=== PATIENT | female | born 1995 | race Hispanic/Latino ===

== ENCOUNTER 2020-05-10 16:19 | Outpatient (RCR) | payer OTHER, SELFPAY ==
[2020-03-21 12:23] LABS: Hematocrit 33.6 % (37.0-47.0); Hemoglobin 11.4 g/dL (12.0-15.0)
[2020-03-21 13:14] LABS: HIV 1/2 Ab P24 Ag Result Negative (Negative)
[2020-03-22 07:46] LABS: Rapid Plasma Reagin Non-Reactive (NonReactive)
[2020-03-23] MEDS: RHO(D) IMMUNE GLOBULIN 300 MCG SYRINGE IM (16:27)
[2020-04-19 08:33] VITALS: BP 131/77; PULSE 90
[2020-05-10 17:05] VITALS: PULSE 88
== END 2020-06-19 23:59 | disposition home or self-care (01) ==
LOC: ANHLAB 16:19
PROVIDERS: PCP Family Medicine; Visit Provider Obstetrics & Gynecology
DX: Z29.13 Encounter for prophylactic Rho(D) immune globulin (principal); O36.0130 Maternal care for anti-D [Rh] antibodies, third trimester, not applicable or unspecified; Z11.4 Encounter for screening for human immunodeficiency virus [HIV]; Z3A.00 Weeks of gestation of pregnancy not specified
CPT/HCPCS: 36415; 59025; 85014; 85018; 85461; 86592; 86703; 90384; 96372; G0432; J2790

== ENCOUNTER 2020-05-28 06:05 | Inpatient (IN) | payer OTHER, SELFPAY ==
[2020-05-28] VITALS (20 sets, daily range): BP systolic 107–145; BP diastolic 52–110; PULSE 53–105; RESP 16; TEMP 35.7–36.6; O2SAT 99; BMI 37.1
[2020-05-28 06:45] LABS: Glucose Point of Care 110 (65-105)
[2020-05-28 06:53] LABS: Basophils Percent Auto 0.2 % (0.2-1.2); Eosinophils Absolute Auto 0.2 K/mm3 (0-0.3); Eosinophils Percent Auto 1.5 % (0-4.4); Hematocrit 32.9 % (37.0-47.0); Hemoglobin 10.9 g/dL (12.0-15.0); Immature Granulocyte Absolute 0.08 K/mm3 (0.00-0.031); Immature Granulocyte Percent A 0.7 % (0-0.5); Lymphocytes Absolute Auto 2.84 K/mm3 (0.9-3.2); Lymphocytes Percent Auto 26.3 % (18.3-44.2); Mean Corpuscular HGB Conc 33.1 g/dl (32-36); Mean Corpuscular Volume 84.6 fl (80-100); Mean Platelet Volume 10.1 fl (7.4-10.4); Monocytes Absolute Auto 0.7 K/mm3 (0.1-0.6); Neutrophils Percent Auto 65.3 % (45.5-73.1); Platelet Count Result 232 k/mm3 (150-375); Red Blood Count 3.89 M/mm3 (4.2-5.4); Red Cell Distribution Width 13.5 % (11.5-14.5); White Blood Count 10.8 K/mm3 (4.5-10.0)
--- NOTE | 2020-05-28 06:53 | WPDANESEPP ---
Anes - Eval Pre Procedure Procedure: labor epidural Date/Time: 05/28/20 06:53 Preop Diagnosis: labor pain Pre Op Diagnosis: IOL Patient Data Age: 24 Gender: F Height: Weight: Last Vital Signs Pulse 92 05/28/20 06:45 BP 116/72 05/28/20 06:45 Allergies Allergy/AdvReac Type Severity Reaction Status Date / Time No Known Allergies Allergy Unverified 09/09/19 09:18 Home Medications Medication Instructions Recorded Confirmed Type aspirin [Aspirin Low Dose] 81 mg PO DAILY 05/09/20 05/09/20 History insulin detemir U-100 [Levemir 34 unit SUBCUT QAM 05/09/20 05/09/20 History Flexpen] insulin detemir U-100 [Levemir 54 unit SUBCUT HS 05/09/20 05/09/20 History Flexpen] insulin lispro 10 unit SUBCUT DAILY 05/09/20 05/09/20 History insulin lispro 22 unit SUBCUT QAM 05/09/20 05/09/20 History insulin lispro 22 unit SUBCUT QPM 05/09/20 05/09/20 History prenat.vits,jovany,oth-jnmk-sluwd 1 tablet PO DAILY 05/09/20 05/09/20 History [ #2] Laboratory Tests 05/28/20 05/28/20 05/28/20 06:24 06:25 06:25 WBC Pending RBC Pending Hgb Pending Hct Pending MCV Pending MCH Pending MCHC Pending RDW Pending Plt Count Pending MPV Pending Immature Gran % (Auto) Pending Neut % (Auto) Pending Lymph % (Auto) Pending [place] % (Auto) Pending Eos % (Auto) Pending Baso % (Auto) Pending Lymph # (Auto) Pending [place] # (Auto) Pending Eos # (Auto) Pending Baso # (Auto) Pending Abs Immat Gran (auto) Pending Absolute Neuts (auto) Pending Absolute Nucleated RBC Pending Nucleated RBC % Pending POC Capillary Glucose 110 mg/dl mg/dl (65-105) RPR Pending Patient hx anesthesia problems: none Family hx anesthesia problems: none PMFSH Family History Family History (Updated 05/09/20 @ 12:46 by Elisabet Sifuentes RN) Mother Family history of coronary artery disease Hypertension Chronic obstructive pulmonary disease Grandparent Diabetes mellitus Family history of coronary artery disease Hypertension Father Pre-diabetes Family history of elevated blood lipids Hypertension Social History Social History (System 09/09/19 @ 09:18 by Shailesh Bowden) Smoking status: Former smoker Second hand tobacco smoke exposure: No Smoking end date: 04/20/12 Alcohol intake: current Substance use: never Spiritual care concerns: No Exam Day of Procedure 05/28/20 06:53
[2020-05-28] MEDS: OXYTOCIN 30 UNITS/NS 500 ML 30 UNITS/500 ML BAG IV CONT (06:58)
[2020-05-28] MEDS: LACTATED RINGERS 1,000 ML 125 ML IV CONT (06:58)
[2020-05-28] MEDS: INSULIN DETEMIR 100 UNITS/ML 34 UNITS SUB-Q (07:13)
--- NOTE | 2020-05-28 07:36 | LDADM ---
This patient, Milly Islas, was admitted to Labor/Delivery/Recovery 103 on 05/28/20 at 06:05. Plans for labor, pain management and were discussed with patient. Patient/family oriented to hospital policies and general routines including ID bracelet, bed and alarms, visiting hours, pain management, procedures, bathroom and other care routines, personal items, smoking policy, room service/diet and guest tray routines, infant security routines, and visiting hours. Patient/Family are encouraged to report perceived risks to care and to ask questions if they do not understand what they are told or what they should do. See OBIX for further documentation.
--- NOTE | 2020-05-28 07:44 | WPDOBADMIT ---
Obstetrics - Admit Note Admission Note: 24 y/o @ 38w2d with Type 2 diabetes here for induction of labor. record reviewed. No pertinent additions to the history and/or any subsequent changes in the physical findings that are not consistent with the expected course of the were found. Additions to the history and/or subsequent changes in the physical findings follow. None.
--- NOTE | 2020-05-28 07:44 | PM.OBPNLAB ---
Pain Control Date/time seen: 05/28/20 07:44 VSS Contractions occasional FHR category 1 Cervix /-2 AROM small amount of clear odorless fluid Anticipate
--- NOTE | 2020-05-28 08:55 | PM.OBPRVD ---
OB - Delivery Note Procedure Delivery date: 05/28/20 events: Gestational Diabetes (Type 2) Intrapartal events: Precipitous Labor < 3 hours Delivery monitor: external FHT and external uterine Route of delivery: Episiotomy description: None Laceration Description: None Quantitative Blood Loss (ml): 72 Anesthesia type: None Baby Date of : 05/28/20 Time of : 08:36 Weeks of gestation at delivery: 38 Infant gender: Male Weight (pounds): 7 Weight (ounces): 15 presentation: vertex position: Right Occiput Anterior Placenta delivery description: Spontaneous score one minute: 9 score five minutes: 9
[2020-05-28 09:00] LABS: Glucose Point of Care 80 (65-105)
[2020-05-28 09:12] LABS: Rapid Plasma Reagin Non-Reactive (NonReactive)
[2020-05-28] MEDS: OXYTOCIN 30 UNITS/NS 500 ML 30 UNITS/500 ML BAG 125 UNITS IV CONT (09:21)
--- NOTE | 2020-05-28 11:14 | PC.NURSE ---
Patient transferred to post room #291 via wheelchair from labor and delivery. Support person present. Oriented to unit, room, information board, rooming in, admission packet and security measures. Patient verbalizes understanding.
--- NOTE | 2020-05-28 11:58 | PC.NURSE ---
Consulted with patient, patient and on the phone with their other child. Encouraged to call out to have next feeding assessed. Given lanolin, Nipple care reviewed. Instructed mother to call out for RN assistance if she is unable to latch for feeding or she has discomfort with nursing. Instructed feeding should be initiated three hours from start of last feeding or if feeding cues are noted before. Mother voiced understanding of information shared.
--- NOTE | 2020-05-28 12:54 | PC.NURSE ---
Consulted with patient, reviewed feeding cues, frequencies, duration of feedings, feeding elimination flow sheet, and signs of adequate intake. Mom independently latched to breast. Reviewed positioning/alignment, holding breast and asymmetrical latch on. was able to latch correctly. Infant nursed eagerly, with steady draws and frequent swallowing noted. Reviewed signs of a correct latch, effective nursing and suck swallow ratio. Infant was able to maintain latch without discomfort to mother. Nipple care reviewed. Instructed mother to call out for RN assistance if she is unable to latch for feeding or she has discomfort with nursing. Instructed feeding should be initiated three hours from start of last feeding or if feeding cues are noted before. Mother voiced understanding of information shared.
[2020-05-28 18:58] LABS: Glucose Point of Care 157 (65-105)
[2020-05-28] MEDS: IBUPROFEN 600 MG TABLET PO (21:40)
[2020-05-28 22:47] LABS: Glucose Point of Care 153 (65-105)
[2020-05-28] MEDS: INSULIN DETEMIR 100 UNITS/ML 58 UNITS SUB-Q (22:53)
[2020-05-29 05:20] LABS: Hematocrit 30.2 % (37.0-47.0)
--- NOTE | 2020-05-29 08:20 | PM.OBPNVD ---
OB - PN: Subj Subjective Date/time seen: 05/29/20 08:20 Patient comments: no complaints baby status: doing well OB - PN: Obj Data Labs CBC & Chem 7: 05/29/20 04:53 Labs: Laboratory Results - last 24 hr 05/28/20 05/28/20 05/28/20 06:25 08:12 18:43 Hgb Hct POC Capillary Glucose 80 157 H RPR Non-reactive 05/28/20 05/29/20 22:43 04:53 Hgb 10.0 L Hct 30.2 L POC Capillary Glucose 153 H RPR OB - PN A/P Plan day: 1 Plan: routine care Comments: Hospitalist consult for glucose management. Time Spent With Patient Time: Total time spent is greater than 50% in coordination of care (as documented) at patient's floor/unit and/or counseling patient: Time with patient: less than 15 minutes Review of Systems Review of Systems: All systems reviewed & are unremarkable except as noted in HPI and below Exam Narrative: Exam Narrative: Fundus firm and vaginal flow controlled. No lower ext redness, warmth, or edema. Negative homans. Const: General: comfortable Chest: Breast/axilla inspection: normal inspection of the breasts Resp: Effort & Inspection: normal respiratory effort Cardio: Rate: regular rate GI: GI Palp: Yes Soft to palpation Psych: Appearance: grossly normal Affect: normal affect Attitude: cooperative Thought content: Yes Normal thought content present Judgement: Good judgement present (Psych)
--- NOTE | 2020-05-29 08:41 | PM.OBPNVD ---
OB - PN: Subj Subjective Date/time seen: 05/29/20 08:41 OB - PN: Obj Data Labs CBC & Chem 7: 05/29/20 04:53 Labs: Laboratory Results - last 24 hr 05/28/20 05/28/20 05/28/20 06:25 08:12 18:43 Hgb Hct POC Capillary Glucose 80 157 H RPR Non-reactive 05/28/20 05/29/20 22:43 04:53 Hgb 10.0 L Hct 30.2 L POC Capillary Glucose 153 H RPR OB - PN A/P Plan Comments: Per MFM recommendation Levemir is now 20 total (10u am and 10u pm). Nurse informed and will change order and follow up with hospitalist for additional recommendations. Time Spent With Patient Time: Total time spent is greater than 50% in coordination of care (as documented) at patient's floor/unit and/or counseling patient:
[2020-05-29 08:43] LABS: Glucose Point of Care 88 (65-105)
[2020-05-29 08:43] LABS: Glucose Point of Care 58 (65-105)
[2020-05-29 09:15] VITALS: BP 115/77; PULSE 73; RESP 18; TEMP 36.6; O2SAT 97
[2020-05-29] MEDS: MULTIVIT/MIN/PREN/FOL AC/IRON TABLET 1 TAB PO (09:31)
[2020-05-29] MEDS: INSULIN DETEMIR 100 UNITS/ML 10 UNITS SUB-Q (09:32)
[2020-05-29 10:31] LABS: Glucose Point of Care 135 (65-105)
[2020-05-29] MEDS: IBUPROFEN 600 MG TABLET PO (12:58)
[2020-05-29 15:24] LABS: Glucose Point of Care 90 (65-105)
--- NOTE | 2020-05-29 16:00 | PC.NURSE ---
Patient instructed on viewing the discharge video Mother & Baby Care, The First Two Weeks . Patient was given the opportunity and encouraged to ask questions. Patient verbalized understanding of information shared and has been given the mother/baby guide for home reference.
--- NOTE | 2020-05-29 17:15 | PM.EVENT ---
Event Note Event Note Event Note: Patient seen and examined Reviewed blood sugars Full consult to follow Assessment and plan Probable gestational diabetes For versus type 2 diabetes mellitus Levemir 10 units b.i.d. Discussed with the patient regarding Accu-Chek Hold Levemir if blood sugar less than 70 and recheck blood sugar in 30 minutes Follow-up with PCP No objection for discharge blood sugar controlled Full note follow
--- NOTE | 2020-05-29 17:17 | P.CONIM_ITS ---
HPI Data of Consult Consult date: 05/29/20 Requesting Physician: Litzy Syed MD Primary Care Provider: Abbi Cardenas, Consult Narrative Narrative: Milly Islas is a 24 year old female [facility] Family History Family History (Updated 05/09/20 @ 12:46 by Elisabet Sifuentes, LORIE) Mother Family history of coronary artery disease Hypertension Chronic obstructive pulmonary disease Grandparent Diabetes mellitus Family history of coronary artery disease Hypertension Father Pre-diabetes Family history of elevated blood lipids Hypertension Social History Social History (System 09/09/19 @ 09:18 by Shailesh Bowden) Smoking status: Former smoker Second hand tobacco smoke exposure: No Smoking end date: 04/20/12 Alcohol intake: current Substance use: never Spiritual care concerns: No Meds Home Medications and Allergies Home Medications Medication Instructions Recorded Confirmed Type aspirin [Aspirin Low Dose] 81 mg PO DAILY 05/09/20 05/09/20 History insulin detemir U-100 [Levemir 34 unit SUBCUT QAM 05/09/20 05/09/20 History Flexpen] insulin detemir U-100 [Levemir 54 unit SUBCUT HS 05/09/20 05/09/20 History Flexpen] insulin lispro 10 unit SUBCUT DAILY 05/09/20 05/09/20 History insulin lispro 22 unit SUBCUT QAM 05/09/20 05/09/20 History insulin lispro 22 unit SUBCUT QPM 05/09/20 05/09/20 History prenat.vits,jovany,fon-lupw-fekns 1 tablet PO DAILY 05/09/20 05/09/20 History [ #2] Allergies Allergy/AdvReac Type Severity Reaction Status Date / Time No Known Allergies Allergy Unverified 09/09/19 09:18 Vital Signs Vital Signs - 24 hr 05/28/20 18:45 05/29/20 09:15 Temperature 97.8 F 97.8 F Pulse Rate 71 73 Respiratory Rate 16 18 Blood Pressure 120/68 115/77 Pulse Oximetry 99 97 Results Labs CBC & Chem 7: 05/29/20 04:53 Labs: Short CBC 05/29/20 Range/Units 04:53 Hgb 10.0 L (12.0-15.0) g/dL Hct 30.2 L (37.0-47.0) %
[2020-05-30 09:42] VITALS: BP 123/81; PULSE 75; RESP 20; TEMP 36.6; O2SAT 100
--- NOTE | 2020-06-14 08:07 | PM.OBDSVD ---
DS: Admitting Diagnosis Admitting Diagnosis Admitting Diagnosis: Induction of labo DS: Discharge Diagnosis Discharge Diagnosis (1) Vaginal delivery: Code(s): O80 - Encounter for full-term uncomplicated delivery Status: Acute OB - DS: Summary OB Procedures : None OB Procedures Intrapartum: Spontaneous Vag Delivery OB Procedures: : None Time Spent with Patient Time attestation: Total time spent providing and/or coordinating discharge services: DS: Data Data Completed and Pending Completed studies during hospitalization: Pending at discharge 05/28/20 09:13 Surgical [PTH] Routine Discharge Plan Discharge Consulting providers: Janis Ramon M.A. ; Dianne Spann Discharging Clinician: Dianne Spann Patient Disposition: Home, Self-Care Activity: pelvic rest Diet: diabetic Discharge Instructions: Education: Mom and Baby Guide and Preeclampsia Handout Given to: Mother Diabetes Education Per Dr. Guajardo: Levemir 10 units twice a day (morning and bedtime) Continue to check blood sugars Hold Levemir if blood sugar less than 70 and recheck blood sugar in 30 minutes Follow-up with Primary Care Provider Follow-Up: Call your delivering provider's office for an appointment to be seen in: 4 Weeks Mom and baby should come to the [facility] for the follow-up appointment. Appointment Date/Time: May 30, 2020 at 9:00 am What to expect at your follow-up visit: Physical Assessment Call [phone] if you are unable to keep your appointment time. BREAST CARE: * Wear a snug supportive bra. * For engorgement discomfort: Breast Feeding: * Apply warm moist washcloths * Express milk as needed to relieve engorgement * Wear loose clothing * For sore nipples: * Identify correct latch-on * Apply warm moist washcloths before and after nursing * Air dry nipples after nursing * May apply Lansinoh cream to nipples EPISIOTOMY/PERINEAL CARE: * Until bleeding stops, use your darlene bottle after urinating * Change your pad frequently throughout the day * You may take sitz baths several times a day (fill your bathtub with warm water and soak for 20 minutes.) Do NOT bathe in the water * No tub baths until seen by your physician - You may shower ACTIVITY: * Rest as much as possible. * Do not exercise or lift anything heavier than your baby (such as laundry or other children.) * Avoid stairs or driving as much as possible. * Do not put anything into the vagina. No douching, tampons, or sexual activity until seen by physician. NOTIFY PHYSICIAN IF YOU HAVE ANY QUESTIONS OR IF ANY OF THE FOLLOWING SYMPTOMS OCCUR: * If your episiotomy or incision becomes red, swollen, or more painful than what you have experienced in the hospital. * If your vaginal bleeding becomes foul smelling. * If your vaginal bleeding becomes more heavy than a period or if your bleeding changes from pink to bright red. However, you may pass an occasional walnut-sized clot once or twice for the first week . * If you experience a sharp, shooting pain in you calves. * If you discover a hard, reddened area on your breast or if you experience flu-like symptoms. DIET: * Eat regular, well-balanced meals. * Drink plenty of fluids daily. If , drink to thirst. Stand Alone Forms: General Discharge Information Follow-up/Referrals: Dianne Spann CNM [Certified Nurse Apparel Fashion Designer] - 4 Weeks Discharge Medications: New Levemir U-100 Insulin 100 unit/mL Solution 10 units subcut QAM RF: 0 Levemir U-100 Insulin 100 unit/mL Solution 10 units subcut HS RF: 0 Continued prenat.vits,jovany,[id number]-hhrsj Tablet 1 tablet PO DAILY RF: 0 Discontinued aspirin [Aspirin Low Dose] 81 mg Tablet,Delayed Release (Dr/Ec) 81 mg PO DAILY RF: 0 insulin lispro 100 unit/mL Insulin Pe
== END 2020-05-29 19:06 | disposition home or self-care (01) | DRG 560 ==
LOC: ANHLDR 06:09 → ANHOB2 11:17
PROVIDERS: Advanced Practice Midwife; Admitting Provider Obstetrics & Gynecology; PCP Family Medicine; Visit Provider Obstetrics & Gynecology
DX: O62.3 Precipitate labor (principal); Z37.0 Single live birth; Z3A.38 38 weeks gestation of pregnancy; O24.429 Gestational diabetes mellitus in childbirth, unspecified control
CPT/HCPCS: 36415; 82948; 85014; 85018; 85025; 86592; 86850; 86900; 86901; 88307; A9270; J1815; J2590; J7120

== ENCOUNTER 2022-01-07 09:05 | Outpatient (CLI) | payer OTHER, MEDICAID, SELFPAY ==
--- NOTE | ~2022-01-07 | US_ITS ---
US abdomen complete EXAMINATION: US Abdomen Complete INDICATION: Limited liver enzymes. PROCEDURE: Realtime High Resolution abdomen ultrasound. COMPARISON: No prior studies for comparison FINDINGS: Gallbladder within normal limits. No gallstones, pericholecystic fluid, gallbladder wall t hickening or biliary dilatation. Common bile duct measures 5 mm. Liver echotexture is increased, consistent with fatty infiltration with focal fatty sparing near the gallbladder fossa.. Pancreas within normal limits. Pancreatic tail is obscured by bowel gas. Splee n is enlarged measuring 13.7 cm. Renal echotexture is within normal limits bilaterally without hydron ephrosis, contour deforming mass or renal stone. Right kidney measures 11 cm. Left kidney measures 12 .6 cm. Visualized aspects of the aorta and IVC are within normal limits. Portal vein is patent. No sonograph ic Nova's sign indicated by the technologist. IMPRESSION: 1: Splenomegaly. 2: Hepatic steatosis. Reviewed, dictated and finalized at location A.
== END 2022-01-07 09:06 | disposition home or self-care (01) ==
PROVIDERS: PCP Family Medicine; Visit Provider Obstetrics & Gynecology
DX: R74.8 Abnormal levels of other serum enzymes (principal); K76.0 Fatty (change of) liver, not elsewhere classified
CPT/HCPCS: 76700

== ENCOUNTER 2022-05-16 08:11 | Outpatient (RCR) | payer OTHER, MEDICAID, SELFPAY ==
[2022-05-13 10:50] LABS: Hematocrit 32.6 % (37.0-47.0); Hemoglobin 10.6 g/dL (12.0-15.0)
[2022-05-13 11:34] LABS: HIV 1/2 Ab P24 Ag Result Negative (Negative)
[2022-05-16] MEDS: RHO(D) IMMUNE GLOBULIN 300 MCG/2 ML SYRINGE IM (08:49)
== END 2022-05-16 09:00 | disposition home or self-care (01) ==
LOC: ANHLAB 08:11
PROVIDERS: PCP Family Medicine; Visit Provider Advanced Practice Midwife
DX: Z11.4 Encounter for screening for human immunodeficiency virus [HIV] (principal); Z29.13 Encounter for prophylactic Rho(D) immune globulin; O36.0130 Maternal care for anti-D [Rh] antibodies, third trimester, not applicable or unspecified; Z3A.00 Weeks of gestation of pregnancy not specified
CPT/HCPCS: 36415; 85014; 85018; 85461; 86703; 86850; 86900; 86901; 90384; 96372; G0432; J2790

== ENCOUNTER 2022-06-17 11:41 | Outpatient (CLI) | payer OTHER, MEDICAID, SELFPAY ==
--- NOTE | ~2022-06-17 | US_ITS ---
EXAMINATION: US OB limited w BPP DATE: 06/17/2022 13:19 BACK END ENGINEER INDICATION: Biophysical profile and evaluation of amniotic fluid index TECHNIQUE: Real-time transabdominal obstetric ultrasound. FINDINGS: No prior studies for comparison. There is a single living fetus in vertex presentation. The placenta is fundal without placenta previ a. ALIREZA is normal measuring 9.7 cm (normal range for gestational age is 8.1-24.8 cm). cardiac activity and movement is noted with a heart rate of 139 beats per minute. Biophysical profile: breathin of 2 movement: 2 of 2 tone: 2 of 2 Amniotic flud pocket: 2 of 2 Total score: 8 of 8 IMPRESSION: 1. Single living intrauterine in vertex presentation. 2: Total biophysical profile score of 8/8. Reviewed, dictated and finalized at location L. END ENGINEER
[2022-06-17 12:01] VITALS: BP 130/81; PULSE 83; RESP 18; TEMP 36.4
[2022-06-17 12:15] VITALS: BP 124/79; PULSE 85
[2022-06-17 12:19] LABS: Glucose Point of Care 156 mg/dl (65-105)
[2022-06-17 12:23] LABS: Basophils Percent Auto 0.3 % (0.2-1.2); Eosinophils Absolute Auto 0.1 K/mm3 (0-0.3); Hematocrit 31.8 % (37.0-47.0); Hemoglobin 10.6 g/dL (12.0-15.0); Immature Granulocyte Absolute 0.05 K/mm3 (0.00-0.031); Immature Granulocyte Percent A 0.6 % (0-0.5); Lymphocytes Absolute Auto 1.91 K/mm3 (0.9-3.2); Lymphocytes Percent Auto 24.3 % (18.3-44.2); Mean Corpuscular HGB Conc 33.3 g/dl (32-36); Mean Corpuscular Hemoglobin 27.7 pg (26-34); Mean Corpuscular Volume 83.2 fl (80-100); Mean Platelet Volume 9.8 fl (7.4-10.4); Monocytes Absolute Auto 0.4 K/mm3 (0.1-0.6); Monocytes Percent Auto 4.7 % (2.6-8.5); Neutrophils Absolute Auto 5.4 K/mm3 (1.3-6.7); Neutrophils Percent Auto 69.1 % (45.5-73.1); Platelet Count Result 195 k/mm3 (150-375); Red Blood Count 3.82 M/mm3 (4.2-5.4); Red Cell Distribution Width 14.5 % (11.5-14.5); White Blood Count 7.9 K/mm3 (4.5-10.0)
[2022-06-17 12:26] LABS: Appearance Urine Clear (Clear); Bilirubin Urine Negative (Negative); Blood Urine Trace-intact (Negative); Color Urine Yellow (Yellow); Glucose Urine UA Negative (Negative); Ketones Urine Negative (Negative); Leukocyte Esterase Ur 1+ LEU/UL (NEGATIVE); Nitrate Urine Negative (Negative); Protein Urine Negative (Negative); Urobilinogen Urine 0.2 mg/dL (<2.0)
[2022-06-17 12:30] VITALS: BP 125/78; PULSE 87
[2022-06-17 12:31] LABS: Bacteria Urine Trace /hpf; Squamous Epithelial Cell Urine Many /hpf (Few); WBC Urine 16-20 /hpf (0-3)
[2022-06-17 12:35] LABS: Alanine Aminotransferase 12 U/L (6-35); Albumin Level 3.4 g/dL (3.5-5.1); Alkaline Phosphatase 159 U/L (38-126); Anion Gap 6 mmol/L (8-16); Aspartate Amino Transferase 19 U/L (14-36); Bilirubin,Total 0.4 mg/dL (0.2-1.3); Blood Urea Nitrogen 6 mg/dL (7-17); Calcium 8.2 mg/dL (8.4-10.2); Carbon Dioxide 21 mmol/L (22-30); Chloride 105 mmol/L (98-107); Estimated Glomerular Filt Rate > 60; Glucose 137 mg/dL (65-110); Potassium 3.6 mmol/L (3.4-5.0); Sodium 132 mmol/L (137-145); Uric Acid 3.8 mg/dL (2.5-7.5)
[2022-06-17 12:40] LABS: Glucose Point of Care 145 mg/dl (65-105)
[2022-06-17 12:42] LABS: Add Urine Microscopic? YES
[2022-06-17 12:45] VITALS: BP 126/74; PULSE 71
[2022-06-17 12:45] LABS: Creatinine Urine 24.3 mg/dL; Total Protein Urine Random 14 mg/dL; Ur Ttl Prot Creatinine Ratio 0.58 mg/mg (0-0.20)
[2022-06-17 14:31] VITALS: BMI 35.4
[2022-06-17] MEDS: INSULIN ASPART (*BKC) 100 UNITS/ML 10 UNITS SUB-Q (15:13)
[2022-06-17 15:22] VITALS: RESP 20; TEMP 36.4
[2022-06-17 15:24] VITALS: BP 109/72; PULSE 82
[2022-06-17 15:39] LABS: Glucose Point of Care 83 mg/dl (65-105)
== END 2022-06-17 15:45 | disposition home or self-care (01) ==
LOC: ANHOBOP 11:45 → ANHOBPP 11:46
PROVIDERS: Obstetrics & Gynecology Gynecology; PCP Family Medicine; Visit Provider Obstetrics & Gynecology
DX: O13.9 Gestational [pregnancy-induced] hypertension without significant proteinuria, unspecified trimester (principal)
CPT/HCPCS: 36415; 76815; 76819; 80053; 81001; 82570; 82948; 84156; 84550; 85025; 87086; 87088; 99199; J1815

== ENCOUNTER 2022-06-20 08:31 | Outpatient (NON) | payer OTHER, SELFPAY ==
[2022-06-20 09:09] LABS: Collection Time Urine 24 HOURS
[2022-06-20 11:03] LABS: Total Protein Urine Random 9 mg/dL
[2022-06-20 11:04] LABS: Creatinine Urine 105.8 mg/dL
[2022-06-20 12:54] LABS: Total Volume 24 Hour Urine 1200 ml
[2022-06-20 12:55] LABS: Total Protein Urine 24 Hr 108 mg/24hr (28-141); Total Volume 24 Hour Urine 1200 ml
[2022-06-20 13:00] LABS: Creatinine Clearance Urine 285.1 ml/min (75-125); Patient Weight 181 Lbs
== END 2022-06-20 08:32 | disposition home or self-care (01) ==
LOC: ANHOBOP 08:38
PROVIDERS: PCP Family Medicine; Visit Provider Obstetrics & Gynecology
DX: O13.9 Gestational [pregnancy-induced] hypertension without significant proteinuria, unspecified trimester (principal)
CPT/HCPCS: 81050; 82575; 84156

== ENCOUNTER 2022-06-24 11:00 | Outpatient (CLI) | payer OTHER, SELFPAY ==
[2022-06-24] MEDS: ACETAMINOPHEN 500 MG TABLET 1000 MG PO (11:37)
[2022-06-24 11:45] VITALS: BP 113/68; PULSE 83
[2022-06-24 11:53] LABS: Basophils Percent Auto 0.2 % (0.2-1.2); Eosinophils Absolute Auto 0.1 K/mm3 (0-0.3); Eosinophils Percent Auto 1.2 % (0-4.4); Hematocrit 34.9 % (37.0-47.0); Hemoglobin 11.2 g/dL (12.0-15.0); Immature Granulocyte Absolute 0.07 K/mm3 (0.00-0.031); Immature Granulocyte Percent A 0.8 % (0-0.5); Lymphocytes Absolute Auto 2.11 K/mm3 (0.9-3.2); Mean Corpuscular HGB Conc 32.1 g/dl (32-36); Mean Corpuscular Hemoglobin 26.9 pg (26-34); Mean Corpuscular Volume 83.7 fl (80-100); Monocytes Absolute Auto 0.5 K/mm3 (0.1-0.6); Monocytes Percent Auto 5.3 % (2.6-8.5); Neutrophils Percent Auto 68.5 % (45.5-73.1); Platelet Count Result 190 k/mm3 (150-375); Red Blood Count 4.17 M/mm3 (4.2-5.4); Red Cell Distribution Width 14.7 % (11.5-14.5); White Blood Count 8.8 K/mm3 (4.5-10.0)
[2022-06-24 11:59] VITALS: BP 113/68; PULSE 68
[2022-06-24 12:00] VITALS: BP 119/70; PULSE 83
[2022-06-24 12:01] LABS: Appearance Urine Clear (Clear); Bacteria Urine 1+ /hpf; Bilirubin Urine Negative (Negative); Blood Urine Negative (Negative); Color Urine Yellow (Yellow); Glucose Urine UA Negative (Negative); Ketones Urine Negative (Negative); Leukocyte Esterase Ur 3+ LEU/UL (NEGATIVE); Nitrate Urine Negative (Negative); Non Pathogenic Casts 0-2; Protein Urine Negative (Negative); RBC Urine 0-2 /hpf (0-2); Specific Grav Ur 1.006 (1.001-1.035); Squamous Epithelial Cell Urine Occasional /hpf (Few); Urobilinogen Urine 0.2 mg/dL (<2.0); WBC Urine 21-50 /hpf (0-3); pH Urine 7.5 (5.0-9.0)
[2022-06-24 12:04] LABS: Add Urine Microscopic? YES; Alanine Aminotransferase 11 U/L (6-35); Albumin Level 3.6 g/dL (3.5-5.1); Alkaline Phosphatase 166 U/L (38-126); Anion Gap 7 mmol/L (8-16); Aspartate Amino Transferase 20 U/L (14-36); Bilirubin,Total 0.4 mg/dL (0.2-1.3); Blood Urea Nitrogen 7 mg/dL (7-17); Calcium 8.5 mg/dL (8.4-10.2); Carbon Dioxide 21 mmol/L (22-30); Chloride 107 mmol/L (98-107); Estimated Glomerular Filt Rate > 60; Glucose 112 mg/dL (65-110); Potassium 4.1 mmol/L (3.4-5.0); Sodium 135 mmol/L (137-145); Uric Acid 3.7 mg/dL (2.5-7.5)
[2022-06-24 12:06] LABS: Creatinine Urine 25.4 mg/dL; Total Protein Urine Random 12 mg/dL; Ur Ttl Prot Creatinine Ratio 0.47 mg/mg (0-0.20)
[2022-06-24 12:15] VITALS: BP 113/75; PULSE 77
[2022-06-24 12:30] VITALS: BP 122/77; PULSE 76
--- NOTE | 2022-06-24 12:45 | PC.NURSE ---
Fernando Ho CNM notified of patient's vital signs, NST, and lab results. Okay to discharge with 24 hour urine and a follow up visit at the office this week. Discharge education given. Patient verbalizes understanding.
== END 2022-06-24 12:50 | disposition home or self-care (01) ==
LOC: ANHOBOP 11:04 → ANHOBPP 11:06
PROVIDERS: PCP Family Medicine; Visit Provider Advanced Practice Midwife
DX: O13.9 Gestational [pregnancy-induced] hypertension without significant proteinuria, unspecified trimester (principal)
CPT/HCPCS: 36415; 59025; 80053; 81001; 82570; 84156; 84550; 85025; 87086; 87088; 99199; A9270

== ENCOUNTER 2022-06-25 15:59 | Outpatient (CLI) | payer OTHER, SELFPAY ==
[2022-06-25 15:59] VITALS: BMI 35.7
[2022-06-25 16:50] LABS: Collection Time Urine 24 HOURS; Total Volume 24 Hour Urine 1650 ml
[2022-06-25 17:00] LABS: Total Protein Urine 24 Hr 99 mg/24hr (28-141); Total Protein Urine Random 6 mg/dL
[2022-06-25 17:01] LABS: Creatinine Clearance Urine 292.8 ml/min (75-125); Creatinine Urine 79.2 mg/dL; Patient Weight 182 Lbs
== END 2022-06-25 16:00 | disposition home or self-care (01) ==
LOC: ANHOBOP 16:08
PROVIDERS: PCP Family Medicine; Visit Provider Advanced Practice Midwife
DX: Z34.90 Encounter for supervision of normal pregnancy, unspecified, unspecified trimester (principal); Z3A.00 Weeks of gestation of pregnancy not specified
CPT/HCPCS: 81050; 82575; 84156

== ENCOUNTER 2022-07-01 17:10 | Observation (INO) | payer OTHER, SELFPAY ==
[2022-07-01 17:28] LABS: Glucose Point of Care 94 mg/dl (65-105)
[2022-07-01 17:40] VITALS: BP 141/94; PULSE 87
[2022-07-01 17:46] VITALS: BP 119/79; PULSE 79
[2022-07-01 18:01] VITALS: BP 121/74; PULSE 81
[2022-07-01 18:16] VITALS: BP 126/71; PULSE 80
[2022-07-01 18:21] VITALS: BMI 35.8
--- NOTE | 2022-07-01 18:21 | OBADM ---
This patient, Milly Islas, admitted to the OB room OB Post 116 for observation. Patient/family oriented to hospital policies and general routines including ID bracelet, bed and alarms, visiting hours, pain management, procedures, bathroom and other care routines, personal items, smoking policy, room service/diet, and visiting hours. Patient/Family are encouraged to report perceived risks to care and to ask questions if they do not understand what they are told or what they should do.
[2022-07-01] MEDS: ONDANSETRON INJ 4 MG/2 ML VIAL IV PUSH (18:35)
[2022-07-01] MEDS: LACTATED RINGERS 1,000 ML 999 ML IV CONT (18:35)
[2022-07-01 18:47] LABS: Alanine Aminotransferase 13 U/L (6-35); Albumin Level 3.6 g/dL (3.5-5.1); Alkaline Phosphatase 190 U/L (38-126); Anion Gap 7 mmol/L (8-16); Aspartate Amino Transferase 29 U/L (14-36); Bilirubin,Total 0.6 mg/dL (0.2-1.3); Blood Urea Nitrogen 7 mg/dL (7-17); Calcium 8.1 mg/dL (8.4-10.2); Carbon Dioxide 19 mmol/L (22-30); Chloride 107 mmol/L (98-107); Estimated CRCL calculation 205 ml/min; Estimated Glomerular Filt Rate > 60; Glucose 101 mg/dL (65-110); Potassium 3.6 mmol/L (3.4-5.0); Sodium 133 mmol/L (137-145)
--- NOTE | 2022-07-02 11:57 | PM.OBTRLD ---
OB - Triage/Final Diagnosis Visit Information Comments/Additional reasons for admission: I have assessed the risk for this patient, Milly Islas, and determined that she would benefit from observation care. Evaluation Laboratory results: Laboratory Tests 07/01/22 07/01/22 17:22 18:20 Sodium 133 L Potassium 3.6 Chloride 107 Carbon Dioxide 19 L Anion Gap 7 L BUN 7 Creatinine 0.30 L Estim Creat Clear Calc 205 Estimated GFR > 60 Glucose 101 POC Capillary Glucose 94 Calcium 8.1 L Total Bilirubin 0.6 AST 29 ALT 13 Alkaline Phosphatase 190 H Total Protein 7.0 Albumin 3.6 Vital signs: Vital Signs - 24 hr 07/01/22 17:40 07/01/22 17:46 07/01/22 18:01 Pulse Rate 87 79 81 Blood Pressure 141/94 H 119/79 121/74 07/01/22 18:16 Pulse Rate 80 Blood Pressure 126/71 Final Diagnosis (1) Hypoglycemia associated with diabetes: Code(s): E11.649 - Type 2 diabetes mellitus with hypoglycemia without coma Status: Acute
== END 2022-07-01 19:54 | disposition home or self-care (01) ==
PROVIDERS: Admitting Provider Obstetrics & Gynecology; PCP Family Medicine; Visit Provider Obstetrics & Gynecology
DX: O24.913 Unspecified diabetes mellitus in pregnancy, third trimester (principal); E11.649 Type 2 diabetes mellitus with hypoglycemia without coma; Z3A.36 36 weeks gestation of pregnancy
CPT/HCPCS: 36415; 80053; 82948; 96374; G0378; G0379; J2405; J7120

== ENCOUNTER 2022-07-08 15:14 | Inpatient (IN) | payer OTHER, SELFPAY ==
[2022-07-08] VITALS (27 sets, daily range): BP systolic 96–148; BP diastolic 47–111; PULSE 57–90; RESP 15–18; TEMP 36.1–36.5; O2SAT 100; BMI 37.0
[2022-07-08 16:17] LABS: Basophils Percent Auto 0.1 % (0.2-1.2); Eosinophils Absolute Auto 0.1 K/mm3 (0-0.3); Hematocrit 33.1 % (37.0-47.0); Immature Granulocyte Absolute 0.04 K/mm3 (0.00-0.031); Immature Granulocyte Percent A 0.5 % (0-0.5); Lymphocytes Absolute Auto 2.17 K/mm3 (0.9-3.2); Lymphocytes Percent Auto 26.5 % (18.3-44.2); Mean Corpuscular HGB Conc 33.2 g/dl (32-36); Mean Corpuscular Hemoglobin 27.2 pg (26-34); Mean Corpuscular Volume 81.9 fl (80-100); Mean Platelet Volume 9.9 fl (7.4-10.4); Monocytes Absolute Auto 0.4 K/mm3 (0.1-0.6); Monocytes Percent Auto 4.5 % (2.6-8.5); Neutrophils Absolute Auto 5.5 K/mm3 (1.3-6.7); Neutrophils Percent Auto 67.4 % (45.5-73.1); Platelet Count Result 192 k/mm3 (150-375); Red Blood Count 4.04 M/mm3 (4.2-5.4); Red Cell Distribution Width 14.6 % (11.5-14.5); White Blood Count 8.2 K/mm3 (4.5-10.0)
[2022-07-08 16:28] LABS: Alanine Aminotransferase 13 U/L (6-35); Albumin Level 3.4 g/dL (3.5-5.1); Alkaline Phosphatase 189 U/L (38-126); Anion Gap 6 mmol/L (8-16); Aspartate Amino Transferase 22 U/L (14-36); Bilirubin,Total 0.5 mg/dL (0.2-1.3); Blood Urea Nitrogen 6 mg/dL (7-17); Calcium 8.2 mg/dL (8.4-10.2); Carbon Dioxide 24 mmol/L (22-30); Chloride 106 mmol/L (98-107); Estimated CRCL calculation 164 ml/min; Estimated Glomerular Filt Rate > 60; Glucose 154 mg/dL (65-110); Potassium 3.6 mmol/L (3.4-5.0); Sodium 136 mmol/L (137-145); Uric Acid 4.1 mg/dL (2.5-7.5)
[2022-07-08] MEDS: LACTATED RINGERS 1,000 ML 125 ML IV CONT (16:46)
[2022-07-08] MEDS: OXYTOCIN 30 UNITS/NS 500 ML 30 UNITS/500 ML BAG IV CONT (16:47)
--- NOTE | 2022-07-08 16:49 | WPDANESEPP ---
Anes - Eval Pre Procedure Procedure: Labor epidural Date/Time: 07/08/22 16:49 Pre Op Diagnosis: Induction of Labor Patient Data Age: 27 Gender: F Height: 1.52 m Weight: 86 kg Last Vital Signs Pulse 80 07/08/22 16:46 BP 123/80 07/08/22 16:46 O2 Del Method Room Air 07/08/22 15:53 Allergies Allergy/AdvReac Type Severity Reaction Status Date / Time No Known Allergies Allergy Unverified 09/09/19 09:18 Home Medications Medication Instructions Recorded Confirmed Type prenat.vits,jovany,pip-[id number]-drnzb 1 tablet PO HS 05/09/20 06/17/22 History aspirin 81 mg tablet 162 mg PO HS 06/17/22 06/17/22 History ferrous sulfate 325 mg (65 mg 325 mg PO HS 06/17/22 06/17/22 History iron) tablet (FeroSul) insulin glargine 100 unit/mL (3 30 unit subcut QA 06/17/22 06/17/22 History mL) subcutaneous pen (Lantus Solostar U-100 Insulin) insulin glargine 100 unit/mL (3 84 unit subcut HS 06/17/22 06/17/22 History mL) subcutaneous pen (Lantus Solostar U-100 Insulin) insulin lispro 100 unit/mL 10 unit subcut QACBREAK 06/17/22 06/17/22 History subcutaneous pen insulin lispro 100 unit/mL 14 unit subcut QACLUNCH 06/17/22 06/17/22 History subcutaneous pen insulin lispro 100 unit/mL 16 unit subcut QACDINNER 06/17/22 06/17/22 History subcutaneous pen metformin 500 mg tablet,extended 500 mg PO BID 06/17/22 06/17/22 History release 24 hr ondansetron 4 mg disintegrating 4 mg PO Q6H PRN Nausea #10 tabs 07/01/22 Rx tablet Laboratory Tests 07/08/22 07/08/22 07/08/22 15:51 15:51 15:51 WBC 8.2 K/mm3 K/mm3 (4.5-10.0) RBC 4.04 M/mm3 L M/mm3 (4.2-5.4) Hgb 11.0 g/dL L g/dL (12.0-15.0) Hct 33.1 % L % (37.0-47.0) MCV 81.9 fl fl (80-100) MCH 27.2 pg pg (26-34) MCHC 33.2 g/dl g/dl (32-36) RDW 14.6 % H % (11.5-14.5) Plt Count 192 k/mm3 k/mm3 (150-375) MPV 9.9 fl fl (7.4-10.4) Immature Gran % (Auto) 0.5 % % (0-0.5) Neut % (Auto) 67.4 % % (45.5-73.1) Lymph % (Auto) 26.5 % % (18.3-44.2) [place] % (Auto) 4.5 % % (2.6-8.5) Eos % (Auto) 1.0 % % (0-4.4) Baso % (Auto) 0.1 % L % (0.2-1.2) Lymph # (Auto) 2.17 K/mm3 K/mm3 (0.9-3.2) [place] # (Auto) 0.4 K/mm3 K/mm3 (0.1-0.6) Eos # (Auto) 0.1 K/mm3 K/mm3 (0-0.3) Baso # (Auto) 0.0 K/mm3 K/mm3 (0.0-0.1) Abs Immat Gran (auto) 0.04 K/mm3 H K/mm3 (0.00-0.031) Absolute Neuts (auto) 5.5 K/mm3 K/mm3 (1.3-6.7) Absolute Nucleated RBC 0.0 K/mm3 K/mm3 (0.0-0.012) Nucleated RBC % 0.0 % % (0.0-0.2) Sodium Potassium Chloride Carbon Dioxide Anion Gap BUN Creatinine Estim Creat Clear Calc Estimated GFR Glucose Uric Acid Calcium Total Bilirubin AST ALT Alkaline Phosphatase Total Protein Albumin RPR Pending Blood Type O Negative Antibody Screen Pending 07/08/22 15:51 WBC RBC Hgb Hct MCV MCH MCHC RDW Plt Count MPV Immature Gran % (Auto) Neut % (Auto) Lymph % (Auto) [place] % (Auto) Eos % (Auto) Baso % (Auto) Lymph # (Auto) [place] # (Auto) Eos # (Auto) Baso # (Auto) Abs Immat Gran (auto) Absolute Neuts (auto) Absolute Nucleated RBC Nucleated RBC % Sodium 136 mmol/L L mmol/L (137-145) Potassium 3.6 mmol/L mmol/L (3.4-5.0) Chloride 106 mmol/L mmol/L (98-107) Carbon Dioxide 24 mmol/L mmol/L (22-30) Anion Gap 6 mmol/L L mmol/L (8-16) BUN 6 mg/dL L mg/dL (7-17) Cre
--- NOTE | 2022-07-08 18:28 | PM.IMHP ---
H&P: HPI History of Present Illness Date/Time: 07/08/22 18:28 Chief Complaint: Induction of labor Review of Systems Review of Systems: All systems reviewed & are unremarkable except as noted in HPI and below Constitutional: Constitutional: Reports as per HPI and Reports no additional constitutional complaints Eyes: Eyes: Reports as per HPI ENT: Reports system reviewed and no additional complaints, except as documented Cardiovascular: Cardiovascular: Reports as per HPI Respiratory: Respiratory: Reports as per HPI Gastrointestinal: Gastrointestinal: Reports as per HPI Genitourinary: Genitourinary: Reports no additional female genitourinary complaints Musculoskeletal: Musculoskeletal: Reports no additional musculoskeletal complaints Integumentary/Breasts: Skin/Breast: Reports system reviewed and no additional complaints, except as docu Neurologic: Reports system reviewed and no additional complaints, except as documented Psychiatric: Psychiatric: Reports no additional psychiatric complaints Endocrine: Endocrine: Reports no additional endocrine complaints Hematologic/Lymphatic: Hematologic/Lymphatic: Reports no additional hematologic/lymphatic complaints Allergic/Immunologic: Allergic/Immunologic: Reports no additional allergic/immunologic complaints [facility] Family History Family History Mother Family history of coronary artery disease Hypertension Chronic obstructive pulmonary disease Grandparent Diabetes mellitus Family history of coronary artery disease Hypertension Father Pre-diabetes Family history of elevated blood lipids Hypertension Social History Social History Years smoked: 5 Smoking status: Former smoker Tobacco type: cigarettes Second hand tobacco smoke exposure: No Smoking end date: 04/20/12 Alcohol intake: current Substance use: never Lack of Transportation: No Lack of Food: Never True Current Housing: I Have Housing Concerned About Future Housing: No Difficulty Paying Gas/Electric Bills: No Difficulty Paying for Meds: No Currently Unemployed: No Education: Bachelor's Degree Difficulty w/ Childcare or Family Care: No Spiritual care concerns: No Meds Home Medications and Allergies Home Medications Medication Instructions Recorded Confirmed Type prenat.vits,jovany,[id number] 1 tablet PO HS 05/09/20 07/08/22 History aspirin 81 mg tablet 162 mg PO HS 06/17/22 07/08/22 History ferrous sulfate 325 mg (65 mg 325 mg PO HS 06/17/22 07/08/22 History iron) tablet (FeroSul) insulin glargine 100 unit/mL (3 15 unit subcut QAM 06/17/22 07/08/22 History mL) subcutaneous pen (Lantus Solostar U-100 Insulin) insulin glargine 100 unit/mL (3 42 unit subcut HS 06/17/22 07/08/22 History mL) subcutaneous pen (Lantus Solostar U-100 Insulin) insulin lispro 100 unit/mL 10 unit subcut QACBREAK 06/17/22 07/08/22 History subcutaneous pen insulin lispro 100 unit/mL 14 unit subcut QACLUNCH 06/17/22 07/08/22 History subcutaneous pen insulin lispro 100 unit/mL 16 unit subcut QACDINNER 06/17/22 07/08/22 History subcutaneous pen metformin 500 mg tablet,extended 500 mg PO BID 06/17/22 07/08/22 History release 24 hr ondansetron 4 mg disintegrating 4 mg PO Q6H PRN Nausea #10 tabs 07/01/22 07/08/22 Rx tablet Allergies Allergy/AdvReac Type Severity Reaction Status Date / Time No Known Allergies Allergy Unverified 09/09/19 09:18 Vital Signs Vital Signs - 24 hr 07/08/22 15:53 07/08/22 16:01 07/08/22 16:16 Temperature Pulse Rate 78 83 Blood Pressure 148/84 H 135/82 Oxygen Delivery Room Air 07/08/22 16:31 07/08/22 16:46 07/08/22 17:01 Temperature Pulse Rate 85 80 Blood Pressure 140/80 123/80 134/111 H Oxygen Delivery 07/08/22 17:00 07/08/22 17:16 07/08/22 17:31 Tempera
--- NOTE | 2022-07-08 18:31 | WPDOBADMIT ---
Obstetrics - Admit Note Admission Note: @ 37 weeks here for induction of labor for GHTN. is also complicated by type 2 diabetes with insulin managed by MFM. VSS Blood sugar normal Contractions irregular FHR category 1 Cervix 5/8/-2 AROM moderate amount of clear odorless fluid Plan: pitocin induction, insulin drip per protocol.Co-manage with Dr Torres. Anticipate record reviewed. No pertinent additions to the history and/or any subsequent changes in the physical findings that are not consistent with the expected course of the were found. Additions to the history and/or subsequent changes in the physical findings follow. None.
--- NOTE | 2022-07-08 19:28 | PM.OBPRVD ---
OB - Delivery Note Procedure Delivery date: 07/08/22 Procedure: Events: Diabetes Mellitus and Gestational Hypertension Induction method: AROM and Per Pitocin Protocol Delivery monitor: External FHT and External Uterine Route of delivery: Episiotomy description: None Laceration Description: None Quantitative Blood Loss (ml): 78 Anesthesia type: None Baby Date of : 07/08/22 Time of : 19:13 Weeks of gestation at delivery: 37 gender: Male Weight (pounds): 7 Weight (ounces): 4 presentation: vertex position: Left Occiput Anterior Placenta delivery description: Spontaneous Cord Vessel Description: Nuchal Cord, Reduced and Delayed Cord Clamping score one minute: 7 score five minutes: 8
[2022-07-08] MEDS: IBUPROFEN 600 MG TABLET PO (19:30)
[2022-07-08 19:35] LABS: Glucose Point of Care 108 mg/dl (65-105)
[2022-07-08] MEDS: BENZOCAINE 20% AER SPR (*SP) 56 GM CAN 1 SPRAY TOPICAL (19:55)
[2022-07-08] MEDS: WITCH HAZEL 40 PADS 1 PAD TOPICAL (19:55)
[2022-07-08] MEDS: OXYTOCIN 30 UNITS/NS 500 ML 30 UNITS/500 ML BAG 125 UNITS IV CONT (19:55)
[2022-07-08] MEDS: ACETAMINOPHEN 325 MG TABLET 650 MG PO (21:07)
--- NOTE | 2022-07-08 21:35 | OBPPTRN ---
Patient transferred to post room #286 via wheelchair. Oriented to unit, room, information board, rooming in, admission packet and security measures. Patient verbalizes understanding.
[2022-07-08] MEDS: metFORMIN HCL XR 500 MG TAB.SR.24H PO (22:11)
[2022-07-08 22:14] LABS: Glucose Point of Care 184 mg/dl (65-105)
--- NOTE | 2022-07-08 22:25 | PC.NURSE ---
Dr. Torres notified that patients blood sugar was 184 at 2206, Metformin was given at 2211. Dr. Torres did not recommend any other interventions at this time. Will draw fasting BS in the morning.
[2022-07-09 03:04] VITALS: BP 122/78; PULSE 73; RESP 16; TEMP 36.6; O2SAT 100
[2022-07-09 05:11] LABS: Hematocrit 30.4 % (37.0-47.0); Hemoglobin 10.1 g/dL (12.0-15.0)
[2022-07-09 05:23] LABS: Glucose 137 mg/dL (65-110)
--- NOTE | 2022-07-09 06:47 | PM.OBPNVD ---
OB - PN: Subj Subjective Date/time seen: 07/09/22 06:47 s/p vaginal delivery day 1, no complaints OB - PN: Obj Data Labs 07/09/22 05:01 07/09/22 05:00 Labs: Laboratory Results - last 24 hr 07/08/22 07/08/22 07/08/22 15:51 15:51 15:51 WBC 8.2 RBC 4.04 L Hgb 11.0 L Hct 33.1 L MCV 81.9 MCH 27.2 MCHC 33.2 RDW 14.6 H Plt Count 192 MPV 9.9 Immature Gran % (Auto) 0.5 Neut % (Auto) 67.4 Lymph % (Auto) 26.5 [place] % (Auto) 4.5 Eos % (Auto) 1.0 Baso % (Auto) 0.1 L Lymph # (Auto) 2.17 [place] # (Auto) 0.4 Eos # (Auto) 0.1 Baso # (Auto) 0.0 Abs Immat Gran (auto) 0.04 H Absolute Neuts (auto) 5.5 Absolute Nucleated RBC 0.0 Nucleated RBC % 0.0 Sodium 136 L Potassium 3.6 Chloride 106 Carbon Dioxide 24 Anion Gap 6 L BUN 6 L Creatinine 0.40 L Estim Creat Clear Calc 164 Estimated GFR > 60 Glucose 154 H POC Capillary Glucose Uric Acid 4.1 Calcium 8.2 L Total Bilirubin 0.5 AST 22 ALT 13 Alkaline Phosphatase 189 H Total Protein 6.0 L Albumin 3.4 L Blood Type O Negative Antibody Screen Positive Antibody Identification Passive Due to RH Imm Glob Antigen Identification Cancelled LILY, IgG Interpret Not Performed LILY, Poly Interpret Negative LILY, Complement Interp Not Performed 07/08/22 07/08/22 07/09/22 18:20 22:06 05:00 WBC RBC Hgb Hct MCV MCH MCHC RDW Plt Count MPV Immature Gran % (Auto) Neut % (Auto) Lymph % (Auto) [place] % (Auto) Eos % (Auto) Baso % (Auto) Lymph # (Auto) [place] # (Auto) Eos # (Auto) Baso # (Auto) Abs Immat Gran (auto) Absolute Neuts (auto) Absolute Nucleated RBC Nucleated RBC % Sodium Potassium Chloride Carbon Dioxide Anion Gap BUN Creatinine Estim Creat Clear Calc Estimated GFR Glucose 137 H POC Capillary Glucose 108 H 184 H Uric Acid Calcium Total Bilirubin AST ALT Alkaline Phosphatase Total Protein Albumin Blood Type Antibody Screen Antibody Identification Antigen Identification LILY, IgG Interpret LILY, Poly Interpret LILY, Complement Interp 07/09/22 05:01 WBC RBC Hgb 10.1 L Hct 30.4 L MCV MCH MCHC RDW Plt Count MPV Immature Gran % (Auto) Neut % (Auto) Lymph % (Auto) [place] % (Auto) Eos % (Auto) Baso % (Auto) Lymph # (Auto) [place] # (Auto) Eos # (Auto) Baso # (Auto) Abs Immat Gran (auto) Absolute Neuts (auto) Absolute Nucleated RBC Nucleated RBC % Sodium Potassium Chloride Carbon Dioxide Anion Gap BUN Creatinine Estim Creat Clear Calc Estimated GFR Glucose POC Capillary Glucose Uric Acid Calcium Total Bilirubin AST ALT Alkaline Phosphatase Total Protein Albumin Blood Type Antibody Screen Antibody Identification Antigen Identification LILY, IgG Interpret LILY, Poly Interpret LILY, Complement Interp OB - PN A/P Plan day: 1 Plan: routine care Time Spent With Patient Time: Total time spent is greater than 50% in coordination of care (as documented) at patient's floor/unit and/or counseling patient: Review of Systems Review of Systems: All systems reviewed & are unremarkable except as noted in HPI and below Exam Const: General: cooperative, healthy appearing and comfortable
[2022-07-09] MEDS: MULTIVIT/MIN/PREN/FOL AC/IRON TABLET 1 TAB PO (08:09)
[2022-07-09] MEDS: metFORMIN HCL XR 500 MG TAB.SR.24H PO ×2 (08:10→21:15)
[2022-07-09] MEDS: IBUPROFEN 600 MG TABLET PO (08:10)
[2022-07-09 08:20] VITALS: BP 127/80; PULSE 78; RESP 18; TEMP 36.9; O2SAT 97
[2022-07-09 10:33] LABS: Rapid Plasma Reagin Non-Reactive (NonReactive)
[2022-07-09 10:57] LABS: Glucose Point of Care 146 mg/dl (65-105)
[2022-07-09 11:39] VITALS: BP 134/73; PULSE 76; RESP 16; TEMP 36.6; O2SAT 98
[2022-07-09 14:15] LABS: Glucose Point of Care 145 mg/dl (65-105)
--- NOTE | 2022-07-09 14:58 | PC.NURSE ---
[id number] Introductions were made, then consulted with patient to assess needs related to . Mother led the conversation with her?plans to feed?her infant and the?experience so far. Resources provided for inpatient and outpatient services with the feeding sheet, mom/baby guide and name written on the white board. Mother voiced understanding of information and requested assistance. Mother works well with her with encouragement. Reviewed the behaviors of a early term and discussed the importance of being assertive with encouraging and watching for early feeding cues. Encouraged understanding of the benefits of skin to skin (demonstrating unwrapping infant and placing upright on her chest), stimulating with massage touch, hand expression, changing positions to encourage wakefulness, how to watch for early feeding cues, responsive feeding, feeding on demand (aiming for 8-12 times in 24 hours, about every 2-3 hours), milk production, building/maintaining a milk supply, duration of feeding, signs of adequate intake/output and how to record on the feeding sheet. Mother demonstrated the learning of hand expression and 1 1/2 tsp of colostrum was spoon fed/finger fed to the to encourage wakefulness to eat. Infant began to open eyes and demonstrate feeding cues, then was brought to the breast. Reviewed positioning and ear, shoulder, hip alignment, supporting the breast to facilitate a deep latch, asymmetrical latch (off-center), leading with the chin with a big, open, wide gape and body close to mother. latched optimally to the left breast in football position. Education given to mother of how to visualize suck/swallow ratios and listen for drinking at the breast. was able to maintain latch without discomfort to mother. Nipple care reviewed with optimal latch and good positioning. Reviewed good handwashing when or touching the breast/nipples to prevent infection. Resources used to facilitate learning were used with the tool, mom and baby guide. Mother voiced understanding of skin to skin, stimulating with massage touch, responsive feedings, hand expressed colostrum, talking to to encourage if it has been 2 -2.5 hours since the start of the last , to call if infant does not latch, or if there is discomfort with . Resources provided for inpatient/outpatient with business card, feeding sheet, name on the white board and the mom/baby guide. Mother voiced understanding of information, demonstrated learning and will call if there is a request for assistance. Reported to primary RN.
[2022-07-09] MEDS: RHO(D) IMMUNE GLOBULIN 300 MCG/2 ML SYRINGE IM (15:07)
--- NOTE | 2022-07-09 15:17 | PC.NURSE ---
1500 - Primary RN reported that was bottle fed related to a low blood sugar. Discussed initiating pumping to protect the milk supply.
--- NOTE | 2022-07-09 16:00 | PC.NURSE ---
1553 Primary RN reported that mother declines pumping as she has not pumped with her other children.
[2022-07-09 19:06] LABS: Glucose Point of Care 121 mg/dl (65-105)
[2022-07-09 19:34] VITALS: BP 117/78; PULSE 74; RESP 18; TEMP 36.8; O2SAT 98
[2022-07-09] MEDS: ACETAMINOPHEN 325 MG TABLET 650 MG PO (21:13)
[2022-07-10 08:00] VITALS: BP 122/71; PULSE 70; RESP 16; TEMP 36.6; O2SAT 100
[2022-07-10 08:07] LABS: Glucose Point of Care 72 mg/dl (65-105)
--- NOTE | 2022-07-10 08:10 | PM.OBPNVD ---
OB - PN: Subj Subjective Date/time seen: 07/10/22 08:10 Patient comments: no complaints baby status: doing well OB - PN: Obj Data Labs 07/09/22 05:01 07/09/22 05:00 Labs: Laboratory Results - last 24 hr 07/08/22 07/09/22 07/09/22 15:51 10:46 10:52 POC Capillary Glucose 146 H RPR Non-reactive Blood Type O Negative Antibody Screen TNP Screen Negative Baby's Blood Type O pos Baby's LILY Negative Doses of RhIg Required 1 07/09/22 07/09/22 07/10/22 14:08 19:02 07:59 POC Capillary Glucose 145 H 121 H 72 RPR Blood Type Antibody Screen Screen Baby's Blood Type Baby's LILY Doses of RhIg Required OB - PN A/P Plan day: 2 Plan: routine care and discharge home (F/U in 1 week for bp check) Comments: Pt will continue metformin BID and call pcp today to discuss blood sugars and management. Time Spent With Patient Time: Total time spent is greater than 50% in coordination of care (as documented) at patient's floor/unit and/or counseling patient: Time with patient: less than 15 minutes Review of Systems Review of Systems: All systems reviewed & are unremarkable except as noted in HPI and below Exam Narrative: Fundus firm and vaginal flow controlled. No lower ext redness, warmth, or edema. Negative homans. Denies h/a, v/d or e/p. Reflexes normal. Const: General: comfortable Chest: Breast/axilla inspection: normal inspection of the breasts Resp: Effort & Inspection: normal respiratory effort Cardio: Rate: regular rate GI: GI Palp: Yes Soft to palpation Psych: Appearance: grossly normal Affect: normal affect Attitude: cooperative Thought content: Yes Normal thought content present Judgement: Good judgement present (Psych)
--- NOTE | 2022-07-10 08:13 | P.DS_ITS ---
DS: Admitting Diagnosis Discharge Date 07/10/22 Admitting Diagnosis Induction of labor DS: Discharge Diagnosis Discharge Diagnosis (1) Vaginal delivery: Code(s): O80 - Encounter for full-term uncomplicated delivery Status: Acute OB - DS: Summary OB Procedures : None OB Procedures Intrapartum: Spontaneous Vag Delivery OB Procedures: : None Time Spent with Patient Time attestation: Total time spent providing and/or coordinating discharge services: DS: Data Data Completed and Pending Pending studies at discharge: Pending at discharge 07/08/22 19:15 Surgical [PTH] Routine Labs on day of discharge: Labs from last 24 hours 07/10/22 07/09/22 07/09/22 07:59 19:02 14:08 POC Capillary Glucose 72 121 H 145 H RPR Blood Type Antibody Screen Screen Baby's Blood Type Baby's LILY Doses of RhIg Required 07/09/22 07/09/22 07/08/22 10:52 10:46 15:51 POC Capillary Glucose 146 H RPR Non-reactive Blood Type O Negative Antibody Screen TNP Screen Negative Baby's Blood Type O pos Baby's LILY Negative Doses of RhIg Required 1 Discharge Plan Discharge Attending physician on discharge: Dianne Spann Discharging Clinician: Dianne Spann Patient Disposition: Home, Self-Care Activity: pelvic rest Diet: as tolerated Patient Instructions: Antibiotic Form Stand Alone Forms: General Discharge Information Follow-up/Referrals: Dianne Spann, CNM [Certified Nurse [employer]] - Discharge Medications: Continued prenat.vits,jovany,[id number] Tablet 1 tablet PO HS ferrous sulfate [FeroSul] 325 mg (65 mg iron) tablet 325 mg PO HS metformin 500 mg tablet extended release 24 hr 500 mg PO BID Discontinued aspirin 81 mg Tablet 162 mg PO HS insulin glargine [Lantus Solostar U-100 Insulin] 100 unit/mL (3 mL) insulin pen 42 unit SUBCUT HS Rx Instructions: in evening at 1900 insulin glargine [Lantus Solostar U-100 Insulin] 100 unit/mL (3 mL) insulin pen 15 unit SUBCUT QAM insulin lispro 100 unit/mL insulin pen 10 unit SUBCUT QACBREAK Rx Instructions: with breakfast insulin lispro 100 unit/mL insulin pen 14 unit SUBCUT QACLUNCH Rx Instructions: with lunch insulin lispro 100 unit/mL insulin pen 16 unit SUBCUT QACDINNER Rx Instructions: with dinner ondansetron 4 mg Tablet,Disintegrating 4 mg PO Q6H PRN (Reason: Nausea) Qty: 10 0RF Date of admission: 07/08/22 15:14 Primary Care Provider: Ronald,Abbi Ann Admitting Provider: Magui Torres Attending physician on admission: Magui Torres Condition: Stable
[2022-07-10] MEDS: MULTIVIT/MIN/PREN/FOL AC/IRON TABLET 1 TAB PO (08:47)
[2022-07-10] MEDS: DOCUSATE SODIUM 100 MG CAPSULE PO (08:47)
[2022-07-10] MEDS: metFORMIN HCL XR 500 MG TAB.SR.24H PO (08:47)
[2022-07-10 11:03] LABS: Glucose Point of Care 91 mg/dl (65-105)
[2022-07-10 12:01] VITALS: BP 124/76; PULSE 75; RESP 16; TEMP 36.9; O2SAT 99
[2022-07-10 14:03] LABS: Glucose Point of Care 129 mg/dl (65-105)
[2022-07-11 11:02] VITALS: BP 136/90; PULSE 63; RESP 20; TEMP 37.7; O2SAT 100
== END 2022-07-10 16:20 | disposition home or self-care (01) | DRG 560 ==
LOC: ANHOB2 07-10 10:00 → ANHLDR 07-11 09:46 → ANHOB2 07-11 09:46
PROVIDERS: Admitting Provider Obstetrics & Gynecology; PCP Family Medicine; Visit Provider Advanced Practice Midwife
DX: O24.12 Pre-existing type 2 diabetes mellitus, in childbirth (principal); E11.8 Type 2 diabetes mellitus with unspecified complications; O13.4 Gestational [pregnancy-induced] hypertension without significant proteinuria, complicating childbirth; O62.3 Precipitate labor; O69.81X0 Labor and delivery complicated by cord around neck, without compression, not applicable or unspecified; Z3A.37 37 weeks gestation of pregnancy; Z37.0 Single live birth; Z79.4 Long term (current) use of insulin; Z87.891 Personal history of nicotine dependence
CPT/HCPCS: 36415; 80053; 82947; 82948; 84550; 85014; 85018; 85025; 85461; 86592; 86850; 86880; 86900; 86901; 88307; 90384; A9270; J2590; J2790; J7120

== ENCOUNTER 2024-09-02 13:26 | Outpatient (RCR) | payer OTHER, MEDICAID, SELFPAY ==
--- OUTSIDE RECORDS SUMMARY | 2024-09-02 13:40 | XMS_ITS | Data Portability ---
Author Organization [facility], Main Office Address [address] [place] [address] Assessment No assessment recorded. Plan of Treatment Reminders Order Date Submit Date Provider Last Modified By Organization Details Last Modified Time Details Appointments None recorded. Lab HbA1c (hemoglobin A1c), blood [address] (Lab), [address] [place], [address], 3 09:22:23 BMP, serum or plasma [address] (Lab), [address] [place], [address], 3 09:23:07 Referral None recorded. Procedures None recorded. Surgeries None recorded. Imaging None recorded. Medication Orders metformin ER 500 mg tablet,exte nded release 24 hr 2022 023 DIANNE [facility] [address]25, [address] [place], [address], 3 08:27:32 sertraline 50 mg tablet 2022 023 1 [facility] 2425, [address] [facility], [place], [address], 3 09:14:41 Patient TargetsNo targets recorded. Patient InstructionsNo instructions recorded. Reason for Referral None Reported. Results Created Date Observation Date Name Description Value Unit Range Abnormal Flag Note LastModifiedBy Organization Detail LastModifiedTime 04/18/20 21 04/18/2021 HEMOG LOBIN A1C HA1C 11.3 % 4.0-6. 0 high Diabe tyrel Scree tatiana Crite kyrie: <5.7% Consi stent with absen ce of diabe tyrel 5.7-6 .4% Consi stent with incre ased risk for diabe tyrel (pred iabet es) >OR=6 .5% Consi stent with diabe tyrel REFER ENCE: Diabe tyrel Care 2016, 39( ppl.1 ):s13 -s22 Not Available [facility] (Lab) [address] [place], [address], 04/18/2021 21:26:44 04/18/20 21 04/18/2021 URINA LYSIS /IRIS W/O MICRO leukocytes negati ve nisa/u L negati ve- Not Available [facility] (Lab) [address] [place], [address], 04/18/2021 20:21:56 04/18/20 21 04/18/2021 URINA LYSIS /IRIS W/O MICRO color light- yellow Not Available [facility] (Lab) [address] [place], [address], 04/18/2021 20:21:56 04/18/20 21 04/18/2021 URINA LYSIS /IRIS W/O MICRO appear clear Not Available [facility] (Lab) [address] [place], [address], 04/18/2021 20:21:56 04/18/20 21 04/18/2021 URINA LYSIS /IRIS W/O MICRO specific gravity 1.020 1.001- 1.030 Not Available [facility] (Lab) [address] [place], [address], 04/18/2021 20:21:56 04/18/20 21 04/18/2021 URINA LYSIS /IRIS W/O MICRO pH 5.5 pH_un its 5.0-9. 0 Not Available [facility] (Lab) [address] [place], [address], 04/18/2021 20:21:56 04/18/20 21 04/18/2021 URINA LYSIS /IRIS W/O MICRO nitrite negati ve negati ve- Not Available [facility] (Lab) [address] [place], [address], 04/18/2021 20:21:56 04/18/20 21 04/18/2021 URINA LYSIS /IRIS W/O MICRO protein 10 mg/dL negati ve- abnormal Not Available [facility] (Lab) [address] [place], [address], 04/18/2021 20:21:56 04/18/20 21 04/18/2021 URINA LYSIS /IRIS W/O MICRO glucose >/=100 0 mg/dL normal - abnormal Not Available [facility] (Lab) [address] [place], [address], 04/18/2021 20:21:56 04/18/20 21 04/18/2021 URINA LYSIS /IRIS W/O MICRO ketones negati ve mg/dL negati ve- Not Available [facility] (Lab) [address] [place], [address], 04/18/2021 20:21:56 04/18/20 21 04/18/2021 URINA LYSIS /IRIS W/O MICRO urobilinogen normal mg/dL normal - Not Available [facility] (Lab) [address] [place], [address], 04/18/2021 20:21:56 04/18/20 21 04/18/2021 URINA LYSIS /IRIS W/O MICRO bilirubin negati ve mg/dL negati ve- Not Available [facility] (Lab) [address] [place], [address], 04/18/2021 20:21:56 1204/18/2021 URINA LYSIS /IRIS W/O MICRO blood negati ve mg/dL negati ve- Not Available [facility] (Lab) [address] [place], [address], 04/18/2021 20:21:56 04/18/20 21 04/18/2021 URINA LYSIS /IRIS W/O MICRO white blood cells 0-8 /i??h pfi?? 0-8 Not Available [facility] (Lab) [address] [place], [address], 04/18/2021 20:21:56 04/18/20 21 04/18/2021 URINA LYSIS /IRIS W/O MICRO red blood cells 0-4 /i??h pfi?? 0-4 Not Available [facility] (Lab) [address] [place], [address], 04/18/2021 20:21:56 04/18/20 21 04/18/2021 URINA LYSIS /IRIS W/O MICRO bacteria occasi onal abnormal Not Available [facility] (Lab) [address] [place], [address], 04/18/2021 20:21:56 04/18/20 21 04/18/2021 URINA LYSIS /IRIS W/O MICRO mucous occasi onal /i??l pfi?? abnormal Not Available [facility] (Lab) [address] [place], [address], 04/18/2021 20:21:56 04/18/20 21 04/18/2021 URINA LYSIS /IRIS W/O MICRO squamous epithelial packed field /i??l pfi?? abnormal Not Available [facility] (Lab) [address] [place], [address], 04/18/2021 20:21:56 04/18/20 21 04/18/2021 URINA LYSIS /IRIS W/O MICRO non-squamous epithelial 2 Not Available [facility] (Lab) [address] [place], [address], 04/18/2021 20:21:56 04/18/20 21 04/18/2021 URINA LYSIS /IRIS W/O MICRO unclassified cast 3 abnormal Not Available [facility] (Lab) [address] [place], [address], 04/18/2021 20:21:56 04/18/20 21 04/18/2021 LIPID PANEL cholesterol 286 mg/dL 140-19 9 high NIH SAMUEL NSUS RECOM MENDA TION FOR DAVI STERO L: ADULT CHILD LOW RISK: <200 <170 BORDE RLINE : <200- 239 ----- HIGH RISK: >240 >200 Not Available [facility] (Lab) [address] [place], [address], 04/18/2021 20:16:23 04/18/20 21 04/18/2021 LIPID PANEL triglyceride s 1072 mg/dL 0-150 high NIH SAMUEL NSUS REPOR T RECOM MENDA TION FOR TRIGL YCERI RANDY: ADULT CHILD LOW RISK: <150 ----- BODER LINE: 150-1 99 ----- HIGH RISK: >200 ----- Not Available [facility] (Lab) [address] [place], [address], 04/18/2021 20:16:23 04/18/20 21 04/18/2021 LIPID PANEL HDL cholesterol 35 mg/dL 40- low Not Available [facility] (Lab) [address] [place], [address], 04/18/2021 20:16:23 04/18/20 21 04/18/2021 COMP MET PANEL /LIVE R carbon dioxide 27 mmol/ L 22-30 Not Available [facility] (Lab) [address] [place], [address], 04/18/2021 20:16:11 04/18/20 21 04/18/2021 COMP MET PANEL /LIVE R sodium 136 mmol/ L 137-14 5 low Not Available [facility] (Lab) [address] [place], [address], 04/18/2021 20:16:11 04/18/20 21 04/18/2021 COMP MET PANEL /LIVE R potassium 4.5 mmol/ L 3.5-5. 1 Not Available [facility] (Lab) [address] [place], [address], 04/18/2021 20:16:11 04/18/20 21 04/18/2021 COMP MET PANEL /LIVE R chloride 98 mmol/ L 98-107 Not Available [facility] (Lab) [address] [place], [address], 04/18/2021 20:16:11 04/18/20 21 04/18/2021 COMP MET PANEL /LIVE R agap 15.5 mmol/ L 14-22 Not Available [facility] (Lab) [address] [place], [address], 04/18/2021 20:16:11 04/18/20 21 04/18/2021 COMP MET PANEL /LIVE R glucose 346 mg/dL 70-99 high Not Available [facility] (Lab) [address] [place], [address], 04/18/2021 20:16:11 04/18/20 21 04/18/2021 COMP MET PANEL /LIVE R BUN 16 mg/dL 8-19 Not Available [facility] (Lab) [address] [place], [address], 04/18/2021 20:16:11 04/18/20 21 04/18/2021 COMP MET PANEL /LIVE R creatinine 0.50 mg/dL 0.66-1 .25 low Not Available [facility] (Lab) [address] [place], [address], 04/18/2021 20:16:11 04/18/20 21 04/18/2021 COMP MET PANEL /LIVE R GFR >60 Refer ence Range : [place] ge GFR Healt hy Adult : >60 mL/mi n/1.7 3 m2 Chron ic Kidne y Disea se: 15-60 mL/mi n/1.7 3 m2 Kidne y Failu re: <15/m L/min /1.73 m2 www.n iddk. nih.g ov The MDRD study equat ion has not been valid ated in child dominga <18 years of age; pregn ant women ; the elder ly >85 years of age; or in some racia l or ethni c subgr oups, such as Hispa nics. Outsi de the valid ated makayla eters , estim ated GFR is less accur ate, requi ring clini jovany judgm ent on a case- by-ca se basis . Clini jovany inter preta tion for other races and ages must be made by the clini cheryl. The MDRD study equat ion has not been valid ated for the evalu ation of serum creat inine relat ed to nutri sherie l statu s or medic ation usage . For perso ns <18 years of age, a pedia tric GFR calcu lator is avail able on the [facility] websi te: https ://lyubov w.walter ayala.o rg/pr ofess ional s/kdo qi/gf r_cal culat or Not Available [facility] (Lab) [address] [place], [address], 04/18/2021 20:16:11 04/18/20 21 04/18/2021 COMP MET PANEL /LIVE R alkaline phosphatase 151 U/L 38-126 high Not Available [facility] (Lab) [address] [place], [address], 04/18/2021 20:16:11 04/18/20 21 04/18/2021 COMP MET PANEL /LIVE R alanine aminotransfe rase 83 U/L 0-35 high Not Available [facility] (Lab) [address] [place], [address], 04/18/2021 20:16:11 04/18/20 21 04/18/2021 COMP MET PANEL /LIVE R aspartate aminotransfe rase 74 U/L 15-37 high Not Available [facility] (Lab) [address] [place], [address], 04/18/2021 20:16:11 04/18/20 21 04/18/2021 COMP MET PANEL /LIVE R bilirubin, total 0.70 mg/dL 0.20-1 .30 Not Available [facility] (Lab) [address] [place], [address], 04/18/2021 20:16:11 04/18/20 21 04/18/2021 COMP MET PANEL /LIVE R bilirubin, conjugated (direct) 0.00 mg/dL 0.00-0 .30 Not Available [facility] (Lab) [address] [place], [address], 04/18/2021 20:16:11 04/18/20 21 04/18/2021 COMP MET PANEL /LIVE R biliurubin,u ncong. (indirect) 0.60 mg/dL 0.00-1 .1 Not Available [facility] (Lab) [address] [place], [address], 04/18/2021 20:16:11 04/18/20 21 04/18/2021 COMP MET PANEL /LIVE R calcium 9.3 mg/dL 8.4-10 .2 Not Available [facility] (Lab) [address] [place], [address], 04/18/2021 20:16:11 04/18/20 21 04/18/2021 COMP MET PANEL /LIVE R total protein 7.5 g/dL 6.3-8. 2 Not Available [facility] (Lab) [address] [place], [address], 04/18/2021 20:16:11 04/18/20 21 04/18/2021 COMP MET PANEL /LIVE R albumin 4.6 g/dL 3.4-5. 0 Not Available [facility] (Lab) [address] [place], [address], 04/18/2021 20:16:11 04/18/20 21 04/18/2021 COMP MET PANEL /LIVE R globulin 2.9 g/dL 2.6-4. 2 Not Available [facility] (Lab) [address] [place], [address], 04/18/2021 20:16:11 04/18/20 21 04/18/2021 COMP MET PANEL /LIVE R A/G ratio 1.6 ratio 1.0-2. 0 Not Available [facility] (Lab) [address] [place], [address], 04/18/2021 20:16:11 01/08/20 22 01/07/2022 US, abdom en No observ ation record ed. [id number] [facility], [place], [address], 06/18/2022 02:32:41 06/17/19 23 06/17/2022 US, obste tric No observ ation record ed. [id number] [place] [address], [address], 06/18/2022 02:32:41 Result Notes None recorded. Problems Name Problem SNOMED Code Status Onset Date Resolution Date Notes Provider Name and Address Organization Details Recorded Time Amenorrhe a 09299909 Active Not Available [facility] 3 02:28:49 Abnormal weight gain 250458621 Active Not Available [facility] 3 02:28:49 Contact dermatiti s caused by urushiol from [facility] rodriguez 788735009 Active Not Available [facility] 3 02:28:50 Vitamin D deficienc y 24065323 Active 2019 Not Available [facility] 3 02:28:50 Depressiv e disorder 73050506 Active Not Available [facility] 3 02:28:50 Migraine 08507426 Active Not Available [facility] 3 02:28:50 Menorrhag ia 985547956 Active Not Available [facility] 3 02:28:50 Obesity 341560115 Active Not Available [facility] 3 02:28:50 Dermatoph ytosis 96972326 Active Not Available [facility] 3 02:28:50 Keratosis pilaris 2342030 Active Not Available [facility] 3 02:28:50 Otitis media 96130179 Active Not Available [facility] 3 02:28:50 Diabetes mellitus 50038072 Active borderline Not Available [facility] 3 02:28:50 Mixed anxiety and depressiv e disorder 478999064 Active 2022 MICHAEL Haddad [address], [address], [place], [address] , [employer] 3 08:29:23 Upper respirato ry infection 51180251 Active 2022 MICHAEL Haddad [address], [place], [address] , [employer] 3 11:32:29 Problem Notes None recorded. Procedures Surgical History None recorded. Imaging Results Imaging Date Name Status LastModified by Organiz ation Details LastModified Time 06/17/2022 US, obstetric completed [id number] [place] [address], [address], 06/18/2022 02:32:41 01/07/2022 US, abdomen completed [id number], [address], 06/18/2022 02:32:41 Procedure Notes None recorded. Medical Equipment None Reported. Allergies No known drug allergies Medications Name Sig Start Date Stop Date Status Note LastModified by Organization Details LastModified Time Singulair 10 mg tablet Take 1 tablet every day by oral route. 2012 active Not Available Not Available Not Avai lable cyclobenz aprine 10 mg tablet TAKE 1 TABLET BY MOUTH THREE TIMES DAILY NEEDED FOR MUSCLE SPASM 04/24 completed Not Available Not Available Not Available fluconazo le 100 mg tablet 04/24 completed Not Available Not Available Not Available prednison e 10 mg tablet Take 4 tabs x 4 days, 3 tabs x 4 days, 2 tabs x 4 days, 1 tab x 4 days, 1/2 tab x 4 days 04/23 completed Finish ALL medicati on Not Available Not Available Not Available atorvasta tin 20 mg tablet Take 1 tablet every day by oral route at bedtime for 90 days. active Not Available Not Available No t Available citalopra m 40 mg tablet Take 1 tablet every day by oral route. active Not Available Not Available No t Available cetirizin e 10 mg tablet TAKE 1 TABLET BY MOUTH ONCE DAILY active Not Available Not Available No t Available azithromy jaleesa 250 mg tablet TAKE 2 TABLETS BY MOUTH ON DAY 1, AND THEN TAKE 1 TABLET BY MOUTH ONCE A DAY ON DAY 2 THROUGH DAY 5 active Not Available Not Available No t Available Glucagon Emergency Kit 1 mg solution for injection INJECT 1 MG SUBCUTAN EOUSLY NEEDED active Not Available Not Available No t Available fluconazo le 150 mg tablet TAKE 1 TABLET BY MOUTH NOW AND REPEAT IN 3 DAYS 04/24 completed Not Available Not Available Not Available citalopra m 10 mg tablet Take 1 tablet every day by oral route. 2012 active Not Available Not Available Not Avai lable fluconazo le 200 mg tablet 04/24 completed Not Available Not Available Not Available glipizide ER 10 mg tablet, extended release 24 hr TAKE 1 TABLET BY MOUTH ONCE DAILY WITH FOOD active Not Available Not Available No t Available prednison e 20 mg tablet Take 2 tablets every day by oral route for 5 days. active Not Available Not Available No t Available Tubersol 5 tub. unit/0.1 mL intraderm al injection solution Inject 0.1 mL by intrader mal route. 03/31 completed Not Available Not Available Not Available sertralin e 100 mg tablet TAKE 1 & 1 2 (ONE & ONE HALF) TABLETS BY MOUTH ONCE DAILY 04/24 completed Not Available Not Available Not Available phentermi ne 15 mg capsule Take 1 capsule every day by oral route. 12/19 completed Not Available Not Available Not Available phentermi ne 37.5 mg tablet Take 1 tablet every day by oral route. active Not Available Not Available No t Available aspirin 81 mg tablet,de layed release TAKE 2 TABLETS BY MOUTH ONCE DAILY active Not Available Not Available No t Available amoxicill in 875 mg tablet Take 1 tablet every 12 hours by oral route for 10 days. 03/31 completed Not Available Not Available Not Available citalopra m 20 mg tablet Take 1 tablet every day by oral route. active Not Available Not Available No t Available doxycycli ne monohydra te 100 mg capsule 03/31 completed Not Available Not Available Not Available cephalexi n 500 mg capsule TAKE 1 CAPSULE BY MOUTH TWICE DAILY FOR 7 DAYS 12/28 completed Not Available Not Available Not Available triamcino lone acetonide 0.1 % topical ointment Apply 1 applicat ion twice a day by topical route as needed for 7 days. active Not Available Not Available No t Available nystatin 100,000 unit/gram topical cream 04/24 completed Not Available Not Available Not Available Humulin N NPH U-100 Insulin (isophane susp) 100 unit/mL subcutane ous INJECT 28 UNITS SUBCUTAN EOUSLY IN THE MORNING AND 38 UNITS BEFORE BEDTIME active Not Available Not Available No t Available cephalexi n 500 mg tablet Take 1 tablet twice a day by oral route for 7 days. 12/28 completed Not Available Not Available Not Available Imitrex 100 mg tablet 1/2 to 1 tab po qd prn migraine 11/21 completed Not Available Not Available Not Available ibuprofen 600 mg tablet TAKE 1 TABLET BY MOUTH EVERY 8 HOURS NEEDED FOR PAIN 04/24 completed Not Available Not Available Not Available polyethyl dorothea glycol 3350 17 gram/dose oral powder DISSOLVE 17 GRAMS AND DRINK BY MOUTH ONCE DAILY FOR 30 DAYS FOR CONSTIPA TION. active Not Available Not Available No t Available Vitamin D2 1,250 mcg (50,000 unit) capsule TAKE 1 CAPSULE BY MOUTH ONCE A WEEK 04/24 completed Not Available Not Available Not Available metformin ER 500 mg tablet,ex tended release 24 hr active Not Available Not Available Not Available sertralin e 50 mg tablet TAKE 1 TABLET BY MOUTH ONCE DAILY active Not Available Not Available No t Available insulin lispro (U-100) 100 unit/mL subcutane ous pen INJECT 4 (FOUR) TO 20 (TWENTY) UNITS SUBCUTAN EOUSLY DIRECTED FOR 30 DAYS. START WITH 4 UNITS BEFORE LUNCH. INCREASE DIRECTED . active Not Available Not Available No t Available Sprintec (28) 0.25 mg-0.035 mg tablet TAKE 1 TABLET BY MOUTH ONCE DAILY 10/23 completed Not Available Not Available Not Available Gi 0.35 mg tablet 03/31 completed Not Available Not Available Not Available cyclobenz aprine 5 mg tablet Take 1 tablet 3 times a day by oral route. 03/31 completed Not Available Not Available Not Available nitrofura ntoin monohydra te/macroc rystals 100 mg capsule 03/31 completed Not Available Not Available Not Available Anaprox DS 2012 active Not Available Not Available Not Avai lable Levemir U-100 Insulin 100 unit/mL subcutane ous solution INJECT 38 UNITS SUBCUTAN EOUSLY WITH BREAKFAS T AND THEN INJECT 54 UNITS SUBCUTAN EOUSLY AT BEDTIME active Not Available Not Available No t Available Implanon 68 mg subdermal implant 08/17 completed Not Available Not Available Not Available FeroSul 325 mg (65 mg iron) tablet TAKE 1 TABLET BY MOUTH ONCE DAILY active Not Available Not Available No t Available Lantus Solostar U-100 Insulin 100 unit/mL (3 mL) subcutane ous pen INJECT 106 UNITS TO 150 UNITS UNDER THE SKIN DIRECTED FOR 30 DAYS active Not Available Not Available No t Available vits 10-iron 30 mg-folic acid 1 mg-omega- 3 310.1 mg capsule Take 1 capsule every day by oral route. 2012 active Not Available Not Available Not Avai lable OneTouch Verio test strips USE 1 STRIP TO CHECK GLUCOSE 4 TIMES DAILY active Not Available Not Available No t Available TRUEplus Insulin 1 mL 31 gauge x 5/16 syringe USE DIRECTED TWICE DAILY active Not Available Not Available No t Available TRUEplus Lancets 30 gauge 03/31 completed Not Available Not Available Not Available Levemir FlexTouch U-100 Insulin 100 unit/mL (3 mL) subcutane ous pen INJECT 60-100 UNITS SUBCUTAN EOUSLY FOR 30 DOSES DIRECTED . START WITH 30 UNITS IN THE MORNING AND 30 UNITS IN THE EVENING DIRECTED active Not Available Not Available No t Available Junel Fe 24 1 mg-20 mcg (24)/75 mg (4) tablet 03/31 completed Not Available Not Available Not Available TRUEplus Pen Needle 32 gauge x USE 1 PEN NEEDLE DIRECTED active Not Available Not Available No t Available BD Ultra-Fin e Micro Pen Needle 32 gauge x /4 USE 1 UNIT SUBCUTAN EOUSLY ONCE DAILY DIRECTED active Not Available Not Available No t Available OneTouch Ultra Blue Test Strip USE 1 STRIP TO CHECK GLUCOSE WHILE FASTING AND ONE HOUR POST MEALS active Not Available Not Available No t Available BD Veo Insulin Syringe Ultra-Fin e 1/2 mL 31 gauge x 15/64 USE 1 SYRINGE TWICE DAILY active Not Available Not Available No t Available Dexcom G6 Sensor device active Not Available Not Available Not Available BD Veo Insulin Syringe Ultra-Fin e 0.3 mL 31 gauge x 15/64 USE 1 SYRINGE EVERY MORNING AND 1 EVERY DAY AT BEDTIME active Not Available Not Available No t Available Dexcom G6 Transmitt er device USE 1 DIRECTED active Not Available Not Available No t Available OneTouch Ultra2 Meter USE DIRECTED active Not Available Not Available No t Available OneTouch Delica Plus Lancet 33 gauge USE 1 TO CHECK GLUCOSE ONCE DAILY active Not Available Not Available No t Available Baqsimi 3 mg/actuat ion nasal spray SPRAY 3 MG IN THE NOSE NEEDED active Not Available Not Available No t Available Vitals Date Recorded Body mass index (BMI) Body height Body weight Provider Name and Address Organization Details Last Updated DateTime 04/24/2021 33.9 kg/m2 147.32 cm 23740.96 g Not Available [facility] 06/18/2022 02:26:51 Date Recorded Body mass index (BMI) Body height Oxygen saturation Oxygen saturation in Arterial blood by Pulse oximetry Heart rate Body temperature Body weight Systolic blood pressure Diastolic blood pressure Provider Name and Address Organization Details Last Updated DateTime 2 33.9 kg/m2 147.32 cm 97 % 97 % 74 /min 97.9 [degF] 68872.9 6 g 120 mm[Hg] 88 mm[Hg] Not Available [facility] 02:26:44 Date Recorded Body mass index (BMI) Body height Oxygen saturation Oxygen saturation in Arterial blood by Pulse oximetry Heart rate Body temperature Body weight Systolic blood pressure Diastolic blood pressure Provider Name and Address Organization Details Last Updated DateTime 2 32.4 kg/m2 147.32 cm 98 % 98 % 80 /min 97.1 [degF] 62983.8 2 g 120 mm[Hg] 80 mm[Hg] Not Available [facility] 3 02:26:44 Date Recorded Body height Body mass index (BMI) Body weight Body temperature Heart rate Oxygen saturation Oxygen saturation in Arterial blood by Pulse oximetry Systolic blood pressure Diastolic blood pressure Provider Name and Address Organization Details Last Updated DateTime 3 147.32 cm 34.3 kg/m2 65654.1 5 g 97 [degF] 56 /min 98 % 98 % 125 mm[Hg] 80 mm[Hg] Manju Wolfe [place] [facility] 3 08:11:03 Social History Question Answer Notes LastModified by [employer] Details LastModified Time Tobacco Smoking Status Never Smoker Not Available [facility] 06/18/2022 02:23:53 What Is Your Level Of Caffeine Consumption? Occasional [id number] Information not available 06/18/2022 In The 14 Days Before Symptom Onset, Have You Had Close Contact With A Laboratory-confir med COVID-19 While That Case Was Ill? No [id number] Information not available 06/18/2022 In The 14 Days Before Symptom Onset, Have You Had Close Contact With A Person Who Is Under Investigation For COVID-19 While That Person Was Ill? No [id number] Information not available 06/18/2022 Have There Been Any Changes To Your Family Or Social Situation? Yes Mom Passed [id number] Information not available 06/18/2022 Have You Ever Been Counseled For Unhealthy Alcohol Use? No [id number] Information not available 06/18/2022 Has Tobacco Cessation Counseling Been Provided? No [id number] Information not available 06/18/2022 Have You Recently Traveled Abroad? Yes [id number] Information not available 06/18/2022 Do You Have Any Dietary Restrictions? No [id number] Information not available 06/18/2022 Sex: Unknown Functional Status Question Answer Note LastModified by [employer] Details LastModified Time Do you use any illicit or recreational drugs? No [id number] Information not available 06/18/2022 Do you or have you ever used any other forms of tobacco or nicotine? No [id number] Information not available 06/18/2022 What is your level of alcohol consumption? Occasional [id number] Information not available 06/18/2022 What is your exercise level? Occasional [id number] Information not available 06/18/2022 Mental Status None recorded. Family History Relationship Description Onset Age of this Age Resolved Age Notes LastModified by Organization Details LastModified Time Mother Congestive heart failure 59 [id number] Not available 06/18/2022 02:26:29 Medical History No medical history recorded. Gynecological History Statement/Question Response Abnormal Pap Y Flow Moderate Date of LMP 09/25/2021 STIs/STDs N Dislike of Light during Menstrual Headac he N Duration of Flow (days) 7 Current Control Method None Age at Menarche 9 Breast Problems no How many live births 4 Frequency of Cycle (Q days) 7 Sexually Active? Y Menses Monthly Y Discharge no Obstetrics History GPAL:G 0 P 0 0 0 0 Immunizations Vaccine Type Date Status Note Provider Nam e and Address Organization Details Recorded Time Influenza, split virus, trivalent, preservative 2 completed Not Available [facility] 06/18/2022 02:32:16 Influenza, split virus, quadrivalent, preservative 8 completed Not Available [facility] 06/18/2022 02:32:16 Influenza, split virus, quadrivalent, PF 9 completed Not Available [facility] 06/18/2022 02:32:16 Past Encounters Encounter ID Performer Location Encounter Start Date Encounter Closed Date Diagnosis/Indication Diagnosis SNOMED-CT Code Diagnosis ICD10 Code Diagnosis Note [id number] FITZ Ochoa [facility] Primary Care [facility] [address] [place] [address] 07/06/2020 00:00:00 07/06/2020 21:10:04 [id number] Abbi Cardenas MD [facility] Primary Care [facility] [address] [place] [address] 04/18/2021 00:00:00 04/18/2021 20:29:57 [id number] Abbi Cardenas MD [facility] Primary Care [facility] [address] [place] [address] 04/24/2021 00:00:00 04/24/2021 14:28:44 [id number] Abbi Cardenas MD [facility] [place] [address] [place] [address] 05/29/2021 00:00:00 05/29/2021 20:36:44 [id number] MICHAEL Haddad [facility] Primary [facility] [place] [address] [place] [address] 11/27/2021 00:00:00 11/27/2021 18:45:40 [id number] MICHAEL Haddad [facility] Primary Care [place] [address] [address] [facility] [address] [place] [address] 07/29/2022 08:00:58 07/29/2022 08:46:48 Diabetes mellitus 47204970 E11.9 Diabetes has been managed mainly by her OB because she got last year. She was on insulin during but has been off it for the last 3-4 weeks after delivery. Currently has dexcom. Has been out of metformin for about a week. States morning glucose has been within goal around 120-130. Discussed need for regular exercise, increase intake of water/vege tables/fib er. Decrease intake of carbs, especially white rice/pasta /flour/aayush ad/sugar.R echeck A1C today. 05/29/22: A1C 11.3 (04/18/21) Not Well Controlled Discussed need for regular exercise, increase intake of water/vege tables/fib er. Decrease intake of carbs, especially white rice/pasta /flour/aayush ad/sugar.G lipizide ER 10mg dailyMetfo rmin ER 500mg-2 tabsMay be candidate for CGM in the future. Mixed anxi ety and depressive disorder [id number] F41.8 Has been off medication since and overall stable, but she has felt like her anxiety has been up and down. Will get her back started on sertraline 50mg daily. Will continue to monitor. Health Concerns Section Related Observation LastModified by Organization Detai ls LastModified Time None Recorded Concern Status LastModified by Organization Details LastModified Time None Recorded Advance Directives Directive None Recorded Payers Encounter Date Sequence Insurance Name Policy Number Policy Rodríguez Covered Member ID Rodríguez Member ID Guarantor Name 07/29/2022 1 [facility] - DOS ON OR AFTER 20 (MEDICAID REPLACEMENT - HMO) Milly Islas [id number] Milly Islas Notes Date Note Type Note Provider Name and Address Organization Details Recorded Time 07/29/2022 text/html Pt. here to f/u on diabetes. She recently had a baby 3 weeks so she was taken off glipizide and has been taking her metformin 500mg BID. She does currently have a dexcom. She thinks her A1C was checked in April and it had lowered. During her she was taking lantus 34 units AM and 74 units PM. She was also doing short acting at mealtimes. MICHAEL Haddad [address] [place] [address], [facility] [address], [place], [address], [facility] 07/29/2022 09:17:55 OBGyn Episode No OBEpisode recorded.
--- OUTSIDE RECORDS SUMMARY | 2024-09-02 13:41 | XMS_ITS | Data Portability ---
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 Discussed plan. [email or web address] Not available 07/29/2024 16:18:40 08/24/2024 08/24/2024 Patient is _28__weeks . Discussed plan. [email or web address] Not available 08/24/2024 09:36:22 Plan of Treatment Reminders Order Date Submit Date Provider Last Modified By Organization Details Last Modified Time Details Appointments OB ROUTINE 2024 09:00A M CORDELL AguilarM Not available Not available Not available NST 2024 02:00P M NST SCHEDULE Not available Not available Not available OB ROUTINE 2024 02:45P M CORDELL AguilarM Not available Not available Not available NST 2024 03:00P M NST SCHEDULE Not available Not available Not available OB ROUTINE 2024 03:30P M Bianca Potter CNM Not available Not available Not available NST 2024 02:30P M NST SCHEDULE Not available Not available Not available OB ROUTINE 2024 03:00P M Bianca Potter CNM Not available Not available Not available NST 2024 03:00P M NST SCHEDULE Not available Not available Not available OB ROUTINE 2024 03:30P M Bianca Abbey, CNM Not available Not available Not available NST 2024 03:00P M NST SCHEDULE Not available Not available Not available OB ROUTINE 2024 03:30P M Bianca Abbey, CNM Not available Not available Not available NST 2024 02:30P M NST SCHEDULE Not available Not available Not available OB ROUTINE 2024 03:15P M SUNG DE LA O MD Not available Not available Not available NST 2024 03:00P M NST SCHEDULE Not available Not available Not available OB ROUTINE 2024 03:30P M SUNG DE LA O MD Not available Not available Not available Lab drug screen, urine 2024 025 [email or web address] [address] [place], [address], [place], [address], 05/03/2024 10:24:22 Referral None recorded . Procedures None recorded . Surgeries None recorded . Imaging None recorded . Medication Orders None recorded . Patient TargetsNo targets recorded. Patient InstructionsNo instructions recorded. Reason for Referral None Reported. Results Created Date Observation Date Name Description Value Unit Range Abnormal Flag Note LastModifiedBy Organization Detail LastModifiedTime 04/25/19 25 04/25/2024 [UNIT Y] ANEUP LOIDY NIPT fraction 8.5% normal Not Available [facility] [address] [place], [address], 04/25/2024 21:14:52 04/25/19 25 04/25/2024 [UNIT Y] ANEUP LOIDY NIPT 22Q11.2 microdeletio n LOW RISK <1 in 10,000 normal Not Available [facility] [address] [facility], [place], [address], 04/25/2024 21:14:52 04/25/19 25 04/25/2024 [UNIT Y] ANEUP LOIDY NIPT sex chromosome aneuploidy NOT DETECT ED normal Not Available [facility] [address] [place], [address], 04/25/2024 21:14:52 04/25/19 25 04/25/2024 [UNIT Y] ANEUP LOIDY NIPT monosomy X LOW RISK <1 in 10,000 normal Not Available [facility] [address], [place], [address], 04/25/2024 21:14:52 04/25/19 25 04/25/2024 [UNIT Y] ANEUP LOIDY NIPT trisomy 13 LOW RISK <1 in 10,000 normal Not Available [facility] [address], [place], [address], 04/25/2024 21:14:52 04/25/19 25 04/25/2024 [UNIT Y] ANEUP LOIDY NIPT trisomy 18 LOW RISK <1 in 10,000 normal Not Available [facility] [address], [place], [address], 04/25/2024 21:14:52 04/25/19 25 04/25/2024 [UNIT Y] ANEUP LOIDY NIPT trisomy 21 LOW RISK <1 in 10,000 normal Not Available [facility] [address], [place], [address], 04/25/2024 21:14:52 04/25/19 25 04/25/2024 [UNIT Y] ANEUP LOIDY NIPT sex FEMALE normal Not Available [facility] [address], [place], [address], 04/25/2024 21:14:52 04/25/19 25 04/25/2024 [UNIT Y] ANEUP LOIDY NIPT gestation SINGLE TON normal Not Available [facility] [address], [place], [address], 04/25/2024 21:14:52 04/25/19 25 04/25/2024 [UNIT Y] ANEUP LOIDY NIPT for detailed report, see pdf See PDF normal Not Available [facility] [address] [facility] [place], [address], 04/25/2024 21:14:52 04/04/20 24 04/04/2024 CT/GC AND TRICH OMONA S VAGIN TABATHA (RRNA ), URINE chlamydia trachomatis, PCR Negati ve negati ve Not Available [facility] (Lab) [address] [facility], [place], [address], 04/05/2024 13:34:55 04/04/20 24 04/04/2024 CT/GC AND TRICH OMONA S VAGIN TABATHA (RRNA ), URINE neisseria gonorrhoeae, PCR Negati ve negati ve Not Available [facility] (Lab) [address] [facility], [place], [address], 04/05/2024 13:34:55 04/04/20 24 04/04/2024 CT/GC AND TRICH OMONA S VAGIN TABATHA (RRNA ), URINE trichomonas vaginalis ribosomal RNA (rrna) Negati ve negati ve Not Available [facility] (Lab) [address], [place], [address], 04/05/2024 13:34:55 04/19/20 24 04/19/2024 CBC W/DIF F WBC 7.2 10'3/ uL 3.5-10 .5 Not Available [facility] (Lab) [address], [place], [address], 04/20/2024 13:10:19 04/19/20 24 04/19/2024 CBC W/DIF F RBC 4.52 10'6/ uL (based on docume nted legal sex) 3.80-5 .20 Not Available [facility] (Lab) [address] [facility], [place], [address], 04/20/2024 13:10:19 04/19/20 24 04/19/2024 CBC W/DIF F HGB 12.7 g/dL (based on docume nted legal sex) 11.6-1 5.4 Not Available [facility] (Lab) [address] [facility], [place], [address], 04/20/2024 13:10:19 04/19/20 24 04/19/2024 CBC W/DIF F HCT 38.9 % (based on docume nted legal sex) 34.0-4 5.0 Not Available [facility] (Lab) [address], [place], [address], 04/20/2024 13:10:19 04/19/20 24 04/19/2024 CBC W/DIF F MCV 86.1 fL 80.0-9 9.0 Not Available [facility] (Lab) [address], [place], [address], 04/20/2024 13:10:19 04/19/20 24 04/19/2024 CBC W/DIF F MCH 28.1 pg 27.0-3 4.0 Not Available [facility] (Lab) [address], [place], [address], 04/20/2024 13:10:19 04/19/20 24 04/19/2024 CBC W/DIF F MCHC 32.6 g/dL 32.0-3 5.5 Not Available [facility] (Lab) [address], [place], [address], 04/20/2024 13:10:19 04/19/20 24 04/19/2024 CBC W/DIF F RDW 13.2 % 11.0-1 5.0 Not Available [facility] (Lab) [address] [facility], [place], [address], 04/20/2024 13:10:19 04/19/20 24 04/19/2024 CBC W/DIF F plt 142 10'3/ uL 150-40 0 low Not Available [facility] (Lab) [address], [place], [address], 04/20/2024 13:10:19 04/19/20 24 04/19/2024 CBC W/DIF F MPV 11.4 fL 8.8-12 .1 Not Available [facility] (Lab) [address] [facility], [place], [address], 04/20/2024 13:10:19 04/19/20 24 04/19/2024 CBC W/DIF F NRBC's 0.0 % 0.0 Not Available [facility] (Lab) [address] [facility], [place], [address], 04/20/2024 13:10:19 04/19/20 24 04/19/2024 CBC W/DIF F absolute NRBCs 0.0 10'3/ uL no refere nce range establ ished Not Available [facility] (Lab) [address] [facility], [place], [address], 04/20/2024 13:10:19 04/19/20 24 04/19/2024 CBC W/DIF F neutrophils 69.0 % 34.0-7 3.0 Not Available [facility] (Lab) [address] [facility], [place], [address], 04/20/2024 13:10:19 04/19/20 24 04/19/2024 CBC W/DIF F lymphocytes 25.9 % 15.0-5 0.0 Not Available [facility] (Lab) [address] [facility], [place], [address], 04/20/2024 13:10:19 04/19/20 24 04/19/2024 CBC W/DIF F monocytes 3.9 % 1.0-15 .0 Not Available [facility] (Lab) [address] [facility], [place], [address], 04/20/2024 13:10:19 04/19/20 24 04/19/2024 CBC W/DIF F eosinophils 0.6 % 0.0-8. 0 Not Available [facility] (Lab) [address] [facility], [place], [address], 04/20/2024 13:10:19 04/19/20 24 04/19/2024 CBC W/DIF F basophils 0.3 % 0.0-2. 0 Not Available [facility] (Lab) [address] [facility], [place], [address], 04/20/2024 13:10:19 04/19/20 24 04/19/2024 CBC W/DIF F immature granulocytes 0.3 % no define d refere nce range Not Available [facility] (Lab) [address] [facility], [place], [address], 04/20/2024 13:10:19 04/19/20 24 04/19/2024 CBC W/DIF F absolute neutrophils 5.0 10'3/ uL 1.5-8. 0 Not Available [facility] (Lab) [address] [facility], [place], [address], 04/20/2024 13:10:19 04/19/20 24 04/19/2024 CBC W/DIF F absolute lymphocytes 1.9 10'3/ uL 1.0-4. 0 Not Available [facility] (Lab) [address] [facility], [place], [address], 04/20/2024 13:10:19 04/19/20 24 04/19/2024 CBC W/DIF F absolute monocytes 0.3 10'3/ uL 0.2-1. 0 Not Available [facility] (Lab) [address] [facility], [place], [address], 04/20/2024 13:10:19 04/19/20 24 04/19/2024 CBC W/DIF F absolute eosinophils 0.0 10'3/ uL 0.0-0. 6 Not Available [facility] (Lab) [address] [facility], [place], [address], 04/20/2024 13:10:19 04/19/20 24 04/19/2024 CBC W/DIF F absolute basophils 0.0 10'3/ uL 0.0-0. 3 Not Available [facility] (Lab) [address] [facility], [place], [address], 04/20/2024 13:10:19 04/19/20 24 04/19/2024 CBC W/DIF F absolute immature granulocytes 0.0 10'3/ uL 0.00-0 .10 025 1:16 AM: P indic ates parti al resul ts on a panel have been relea sed. Addit ional resul ts will follo w. 025 1:16 AM: This resul t has been final verif ied. No addit ional or powers ed resul ts are expec andreina. Not Available [facility] (Lab) [address], [place], [address], 04/20/2024 13:10:19 04/19/20 24 04/19/2024 HEMOG LOBIN A1C hemoglobin A1C 5.7 % 4.0-5. 6 high The Ameri can Diabe tyrel Assoc iatio n recom mends that a prima ry goal of thera py dimitri d be a HBA1C of < 7% and that physi cians shoul d reeva luate the treat ment regim en in patie nts with HBA1C value s consi stent ly > 8%. <5.7% Tatiana l 5.7 - 6.4% Incre ased risk for diabe tyrel >=6.5 % Diagn ostic of diabe tyrel <7.0% Goal of thera py >8.0% Actio n sugge sted Not Available [facility] (Lab) [address], [place], [address], 04/20/2024 13:10:19 04/19/20 24 04/19/2024 TYPE/ RH/SC REEN ABO/Rh type O NEG Not Available [facility] (Lab) [address], [place], [address], 04/20/2024 13:10:20 04/19/20 24 04/19/2024 TYPE/ RH/SC REEN antibody screen NEG Not Available [facility] (Lab) [address], [place], [address], 04/20/2024 13:10:20 04/19/20 24 04/19/2024 TYPE/ RH/SC REEN exp date 2024 23:59 Not Available [facility] (Lab) [address], [place], [address], 04/20/2024 13:10:20 04/19/20 24 04/19/2024 HEPAT ITIS B SURFA CE ANTIG EN hepatitis B surface antigen Non-re active non-re active This assay was perfo rmed using [employer] n reage nts and test kits. Value s obtai chantal with other assay metho ds or kits canno t be used inter powers eably . Not Available [facility] (Lab) [address], [place], [address], 04/20/2024 13:10:20 04/19/20 24 04/19/2024 HEPAT ITIS C ANTIB ARPITA SCREE N, REFLE X TO CONFI RMATI ON hepatitis C antibody Non-re active non-re active Antib odies to HCV Not Detec andreina, does not exclu de the possi bilit y of expos ure to HCV. Not Available [facility] (Lab) [address], [place], [address], 04/20/2024 13:10:20 04/19/20 24 04/19/2024 HIV 1/2 ANTIG EN/AN TIBOD Y, REFLE X CONFI RMATI ON HIV antigen/anti body Nonrea ctive nonrea ctive HIV-1 antig en and HIV-1 /HIV- 2 antib odies were not detec andreina. No labor atory evide nce of HIV infec tion. Not Available [facility] (Lab) [address], [place], [address], 04/20/2024 13:10:20 04/19/20 24 04/19/2024 RUBEL LA IGG ANTIB ARPITA, QUANT rubella antibodies, IgG Reacti ve reacti ve Not Available [facility] (Lab) [address], [place], [address], 04/20/2024 13:10:21 04/19/20 24 04/19/2024 RUBEL LA IGG ANTIB ARPITA, QUANT rubella antibodies, IgG quant 15.5 IU/mL >=10 Non-r eacti ve (Non- Immun e) <10 IU/mL React jitendra (Immu ne) > or = 10 IU/mL Not Available [facility] (Lab) [address] [facility], [place], [address], 04/20/2024 13:10:21 04/19/20 24 04/19/2024 RPR SCREE N, REFLE X TITER /CONF IRMAT ION RPR screen Nonrea ctive nonrea ctive Not Available [facility] (Lab) [address] [facility], [place], [address], 04/20/2024 13:10:21 05/03/19 25 05/03/2024 CULTU RE: URINE result report SEE RESULT S BELOW Test: Cultu re: Urine Speci men Sourc e: Urine - Clean Catch Speci men Type: Urine Speci men Date: 2024 0926 Resul t Date: 2024 0541 Resul t Statu s: Final resul t Abnor mal: No Resul ting Lab: [facility] [address] [facility] [address] Tel: CULTU RE ----- ----- ----- --- No growt h in 1 day (dete ction level of 10,00 0 colon ies / ml.) Not Available [facility] (Lab) [address] [facility], [place], [address], 05/05/2024 06:45:14 05/03/1905/03/2024 drug scree n, urine Amphetamines : negati ve Not Available [place] [address], [place], [address], 05/03/2024 10:23:18 05/03/19 25 05/03/2024 drug scree n, urine Cannabinoids : negati ve Not Available [facility] [address], [place], [address], 05/03/2024 10:23:18 05/03/19 25 05/03/2024 drug scree n, urine Cocaine: negati ve Not Available [place] [address], [place], [address], 05/03/2024 10:23:18 05/03/19 25 05/03/2024 drug scree n, urine Opiates: negati ve Not Available [facility] [place] [address], [place], [address], 05/03/2024 10:23:18 05/03/19 25 05/03/2024 drug scree n, urine Phenocyclidi ne: negati ve Not Available [facility] [address], [place], [address], 05/03/2024 10:23:18 05/03/19 25 05/03/2024 drug scree n, urine Barbiturates : negati ve Not Available [facility] [address], [place], [address], 05/03/2024 10:23:18 05/03/19 25 05/03/2024 drug scree n, urine Benzodiazepi elvi: negati ve Not Available [place] [place] [address], [place], [address], 05/03/2024 10:23:18 05/03/19 25 05/03/2024 drug scree n, urine Ethanol: negati ve Not Available [place] [address], [place], [address], 05/03/2024 10:23:18 05/03/19 25 05/03/2024 drug scree n, urine Hallucinogen s: negati ve Not Available [place] [address], [place], [address], 05/03/2024 10:23:18 05/03/19 25 05/03/2024 drug scree n, urine Inhalants: negati ve Not Available [place] [address], [place], [address], 05/03/2024 10:23:18 05/03/19 25 05/03/2024 drug scree n, urine Anabolic Steroids: negati ve Not Available [place] [address], [place], [address], 05/03/2024 10:23:18 05/03/19 25 05/03/2024 drug scree n, urine Other: negati ve Not Available [place] [address], [place], [address], 05/03/2024 10:23:18 08/25/19 25 08/24/2024 HEMOG LOBIN (HGB) HGB 10.0 g/dL (based on docume nted legal sex) 11.6-1 5.4 low Not Available [facility] (Lab) [address] [place], [address], 08/25/2024 13:40:16 08/25/19 25 08/24/2024 HEMAT OCRIT (HCT) HCT 31.1 % (based on docume nted legal sex) 34.0-4 5.0 low Not Available [facility] (Lab) [address] [facility], [place], [address], 08/25/2024 13:40:16 08/25/19 25 08/24/2024 HIV 1/2 ANTIG EN/AN TIBOD Y, REFLE X CONFI RMATI ON HIV antigen/anti body Nonrea ctive nonrea ctive HIV-1 antig en and HIV-1 /HIV- 2 antib odies were not detec andreina. No labor atory evide nce of HIV infec tion. Not Available [facility] (Lab) [address], [place], [address], 08/25/2024 13:40:16 08/25/19 25 08/24/2024 RPR SCREE N, REFLE X TITER /CONF IRMAT ION RPR qualitative Nonrea ctive nonrea ctive Not Available [facility] (Lab) [address] [facility], [place], [address], 08/25/2024 13:40:17 04/04/20 24 04/04/2024 US, obste tric, 1st trime ster No observ ation record ed. [email or web address] [place] [address], [place], [address], 04/04/2024 13:11:32 04/04/20 24 04/04/2024 US, obste tric, 1st trime ster No observ ation record ed. [email or web address] [address], [place], [address], 04/04/2024 21:51:18 05/04/19 25 05/04/2024 US, obste tric, follo w-up No observ ation record ed. [email or web address] [facility] [address] [place] [address], [address], 05/06/2024 07:33:43 05/04/19 25 05/04/2024 US, obste tric, follo w-up No observ ation record ed. [email or web address] [facility] [address], [place], [address], 05/04/2024 15:51:01 06/01/19 25 06/01/2024 US, obste tric, follo w-up No observ ation record ed. [email or web address] manuel [facility] [address] [place], [address], 2024 22:30:25 06/01/19 25 06/01/2024 imagi ng/di agnos tic resul t No observ ation record ed. DIANNE [facility] [address] [place], [address], 06/08/2024 11:17:21 07/28/19 25 07/27/2024 US, obste tric, mater nal evalu ation + anato my, singl e gesta tion No observ ation record ed. [address] [facility], [place], [address], 08/26/2024 16:10:10 08/25/19 25 08/24/2024 US, obste tric, follo w-up No observ ation record ed. [address] [facility] [address] [place] [address], [address], 08/26/2024 16:10:20 08/25/19 25 08/24/2024 US, obste tric, follo w-up No observ ation record ed. [address] [facility] [address] [place] [address], [address], 08/29/2024 22:10:58 Result Notes None recorded. Problems Name Problem SNOMED Code Status Onset Date Resolution Date Notes Provider Name and Address Organization Details Recorded Time Pregnanc y 57613301 Completed 201904/30/2020 SUHAIL Ferraro null, [facility] 5 10:21:26 Past pregnanc y history of gestatio nal diabetes mellitus 270526308 Completed Anastasiia bustillo null, [facility] 14:10:49 Gestatio nal diabetes mellitus 72367079 Completed 2019 PREgesta tional DM2. delivery 38-39w Anastasiia bustillo null, [facility] 14:10:49 Gestatio nal diabetes mellitus 91595356 Completed 201904/30/2020 BS QID 32wks 2x wk NST's, wkly OB and growth u/s 4wks MFM managing pre-gest ational diabetes . Loretta guerrero, [facility] 1 14:33:16 Normal pregnanc y in multigra sonal [id number] 20825 Completed 201504/16/2020 Encounte r for supervis ion of other normal pregnanc y, second trimeste r;Record ed Elsewher e: No Locat ion: [facility] S ource: EHR Gut Puller yuliya: N Shadti ce ID: 0001 Jaleel lable Time: 10:00:00 AM Magui Torres MD [address], [place], [address], [facility] [address] 15:54:[address] Concept Completed 201604/16/2020 Encntr for button sawyer exam (general ) (routine ) w/o abn findings ;Recorde d Elsewher e: No Locat ion: [facility] S ource: EHR Gut Puller yuliya: N Shadti ce ID: 0001 Jaleel lable Time: 01:00:00 PM Magui Torres MD [address], [place], [address], [facility] 0 15:54:36 Screenin g for malignan t neoplasm of cervix Completed 201504/16/2020 Encounte r for screenin g for malignan t neoplasm of cervix;R ecorded Elsewher e: No Locat ion: [facility] S ource: EHR Gut Puller yuliya: N Shadti ce ID: 0001 Jaleel lable Time: 08:30:00 AM Magui Torres MD [address], [place], [address], [facility] [address] 15:54:[address] Concept Completed 201704/16/2020 Encntr for general adult medical exam w/o abnormal findings ;Recorde d Elsewher e: No Locat ion: [facility] S ource: EHR Gut Puller yuliya: N Practi ce ID: 0001 Jaleel lable Time: 02:00:00 PM Magui Torres MD [address], [place], [address], [facility] 0 15:54:38 Gestatio n period, 33 weeks [id number] Completed 201504/16/2020 33 weeks gestatio n of pregnanc y;Record ed Elsewher e: No Locat ion: [facility] S ource: EHR Gut Puller yuliya: N Practi ce ID: 0001 Jaleel lable Time: 08:30:00 AM Magui Torres MD [address], [place], [address], [facility] 0 15:53:43 Pregnanc y detectio n examinat ion Completed 201704/16/2020 Encounte r for pregnanc y test, result positive ;Recorde d Elsewher e: No Locat ion: [facility] S ource: EHR Gut Puller yuliya: N Practi ce ID: 0001 Jaleel lable Time: 04:45:00 PM Magui Torres MD [address], [place], [address], [facility] 0 15:54:17 Gestatio n period, 36 weeks 44565350 Completed 201504/16/2020 36 weeks gestatio n of pregnanc y;Record ed Elsewher e: No Locat ion: [facility] S ource: EHR Gut Puller yuliya: N Practi ce ID: 0001 Jaleel lable Time: 08:30:00 AM Magui Torres MD [address], [place], [address], [facility] 0 15:53:50 Gestatio n period, 32 weeks 3492310 Completed 201504/16/2020 32 weeks gestatio n of pregnanc y;Record ed Elsewher e: No Locat ion: [facility] S ource: EHR Gut Puller yuliya: N Practi ce ID: 0001 Jaleel lable Time: 09:30:00 AM Magui Torres MD [address], [place], [address], [facility] 0 15:53:41 Single live from singleto n pregnanc y [id number] Completed 201704/16/2020 Single live ;Pr actice ID: 0001 Magui Torres MD [address], [place], [address], [facility] 0 15:54:33 Gestatio n period, 37 weeks 92693275 Completed 201704/16/2020 37 weeks gestatio n of pregnanc y;Practi ce ID: [address], [place], [address], [facility] 0 15:53:53 Lochia finding Completed 201704/16/2020 Encounte r for routine postpart um follow-u p;Practi ce ID: [address], [place], [address], [facility] 0 15:54:05 Insertio n of intraute rine contrace ptive device Completed 201704/16/2020 Encounte r for insertio n of intraute rine contrace ptive device;P ractice ID: 0001 Magui Torres MD [address], [place], [address], [facility] 0 15:54:12 Pregnanc y test negative [id number] Completed 201704/16/2020 Encounte r for pregnanc y test, result negative ;Practic e ID: 0001 Magui Torres MD [address], [place], [address], [facility] 0 15:54:20 Contrace ptive sheath status [id number] Completed 201704/16/2020 Encounte r for routine checking of intraute rine contrace p dev;Prac domingo ID: 0001 Magui Torres MD [address], [place], [address], [facility] 0 15:53:14 Educatio n Completed 201904/16/2020 Encounte r for oth general cnsl and advice on contrace ption;Pr actice ID: 0001 Magui Torres MD [address], [place], [address], [facility] 0 15:53:22 Removal of intraute rine device Completed 201904/16/2020 Encounte r for removal of intraute rine contrace ptive device;P ractice ID: 0001 Magui Torres MD [address], [place], [address], [facility] 0 15:54:25 Gestatio n less than 9 weeks [id number] Completed 201704/16/2020 Less than 8 weeks gestatio n of pregnanc y;Record ed Elsewher e: No Locat ion: [facility] S ource: EHR Gut Puller yuliya: N Practi ce ID: 0001 Jaleel lable Time: 03:45:00 PM Magui Torres MD [address], [place], [address], [facility] 0 15:53:33 Gestatio n period, 35 weeks [id number] Completed 201504/16/2020 35 weeks gestatio n of pregnanc y;Record ed Elsewher e: No Locat ion: [facility] S ource: EHR Gut Puller yuliya: N Practi ce ID: 0001 Jaleel lable Time: 09:30:00 AM Magui Torres MD [address], [place], [address], [place] [facility] 0 15:53:48 Elevated blood-pr essure reading without diagnosi s of hyperten sukhi [id number] Completed 201704/30/2020 Elevated blood-pr essure reading without diagnosi s of HTN;Mir rded Elsewher e: No [facility]at [facility]: EHR Gut Puller yuliya: N Shadti ce ID: 0001 Jaleel lable Time: 04:45:00 PM [facility] 1 14:33:15 Pelvic and perineal pain [id number] Completed 201604/16/2020 Pelvic and perineal pain;Rec orded Elsewher e: No Locat ion: [facility] S ource: EHR Gut Puller yuliya: N Sharon ce ID: 0001 Jaleel lable Time: 03:45:00 PM Magui Torres MD [address], [place], [address], [facility] 0 15:54:14 Gestatio n period, 30 weeks [id number] Completed 201504/16/2020 30 weeks gestatio n of pregnanc y;Record ed Elsewher e: No Locat ion: [facility] S ource: EHR Gut Puller yuliya: N Sharon ce ID: 0001 Jaleel lable Time: 01:30:00 PM Magui Torres MD [address], [place], [address], [facility] 0 15:53:39 Diet educatio n Completed 201504/16/2020 Dietary counseli ng and surveill ance;Rec orded Elsewher e: No [facility]at [facility] S ource: EHR Gut Puller yuliya: N Shadti ce ID: 0001 Jaleel lable Time: 01:30:00 PM Magui Torres MD [address], [place], [address], [facility] 0 15:53:17 Dietary manageme nt surveill ance Completed 201504/16/2020 Dietary counseli ng and surveill ance;Rec orded Elsewher e: No Locat ion: [facility] S ource: EHR Gut Puller yuliya: N Sharon ce ID: 0001 Jaleel lable Time: 01:30:00 PM Magui Torres MD [address], [place], [address], [facility] 0 15:53:19 Antenata l screenin g for malforma tion Completed 201704/30/2020 Encounte r for antenata l screenin g for malforma tions;Re corded Elsewher e: No Locat [facility]: [facility] S ource: EHR Gut Puller yuliya: Destini Herrera ce ID: 0001 Jaleel lable Time: 08:45:00 AM Loretta guerrero, [facility] 1 14:33:14 Uterine size for dates discrepa ncy Completed 201704/16/2020 Uterine size-keri e discrepa ncy, first trimeste r;Record ed Elsewher e: No Locat ion: [facility] S ource: EHR Gut Puller yuliya: N Sharon ce ID: 0001 Jaleel lable Time: 03:45:00 PM Magui Torres MD [address], [place], [address], [facility] 0 15:54:48 Uses combined oral contrace ption [id number] Completed 201604/16/2020 Encounte r for surveill ance of contrace ptive pills;Re corded Elsewher e: No Locat ion: [facility] S ource: EHR Gut Puller yuliya: N Sharon ce ID: 0001 Jaleel lable Time: 03:45:00 PM Magui Torres MD [address], [place], [address], [facility] 0 15:53:12 Gestatio n period, 11 weeks [id number] Completed 201504/16/2020 11 weeks gestatio n of pregnanc y;Record ed Elsewher e: No Locat ion: [facility]ce: EHR Gut Puller yuliya: N Shadti ce ID: 0001 Jaleel lable Time: 11:00:00 AM Magui Torres MD [address], [place], [address], [facility] 0 15:53:36 Infectio n screenin g Completed 201504/16/2020 Encounte r for screenin g for oth infec/pa rastc diseases ;Recorde d Elsewher e: No Locat ion: [facility] S ource: EHR Gut Puller yuliya: N Sharon ce ID: 0001 Jaleel lable Time: 08:30:00 AM Magui Torres MD [address], [place], [address], [facility] 0 15:54:02 Rubella screenin g status [id number] Completed 201704/16/2020 Encounte r for antenata l screenin g, unspecif ied;Mir rded Elsewher e: No [facility]at [facility] S ource: EHR Gut Puller yuliya: N Sharon ce ID: 0001 Jaleel lable Time: 08:45:00 AM Magui Torres MD [address], [place], [address], [facility] 0 15:54:28 Antenata l screenin g Completed 201704/30/2020 Encounte r for antenata l screenin g for nuchal transluc ency;Rec orded Elsewher e: No Locat ion: [facility] S ource: EHR Gut Puller yuliya: N Practi ce ID: 0001 Jaleel lable Time: 08:15:00 AM Loretta Martin cesar, [facility] 1 14:33:12 Amenorrh ea [id number] Completed 201704/16/2020 Amenorrh ea;Recor ded Elsewher e: No Locat ion: [facility] S ource: EHR Gut Puller yuliya: N Practi ce ID: 0001 Jaleel lable Time: 04:45:00 PM Magui Torres MD [address], [place], [address], [facility] 0 15:54:58 Gestatio n period, 34 weeks [id number] Completed 201504/16/2020 34 weeks gestatio n of pregnanc y;Record ed Elsewher e: No Locat ion: [facility] S ource: EHR Gut Puller yuliya: N Practi ce ID: 0001 Jaleel lable Time: 08:30:00 AM Magui Torres MD [address], [place], [address], [facility] 0 15:53:46 Syphilis test finding 288356705 Completed 201504/16/2020 Encntr screen for infectio ns w sexl mode of transmis s;Record ed Elsewher e: No Locat ion: [facility] S ource: EHR Gut Puller yuliya: N Shadti ce ID: 0001 Jaleel lable Time: 08:30:00 AM Magui Torres MD [address], [place], [address], [facility] 0 15:54:41 False labor before 37 complete d weeks of gestatio n [id number] 6716434 Completed 201504/16/2020 False labor before 37 complete d weeks of gest, third tri;Prac domingo ID: 0001 Magui Torres MD [address], [place], [address], [facility] 0 15:53:31 Gestatio nal diabetes mellitus in [facility] [id number] Completed 201504/30/2020 Gestatio nal diabetes mellitus in [facility], diet controll ed;Pract ice ID: 0001 Loretta Martin null, [facility] 1 14:33:18 Clinical finding Completed 201704/16/2020 Presence of (intraut erine) contrace ptive device;R ecorded Elsewher e: No Locat ion: [facility] S ource: EHR Gut Puller yuliya: N Practi ce ID: 0001 Jaleel lable Time: 02:00:00 PM Magui Torres MD [address], [place], [address], [facility] 0 15:53:08 Prematur e rupture of membrane s [id number] Completed 201704/16/2020 Full-ter m trang ROM, unsp time betw rupture and onset labor;Pr actice ID: 0001 Magui Torres MD [address], [place], [address], [facility] 0 15:54:23 Type 2 diabetes mellitus [id number] Active lantus 46/46, lispro 20/18/22 , A1c 5.7% 03/2024; followin g with MFM; dexcom updated 07/27/24 MFM HgbA1c each trimeste r 04/19/24 5.7%, MFM ordered echo 24-28wks kick counts BID @ 28wks 2xwkly NSTs w/ BPP to start @ 32wks schedule d [facility] 08/24/24 US, [employer] visit & DE Piedad Randle [facility], [facility] 5 16:09:05 RhD negative 203703399 Active 2021 Pierce Gorman [facility], [facility] 3 15:59:31 Pregnanc y 50905730 Completed 202108/04/2022 SUHAIL Ferraro [facility] 5 10:21:26 RhD negative [id number] Completed 2021 Pierce Gorman [facility] 3 15:59:31 Type 2 diabetes mellitus 60407398 Completed 2021 MFM - ante testing, growth; 34AM & 46 HS, unless 2 high fastings then 40 units HS. Cont metformi n 500mg BID as of 04[facility] 3 15:59:31 Grand multipar ity with antenata l problem [id number] Completed 2021 [facility] 3 15:59:31 Liver function tests outside referenc e range 885225825 Completed labs per [facility] 3 15:59:31 Headache 15596463 Completed [facility] 3 15:59:31 Chronic peripher al venous hyperten sukhi 126227740 Completed hx of - MFM recommen ded to check BID and PTL precauti ons [facility] 3 15:59:31 Pregnanc y 31715719 Active 2024 SUHAIL Ferraro [facility] 5 10:21:25 Type 2 diabetes mellitus 27123814 Active lantus 46/46, lispro , A1c 5.7% 03/2024; followin g with MFM; dexcom updated 07/27/24 MFM HgbA1c each trimeste r 12/31/24 5.7%, MFM ordered echo 24-28wks kick counts BID @ 28wks 2xwkly NSTs w/ BPP to start @ 32wks schedule d [facility] 08/24/24 US, [employer] visit & DE Piedad Randle cesar, [facility] 5 16:09:05 Hyperten sukhi AND/OR vomiting complica ting pregnanc y childbir th AND/OR puerperi 957594173 Active 2024 history of GTHN bASA 162mg daily Bseline labs wn Piedad Randle [facility], [facility] 5 16:10:24 Hyperten sukhi AND/OR vomiting complica ting pregnanc y childbir th AND/OR puerperi 968017642 Active 2024 history of GTHN bASA 162mg daily Bseline labs wn Piedad Jer [facility], [facility] 5 16:10:24 Anxiety 03746986 Active 2024 seeing therapis t every 2 weeks Bianca Potter CNM [address], [place], [address], [facility] 5 09:53:18 Anemia 307306736 Active 2024 Bhavna Merchant [facility], [facility] 5 16:56:55 Anemia 733640241 Active 2024 Bhavna Merchant [facility], [facility] 5 16:56:55 Problem Notes None recorded. Procedures Surgical History Date Name Laterality Status Provider Name and Address Organization Details Recorded Time 3 Date of Last Pap Smear completed Leisa Dorado [facility] 04/04/2024 12:33:58 1 NST completed Magui Torres MD [address], [place], [address], [facility] 05/18/2020 18:29:03 0 NST completed Magui Torres MD [address], [place], [address], [place] [facility] 04/16/2020 15:52:59 3 repair of tendon completed Bhavna Merchant [facility] 06/24/2022 11:50:53 Imaging Results Imaging Date Name Status LastModified by Organiz ation Details LastModified Time 04/04/2024 US, obstetric, 1st trimester completed [email or web address] [place] [address], [place], [address], 04/04/2024 13:11:32 04/04/2024 US, obstetric, 1st trimester completed [email or web address] [address], [place], [address], 04/04/2024 21:51:18 05/04/2024 US, obstetric, follow-up completed [email or web address] [facility] [address] [place] [address], [address], 05/06/2024 07:33:43 05/04/2024 US, obstetric, follow-up completed dez [facility] [address], [place], [address], 05/04/2024 15:51:01 06/01/2024 US, obstetric, follow-up completed [email or web address] [facility] [address] [place] [address], [address], 2024 22:30:25 06/01/2024 imaging/diagnos tic result completed DIANNE [facility] [address] [place] [address], [address], 06/08/2024 11:17:21 07/27/2024 US, obstetric, maternal evaluation + anatomy, single gestation completed [facility] [address] [place] [address] Rd, [place], [address], 08/26/2024 16:10:10 08/24/2024 US, obstetric, follow-up completed [email or web address] [facility] [address] [place] [address], [id number], 08/26/2024 16:10:20 08/24/2024 US, obstetric, follow-up completed [facility] [address] [place] [address], [address], 08/29/2024 22:10:58 Procedure Notes None recorded. Medical Equipment None Reported. Allergies No known drug allergies Medications Name Sig Start Date Stop Date Status Note LastModified by Organization Details LastModified Time eq stool softnr 100mg cap TAKE 1 CAPSULE BY MOUTH TWICE DAILY FOR 30 DAYS FOR CONSTIPA TION 05/14 completed Not Available Not Available Not Available amoxicill in 500 mg capsule take 1 capsule by oral route 3 times every day for 10 days 07/03 completed Prescrib ed Elsewher e: No Locat ion: [facility] odify By: agustin tamayo DateTime : 07/02/19 05:09:31 PM Not Available Not Available Not Available atorvasta tin 20 mg tablet TAKE 1 TABLET BY MOUTH ONCE DAILY AT BEDTIME FOR 90 DAYS 12/04 completed Not Available Not Available Not Available cetirizin e 10 mg tablet 12/17 completed Not Available Not Available Not Available Glucagon Emergency Kit 1 mg solution for injection INJECT 1 MG SUBCUTAN EOUSLY NEEDED 06/21 completed Not Available Not Available Not Available fluconazo le 150 mg tablet 08/05 completed Not Available Not Available Not Available fluconazo le 200 mg tablet TAKE 1 TABLET BY MOUTH EVERY OTHER DAY 04/10 completed Not Available Not Available Not Available glipizide ER 10 mg tablet, extended release 24 hr 08/05 completed Not Available Not Available Not Available sertralin e 100 mg tablet 11/27 completed Not Available Not Available Not Available Ferrex 150 mg iron capsule 08/05 completed Not Available Not Available Not Available Lantus U-100 Insulin 100 unit/mL subcutane ous solution INJECT 10 UNITS SUBCUTAN EOUSLY AT BEDTIME DISCARD REMAINDE R AFTER 28 DAYS OF BEING OPEN active Not Available Not Available No t Available pioglitaz one 45 mg tablet TAKE 1 TABLET BY MOUTH ONCE DAILY 07/29 completed Not Available Not Available Not Available aspirin 81 mg tablet,de layed release TAKE 2 TABLETS BY MOUTH ONCE DAILY 06/21 completed Not Available Not Available Not Available Macrobid 100 mg capsule take 1 capsule by oral route every 12 hours with food, as directed 07/15 completed Prescrib ed Elsewher e: No Locat ion: [facility] M odify By: chris Davies r DateTime : 07/04/19 11:50:44 AM Not Available Not Available Not Available famotidin e 20 mg tablet 06/21 completed Not Available Not Available Not Available Diflucan 100 mg tablet 08/24 completed Not Available Not Available Not Available Flagyl 500 mg tablet take 1 tablet by oral route 2 times every day for 7 days 09/25 completed Prescrib ed Elsewher e: No Locat ion: [facility] M odify By: chris Davies r DateTime : 05/08/19 16 05:27:51 PM Not Available Not Available Not Available metformin 1,000 mg tablet Take 1 tablet twice a day by oral route. 07/29 completed Not Available Not Available Not Available nystatin 100,000 unit/gram topical cream APPLY CREAM TOPICALL Y TO AFFECTED AREA TWICE DAILY 11/02 completed Not Available Not Available Not Available Humulin N NPH U-100 Insulin (isophane susp) 100 unit/mL subcutane ous INJECT 28 UNITS SUBCUTAN EOUSLY IN THE MORNING AND 38 UNITS BEFORE BEDTIME 08/05 completed Not Available Not Available Not Available Nor-Q-D 0.35 mg tablet take 1 tablet by oral route every day 09/23 completed Prescrib ed Elsewher e: No Locat ion: [facility] M odify By: pacheco Davies r DateTime : 12/06/19 16 01:00:00 PM Not Available Not Available Not Available polyethyl dorothea glycol 3350 17 gram/dose oral powder 05/14 completed Not Available Not Available Not Available Novolin L 100 unit/mL subcutane ous suspensio n active Not Available Not Available Not Available Vitamin D2 1,250 mcg (50,000 unit) capsule take 1 capsule by oral route every week 11/27 completed Not Available Not Available Not Available ondansetr on 4 mg disintegr ating tablet 08/05 completed Not Available Not Available Not Available metformin ER 500 mg tablet,ex tended release 24 hr TAKE 2 TABLETS BY MOUTH TWICE DAILY 04/01 completed Not Available Not Available Not Available sertralin e 50 mg tablet TAKE 1 TABLET BY MOUTH ONCE DAILY 04/01 completed Not Available Not Available Not Available insulin lispro (U-100) 100 unit/mL subcutane ous pen INJECT 6 UNITS SUBCUTAN EOUSLY WITH MEALS INCREASE DOSE DIRECTED DUE TO INCREASI NG INSULIN REQUIREM ENTS DURING PREGNANC Y UP TO A MAX TOTAL DAILY DOSE OF 50 active Not Available Not Available No t Available Sprintec (28) 0.25 mg-0.035 mg tablet take 1 tablet by oral route every day 11/27 completed Not Available Not Available Not Available Slow Fe active Not Available Not Avail able Not Available 12/17 completed Not Available Not Available Not Available Levemir U-100 Insulin 100 unit/mL subcutane ous solution INJECT 38 UNITS SUBCUTAN EOUSLY WITH BREAKFAS T AND THEN INJECT 54 UNITS SUBCUTAN EOUSLY AT BEDTIME 08/05 completed Not Available Not Available Not Available FeroSul 325 mg (65 mg iron) tablet TAKE 1 TABLET BY MOUTH ONCE DAILY 08/05 completed Not Available Not Available Not Available Lantus Solostar U-100 Insulin 100 unit/mL (3 mL) subcutane ous pen INJECT 106 UNITS TO 150 UNITS UNDER THE SKIN DIRECTED FOR 30 DAYS 08/05 completed Not Available Not Available Not Available Novofine 32 32 gauge x 1/4 needle USE 1 PEN NEEDLE FIVE TIMES DAILY active Not Available Not Available No t Available OneTouch Verio test strips USE 1 STRIP TO CHECK GLUCOSE TWICE DAILY active Not Available Not Available No t Available TRUEplus Insulin 0.3 mL 31 gauge x 5/16 syringe USE DIRECTED WITH LANTUS active Not Available Not Available No t Available TRUEplus Insulin 1 mL 31 gauge x 5/16 syringe USE DIRECTED TWICE DAILY 08/05 completed Not Available Not Available Not Available Levemir FlexTouch U-100 Insulin 100 unit/mL (3 mL) subcutane ous pen INJECT 60-100 UNITS SUBCUTAN EOUSLY FOR 30 DOSES DIRECTED . START WITH 30 UNITS IN THE MORNING AND 30 UNITS IN THE EVENING DIRECTED 08/05 completed Not Available Not Available Not Available Trulicity 1.5 mg/0.5 mL subcutane ous pen injector INJECT 1.5MG SUBCUTAN EOUSLY EVERY 7 DAYS 05/03 completed Not Available Not Available Not Available Trulicity 0.75 mg/0.5 mL subcutane ous pen injector INJECT 0.75 MG SUBCUTAN EOUSLY EVERY 7 DAYS 05/03 completed Not Available Not Available Not Available 1 mg-20 mcg (24)/75 mg (4) tablet take 1 tablet by oral route every day 05/11 completed Prescrib sahil Murry e: No Locat ion: [facility] odify By: pacheco duran DateTime : 01/23/20 03:45:00 PM Not Available Not Available Not Available TRUEplus Pen Needle 32 gauge x 5/32 USE WITH INSULIN 4 TIMES DAILY 08/05 completed Not Available Not Available Not Available OneTouch Ultra Blue Test Strip USE 1 STRIP TO CHECK GLUCOSE WHILE FASTING AND ONE HOUR POST MEALS active Not Available Not Available No t Available BD Veo Insulin Syringe Ultra-Fin e 1/2 mL 31 gauge x 15/64 USE 1 SYRINGE TWICE DAILY 08/05 completed Not Available Not Available Not Available BD Veo Insulin Syringe Ultra-Fin e 0.3 mL 31 gauge x 15/64 USE 1 SYRINGE EVERY MORNING AND 1 EVERY DAY AT BEDTIME 08/05 completed Not Available Not Available Not Available Dexcom G6 Transmitt er device USE 1 DIRECTED 04/01 completed Not Available Not Available Not Available OneTouch Ultra2 Meter USE DIRECTED 06/21 completed Not Available Not Available Not Available OneTouch Delica Plus Lancet 33 gauge USE 1 LANCET TO CHECK GLUCOSE TWICE DAILY active Not Available Not Available No t Available Baqsimi 3 mg/actuat ion nasal spray SPRAY 1 CARTRIDG E INTO THE NOSE NEEDED 07/29 completed Not Available Not Available Not Available Trulicity 3 mg/0.5 mL subcutane ous pen injector INJECT 3 MG SUBCUTAN EOUSLY ONCE EVERY 7 DAYS 05/03 completed Not Available Not Available Not Available Semglee (insulin glargine- yfgn) Pen 100 unit/mL (3 mL) subcutane ous INJECT 24 UNITS AT BEDTIME. TAKE DOSAGES APPROXIM ATELY THE SAME TIME DAILY. INCREASE DOSE DIRECTED DUE TO INCREASI NG INSULIN REQUIREM ENTS DURING PREGNANC Y. MAX TOTAL DAILY DOSE IS 50 UNITS active Not Available Not Available No t Available Flowflex COVID-19 Antigen Home Test kit 01/15 completed Not Available Not Available Not Available Dexcom G7 Sensor device USE TO MONITOR GLUCOSE CONTINUO USLY. CHANGE EVERY 10 DAYS active Not Available Not Available No t Available Vitals Date Recorded Body height Body mass index (BMI) Body weight Systolic blood pressure Diastolic blood pressure Provider Name and Address Organization Details Last Updated DateTime 05/03/2024 152.4 cm 32.1 kg/m2 91537.59 g 145 mm[Hg] 79 mm[facility]Hg[facility] Date Recorded Body height Body mass index (BMI) Body weight Systolic blood pressure Diastolic blood pressure Provider Name and Address Organization Details Last Updated DateTime 06/27/2024 152.4 cm 33.8 kg/m2 62283.48 g 126 mm[Hg] 85 mm[Hg] SUHAIL [facility] 5 16:43:18 Date Recorded Body weight Body height Systolic blood pressure Diastolic blood pressure Provider Name and Address Organization Details Last Updated DateTime 07/29/2024 48335.626 6 g 152.4 cm 144 mm[Hg] 77 mm[Hg] Bhavna Merchant [facility] 07/29/2024 16:20:55 Date Recorded Body height Body mass index (BMI) Body weight Systolic blood pressure Diastolic blood pressure Provider Name and Address Organization Details Last Updated DateTime 08/24/2024 152.4 cm 35.5 kg/m2 92783.81 g 117 mm[Hg] 80 mm[Hg] Bhavna Merchant [facility] 09:30:00 Social History Question Answer Notes LastModified by Organizat ion Details LastModified Time Tobacco Smoking Status Never Smoker Bhavna Merchant null, [facility] 06/24/2022 11:50:14 Do You Have An Advance Directive? No [email or web address] Information n ot available 06/25/2020 How Many Years Have You Consumed Alcohol? 7 [email or web address] Information not available 06/24/2022 Are You Blind Or Do You Have Difficulty Seeing? No [email or web address] Information n ot available 06/25/2020 What Is Your Level Of Caffeine Consumption? Occasional [email or web address] Information not available 08/27/2020 How Much Tobacco Do You Chew? None [email or web address] Information not available 04/04/2024 In The 14 Days Before Symptom Onset, Have You Had Close Contact With A Laboratory-confirm ed COVID-19 While That Case Was Ill? No [email or web address] Information n ot available 06/25/2020 In The 14 Days Before Symptom Onset, Have You Had Close Contact With A Person Who Is Under Investigation For COVID-19 While That Person Was Ill? No [email or web address] Information not available 06/25/2020 Have You Been To An Area Known To Be High Risk For COVID-19? No [email or web address] Information not available 06/25/2020 Are You Deaf Or Do You Have Serious Difficulty Hearing? No [email or web address] Information not available 05/19/2022 What Type Of Diet Are You Following? [email or web address] Information n ot available 06/24/2022 What Is The Highest Grade Or Level Of School You Have Completed Or The Highest Degree You Have Received? [id number] Information not available 06/25/2020 Are There Any Guns Present In Your Home? No [email or web address] Information not available 06/25/2020 What Was The Date Of Your Most Recent Tobacco Screening? 08/24/2024 [email or web address] Information not available 08/24/2024 Have You Ever Been Counseled For Unhealthy Alcohol Use? No [email or web address] Information not available 05/03/2024 Do You Use Protection During Sex? Usually [email or web address] Information not available 06/25/2020 Do You Use Your Seat Belt Or Car Seat Routinely? Yes Information not available 06/25/2020 Are You Sexually Active? Yes [email or web address] Information not available 05/03/2024 Do You Have Smoke And Carbon Monoxide Detectors In Your Home? Yes [email or web address] Information not available 06/24/2022 How Much Tobacco Do You Smoke? No [email or web address] Information not available 03/19/2020 Do You Use Sunscreen Routinely? Yes [email or web address] Information not available 04/04/2024 Have You Used IV Drugs? No Information not available 06/25/2020 Do You Have Difficulty Walking Or Climbing Stairs? No [email or web address] Information not available 06/24/2022 Sex: Unknown Functional Status Question Answer Note LastModified by Organizat ion Details LastModified Time Do you use any illicit or recreational drugs? No Information not available 06/25/2020 Do you or have you ever used any other forms of tobacco or nicotine? No [email or web address] Information not available 05/03/2024 What is your level of alcohol consumption? Occasional [email or web address] Information not available 06/25/2020 Do you or have you ever used smokeless tobacco? Never used smokeless tobacco [email or web address] Information not available 06/24/2022 Are you currently employed? Yes [email or web address] Information not available 05/03/2024 Are you able to walk? YESWOREST [email or web address] Information not available 06/25/2020 Are you able to care for yourself? 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 No [email or web address] Information not available 06/24/2022 Do you or have you ever used e-cigarettes or vape? Never used electronic cigarettes [email or web address] Information not available 06/24/2022 What is your exercise level? Moderate [email or web address] Information not available 04/04/2024 Mental Status Question Answer Note LastModified by Organization D etails LastModified Time Do you feel stressed (tense, restless, nervous, or anxious, or unable to sleep at night)? [id number] [email or web address] Information not available 06/25/2020 Family History Relationship Description Onset Age of this Age Resolved Age Notes LastModified by Organization Details LastModified Time Mother Asthma [email or web address] Not available 17:22:56 Mother Cyst of ovary [email or web address] Not available 2024 09:18:10 Mother Hypertensive disorder [email or web address] Not available 2019 17:24:14 Mother Depressive disorder Not available 2020 14:08:30 Mother Heart disease [email or web address] Not available 2020 14:08:30 Mother Substance abuse Not available 2020 14:08:30 Sister Asthma [email or web address] Not available 17:22:56 Sister Anemia [email or web address] Not available 17:23:09 Sister Cyst of ovary Not available 2024 09:18:10 Sister Depressive disorder [email or web address] Not available 2020 14:08:30 Father Hypertensive disorder [email or web address] Not available 2019 17:24:14 Maternal Grandmother Hypertensive disorder [email or web address] Not available 2019 17:24:14 Maternal Grandfather Hypertensive disorder jgumber Not available 2019 17:24:14 Paternal Grandmother Heart disease Not available 2020 14:08:30 Paternal Grandmother Hyperlipidem ia [email or web address] Not available 2024 09:18:10 Paternal Grandmother Diabetes mellitus Not available 2020 14:08:30 Maternal Aunt Cyst of ovary [email or web address] Not available 2024 09:18:10 Maternal Aunt Malignant tumor of cervix [email or web address] Not available 2019 17:25:40 Maternal Aunt Malignant neoplasm of ovary [email or web address] Not available 2024 09:18:10 Maternal Uncle Heart disease [email or web address] Not available 2020 14:08:30 Paternal Grandfather Heart disease Not available 2020 14:08:30 Paternal Grandfather Hypertensive disorder [email or web address] Not available 2020 14:08:30 Medical History Condition Response Allergies (Food, seasonal, environmental ) N Other N Breast Cancer N Drug/Latex Allergies/Reactions N Blood Transfusion N Dermatologic Disorders N Lung Disease N Defects or Inherited Disease N Breast Problem N Gestational Diabetes Y Hematologic disorders N Anesthesia Complications N History of STI N Deep Vein Thrombosis N Polycystic ovary syndrome N Anxiety Disorder Y Autoimmune disease N Arthritis N Infertility N Polyps N Acid Reflux (GERD) N History of abnormal pap N Cancer N Stroke N Varicosities N Neurologic/Epilepsy N Endometriosis N High Cholesterol N Headaches Y Fibromyalgia N Kidney Disease N Heart Problems N Kidney or Bladder Problems N Thyroid Problems N GI Problems N Eating Disorder N Anemia Y Art (IVF or FET) N Psychiatric Illness N Ovarian Cancer N Diabetes Y Pulmonary (TB, Asthma) N Hepatitis/Liver Disease N Eczema N Urinary Tract Infection N Abuse/Domestic Violence N Asthma N Trauma/Violence N Depression/ depression N Heart Disease N Pre-Eclampsia N Hypertension Y Osteoporosis N Thrombophilias N Gynecological History Statement/Question Response Date of Last Mammogram Flow Moderate Date of LMP 01/28/2024 Was last menstrual period normal Y STIs/STDs N Date of Last Colonoscopy Desired Control Method Condoms Abnormal Pap N On BCP's at Conception? Y HPV Vaccine N Duration of Flow (days) 5 Current Control Method Age at First Child 14 Are cycles usually normal Y Frequency of Cycle (Q days) 30 Sexually Active? Y Menses Monthly Y Date of DEXA bone scan Age of first menstrual cycle 8 Date of Last Pap Smear 11/27/2022 Sexual Problems? Y LMP Approximate 12/19/2013 Obstetrics History GPAL:G 6 P 5 0 0 5 Type Value Full Term 5 Living 5 Total 6 Past Encounters Encounter ID Performer Location Encounter Start Date Encounter Closed Date Diagnosis/Indication Diagnosis SNOMED-CT Code Diagnosis ICD10 Code Diagnosis Note [id number] Jeffrey Syed MD [facility] [address] [address] 10/31/2019 11:51:15 10/31/2019 16:23:05 [id number] Dianne Spann CNM [facility] [address],[place] [address] 10/31/2019 11:52:26 10/31/2019 13:17:11 test positive 402377211 Z32.01 Risk factors addressed: Tobacco Cessation, Safe Sexual Practices, environmen lemuel, work hazards, travel restrictio ns, seat belt use.Eat a health well balanced diet, avoid alcohol, tobacco, and street drugs. Engage in daily low impact exercise, avoid temperatur e extremes, and cat, rodent, and bird feces.Avoi d travel to areas where zika virus is a concern.Fi rst look offered to patient. First look accepted by patient and will be scheduled. Sequential Screen handout given and discussed with patient. ildbirth classes recommende d.New OB sheet given. If previous , counseling .Pt verbalizes that she understand s the importance of above instructio ns.All questions were answered. Patient reminded to have annual well woman examinatio n and address preventati ve healthcare . [id number] Jeffrey Syed MD [facility] [address],[place] [address] 11/28/2019 09:26:54 11/28/2019 10:59:03 screening 404669315 Z36.82 Z36.0 Z36.89 Routine an tenatal care 430806092 Z34.81 [id number] Jeffrey Syed MD [facility] [address],[place] [address] 11/28/2019 09:28:26 11/28/2019 10:41:11 screening 391839438 Z36.82 Z36.0 Z36.89 [id number] Jeffrey Syed MD [facility] [address],[place] [address] 12/09/2019 10:55:25 12/09/2019 15:54:24 Gestational diabetes mellitus class A1 84375991 O24.410 Pt here for diet teaching. Diet teaching completed. Carb counts for meals and snacks reviewed. Pt instructed on how to read nutritiona l labels and instructed on researchin g carb counts for fresh fruits and vegetables . Pt provided with print outs with some fresh food carb counts. Pt instructed on blood sugar level goals and importance of checking and keeping blood sugar log. Pt instructed on high protein low carb and provided with food recommenda tions. Pt also instructed on insulin due to early gestationa l age diagnosis of GDM. Pt verbalized understand ing and was informed insulin teaching will be completed if insulin is prescribed . Pt scheduled an appt with SB for next week to review her BS log. Pt verbalized understand ing of informatio n discussed. Abbi ramí[place] [id number] MD Serg[facility] Reid [address],[place] [address] 12/16/2019 13:08:32 12/16/2019 13:52:38 Routine care [id number] Z34.81 Gestationa l diabetes mellitus 04656460 O24.414 [id number] MD Sergio Reid [address],[place] [address] 12/16/2019 14:50:51 12/16/2019 15:43:17 Gestational diabetes mellitus 78366267 O24.414 Insulin teaching discussed with patient. Pt to inj 5 units by SQ route at HS. Discussed with patient how to do this and demonstrat ed to pt how to draw up insulin and where to inj. Pt properly demonstrat ed back to me how to draw up different units of insulin. Pts questions were answered and verbalized understand ing. Insulin and syringes called out to [facility] in [facility]. Pt to inj 5u by SQ route at HS. LORIE daniel [id number] Jeffrey Syed MD [facility] [address],[place] [address] 12/20/2019 12:08:51 12/20/2019 12:28:27 Routine care [id number] Z34.81 [id number] Jeffrey Syed MD [facility] [address],[place] [address] 12/28/2019 10:19:33 01/02/2020 15:08:20 [id number] Dianne Spann CNM [facility] [address],[place] [address] 12/28/2019 10:19:49 12/29/2019 15:32:57 Routine care [id number] Z34.92 [id number] Dianne Spann CNM [facility] [address],[place] [address] 01/18/2020 12:13:25 01/19/2020 10:57:22 Routine care 687773998 Z34.92 Gestationa l diabetes mellitus in childbirth [id number] O24.414 [id number] Jeffrey Syed MD [facility] [address],[place] [address] 01/23/2020 11:43:13 01/23/2020 12:42:45 screening for malformation 959722396 Z36.3 [id number] Jeffrey Syed MD [facility] [address],[place] [address] 02/01/2020 14:55:30 02/01/2020 16:08:13 Routine care 661579536 Z34.81 Gestationa l diabetes mellitus 80071820 O24.414 [id number] Jeffrey Syed MD [facility] [address],[place] [address] 02/13/2020 14:22:53 08/21/2020 15:12:19 [id number] Dianne Spann [facility] [address],[place] [address] 02/13/2020 14:23:14 02/13/2020 15:30:00 Routine care 250286611 Z34.92 [id number] Dianne Spann [facility] [address],[place] [address] 02/27/2020 15:09:13 02/27/2020 17:59:15 Routine care 346214163 Z34.92 [id number] Dianne Spann [facility] [address],[place] [address] 03/19/2020 16:55:09 03/19/2020 17:54:01 Routine care 631049291 Z34.92 [id number] MD Sergio Hou [address],[place] [address] 04/02/2020 15:38:09 04/03/2020 12:07:47 Gestational diabetes mellitus 02836922 O24.414 [id number] MD [facility] [address],[place] [address] 04/16/2020 14:57:22 04/16/2020 15:59:07 Gestational diabetes mellitus class A2 [id number] O24.414 [id number] Magui Torres MD [facility] [address],[place] [address] 04/16/2020 14:58:19 04/16/2020 16:30:02 Gestational diabetes mellitus 50463493 O24.414 Z3A.32 [id number] Magui Torres MD [facility] [address],[place] [address] 04/16/2020 14:58:38 04/16/2020 16:00:23 Pre-existing type 2 diabetes mellitus in 047481769 O24.119 [id number] Jeffrey Syed MD [facility] [address],[place] [address] 04/23/2020 15:44:19 04/23/2020 16:42:02 Gestational diabetes mellitus class A2 [id number] O24.414 [id number] Jeffrey Syed MD [facility] [address],[place] [address] 04/23/2020 15:45:32 04/23/2020 17:04:41 Gestational diabetes mellitus class A2 56772561 O24.414 Z3A.33 [id number] Dianne Spann [facility] [address],[place] [address] 04/23/2020 16:42:18 04/23/2020 17:04:32 Routine care 092073885 Z34.92 [id number] Jeffrey Syed MD [facility] [address],[place] [address] 04/26/2020 15:56:52 04/26/2020 16:35:49 Gestational diabetes mellitus class A2 36262584 O24.414 [id number] Dianne Spann [facility] [address],[place] [address] 04/30/2020 16:01:46 04/30/2020 17:02:33 Routine care 413390126 Z34.92 [id number] MD Sergio Reid [address],[place] [address] 04/30/2020 16:00:36 04/30/2020 16:35:55 Gestational diabetes mellitus class A2 54738515 O24.414 [id number] MD Sergio [facility] [address],[place] [address] 04/30/2020 16:01:24 04/30/2020 16:46:52 Gestational diabetes mellitus 86060951 O24.414 Z3A.34 [id number] MD Sergio Reid [address],[place] [address] 05/03/2020 15:54:10 05/03/2020 16:40:18 Gestational diabetes mellitus class A2 [id number] O24.414 [id number] Jeffrey Syed MD [facility] [address],[place] [address] 05/07/2020 15:57:18 05/07/2020 16:35:43 Gestational diabetes mellitus class A2 38340823 O24.414 [id number] Jeffrey Syed MD [facility] [address],[place] [address] 05/07/2020 15:58:01 05/07/2020 16:57:51 Gestational diabetes mellitus 33109389 O24.414 Z3A.35 [id number] Dianne Spann [facility] [address],[place] [address] 05/07/2020 15:58:23 05/07/2020 17:44:18 Routine care 582969000 Z34.92 [id number] Magui Torres MD [facility] [address],[place] [address] 05/14/2020 16:04:36 05/17/2020 16:39:09 Pre-existing type 2 diabetes mellitus in 237062132 O24.119 [id number] Magui Torres MD [facility] [address],[place] [address] 05/14/2020 16:04:59 05/14/2020 16:23:16 Gestational diabetes mellitus class A2 15754678 O24.414 [id number] Jeffrey Syed MD [facility] [address],[place] [address] 05/14/2020 16:04:59 05/14/2020 16:23:16 [id number] Magui Torres MD [facility] [address],[place] [address] 05/14/2020 16:41:30 05/21/2020 15:58:54 Gestational diabetes mellitus class A2 [id number] O24.414 [id number] Magui Torres MD [facility] [address],[place] [address] 05/14/2020 16:51:19 05/21/2020 15:59:04 Gestational diabetes mellitus 03863793 O24.414 Z3A.36 [id number] Jeffrey Syed MD [facility] [address],[place] [address] 05/17/2020 15:02:05 05/17/2020 16:15:29 Gestational diabetes mellitus class A2 94103905 O24.414 [id number] Jeffrey Syed MD [facility] [address],[place] [address] 05/21/2020 16:03:49 05/24/2020 08:31:40 Gestational diabetes mellitus class A2 33743729 O24.414 [id number] MD Sergio [facility] [address],[place] [address] 05/21/2020 16:04:15 05/24/2020 08:31:15 Gestational diabetes mellitus class A2 39731179 O24.414 Z3A.37 [id number] MD Sergio [facility] [address],[place] [address] 05/24/2020 15:03:55 05/24/2020 16:15:53 Routine care 255281543 Z34.81 [id number] MD Sergio [facility] [address],[place] [address] 05/24/2020 15:04:30 05/24/2020 17:38:43 Gestational diabetes mellitus class A2 02265823 O24.414 [id number] [facility] [address],[place] [address] 06/25/2020 14:00:39 06/26/2020 17:11:32 [id number] [facility] [address],[place] [address] 07/12/2020 16:43:54 07/15/2020 17:44:11 state 98200688 Z39.2 Continue to watch for signs/symp toms of post depression . Return one year from last pap smear for a well woman exam. Patient received above instructio ns, and questions have been answered. If you have any questions please call or respond to this email. Patient was made aware of the patient portal and may obtain a paper copy of today's plan if desired [id number] Dianne Spann CNM [facility] [address],[place] [address] 08/27/2020 15:16:56 08/27/2020 15:53:17 Gynecologic examination 29495045 Z01.419 Take Calcium with Vitamin D 1200mg daily if not receiving in daily diet. It is strongly advised to have an annual flu shot and up can obtain at most pharmacies . If you have not had a TDap shot in the last 10 years you should obtain one as well. Discussed with patient & provided with informatio n regarding Gardisil vaccine to prevent the 4 strains for HPV that cause cervical cancer if under age 26. Encourage safe sexual practices, to use condoms and limit partners if not already in a monogamous relationsh ip. Do monthly self breast exams. Have mammogram yearly or every other year depending on family history. BRCA testing is now available for patients with strong genetic history of female cancer. If interested contact the office. Engage in daily exercise of low impact aerobic exercise 45-60 minutes 4-5 times weekly. Avoid tobacco and illicit drugs as well as using moderation with alcohol intake less than 1-2 8 oz beverages daily. This lifestyle behavior pattern will lead to less health conditions and longer life span. If BMI greater than 25 weight watchers or dietary consult advised. Patient received above instructio ns, and questions have been answered. If you have any questions please call or respond to this email. Patient was made aware of the patient portal and may obtain a paper copy of today's plan if desired. Disorder of 35 470149 O92.70 Pt will use nystatin to clear up the last little bit of yeast. If it does not resolve. [id number] Dianne Spann [facility] [address],[place] [address] 11/12/2020 15:17:29 11/14/2020 14:19:51 Irregular periods 36353466 N92.6 Screening for malignant neoplasm of cervix 982871629 Z12.[id number] [facility] [address],[place] [address] 01/17/2021 16:15:36 01/17/2021 16:51:24 Vaginitis 92342206 N76.0 Suspect Yeast on examSwab vag/std sent Rx sent Candace ll call with results & if any further treatment needed. Time spent in visit is a total of 15 mins with at least 50% of visit consisting of counseling and review of plan of care.Addit ional precaution darcy measures were taken to minimize potential exposure to the Covid-19 virus during this patient s visit, including available hand full roll inspector upon arrive, temperatur e check and being asked a series of screening questions. All staff wore face coverings during this encounter, as well as provided additional cleaning and sanitizing of all surfaces, including countertop s, pens, chairs, door handles, light switches, etc, prior to and following the patient s visit. [id number] [facility] [address],[place] [address] 04/10/2021 12:45:14 04/10/2021 13:32:55 Urinary symptoms 349232903 R39.9 Vaginitis 79369983 N76.0 Discussed use of mild soap like dove or ivory, cotton underwear w/out dye, hypoallerg enic detergent, wipe from front to back, avoid tub baths, keep perineum clean and dry, d/c use of baby wipes. Encouraged daily intake of yogurt or womens health probiotic. Internal and external affirm collected. Will treat with diflucan. During exam it appears she has started her cycle. Normal amount of flow. [id number] Magui Torres MD [facility] [address] [address] 12/03/2021 13:55:45 12/03/2021 14:28:31 Uncertain viability of 595397169 O36.80X0 Z3A.01 [id number] Magui Torres MD [facility] [address] [address] 12/04/2021 09:21:54 12/04/2021 10:12:51 test positive 902983351 Z32.01 Pre-existi ng type 2 diabetes mellitus in 642006579 O24.119 Grand mult iparity with problem 431819249 O09.41 Venereal d isease screening 650154771 Z11.3 Screening for malignant neoplasm of cervix 624687244 Z12.4 [id number] Magui Torres MD [facility] [address] [address] 12/09/2021 12:42:16 12/09/2021 14:53:30 Pre-existing type 2 diabetes mellitus in 023158490 O24.119 Diet teaching completed over the phone per pt request. Went over ideal ranges for FBS and pp BS. Went over carb counting and carb ranges for each meal/snack . Gave ideas for foods to eat for meals/[facility]. Pt eats a lot of [place] food, but cooks at home. Pt to watch carb count and discussed low carb tortilla and to do burrito bowls instead to watch carbs. Discussed drink options and to avoid soda and juice. Pt mainly just drinks water. Told pt she can go online to [employer] for meal options or to look up low carb meal recipes online for ideas as well. Pt picked up glucometer last week and most of her levels are abnormal. Fastings 117-165 and only 2 pp BS are under 140. Told pt to continue checking BS QID and will review sugars with Dr. Torres to see what she would like to do. Pt is currently on 1000mg Metformin in AM and Glipizide 10mg at night. Pt was on insulin for GDM last . Pts questions were answered and pt verbalized understand ing. fredy RN Reviewed sugars with Dr. Torres and pt to stop Glipizide and increase Metformin to 1000mg BID. To start NPH 8u in AM and 12u at HS. To f/u in 1 wk. MFM after NOB appt. Called pt and informed of change in medication s. Pt will stop Glipizide, Metformin 1000mg BID, and 8u NPH in AM and 12u NPH @ HS. Pt remembers how to draw up insulin from last . Told pt will call in 1 wk to check on BS and if she has any questions in the meantime to call. Rx sent to [facility] in [facility]. Pt verbalized understand ing. fredy RN [id number] MD [facility] [place] [address],[place] [address] 01/15/2022 15:26:54 01/15/2022 15:56:06 screening 109467502 Z36.82 [id number] MD [facility] [address],[place] [address] 01/15/2022 15:28:10 01/15/2022 16:47:58 Routine care 944934881 Z34.93 Grand mult iparity with problem 314820512 O09.41 Pre-existi ng type 2 diabetes mellitus in 954012205 O24.119 RhD negative 021834106 Z 01.83 [id number] MD Sergio Hou [address],[place] [address] 02/10/2022 17:00:58 02/10/2022 17:43:04 [id number] Magui Torres MD [facility] [address],[place] [address] 02/10/2022 17:01:25 02/11/2022 16:10:14 Pre-existing type 2 diabetes mellitus in 975962838 O24.119 Grand mult iparity with problem 448959786 O09.41 [id number] Magui Torres MD [facility] [address],[place] [address] 03/12/2022 15:43:23 03/12/2022 16:31:00 Grand multiparity with problem 724963920 O09.41 Liver func tion tests outside reference range 301944907 R94.5 Pre-existi ng type 2 diabetes mellitus in 736989411 O24.119 Depressive disorder 3548 9007 F32.A [id number] Magui Torres MD [facility] [address],[place] [address] 04/09/2022 15:06:04 04/09/2022 15:46:19 Grand multiparity with problem 502066348 O09.41 Pre-existi ng type 2 diabetes mellitus in 872619501 O24.119 [id number] [facility] [address],[place] [address] 05/06/2022 09:29:43 05/06/2022 10:09:17 Routine care 664679337 Z34.92 Pre-existi ng diabetes mellitus in 567015849 O24.319 [id number] Dianne Spann [facility] [address],[place] [address] 05/19/2022 11:01:16 05/20/2022 15:40:12 Routine care 532438382 Z34.92 and type 2 diabetes mellitus 816532513 O24.119 [id number] Magui Torres MD [facility] [address],[place] [address] 06/03/2022 10:12:26 06/03/2022 11:22:37 Pre-existing type 2 diabetes mellitus in 739771584 O24.119 Z3A.32 [id number] MD Sergio [facility] [address],[place] [address] 06/03/2022 10:12:40 06/03/2022 13:57:42 Type 2 diabetes mellitus 99983636 E11.9 [id number] MD [facility] [place] [address],[place] [address] 06/03/2022 10:12:59 06/03/2022 15:29:07 Pre-existing type 2 diabetes mellitus in 220654893 O24.119 Z3A.32 Elevated blood-pressure reading without diagnosis of hypertension 426592817 R03.0 [id number] MD Sergio Hou [address],[place] [address] 06/06/2022 10:56:54 06/06/2022 11:42:46 Pre-existing type 2 diabetes mellitus in 731037728 O24.119 Z3A.32 [id number] Magui Torres MD [facility] [address],[place] [address] 06/10/2022 11:01:12 06/10/2022 11:43:10 Pre-existing type 2 diabetes mellitus in 582633934 O24.119 Z3A.32 [id number] Magui Torres MD [facility] [address],[place] [address] 06/13/2022 10:55:22 06/13/2022 11:49:16 Pre-existing type 2 diabetes mellitus in 966300254 O24.119 Z3A.32 [id number] Magui Torres MD [facility] [address],[place] [address] 06/13/2022 10:55:40 06/16/2022 16:10:14 Grand multiparity with problem 779000004 O09.41 Pre-existi ng type 2 diabetes mellitus in 214689853 O24.119 Z3A.32 [id number] Magui Torres MD [facility] [address],[place] [address] 06/17/2022 10:59:52 06/17/2022 11:59:23 Pre-existing type 2 diabetes mellitus in 513164588 O24.119 Z3A.32 [id number] MD Sergio [facility] [address] [address] [address] 06/17/2022 11:00:08 06/17/2022 12:10:02 Grand multiparity with problem [id number] O09.41 Pre-existi ng type 2 diabetes mellitus in [id number] O24.119 Z3A.32 [id number] Jeffrey Syed MD [facility] [address],[place] [address] 06/20/2022 11:05:00 06/20/2022 11:43:44 Pre-existing type 2 diabetes mellitus in [id number] O24.119 [id number] Jeffrey Syed MD [facility] [address],[place] [address] 1 06/24/2022 11:04:21 06/24/2022 16:20:15 Pre-existing type 2 diabetes mellitus in [id number] O24.119 Z3A.35 [id number] Dianne Spann [facility] [address],[place] [address] 06/24/2022 11:04:40 06/24/2022 18:03:35 [id number] Jeffrey Syed MD [facility] [address],[place] [address] 06/27/2022 10:46:49 06/27/2022 12:12:40 Pre-existing type 2 diabetes mellitus in [id number] O24.119 Z3A.35 [id number] Jeffrey Syed MD [facility] [address],[place] [address] 07/01/2022 11:05:39 07/01/2022 12:11:42 Pre-existing type 2 diabetes mellitus in [id number] O24.119 Z3A.35 [id number] Dianne Spann [facility] [address],[place] [address] 07/01/2022 11:06:20 07/02/2022 17:15:51 [id number] Magui Torres MD [facility] [address],[place] [address] 1 07/01/2022 11:36:07 07/01/2022 12:05:45 condition affecting obstetrical care of mother [id number] O36.8330 Z3A.36 [id number] Jeffrey Syed MD [facility] [address],[place] [address] 1 07/04/2022 11:06:08 07/04/2022 11:43:04 Pre-existing type 2 diabetes mellitus in [id number] O24.119 Z3A.35 [id number] Jeffrey Syed MD [facility] [address],[place] [address] 1 07/08/2022 10:57:30 07/08/2022 12:32:59 Pre-existing type 2 diabetes mellitus in [id number] O24.119 Z3A.37 [id number] Jeffrey Syed MD [facility] [address],[place] [address] 1 07/08/2022 10:57:44 07/08/2022 12:01:57 Pre-existing type 2 diabetes mellitus in [id number] O24.119 Z3A.35 [id number] Dianne Spann CNM [facility] [address],[place] [address] 1 07/08/2022 10:59:41 07/08/2022 13:32:32 [id number] Dianne Spann CNM [facility] [address],[place] [address] 08/05/2022 11:45:58 08/05/2022 15:20:24 state [id number] Z39.2 Continue to watch for signs/symp toms of post depression . Return one year from last pap smear for a well woman exam. Pt will return in December. Declines contracept ion.PCP and endo managing diabetes. Patient received above instructio ns, and questions have been answered. If you have any questions please call or respond to this email. Patient was made aware of the patient portal and may obtain a paper copy of today's plan if desired [id number] ALEKSEY Raygoza [facility] [address],[place] [address] 12/17/2022 11:09:14 12/17/2022 12:36:42 Gynecologic examination [id number] Z01.419 Take Calcium with Vitamin D 1200mg daily if not receiving in daily diet. It is strongly advised to have an annual flu shot and up can obtain at most pharmacies . If you have not had a TDap shot in the last 10 years you should obtain one as well. Discussed with patient & provided with informatio n regarding Gardisil vaccine to prevent the 4 strains for HPV that cause cervical cancer if under age 26. Encourage safe sexual practices, to use condoms and limit partners if not already in a monogamous relationsh ip. Do monthly self breast exams. Have mammogram yearly or every other year depending on family history. BRCA testing is now available for patients with strong genetic history of female cancer. If interested contact the office. Engage in daily exercise of low impact aerobic exercise 45-60 minutes 4-5 times weekly. Avoid tobacco and illicit drugs as well as using moderation with alcohol intake less than 1-2 8 oz beverages daily. This lifestyle behavior pattern will lead to less health conditions and longer life span. If BMI greater than 25 weight watchers or dietary consult advised. Patient received above instructio ns, and questions have been answered. If you have any questions please call or respond to this email. Patient was made aware of the patient portal and may obtain a paper copy of today's plan if desired. WWEBC - condoms, happy with this methodbrea stfeeding, doing wellhx of abnormal pap 8+ years ago per patient, no procedures requiredpa ps normal sincepap updatedSTI testing declinedUT D with PCPRTC in 1 year or sooner if needed [id number] Jeffrey Syed MD [facility] [address] [address] 04/04/2024 11:44:30 04/04/2024 12:41:50 Uterine size for dates discrepancy [id number] O26.841 Z3A.08 [id number] SUNG DE LA O MD [facility] [address] [address] 04/04/2024 11:48:41 04/04/2024 13:58:22 screening [id number] Z36.0 test positive [id number] Z32.01 1. Exam today within normal limits.2. Ultrasound today confirms GA and viability. EDC . GC/Clamydi a testing done: will f/u as indicated. 4. ACOG guidelines and plan of care for reviewed with patient. All questions answered.5 . Return to office at 12 weeks for new OB visit6. Will need new OB labs at next visit.7. Genetic screening: desires at 10 weeks, orders given today. Type 2 anisa betes mellitus [id number] E11.9 - previously well controlled on trulicity; stopped with due to lack of safety data- A1c 5.5% in 01/2024- currently on lantus 12u qHS, increased to 15u due to fasting levels in low 100s, out of range for prenancy; postprandi al levels within goal- will send [facility] referral for diabetes management consult [id number] SUNG DE LA O MD [facility] [address],[place] [address] 05/03/2024 10:02:52 05/03/2024 10:45:46 Gestation period, 12 weeks [id number] Z3A.12 Type 2 anisa betes mellitus 23222400 E11.9 - previously well controlled on trulicity; stopped with due to lack of safety data- A1c 5.5% in 01/2024 > 5.7% 03/2024- currently on lantus 20u qHS and metformin 1000mg BID; fasting and postprandi al levels now within goal- M appointmen t 05/04 [id number] SUNG DE LA O MD [facility] [address],[place] [address] 05/30/2024 09:25:52 05/30/2024 10:07:33 Pre-existing type 2 diabetes mellitus in [id number] O24.119 Gestation period, 16 weeks [id number] Z3A.16 [id number] SUNG DE LA O MD [facility] [address],[place] [address] 06/27/2024 16:28:14 06/29/2024 00:14:10 Type 2 diabetes mellitus [id number] E11.9 - previously well controlled on trulicity; stopped with due to lack of safety data- A1c 5.5% in 01/2024 > 5.7% 03/2024- MFM following and monitoring glucose logs Gestation period, 20 weeks [id number] Z3A.20 [id number] Bianca Potter [facility] [address],[place] [address] 1 07/29/2024 16:01:49 07/29/2024 16:46:00 Gestation period, 24 weeks [id number] Z3A.24 [id number] Bianca Potter [facility] [address],[place] [address] 08/24/2024 09:17:56 08/24/2024 10:01:52 Gestation period, 28 weeks [id number] Z3A.28 Health Concerns Section Related Observation LastModified by Organization Detai ls LastModified Time None Recorded Concern Status LastModified by Organization Details LastModified Time None Recorded Advance Directives Directive N: Payers Encounter Date Sequence Insurance Name Policy Number Policy Rodríguez Covered Member ID Rodríguez Member ID Guarantor Name 05/03/2024 1 [facility] [id number] Milly Warner [id number] Milly Warner 05/03/2024 2 [place] [employer] Milly Islas [id number] Milly Warner 05/30/2024 1 [facility] [id number] Milly Warner [id number] Milly Warner 05/30/2024 2 [place] [place] [facility] Milly Islas [id number] Milly Warner 06/27/2024 1 [facility] [id number] Milly Warner [id number] Milly Warner 06/27/2024 2 [place] [employer] [place] Milly Islas [id number] Milly Warner 07/29/2024 1 [facility] [id number] Milly Warner [id number] Milly Warner 07/29/2024 2 [place] [employer] [place] Milly Islas [id number] Milly Warner 08/24/2024 1 [facility] [id number] Milly Warner [id number] Milly Warner 08/24/2024 2 [place] [employer] [place] Milly Roshan [id number] Milly Warner OBGyn Episode Ob Episode Information Episode Created Date Number of Fetuses Patient Bloodtype Patient rh Status Prepregnancy Weight lbs Domestic Partner Domestic Partner Phone Father Name Corporate Account Executive Status 10/26/19 20 1 CLOSED Fetus Data First Name Last Name Admitted to NICU Weight (g) Sex Living Outcome Pediatric Complications Fetus ID Race Codes Race Delivery Type 3345.24 1 M Full Term 2789 Vaginal Delivery Sawyer Calculation Initial Sawyer Date Initial Exam Date Initial Exam Provider Initial Ultrasound Date Last Menstrual Period Date Ultra Sound Weeks Gestation 0 Eighteen To Twenty Week Sawyer Update Ultra Sound Date Fundal Height At Umbil Quickening Date Ultra Sound Latest Weeks Gestation Final Sawyer Confirmed By Final Sawyer Confirmed Date Final Sawyer Date Ultra Sound Latest Days Gestation 0 0 Menstrual History Last Menstrual Date Menses Monthly On Bcp Conception Prior Menses Frequency Hcg Plus Date Menarche Onset Age Delivery Information Delivery Date Delivery Type Labor Anesthesia Weeks Gestation Incision Type Labor Labor Length Hrs Delivered By Post Complications Tubal Sterilization Discharge Date Comments 6 37.3 Christian Discharge Information Feeding Method Contraceptive Method Maternal HG B and HCT Levels Ob Episode Information Episode Created Date Number of Fetuses Patient Bloodtype Patient rh Status Prepregnancy Weight lbs Domestic Partner Domestic Partner Phone Father Name Corporate Account Executive Status 10/26/19 20 1 CLOSED Fetus Data First Name Last Name Admitted to NICU Weight (g) Sex Living Outcome Pediatric Complications Fetus ID Race Codes Race Delivery Type 3912.23 1 M Full Term 2791 Vaginal Delivery Sawyer Calculation Initial Sawyer Date Initial Exam Date Initial Exam Provider Initial Ultrasound Date Last Menstrual Period Date Ultra Sound Weeks Gestation 0 Eighteen To Twenty Week Sawyer Update Ultra Sound Date Fundal Height At Umbil Quickening Date Ultra Sound Latest Weeks Gestation Final Sawyer Confirmed By Final Sawyer Confirmed Date Final Sawyer Date Ultra Sound Latest Days Gestation 0 0 Menstrual History Last Menstrual Date Menses Monthly On Bcp Conception Prior Menses Frequency Hcg Plus Date Menarche Onset Age Delivery Information Delivery Date Delivery Type Labor Anesthesia Weeks Gestation Incision Type Labor Labor Length Hrs Delivered By Post Complications Tubal Sterilization Discharge Date Comments 8 37.2 Bruno Discharge Information Feeding Method Contraceptive Method Maternal HG B and HCT Levels Ob Episode Information Episode Created Date Number of Fetuses Patient Bloodtype Patient rh Status Prepregnancy Weight lbs Domestic Partner Domestic Partner Phone Father Name Corporate Account Executive Status 10/26/19 20 1 CLOSED Fetus Data First Name Last Name Admitted to NICU Weight (g) Sex Living Outcome Pediatric Complications Fetus ID Race Codes Race Delivery Type 2551.45 5 M Full Term 2790 Vaginal Delivery Sawyer Calculation Initial Sawyer Date Initial Exam Date Initial Exam Provider Initial Ultrasound Date Last Menstrual Period Date Ultra Sound Weeks Gestation 0 Eighteen To Twenty Week Sawyer Update Ultra Sound Date Fundal Height At Umbil Quickening Date Ultra Sound Latest Weeks Gestation Final Sawyer Confirmed By Final Sawyer Confirmed Date Final Sawyer Date Ultra Sound Latest Days Gestation 0 0 Menstrual History Last Menstrual Date Menses Monthly On Bcp Conception Prior Menses Frequency Hcg Plus Date Menarche Onset Age Delivery Information Delivery Date Delivery Type Labor Anesthesia Weeks Gestation Incision Type Labor Labor Length Hrs Delivered By Post Complications Tubal Sterilization Discharge Date Comments 1 37 Ino Discharge Information Feeding Method Contraceptive Method Maternal HG B and HCT Levels Ob Episode Information Episode Created Date Number of Fetuses Patient Bloodtype Patient rh Status Prepregnancy Weight lbs Domestic Partner Domestic Partner Phone Father Name Corporate Account Executive Status 11/28/19 20 1 O Negative 180 CLOSED Fetus Data First Name Last Name Admitted to NICU Weight (g) Sex Living Outcome Pediatric Complications Fetus ID Race Codes Race Delivery Type false 3600.38 63 M true Full Term 3657 Vaginal Delivery Problems Problem Notes MFM 2/3 for [employer]. Pt is o n Levemir 34u AM and 54u PM & Humalog 22u breakfast, 10u lunch, 22(18)u dinner as of 04/2019 units levemir PP Problem Name Start Date End Date Resolution Snomed Code Not e Gestational diabetes mellitus 01/18/2020 [id number] PREgestational DM2. delivery 38-39w Past history of gestational diabetes mellitus [id number] Sawyer Calculation Initial Sawyer Date Initial Exam Date Initial Exam Provider Initial Ultrasound Date Last Menstrual Period Date Ultra Sound Weeks Gestation 2020 11/28/2019 10/31/2019 09/03/2019 7 Eighteen To Twenty Week Sawyer Update Ultra Sound Date Fundal Height At Umbil Quickening Date Ultra Sound Latest Weeks Gestation Final Sawyer Confirmed By Final Sawyer Confirmed Date Final Sawyer Date Ultra Sound Latest Days Gestation 0 [email or web address] 11/28/2019 06/09/19 21 0 Pre-fernando Flowsheet Flowsheet Date 10/31/2019 Hammonds Score Blood Edema Fundus Height Fundus Units Glucose Ketones Leukocytes Nitrite Labor Signs Protein Cervic Dilation Cervic Effacement Cervic Station Type Weight in lbs Pre/Post Dialysis Refused BP Diastolic BP Location Tested BP Systolic BP Type Fetus Heart Rate Present Fetus Movement Comments Flowsheet Date 11/28/2019 Hammonds Score Blood Edema Fundus Height Fundus Units Glucose Ketones Leukocytes Nitrite Labor Signs Protein Cervic Dilation Cervic Effacement Cervic Station 12 Type Weight in lbs Pre/Post Dialysis Refused Weight 181.769858907570 BP Diastolic BP Location Tested BP Systolic BP Type 84 138 82 117 Fetus Heart Rate Present A 171 Fetus Movement Comments This patient is a 24-year-ol d 4 para 3003 at 12 weeks gestation who presents for initial visit. She has no complaints. She does have a history of gestational diabetes. She has had a since that did not have gestational diabetes. She will follow up in 4 weeks. She has no concerns at this time. Flowsheet Date 12/09/2019 Hammonds Score Blood Edema Fundus Height Fundus Units Glucose Ketones Leukocytes Nitrite Labor Signs Protein Cervic Dilation Cervic Effacement Cervic Station Type Weight in lbs Pre/Post Dialysis Refused BP Diastolic BP Location Tested BP Systolic BP Type Fetus Heart Rate Present Fetus Movement Comments Flowsheet Date 12/16/2019 Hammonds Score Blood Edema Fundus Height Fundus Units Glucose Ketones Leukocytes Nitrite Labor Signs Protein Cervic Dilation Cervic Effacement Cervic Station Type Weight in lbs Pre/Post Dialysis Refused BP Diastolic BP Location Tested BP Systolic BP Type Fetus Heart Rate Present Fetus Movement Comments this patient is a 24-year-ol d 4 para 3003 at 14 weeks gestation who appears to have gestational diabetes , perhaps pre gestational. We reviewed her blood sugars. She has elevated fastings and some elevated post prandials. We agreed to 5 units of evening NPH and to follow up in 4 days. Flowsheet Date 12/16/2019 Hammonds Score Blood Edema Fundus Height Fundus Units Glucose Ketones Leukocytes Nitrite Labor Signs Protein Cervic Dilation Cervic Effacement Cervic Station Type Weight in lbs Pre/Post Dialysis Refused BP Diastolic BP Location Tested BP Systolic BP Type Fetus Heart Rate Present Fetus Movement Comments Flowsheet Date 12/20/2019 Hammonds Score Blood Edema Fundus Height Fundus Units Glucose Ketones Leukocytes Nitrite Labor Signs Protein Cervic Dilation Cervic Effacement Cervic Station Type Weight in lbs Pre/Post Dialysis Refused Weight 178.152959249536 BP Diastolic BP Location Tested BP Systolic BP Type 80 136 Fetus Heart Rate Present Fetus Movement Comments improved blood sugar control with the addition of 5 units of NPH in the evenings. Her fastings are good now. She had 1 that was elevated. She has had some post prandials that were elevated. She attributes this to the the food of that particular meal. She is refined in her diet. To continue the current dose of insulin. Flowsheet Date 12/28/2019 Hammonds Score Blood Edema Fundus Height Fundus Units Glucose Ketones Leukocytes Nitrite Labor Signs Protein Cervic Dilation Cervic Effacement Cervic Station Type Weight in lbs Pre/Post Dialysis Refused BP Diastolic BP Location Tested BP Systolic BP Type Fetus Heart Rate Present Fetus Movement Comments Flowsheet Date 12/28/2019 Hammonds Score Blood Edema Fundus Height Fundus Units Glucose Ketones Leukocytes Nitrite Labor Signs Protein Cervic Dilation Cervic Effacement Cervic Station trace Type Weight in lbs Pre/Post Dialysis Refused Weight 177.787869838661 BP Diastolic BP Location Tested BP Systolic BP Type 86 L arm 125 sitting Fetus Heart Rate Present A 150 Fetus Movement Comments Pt doing well. No complaints . BS remain elevated. Will review with Dr Syed when he returns to the office today.LATE ENTRY Reviewed bs log with Dr Syed. He would like for her to have 5u in the am and 8u in the evening. Pt was called and informed by OB nurse. Flowsheet Date 01/18/2020 Hammonds Score Blood Edema Fundus Height Fundus Units Glucose Ketones Leukocytes Nitrite Labor Signs Protein Cervic Dilation Cervic Effacement Cervic Station 20 trace Type Weight in lbs Pre/Post Dialysis Refused Weight 181.047204868001 BP Diastolic BP Location Tested BP Systolic BP Type 82 L arm 128 sitting Fetus Heart Rate Present A 155 Fetus Movement A Yes Comments Still having some increased blood sugars. Will review log with Dr Syed this afternoon and call patient with updated insulin. Pt has been doing well otherwise. Pt is concerned because she had a early blood draw with a [employer] to determine gender. She was given results that the gender was female. However, by u/s here was told male. Pt is concerned about chromosomal abnormalities. We have discussed in great detail and pt would like NIPT. She was due for 2nd seq but has decided to proceed with NIPT instead. Will await results and discuss further.Late entry: spoke with Dr Syed and he would like to increase insulin to 14am 25pm. Pt was called and informed. Will review bs log on Thursday at u/s visit. Flowsheet Date 01/23/2020 Hammonds Score Blood Edema Fundus Height Fundus Units Glucose Ketones Leukocytes Nitrite Labor Signs Protein Cervic Dilation Cervic Effacement Cervic Station Type Weight in lbs Pre/Post Dialysis Refused BP Diastolic BP Location Tested BP Systolic BP Type Fetus Heart Rate Present Fetus Movement Comments Flowsheet Date 02/01/2020 Hammonds Score Blood Edema Fundus Height Fundus Units Glucose Ketones Leukocytes Nitrite Labor Signs Protein Cervic Dilation Cervic Effacement Cervic Station 21 Type Weight in lbs Pre/Post Dialysis Refused Weight 181.301069400690 BP Diastolic BP Location Tested BP Systolic BP Type 80 R arm 126 sitting Fetus Heart Rate Present A 156 Fetus Movement Comments this patient is a 24-year-ol d multiparous female at 21 weeks with gestational diabetes, her insulin and blood sugars were reviewed. We agreed to increase her morning NPH to 20 units periods are now she is 20 units of NPH in the morning and 25 units of NPH in the evening. She will call in her blood sugars and 5 days. Flowsheet Date 02/13/2020 Hammonds Score Blood Edema Fundus Height Fundus Units Glucose Ketones Leukocytes Nitrite Labor Signs Protein Cervic Dilation Cervic Effacement Cervic Station Type Weight in lbs Pre/Post Dialysis Refused BP Diastolic BP Location Tested BP Systolic BP Type Fetus Heart Rate Present Fetus Movement Comments Flowsheet Date 02/13/2020 Hammonds Score Blood Edema Fundus Height Fundus Units Glucose Ketones Leukocytes Nitrite Labor Signs Protein Cervic Dilation Cervic Effacement Cervic Station 24 trace Type Weight in lbs Pre/Post Dialysis Refused Weight 181.598803399659 BP Diastolic BP Location Tested BP Systolic BP Type 78 L arm 123 sitting Fetus Heart Rate Present A 148 Fetus Movement A Yes Comments Pt doing well. Had a day wit h increased pelvic/lower back discomfort. Resolved as fast as it came on. No contractions. Overall bs are good. She had a elevated fasting this morning but forgot to take her insulin last night. Will continue to monitor. Flowsheet Date 02/27/2020 Hammonds Score Blood Edema Fundus Height Fundus Units Glucose Ketones Leukocytes Nitrite Labor Signs Protein Cervic Dilation Cervic Effacement Cervic Station none 25 Type Weight in lbs Pre/Post Dialysis Refused Weight 180.219643851595 BP Diastolic BP Location Tested BP Systolic BP Type 82 L arm 120 sitting Fetus Heart Rate Present A 160 Fetus Movement A Yes Comments Pt c/o green discharge for a couple days. Will collect affirm/std screen. Elevated blood glucose. Pt has had appt with [facility] and is following up with them Thursday. They are managing insulin. Discussed importance of good glucose management. CF negative in previous . SMA declined. Order given for rhogam, hiv, rpr, & hh. Flowsheet Date 03/19/2020 Hammonds Score Blood Edema Fundus Height Fundus Units Glucose Ketones Leukocytes Nitrite Labor Signs Protein Cervic Dilation Cervic Effacement Cervic Station trace 28 neg Type Weight in lbs Pre/Post Dialysis Refused Weight 182.484402325306 BP Diastolic BP Location Tested BP Systolic BP Type 84 141 Fetus Heart Rate Present A 130 Fetus Movement A Yes Comments BP elevated. Denies h/a, v/d , or e/p. Unable to draw labs here. Pt sent to L&D for evaluation. Will have pih labs and rhogam workup drawn. PIH precautions given. Visit per Z Due SNM. Flowsheet Date 04/02/2020 Hammonds Score Blood Edema Fundus Height Fundus Units Glucose Ketones Leukocytes Nitrite Labor Signs Protein Cervic Dilation Cervic Effacement Cervic Station neg none 33 trace Type Weight in lbs Pre/Post Dialysis Refused Weight 183.422247940855 BP Diastolic BP Location Tested BP Systolic BP Type 78 129 Fetus Heart Rate Present A 160 Fetus Movement A Yes Comments No complaints. Likely preges tational DM2, sugars reviewed, but managed by MFM weekly. In last 4 days almost all elevated. Fastings in the last week 95-102. Discussed diet choices. SHe is frustrated that they keep changing her insulin. We discussed why this is important. Verify she got rhogam at her next visit. Flowsheet Date 04/16/2020 Hammonds Score Blood Edema Fundus Height Fundus Units Glucose Ketones Leukocytes Nitrite Labor Signs Protein Cervic Dilation Cervic Effacement Cervic Station Type Weight in lbs Pre/Post Dialysis Refused BP Diastolic BP Location Tested BP Systolic BP Type Fetus Heart Rate Present Fetus Movement Comments Flowsheet Date 04/16/2020 Hammonds Score Blood Edema Fundus Height Fundus Units Glucose Ketones Leukocytes Nitrite Labor Signs Protein Cervic Dilation Cervic Effacement Cervic Station Type Weight in lbs Pre/Post Dialysis Refused BP Diastolic BP Location Tested BP Systolic BP Type Fetus Heart Rate Present Fetus Movement Comments Flowsheet Date 04/16/2020 Hammonds Score Blood Edema Fundus Height Fundus Units Glucose Ketones Leukocytes Nitrite Labor Signs Protein Cervic Dilation Cervic Effacement Cervic Station neg trace trace Type Weight in lbs Pre/Post Dialysis Refused Weight 187.321413218538 BP Diastolic BP Location Tested BP Systolic BP Type 88 137 Fetus Heart Rate Present A 130 Fetus Movement A Yes Comments Doing well. Fastings good. A bout 1/3 pp elevated over Trev week- reporting sugars to [facility] tomorrow. Got rhogam at [place]. Irregular contractions, precautions given. Flowsheet Date 04/23/2020 Hammonds Score Blood Edema Fundus Height Fundus Units Glucose Ketones Leukocytes Nitrite Labor Signs Protein Cervic Dilation Cervic Effacement Cervic Station Type Weight in lbs Pre/Post Dialysis Refused BP Diastolic BP Location Tested BP Systolic BP Type Fetus Heart Rate Present Fetus Movement Comments Flowsheet Date 04/23/2020 Hammonds Score Blood Edema Fundus Height Fundus Units Glucose Ketones Leukocytes Nitrite Labor Signs Protein Cervic Dilation Cervic Effacement Cervic Station Type Weight in lbs Pre/Post Dialysis Refused BP Diastolic BP Location Tested BP Systolic BP Type Fetus Heart Rate Present Fetus Movement Comments Flowsheet Date 04/23/2020 Hammonds Score Blood Edema Fundus Height Fundus Units Glucose Ketones Leukocytes Nitrite Labor Signs Protein Cervic Dilation Cervic Effacement Cervic Station neg none 35 trace Type Weight in lbs Pre/Post Dialysis Refused Weight 188.953968248172 BP Diastolic BP Location Tested BP Systolic BP Type 80 128 Fetus Heart Rate Present A 140 Fetus Movement A Yes Comments Blood sugars back and forth. [facility] continues to manage. Occasional contraction. Nothing regular. PTL precautions discussed. Pre admit scheduled. Flu and tdap done. Flowsheet Date 04/26/2020 Hammonds Score Blood Edema Fundus Height Fundus Units Glucose Ketones Leukocytes Nitrite Labor Signs Protein Cervic Dilation Cervic Effacement Cervic Station Type Weight in lbs Pre/Post Dialysis Refused BP Diastolic BP Location Tested BP Systolic BP Type Fetus Heart Rate Present Fetus Movement Comments Flowsheet Date 04/30/2020 Hammonds Score Blood Edema Fundus Height Fundus Units Glucose Ketones Leukocytes Nitrite Labor Signs Protein Cervic Dilation Cervic Effacement Cervic Station Type Weight in lbs Pre/Post Dialysis Refused BP Diastolic BP Location Tested BP Systolic BP Type Fetus Heart Rate Present Fetus Movement Comments Flowsheet Date 04/30/2020 Hammonds Score Blood Edema Fundus Height Fundus Units Glucose Ketones Leukocytes Nitrite Labor Signs Protein Cervic Dilation Cervic Effacement Cervic Station Type Weight in lbs Pre/Post Dialysis Refused BP Diastolic BP Location Tested BP Systolic BP Type Fetus Heart Rate Present Fetus Movement Comments Flowsheet Date 04/30/2020 Hammonds Score Blood Edema Fundus Height Fundus Units Glucose Ketones Leukocytes Nitrite Labor Signs Protein Cervic Dilation Cervic Effacement Cervic Station neg none 36 trace Type Weight in lbs Pre/Post Dialysis Refused Weight 186.906657247499 BP Diastolic BP Location Tested BP Systolic BP Type 79 130 Fetus Heart Rate Present Fetus Movement A Yes Comments Pt states bs have been amazi ng. Still being managed by mfm. Doing well. Labor precautions. Flowsheet Date 05/03/2020 Hammonds Score Blood Edema Fundus Height Fundus Units Glucose Ketones Leukocytes Nitrite Labor Signs Protein Cervic Dilation Cervic Effacement Cervic Station Type Weight in lbs Pre/Post Dialysis Refused BP Diastolic BP Location Tested BP Systolic BP Type Fetus Heart Rate Present Fetus Movement Comments Flowsheet Date 05/07/2020 Hammonds Score Blood Edema Fundus Height Fundus Units Glucose Ketones Leukocytes Nitrite Labor Signs Protein Cervic Dilation Cervic Effacement Cervic Station Type Weight in lbs Pre/Post Dialysis Refused BP Diastolic BP Location Tested BP Systolic BP Type Fetus Heart Rate Present Fetus Movement Comments Flowsheet Date 05/07/2020 Hammonds Score Blood Edema Fundus Height Fundus Units Glucose Ketones Leukocytes Nitrite Labor Signs Protein Cervic Dilation Cervic Effacement Cervic Station Type Weight in lbs Pre/Post Dialysis Refused BP Diastolic BP Location Tested BP Systolic BP Type Fetus Heart Rate Present Fetus Movement Comments Flowsheet Date 05/07/2020 Hammonds Score Blood Edema Fundus Height Fundus Units Glucose Ketones Leukocytes Nitrite Labor Signs Protein Cervic Dilation Cervic Effacement Cervic Station none 37 neg Type Weight in lbs Pre/Post Dialysis Refused Weight 186.842280962618 BP Diastolic BP Location Tested BP Systolic BP Type 88 130 Fetus Heart Rate Present A 140 Fetus Movement A Yes Comments Doing well. Occasional contr actions. PTL precautions. States bs readings are great. MFM continues to manage insulin. Flowsheet Date 05/14/2020 Hammonds Score Blood Edema Fundus Height Fundus Units Glucose Ketones Leukocytes Nitrite Labor Signs Protein Cervic Dilation Cervic Effacement Cervic Station Type Weight in lbs Pre/Post Dialysis Refused BP Diastolic BP Location Tested BP Systolic BP Type Fetus Heart Rate Present Fetus Movement Comments Flowsheet Date 05/14/2020 Hammonds Score Blood Edema Fundus Height Fundus Units Glucose Ketones Leukocytes Nitrite Labor Signs Protein Cervic Dilation Cervic Effacement Cervic Station Type Weight in lbs Pre/Post Dialysis Refused BP Diastolic BP Location Tested BP Systolic BP Type Fetus Heart Rate Present Fetus Movement Comments Flowsheet Date 05/14/2020 Hammonds Score Blood Edema Fundus Height Fundus Units Glucose Ketones Leukocytes Nitrite Labor Signs Protein Cervic Dilation Cervic Effacement Cervic Station Type Weight in lbs Pre/Post Dialysis Refused BP Diastolic BP Location Tested BP Systolic BP Type Fetus Heart Rate Present Fetus Movement Comments Flowsheet Date 05/14/2020 Hammonds Score Blood Edema Fundus Height Fundus Units Glucose Ketones Leukocytes Nitrite Labor Signs Protein Cervic Dilation Cervic Effacement Cervic Station Type Weight in lbs Pre/Post Dialysis Refused BP Diastolic BP Location Tested BP Systolic BP Type Fetus Heart Rate Present Fetus Movement Comments Flowsheet Date 05/14/2020 Hammonds Score Blood Edema Fundus Height Fundus Units Glucose Ketones Leukocytes Nitrite Labor Signs Protein Cervic Dilation Cervic Effacement Cervic Station neg none trace 4cm 50% Type Weight in lbs Pre/Post Dialysis Refused Weight 189.891660669880 BP Diastolic BP Location Tested BP Systolic BP Type 81 122 Fetus Heart Rate Present A 125 Fetus Movement A Yes Comments DOing fine. Sugars good. A l ot of ctx. GBS done. Will schedule IOL 38-39 weeks, but has delivered at 37 all her previous pregnancies. Monitoring today great. Flowsheet Date 05/17/2020 Hammonds Score Blood Edema Fundus Height Fundus Units Glucose Ketones Leukocytes Nitrite Labor Signs Protein Cervic Dilation Cervic Effacement Cervic Station Type Weight in lbs Pre/Post Dialysis Refused BP Diastolic BP Location Tested BP Systolic BP Type Fetus Heart Rate Present Fetus Movement Comments Flowsheet Date 05/21/2020 Hammonds Score Blood Edema Fundus Height Fundus Units Glucose Ketones Leukocytes Nitrite Labor Signs Protein Cervic Dilation Cervic Effacement Cervic Station Type Weight in lbs Pre/Post Dialysis Refused BP Diastolic BP Location Tested BP Systolic BP Type Fetus Heart Rate Present Fetus Movement Comments Flowsheet Date 05/21/2020 Hammonds Score Blood Edema Fundus Height Fundus Units Glucose Ketones Leukocytes Nitrite Labor Signs Protein Cervic Dilation Cervic Effacement Cervic Station Type Weight in lbs Pre/Post Dialysis Refused BP Diastolic BP Location Tested BP Systolic BP Type Fetus Heart Rate Present Fetus Movement Comments Flowsheet Date 05/24/2020 Hammonds Score Blood Edema Fundus Height Fundus Units Glucose Ketones Leukocytes Nitrite Labor Signs Protein Cervic Dilation Cervic Effacement Cervic Station 38 trace Type Weight in lbs Pre/Post Dialysis Refused Weight 191.010750848820 BP Diastolic BP Location Tested BP Systolic BP Type 80 R arm 126 sitting Fetus Heart Rate Present A 145 Fetus Movement A Yes Comments having NST today, recent BPP was normal, to be induced in 4 days , favorable cervix Flowsheet Date 05/24/2020 Hammonds Score Blood Edema Fundus Height Fundus Units Glucose Ketones Leukocytes Nitrite Labor Signs Protein Cervic Dilation Cervic Effacement Cervic Station Type Weight in lbs Pre/Post Dialysis Refused BP Diastolic BP Location Tested BP Systolic BP Type Fetus Heart Rate Present Fetus Movement Comments Menstrual History Last Menstrual Date Menses Monthly On Bcp Conception Prior Menses Frequency Hcg Plus Date Menarche Onset Age 0509/03/2019 Genetic Screening And Infection History Question Response Note Mental Retardation/Autism false Patient's Age Will Be 35 Years Or Older At Estim ated Date of Delivery false Thalassemia (Grenadian, Kiswahili, Mediterranean, Or Background): MCV < 80 false Neural Tube Defect (Meningomyelocele, Spina Bifi da, Or Anencephaly) false Congenital Heart Defect false Down Syndrome false Meño-Sachs (eg, Restorationism, Cajun, Jordanian-Burmese) f alse Jacquelyn Disease false Sickle Cell Disease Or Trait () false Hemophilia Or Other Blood Disorders false Muscular Dystrophy false Cystic Fibrosis false Crosslake's Chorea false Intellectual Disability/Autism false If Yes, Was Person Tested For Fragile X? false Other Inherited Genetic Or Chromosomal Disorder false Maternal Metabolic Disorder (eg, Type 1 Diabetes , PKU) false Patient Or Baby's Father Had A Child With Defects Not Listed Above false Recurrent Loss, Or A Stillbirth false Medications (including Suppl ements, Vitamins, Herbs, OTC Drugs), Illicit/Recreational Drugs, Alcohol false If Yes, Agent(s) And Strength/Dosage false Any Other Genetic History false Live With Someone With TB Or Exposed To TB false Patient Or Partner Has History Of Genital Herpes false Rash Or Viral Illness Since Last Menstrual Perio d false History Of STD, Gonorrhea, Chlamydia, HPV, Syphi lis false Other Infection History false History of HIV false History of Hepatitis false Prior GBS-infected child false Hemoglobinopathy Or Carrier false Other Structural Defect false Recent Travel History Outside of Country false Delivery Information Delivery Date Delivery Type Labor Anesthesia Weeks Gestation Incision Type Labor Labor Length Hrs Delivered By Post Complications Tubal Sterilization Discharge Date Comments 1 Induce d None 38.2 false Kyarivka Dianne CNTurner GDM Insulin Discharge Information Feeding Method Contraceptive Method Maternal HG B and HCT Levels Ob Episode Information Episode Created Date Number of Fetuses Patient Bloodtype Patient rh Status Prepregnancy Weight lbs Domestic Partner Domestic Partner Phone Father Name Corporate Account Executive Status 01/16/20 22 1 O Negative 161 CLOSED Fetus Data First Name Last Name Admitted to NICU Weight (g) Sex Living Outcome Pediatric Complications Fetus ID Race Codes Race Delivery Type 3288.54 2 M true Full Term [id number] Vacuum Assisted Vaginal Delivery Problems Problem Notes MFM: next appt U/S, [place], and [employer] on 06/25/22Fetal Echo NLQID sugars, low dose ASA 162mg, recommend labwork: hep A, hep B antigen, antibody, core antibody, hep c antibody, total iron, ferritin, plasma iron, serum gammaglobulin, antismooth muscle antibody, antiliver/kidney microsomal antibody-1, ANAMS-AFP, MFM at 21wks, growth u/s thereafter every 4 weeks, echo at 24 weeks, testing at 32wks, EFW near delivery, well controlled delivery 39+, poor control 36-38.6, on 28 units 630 am and 38 units 830 pm.06/25: BS QID, 24 hour urine supplies given, CDE, levemir 30 units am, 84 units hs, breakfast 10 units, 14 units lunch, 16 units dinner, continue metformin 500 mg bid, kick counts bid, twice weekly testing, efw. T2DM: QID BS, 24hr urine given today, DE visits with MFM, echo 24-26wks, serial growth u/s every 4wks, twice weekly testing 32 wks, 39 wk delivery, EFW near delivery, ASA 162mg daily, encouraged endocrinology referral from PCP.NAFLD: Hep A IgG need to collected STILL. Problem Name Start Date End Date Resolution Snomed Code Not e Headache [id number] riboflavin 400mg Chronic peripheral venous hypertension [id number] hx of - MFM recommended to check BID and PTL precautions RhD negative 12/06/2021 [id number] Type 2 diabetes mellitus 12/04/2021 [id number] MFM - ante test ing, growth; 34AM & 46 HS, unless 2 high fastings then 40 units HS. Cont metformin 500mg BID as of 04/23 Liver function tests outside reference range [id number] labs per MFM Grand multiparity with problem 12/04/2021 [id number] Sawyer Calculation Initial Sawyer Date Initial Exam Date Initial Exam Provider Initial Ultrasound Date Last Menstrual Period Date Ultra Sound Weeks Gestation 07/29/2022 01/15/2022 12/03/2021 09/25/2021 6 Eighteen To Twenty Week Sawyer Update Ultra Sound Date Fundal Height At Umbil Quickening Date Ultra Sound Latest Weeks Gestation Final Sawyer Confirmed By Final Sawyer Confirmed Date Final Sawyer Date Ultra Sound Latest Days Gestation 0 [email or web address] 01/15/2022 07/30/19 23 0 Pre-fernando Flowsheet Flowsheet Date 01/15/2022 Hammonds Score Blood Edema Fundus Height Fundus Units Glucose Ketones Leukocytes Nitrite Labor Signs Protein Cervic Dilation Cervic Effacement Cervic Station neg none none trace Type Weight in lbs Pre/Post Dialysis Refused Weight 168.294438847270 BP Diastolic BP Location Tested BP Systolic BP Type 83 126 Fetus Heart Rate Present Fetus Movement A No Comments Milly is a 26yo at 12.1 for care. She had DM2 and we have been increasing insulin frequently over the last 4 weeks since she came for her ob screen visit. BS currently great on NPH 28u in am and 38 at night in addition to her metformin. Her A1C was 9.3 at her first visit. TOday NT wnl. NIPT today. Taking her ASA. RH neg. Has not had COVID vaccines, discussed and encouraged. Also encouraged flu shot. Will get MFM referral placed. Flowsheet Date 02/10/2022 Hammonds Score Blood Edema Fundus Height Fundus Units Glucose Ketones Leukocytes Nitrite Labor Signs Protein Cervic Dilation Cervic Effacement Cervic Station Type Weight in lbs Pre/Post Dialysis Refused BP Diastolic BP Location Tested BP Systolic BP Type Fetus Heart Rate Present Fetus Movement Comments Flowsheet Date 02/10/2022 Hammonds Score Blood Edema Fundus Height Fundus Units Glucose Ketones Leukocytes Nitrite Labor Signs Protein Cervic Dilation Cervic Effacement Cervic Station neg none none trace Type Weight in lbs Pre/Post Dialysis Refused Weight 170.738309328419 BP Diastolic BP Location Tested BP Systolic BP Type 81 123 Fetus Heart Rate Present A 150 Fetus Movement A Yes Comments Doing well. [facility] managing ins ulin now but haven't had to change too much. Back to [facility] 03/01. Gender reveal Thursday. Forgot about COVID and flu shots, will consider. Flowsheet Date 03/12/2022 Hammonds Score Blood Edema Fundus Height Fundus Units Glucose Ketones Leukocytes Nitrite Labor Signs Protein Cervic Dilation Cervic Effacement Cervic Station neg trace 22 none trace Type Weight in lbs Pre/Post Dialysis Refused Weight 169.804380503502 BP Diastolic BP Location Tested BP Systolic BP Type 85 132 Fetus Heart Rate Present A 160 Fetus Movement A Yes Comments Doing ok. Job is stressful, and lost her mom in May and first holidays without her. Declines medication. Denies SI/HI. Counseling resources given. [facility] next week. On Levemir 30am/36pm. They recommended labs for elevated LFTs, she will do today. Will also repeat A1C today. Discuss vaccines again next visit. Flowsheet Date 04/09/2022 Hammonds Score Blood Edema Fundus Height Fundus Units Glucose Ketones Leukocytes Nitrite Labor Signs Protein Cervic Dilation Cervic Effacement Cervic Station neg none 30 none trace Type Weight in lbs Pre/Post Dialysis Refused Weight 174.16754724840 BP Diastolic BP Location Tested BP Systolic BP Type 78 120 Fetus Heart Rate Present A 150 Fetus Movement A Yes Comments Doing well. SUgars per MFM- really good per pt. Back there next week. Will order echo as has not been ordered yet. Labs today per [facility]. A1C was 5.3. Got flu shot. does not want her to get COVID vaccines. Needs Rhogam orders next visit. Stressed, dad had CVA but is doing pretty well. Discussed testing. Flowsheet Date 05/06/2022 Hammonds Score Blood Edema Fundus Height Fundus Units Glucose Ketones Leukocytes Nitrite Labor Signs Protein Cervic Dilation Cervic Effacement Cervic Station neg none 30 none trace Type Weight in lbs Pre/Post Dialysis Refused Weight 175.000487854923 BP Diastolic BP Location Tested BP Systolic BP Type 81 125 Fetus Heart Rate Present A 149 Fetus Movement A Yes Comments Doing well. States [facility] added lunch time dose of insulin d/t sugars slowly increasing. Otherwise doing well. testing scheduled but I did ask that they add a visit in 2 weeks since her next visit was scheduled in 4. Orders given for 28 week labs/rhogam.Having a boy! Flowsheet Date 05/19/2022 Hammonds Score Blood Edema Fundus Height Fundus Units Glucose Ketones Leukocytes Nitrite Labor Signs Protein Cervic Dilation Cervic Effacement Cervic Station neg none none trace Type Weight in lbs Pre/Post Dialysis Refused Weight 180.897396618632 BP Diastolic BP Location Tested BP Systolic BP Type 81 122 Fetus Heart Rate Present Fetus Movement A Yes Comments Doing well. [facility] managing blo od sugar. States has been much easier to manage with this . Measure for maternity belt today. testing scheduled. Flowsheet Date 06/03/2022 Hammonds Score Blood Edema Fundus Height Fundus Units Glucose Ketones Leukocytes Nitrite Labor Signs Protein Cervic Dilation Cervic Effacement Cervic Station Type Weight in lbs Pre/Post Dialysis Refused BP Diastolic BP Location Tested BP Systolic BP Type Fetus Heart Rate Present Fetus Movement Comments Flowsheet Date 06/03/2022 Hammonds Score Blood Edema Fundus Height Fundus Units Glucose Ketones Leukocytes Nitrite Labor Signs Protein Cervic Dilation Cervic Effacement Cervic Station Type Weight in lbs Pre/Post Dialysis Refused BP Diastolic BP Location Tested BP Systolic BP Type Fetus Heart Rate Present Fetus Movement Comments Flowsheet Date 06/03/2022 Hammonds Score Blood Edema Fundus Height Fundus Units Glucose Ketones Leukocytes Nitrite Labor Signs Protein Cervic Dilation Cervic Effacement Cervic Station neg trace none trace Type Weight in lbs Pre/Post Dialysis Refused Weight 178.658786810145 BP Diastolic BP Location Tested BP Systolic BP Type 90 139 78 150 Fetus Heart Rate Present A 135 Fetus Movement A Yes Comments Doing well. Reports BP mildl y elevated last week at hepatology and week before at [facility] also- around 130s/90s. Will repeat PIH labs and 24 hour urine. Rhogam done. BPP 01/27. Denies PreE sx. Fu weekly, precautions given. Flowsheet Date 06/06/2022 Hammonds Score Blood Edema Fundus Height Fundus Units Glucose Ketones Leukocytes Nitrite Labor Signs Protein Cervic Dilation Cervic Effacement Cervic Station Type Weight in lbs Pre/Post Dialysis Refused BP Diastolic BP Location Tested BP Systolic BP Type Fetus Heart Rate Present Fetus Movement Comments Flowsheet Date 06/10/2022 Hammonds Score Blood Edema Fundus Height Fundus Units Glucose Ketones Leukocytes Nitrite Labor Signs Protein Cervic Dilation Cervic Effacement Cervic Station Type Weight in lbs Pre/Post Dialysis Refused BP Diastolic BP Location Tested BP Systolic BP Type Fetus Heart Rate Present Fetus Movement Comments Flowsheet Date 06/13/2022 Hammonds Score Blood Edema Fundus Height Fundus Units Glucose Ketones Leukocytes Nitrite Labor Signs Protein Cervic Dilation Cervic Effacement Cervic Station Type Weight in lbs Pre/Post Dialysis Refused BP Diastolic BP Location Tested BP Systolic BP Type Fetus Heart Rate Present Fetus Movement Comments Flowsheet Date 06/13/2022 Hammonds Score Blood Edema Fundus Height Fundus Units Glucose Ketones Leukocytes Nitrite Labor Signs Protein Cervic Dilation Cervic Effacement Cervic Station trace Type Weight in lbs Pre/Post Dialysis Refused Weight 179.578887205602 BP Diastolic BP Location Tested BP Systolic BP Type 81 124 Fetus Heart Rate Present A 150 Fetus Movement A Yes Comments Doing well. Just started erendira ltime insulin per MFM. 24 hour urine was 126, BP better today. NST reactive. Flowsheet Date 06/17/2022 Hammonds Score Blood Edema Fundus Height Fundus Units Glucose Ketones Leukocytes Nitrite Labor Signs Protein Cervic Dilation Cervic Effacement Cervic Station Type Weight in lbs Pre/Post Dialysis Refused BP Diastolic BP Location Tested BP Systolic BP Type Fetus Heart Rate Present Fetus Movement Comments Flowsheet Date 06/17/2022 Hammonds Score Blood Edema Fundus Height Fundus Units Glucose Ketones Leukocytes Nitrite Labor Signs Protein Cervic Dilation Cervic Effacement Cervic Station neg none none trace Type Weight in lbs Pre/Post Dialysis Refused Weight 181.950522469501 BP Diastolic BP Location Tested BP Systolic BP Type 84 130 Fetus Heart Rate Present A 140 Fetus Movement A Yes Comments Doing well. Contractions off and on yesterday. Baby a little quieter today. NST reactive but with one late decel. To [facility] for extended monitoring, BPP, and PIH labs. Flowsheet Date 06/20/2022 Hammonds Score Blood Edema Fundus Height Fundus Units Glucose Ketones Leukocytes Nitrite Labor Signs Protein Cervic Dilation Cervic Effacement Cervic Station Type Weight in lbs Pre/Post Dialysis Refused BP Diastolic BP Location Tested BP Systolic BP Type 78 129 Fetus Heart Rate Present Fetus Movement Comments Flowsheet Date 06/24/2022 Hammonds Score Blood Edema Fundus Height Fundus Units Glucose Ketones Leukocytes Nitrite Labor Signs Protein Cervic Dilation Cervic Effacement Cervic Station Type Weight in lbs Pre/Post Dialysis Refused BP Diastolic BP Location Tested BP Systolic BP Type Fetus Heart Rate Present Fetus Movement Comments Flowsheet Date 06/24/2022 Hammonds Score Blood Edema Fundus Height Fundus Units Glucose Ketones Leukocytes Nitrite Labor Signs Protein Cervic Dilation Cervic Effacement Cervic Station neg none none trace Type Weight in lbs Pre/Post Dialysis Refused Weight 183.865054263145 BP Diastolic BP Location Tested BP Systolic BP Type 89 121 Fetus Heart Rate Present Fetus Movement A Yes Comments Not seen Flowsheet Date 06/24/2022 Hammonds Score Blood Edema Fundus Height Fundus Units Glucose Ketones Leukocytes Nitrite Labor Signs Protein Cervic Dilation Cervic Effacement Cervic Station Type Weight in lbs Pre/Post Dialysis Refused BP Diastolic BP Location Tested BP Systolic BP Type Fetus Heart Rate Present Fetus Movement Comments Pt c/o HOPE x 2 days. Pt's 24 TP was 285. Due to HOPE, borderline BP, and borderline 24 TP, pt instructed to report to [facility] for BP monitoring and rpt PIH labs per KP. Report called to [facility] RN. Abbi Varma RN Flowsheet Date 06/27/2022 Hammonds Score Blood Edema Fundus Height Fundus Units Glucose Ketones Leukocytes Nitrite Labor Signs Protein Cervic Dilation Cervic Effacement Cervic Station Type Weight in lbs Pre/Post Dialysis Refused BP Diastolic BP Location Tested BP Systolic BP Type 79 118 Fetus Heart Rate Present Fetus Movement Comments Flowsheet Date 07/01/2022 Hammonds Score Blood Edema Fundus Height Fundus Units Glucose Ketones Leukocytes Nitrite Labor Signs Protein Cervic Dilation Cervic Effacement Cervic Station Type Weight in lbs Pre/Post Dialysis Refused BP Diastolic BP Location Tested BP Systolic BP Type Fetus Heart Rate Present Fetus Movement Comments Flowsheet Date 07/01/2022 Hammonds Score Blood Edema Fundus Height Fundus Units Glucose Ketones Leukocytes Nitrite Labor Signs Protein Cervic Dilation Cervic Effacement Cervic Station neg none none trace 3cm 40% -3 Type Weight in lbs Pre/Post Dialysis Refused Weight 182.065729227402 BP Diastolic BP Location Tested BP Systolic BP Type 79 124 Fetus Heart Rate Present Fetus Movement A Yes Comments Doing well. Is feeling a lit tle more fatigued. Blood sugars are low normal. She is following up with [facility] tomorrow. Discussed glucose precautions. Will also determine plan for delivery timing after m visit. Flowsheet Date 07/01/2022 Hammonds Score Blood Edema Fundus Height Fundus Units Glucose Ketones Leukocytes Nitrite Labor Signs Protein Cervic Dilation Cervic Effacement Cervic Station Type Weight in lbs Pre/Post Dialysis Refused BP Diastolic BP Location Tested BP Systolic BP Type Fetus Heart Rate Present Fetus Movement Comments Flowsheet Date 07/04/2022 Hammonds Score Blood Edema Fundus Height Fundus Units Glucose Ketones Leukocytes Nitrite Labor Signs Protein Cervic Dilation Cervic Effacement Cervic Station Type Weight in lbs Pre/Post Dialysis Refused BP Diastolic BP Location Tested BP Systolic BP Type 75 126 Fetus Heart Rate Present Fetus Movement Comments Flowsheet Date 07/08/2022 Hammonds Score Blood Edema Fundus Height Fundus Units Glucose Ketones Leukocytes Nitrite Labor Signs Protein Cervic Dilation Cervic Effacement Cervic Station Type Weight in lbs Pre/Post Dialysis Refused BP Diastolic BP Location Tested BP Systolic BP Type Fetus Heart Rate Present Fetus Movement Comments Flowsheet Date 07/08/2022 Hammonds Score Blood Edema Fundus Height Fundus Units Glucose Ketones Leukocytes Nitrite Labor Signs Protein Cervic Dilation Cervic Effacement Cervic Station Type Weight in lbs Pre/Post Dialysis Refused BP Diastolic BP Location Tested BP Systolic BP Type Fetus Heart Rate Present Fetus Movement Comments Flowsheet Date 07/08/2022 Hammonds Score Blood Edema Fundus Height Fundus Units Glucose Ketones Leukocytes Nitrite Labor Signs Protein Cervic Dilation Cervic Effacement Cervic Station neg none 38 none trace 4cm 70% -2 Type Weight in lbs Pre/Post Dialysis Refused Weight 188.886983391276 BP Diastolic BP Location Tested BP Systolic BP Type 84 142 Fetus Heart Rate Present Fetus Movement A Yes Comments Elevated bp today. Denies h/ a, v/d, or e/p. Plan was to discuss delivery timing with [facility] last week but appt was cancelled. Appointment scheduled with them tomorrow. OB nurse called [facility] and they recommend delivery with the diagnosis of GHTN. Discussed with Dr Torres and she agrees with plan. Pt states blood sugars have been much improved over the last week per patient report. Menstrual History Last Menstrual Date Menses Monthly On Bcp Conception Prior Menses Frequency Hcg Plus Date Menarche Onset Age 0609/25/20[birth year] Delivery Information Delivery Date Delivery Type Labor Anesthesia Weeks Gestation Incision Type Labor Labor Length Hrs Delivered By Post Complications Tubal Sterilization Discharge Date Comments 3 Induce d Regional-Ep idural 37.1 aditya Dianne Spann FAIZAN GHTN,GDM Discharge Information Feeding Method Contraceptive Method Maternal HG B and HCT Levels Ob Episode Information Episode Created Date Number of Fetuses Patient Bloodtype Patient rh Status Prepregnancy Weight lbs Domestic Partner Domestic Partner Phone Father Name Corporate Account Executive Status 05/03/19 25 1 O Negative OPEN Fetus Data First Name Last Name Admitted to NICU Weight (g) Sex Living Outcome Pediatric Complications Fetus ID Race Codes Race Delivery Type [id number] Problems Problem Notes h/o nonalcoholic fatty liver disease 2022 Problem Name Start Date End Date Resolution Snomed Code Not e Anxiety 08/24/2024 [id number] seeing th erapist every 2 weeks Hypertension AND/OR vomiting complicating childbirth AND/OR puerperium 08/19/2024 [id number] history of GTHN bASA 162mg daily Bseline labs wnl Type 2 diabetes mellitus [id number] lantus 46/46, lispro , A1c 5.7% 03/2024; following with MFM; dexcom updated 07/27/24MFM HgbA1c each trimester 04/19/24 5.7%, [facility] ordered echo 24-28wkskick counts BID @ 28wks 2xwkly NSTs w/ BPP to start @ [facility]uled [facility] 08/24/24 US, [employer] visit & DE Anemia 08/29/2024 [id number] Sawyer Calculation Initial Sawyer Date Initial Exam Date Initial Exam Provider Initial Ultrasound Date Last Menstrual Period Date Ultra Sound Weeks Gestation 11/14/2024 05/03/2024 04/04/2024 01/28/2024 8 Eighteen To Twenty Week Sawyer Update Ultra Sound Date Fundal Height At Umbil Quickening Date Ultra Sound Latest Weeks Gestation Final Sawyer Confirmed By Final Sawyer Confirmed Date Final Sawyer Date Ultra Sound Latest Days Gestation 0 [id number] 05/30/2024 11/15/19 25 0 Pre-fernando Flowsheet Flowsheet Date 05/03/2024 Hammonds Score Blood Edema Fundus Height Fundus Units Glucose Ketones Leukocytes Nitrite Labor Signs Protein Cervic Dilation Cervic Effacement Cervic Station Type Weight in lbs Pre/Post Dialysis Refused Weight 164.512838959804 BP Diastolic BP Location Tested BP Systolic BP Type 79 L arm 145 sitting Fetus Heart Rate Present A 165 Fetus Movement Comments Patient presents to [facility] care. Reports worsening headaches over the last 2 weeks. complicated by T2DM, well controlled on metformin and qHS lantus 20u. No nausea or cramping. NT/NB wnl today, LR NIPT Other new OB labs wnl aside from mildly elevated A1c. RTC 4 weeks for routine care. Flowsheet Date 05/30/2024 Hammonds Score Blood Edema Fundus Height Fundus Units Glucose Ketones Leukocytes Nitrite Labor Signs Protein Cervic Dilation Cervic Effacement Cervic Station neg none Type Weight in lbs Pre/Post Dialysis Refused BP Diastolic BP Location Tested BP Systolic BP Type Fetus Heart Rate Present A 140 Fetus Movement A Increased Comments Starting to feel flutt ers. Having a girl! Sugars overall well controlled. Got dexcom. Discussed anatomy US at [facility], appointments scheduled. RTC 4 weeks for routine OB. Flowsheet Date 06/27/2024 Hammonds Score Blood Edema Fundus Height Fundus Units Glucose Ketones Leukocytes Nitrite Labor Signs Protein Cervic Dilation Cervic Effacement Cervic Station neg trace Type Weight in lbs Pre/Post Dialysis Refused Weight 173.475810709290 BP Diastolic BP Location Tested BP Systolic BP Type 85 R arm 126 sitting Fetus Heart Rate Present A 145 Fetus Movement A Yes Comments Good movement. No cram ping or bleeding. Having some swelling and numbness in the morning in her hands. Glucose readings intermittently high, monitoring with [facility]. Anatomy US scheduled for Thursday with [facility]. RTC 4 weeks. Flowsheet Date 07/29/2024 Hammonds Score Blood Edema Fundus Height Fundus Units Glucose Ketones Leukocytes Nitrite Labor Signs Protein Cervic Dilation Cervic Effacement Cervic Station Type Weight in lbs Pre/Post Dialysis Refused 180.875934586349 BP Diastolic BP Location Tested BP Systolic BP Type 77 144 Fetus Heart Rate Present Fetus Movement Comments Patient is having discharge and swelling. reviewed precautions and education, +FM ses mfm, they are monitoring blood sugar, f/u as scheduled with mfm Flowsheet Date 08/24/2024 Hammonds Score Blood Edema Fundus Height Fundus Units Glucose Ketones Leukocytes Nitrite Labor Signs Protein Cervic Dilation Cervic Effacement Cervic Station trace trace Type Weight in lbs Pre/Post Dialysis Refused Weight 182.206494387210 BP Diastolic BP Location Tested BP Systolic BP Type 80 117 Fetus Heart Rate Present A 147 Fetus Movement A Yes Comments Patient states that is havin g some pain, tightness, bleeding after intercourse, and swelling. reviewed precautions, education, hemorrhoid treatment. seeing therapist every 2 weeks for anxiety, going well, mood better. sees mfm today, then will schedule testing, blood sugars monitored by mfm per pt doing great Menstrual History Last Menstrual Date Menses Monthly On Bcp Conception Prior Menses Frequency Hcg Plus Date Menarche Onset Age 1001/28/2024 Delivery Information Delivery Date Delivery Type Labor Anesthesia Weeks Gestation Incision Type Labor Labor Length Hrs Delivered By Post Complications Tubal Sterilization Discharge Date Comments Discharge Information Feeding Method Contraceptive Method Maternal HG B and HCT Levels
[2024-09-05] MEDS: RHO(D) IMMUNE GLOBULIN 300 MCG/2 ML SYRINGE IM (16:13)
== END 2024-12-01 23:59 | disposition home or self-care (01) ==
LOC: ANHLAB 13:26
PROVIDERS: Visit Provider Advanced Practice Midwife
DX: Z29.13 Encounter for prophylactic Rho(D) immune globulin (principal); O36.0130 Maternal care for anti-D [Rh] antibodies, third trimester, not applicable or unspecified; Z3A.00 Weeks of gestation of pregnancy not specified
CPT/HCPCS: 36415; 85461; 86850; 86900; 86901; 90384; 96372; J2790

== ENCOUNTER 2024-10-21 07:21 | Outpatient (RCR) | payer OTHER, MEDICAID, SELFPAY ==
[2024-10-21 07:59] VITALS: BP 114/66
== END 2024-11-17 09:51 | disposition other institution (70) ==
LOC: ANHOBOP 07:21
PROVIDERS: Visit Provider Obstetrics & Gynecology
DX: O26.899 Other specified pregnancy related conditions, unspecified trimester (principal); Z3A.00 Weeks of gestation of pregnancy not specified
CPT/HCPCS: 59025

== ENCOUNTER 2024-10-26 20:37 | Observation (INO) | payer OTHER, MEDICAID, SELFPAY ==
[2024-10-26 21:55] VITALS: BP 138/66; PULSE 85; TEMP 36.4
--- OUTSIDE RECORDS SUMMARY | 2024-10-26 21:57 | XMS_ITS | Clinical Summary ---
Author Organization [facility] Address [address] [place] [address] Care Team Providers Care Senior Mobile Web Developer Name Role Phone Abbi Cardenas MD Primary Care Provider [phone] Source Comments [facility],non-owned Affiliates and Associated Physician Practices is amultiple site organization consisting of ambulatory clinics and hospital sitesin [place], [place], [place] and [place]. This disclosure is being madepursuant to the Care Everywhere program and may not contain all information available regarding this patient. Last updated 18.[facility] Allergies No known active allergies Medications * This document contains information received from the source organization and may not represent a complete record from that organization. * Be aware that medications may not be up to date on this document. Alwaysverify current medications with the patient. sertraline (Zoloft) 50 MG tablet Take 1 (one) tablet by mouth once daily Active Vit-Fe Fumarate-FA ( vitamin) 27-0.8 MG tablet Take 1 (one) tablet by mouth once daily Active CALCIUM PO Take by mouth once daily Active MAGNESIUM PO Take by mouth once daily Active blood glucose test stripIndicatio ns:Type 2 diabetes mellitus with hyperglycemia, without long-term current use of insulin (HCC) Use 1 (one) strip 2 times daily 60 strip 11 024 Active Additional Information Patient not taking.Reason: Provider adjusted, Informant: Patient, Reported on 08/24/2024 dulaglutide (Trulicity) 3 MG/0.5ML injectionIndic ations:Type 2 diabetes mellitus with hyperglycemia, without long-term current use of insulin ([facility]) Inject 3 (three) mg subcutaneously every 7 days 2 mL 3 024 Active Additional Information Patient not taking.Reason: Provider adjusted, Informant: Patient, Reported on 08/24/2024 lancetsIndicat ions:Type 2 diabetes mellitus with hyperglycemia, without long-term current use of insulin ([facility]) Use 1 (one) Each 2 times daily 60 Each 11 024 Active Additional Information Patient not taking.Reason: Provider adjusted, Informant: Patient, Reported on 08/24/2024 Baqsimi One Pack 3 MG/DOSE POWD [place] 1 Cartridge into the nose as needed 1 Each 025 Active insulin pen needle (Novofine) 32G X 6 MM MISCIndication s: complicated by pre-existing type 2 diabetes in first trimester ([facility]) 1 (one) Each by Injection route 5 times daily 200 Each 5 025 Active Continuous Glucose Sensor (Dexcom G7 Sensor) MISCIndication s: complicated by pre-existing type 2 diabetes in first trimester ([facility]) Use 1 Each continuous Use 1 for 10 days each of continuous glucose monitoring. 3 Each 025 Active aspirin EC (Ecotrin) 81 MG tablet Take 2 (two) tablets by mouth once daily Active acetaminophen (Tylenol) 500 MG tablet Take 2 (two) tablets by mouth every 4 hours as needed for Fever or Pain Maximum allowable Acetaminophen amount = 4 Grams (4000 mg) / 24 hours. Active acetaminophen- caffeine 500-65 MG tablet Take 2 (two) tablets by mouth every 6 hours as needed for Headache 100 tablet 1 025 Active magnesium oxide (Mag-Ox) 400 MG tablet Take 1 (one) tablet by mouth once daily 100 tablet 3 025 Active Additional Information Patient not taking.Reason: Patient adjusted, Informant: Patient, Reported on 09/21/2024 riboflavin 400 MG capsule Take 1 (one) capsule by mouth once daily 100 capsule 2 025 Active aspirin-acetam inophen-caffei ne 250-250-65 MG tabletIndicati ons:Headache Take 2 (two) tablets by mouth every 4 hours as needed for Headache Reasons: Headache Active ferrous sulfate 325 (65 FE) MG tablet Take 1 (one) tablet by mouth once daily 30 tablet 1 Active insulin lispro (HumaLOG;ADMel og) 100 UNIT/ML pen Inject 32 units for breakfast, 42 units for lunch and 46 units for dinner with meals containing carbohydrates. Increase dose as directed due to increasing insulin requirements during . Max total daily dose 150. 45 mL 5 025 Active Insulin Glargine, 2 Unit Dial, (Toujeo Max SoloStar) pen Inject 74 units in the morning and 74 units at bedtime. Take dosages approximately 12 hours apart. Increase dose as directed due to increasing insulin requirements during . Max total daily dose = 200u 18 mL 3 025 Active Insulin Glargine, 2 Unit Dial, (Toujeo Max SoloStar) pen Inject 76 units in the morning and 76 units at bedtime. Take dosages approximately 12 hours apart. Increase dose as directed due to increasing insulin requirements during . Max total daily dose = 200u 18 mL 3 025 2024 Discontinued insulin lispro (HumaLOG;ADMel og) 100 UNIT/ML pen Inject 36 units for breakfast, 38 units for lunch and 42 units for dinner with meals containing carbohydrates. Increase dose as directed due to increasing insulin requirements during . Max total daily dose 150. 45 mL 5 025 2024 Discontinued Insulin Glargine, 2 Unit Dial, (Toujeo Max SoloStar) pen Inject 78 units in the morning and 78 units at bedtime. Take dosages approximately 12 hours apart. Increase dose as directed due to increasing insulin requirements during . Max total daily dose = 200u 18 mL 3 025 2024 Discontinued insulin lispro (HumaLOG;ADMel og) 100 UNIT/ML pen Inject 36 units for breakfast, 40 units for lunch and 44 units for dinner with meals containing carbohydrates. Increase dose as directed due to increasing insulin requirements during . Max total daily dose 150. 45 mL 5 025 2024 Discontinued Active Problems Problem Noted Date Diagnosed Date Type 2 diabetes mellitus wit h hyperglycemia, without long-term current use of insulin 11/13/2023 NAFLD (nonalcoholic fatty liver disease) 023 Overview (01/22/2024): 01/16/23 Fibroscan CAP 364, LSM 4.2 kPa 01/22/24 Fibroscan CAP 236, LSM 5.3 kPa Anemia in 04/01/2022 Anxiety 02/22/2020 Assessment & Plan (05/16/2020 3:12 PM WOOD PANEL INSPECTOR): Currently treating with weekly counseling and getting benefit. Previously on sertraline with some benefit, stopped when trying for . Praised her commitment to counseling. Assessment & Plan (04/25/2020 9:36 AM WOOD PANEL INSPECTOR): Currently treating with counseling and getting benefit. Previously on sertraline with some benefit, stopped when trying for . Assessment & Plan (04/11/2020 12:07 PM WOOD PANEL INSPECTOR): Currently treating with counseling and getting benefit. Previously on sertraline with some benefit, stopped when trying for . Assessment & Plan (03/28/2020 5:19 PM WOOD PANEL INSPECTOR): Currently treating with counseling. Previously on sertraline with some benefit, stopped when trying for . Anxiety remains improved with counseling and not problematic. Assessment & Plan (02/22/2020 11:06 AM WOOD PANEL INSPECTOR): Currently treating with counseling. Previously on sertraline with some benefit, stopped when trying for . Anxiety improved with counseling and not problematic. History of depression 02/22/2020 Overview (02/22/2020): G1 affected, took medication, G2 and G3 mildly affected. Assessment & Plan (02/22/2020 11:08 AM WOOD PANEL INSPECTOR): G1 affected, took medication, G2 and G3 mildly affected. Remains at risk for mood deterioration during and , monitor mood at visits, and closely in the period. Migraines 02/22/2020 Assessment & Plan (03/28/2020 5:19 PM WOOD PANEL INSPECTOR): Notes improvement, unable to excelsior picker Riboflavin. Understands to report return, especially for her to be evaluated for preeclampsia. Assessment & Plan (02/22/2020 12:08 PM WOOD PANEL INSPECTOR): History of migraines outside of , worsened in 1st trimester, generally improved now. Normotensive today without proteinuria. MFM recommendations: 1. I recommended Riboflavin 400mg daily, for aid in prevention. 2. Discussed if she has a headache not relieved with Tylenol or other intervention to alert primary OB or go to OB triage for evaluation. Discussed concern for preeclampsia when having persistent, unrelieved headache. Pre-existing type 2 diabetes affecting , antepartum 02/14/2020 Overview (06/01/2024): Assessment & Plan (05/23/2020 3:40 PM WOOD PANEL INSPECTOR): Anatomy ultrasound complete, accelerated abdominal circumference noted 05/09 Pre-diabetes prior to , monitoring with frequent hemoglobin A1cs with PCP Recent A1c: 5.2% on 03/14, 6.3% on 11/27; sent with order to recollect, has not completed CMP: creatinine: 0.54, ALT: 6, AST: 14; protein/creatinine ratio: 0.08, TSH: 1.33 Sporadic elevations today, mostly centered around missing insulin dosages and diet Completing testing with primary OB MFM recommendations: 1. Close contact with our family life educator to optimize glycemic control on at least once weekly basis. Instructed to do some middle of night checks again, and to contact office promptly if episodes occur. If having lows instructed to call after hours number. Encouraged efforts in bedtime snack. 2. Perform 4 times daily blood glucose measurements, fasting and 1 hour after meals. 3. Insulin: Continue Levemir 34 units in the morning and Levemir 58 units at night. Continue breakfast Humalog at 22 units with breakfast, continue 10 units with lunch, and continue 26 units with dinner. 4. Again encouraged to give insulin 15 minutes prior to plan for eat for optimizing the insulin with her meal. 5. Instructed to review with primary OB if he wants her to take her morning insulin prior to IOL, we recommend taking night time insulin as prescribed. 6. Comprehensive scan, followed by serial ultrasounds for growth every 4 weeks. Final growth around 38 weeks for delivery mode planning. 7. surveillance to continue with twice weekly NST and weekly BPP. Doing with primary OB on Thursday and . 8. Twice daily kick counts, seek obstetrical care if not getting 10 movements in two hours, especially if accompanied by hypoglycemia. 9. 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 10. Typical delivery recommended at 39 weeks in uncomplicated diabetic ; further recommendations on timing of delivery will depend on glycemic control and surveillance. 11. Instructed to set up eye exam, including dilated retinal exam. 12. During labor, capillary glucose values should be checked every 1-2 hours (depending on their stability). Maintenance fluids with 5% dextrose are infused to prevent starvation ketosis. If the glucose values exceed 110 mg/dl, an insulin infusion is recommended. 13. reduce insulin to Levemir of 20 units total, titrate up as needed. No meal time insulin unless indicated. Encouraged to schedule appointment with primary care physician promptly after delivery. postop blood glucose targets: Fasting/pre meal less than 110, 2 hour postprandial less than 150 -170. 14. Encouraged PP weight reduction and breast feeding. Assessment & Plan (05/16/2020 3:11 PM WOOD PANEL INSPECTOR): Anatomy ultrasound complete, accelerated abdominal circumference noted 05/09 Pre-diabetes prior to , monitoring with frequent hemoglobin A1cs with PCP Recent A1c: 5.2% on 03/14, 6.3% on 11/27; sent with order to recollect, has not done CMP: creatinine: 0.54, ALT: 6, AST: 14; protein/creatinine ratio: 0.08, TSH: 1.33 Post prandial dinner and fasting glucoses with elevations, skipping some after meal checks. One hypoglycemic episode when running errands and skipping snack. MFM recommendations: 1. Close contact with our family life educator to optimize glycemic control on at least once weekly basis. Instructed to do some middle of night checks again, and to contact office promptly if episodes occur. If 50 or less, call after hours emergency number. 2. Perform 4 times daily blood glucose measurements, fasting and 1 hour after meals. 3. Insulin: Continue Levemir 34 units in the morning and increase Levemir to 58 units at night. Continue breakfast Humalog at 22 units with breakfast, continue 10 units with lunch, and increase to 26 units with dinner. 4. Again encouraged to give insulin 15 minutes prior to plan for eat for optimizing the insulin with her meal. 5. Discussed treatment of hypoglycemia with fast acting sugar to always carry with her, as well as with glucagon. After hours number reviewed to call with concerns for [facility]. 6. Comprehensive scan, followed by serial ultrasounds for growth every 4 weeks. Final growth around 38 weeks for delivery mode planning. 7. surveillance to continue with twice weekly NST and weekly BPP. Doing with primary OB on Thursday and . 8. Twice daily kick counts, seek obstetrical care if not getting 10 movements in two hours 9. 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 10. Typical delivery recommended at 39 weeks in uncomplicated diabetic ; further recommendations on timing of delivery will depend on glycemic control and surveillance. 11. Instructed to set up eye exam, including dilated retinal exam. 12. Insulin drip in labor. reduce insulin by 50 percent. postop blood glucose targets: Fasting/pre meal less than 110, 2 hour postprandial less than 150 -170. 13. Repeat Hemoglobin A1c now, please collect this at next office visit; patient sent with order last week and reports she still has the order. Assessment & Plan (05/09/2020 10:40 AM WOOD PANEL INSPECTOR): Anatomy ultrasound complete, accelerated abdominal circumference noted today Pre-diabetes prior to , monitoring with frequent hemoglobin A1cs with PCP Recent A1c: 5.2% on 03/14, 6.3% on 11/27 CMP: creatinine: 0.54, ALT: 6, AST: 14; protein/creatinine ratio: 0.08 TSH: 1.33 Post prandial dinners with elevations; fasting glucoses mostly within goal. MFM recommendations: 1. Close contact with our family life educator to optimize glycemic control on at least once weekly basis. Instructed to do some middle of night checks to rule out hypoglycemia, and to contact office promptly if episodes occur. If 50 or less, call after hours emergency number. 2. Perform 4 times daily blood glucose measurements, fasting and 1 hour after meals. 3. Insulin: Continue Levemir 34 units in the morning and continue Levemir 54 units at night. Continue breakfast Humalog at 22 units with breakfast, continue 10 units with lunch, and increase to 22 units with dinner. 4. Encouraged to give insulin 15 minutes prior to plan for eat for optimizing the insulin with her meal. 5. Encouraged to continue to count carbs for meals, especially dinner. Discussed accelerated growth is often most closely tied to elevated meal time glucose. 6. Discussed treatment of hypoglycemia with fast acting sugar to always carry with her, as well as with glucagon. After hours number reviewed to call with concerns for [facility]. 7. Comprehensive scan, followed by serial ultrasounds for growth every 4 weeks. Final growth around 38 weeks for delivery mode planning. 8. surveillance to continue with twice weekly NST and weekly BPP. Doing with primary OB on Thursday and . 9. Twice daily kick counts, seek obstetrical care if not getting 10 movements in two hours 10. 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 11. Typical delivery recommended at 39 weeks in uncomplicated diabetic ; further recommendations on timing of delivery will depend on glycemic control and surveillance. 12. Instructed to set up eye exam, including dilated retinal exam. 13. Insulin drip in labor. reduce insulin by 50 percent. postop blood glucose targets: Fasting/pre meal less than 110, 2 hour postprandial less than 150 -170. 14. Repeat Hemoglobin A1c now, please collect this at next office visit; patient sent with order today. Assessment & Plan (04/25/2020 10:36 AM WOOD PANEL INSPECTOR): Anatomy ultrasound complete, with AGA growth identified 04/11 Pre-diabetes prior to , monitoring with frequent hemoglobin A1cs with PCP Recent A1c: 5.2% on 03/14, 6.3% on 11/27 CMP: creatinine: 0.54, ALT: 6, AST: 14; protein/creatinine ratio: 0.08 TSH: 1.33 Engaged in making changes, and exercising Glucoses mostly at goal with some elevations. MFM recommendations: 1. Close contact with our family life educator to optimize glycemic control on at least once weekly basis 2. Perform 4 times daily blood glucose measurements, fasting and 1 hour after meals. Encouraged to set timer in her phone for checking her glucose. 3. Insulin: Continue Levemir 34 units in the morning and continue Levemir 52 units at night. Continue breakfast Humalog at 22 units with breakfast, continue 10 units with lunch, and 18 units with dinner. Understands not to give fast acting insulin if not planning to eat that meal. 4. Encouraged to give insulin 15 minutes prior to plan for eat for optimizing the insulin with her meal. 5. Continue to eat all snacks as previously instructed. 6. Discussed treatment of hypoglycemia with fast acting sugar to always carry with her, as well as with glucagon. After hours number reviewed to call with concerns for [facility]. 7. Comprehensive scan, followed by serial ultrasounds for growth every 4 weeks. 8. surveillance to continue with twice weekly NST and weekly BPP. Reports plan to do this with primary Ceramic Painter. NST done here today and reactive. 9. Twice daily kick counts, seek care if not getting 10 movements in two hours 10. 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 11. Typical delivery recommended at 39 weeks in uncomplicated diabetic ; further recommendations on timing of delivery will depend on glycemic control and surveillance. 12. Instructed to set up eye exam, including dilated retinal exam. 13. Insulin drip in labor. reduce insulin by 50 percent. postop blood glucose targets: Fasting/pre meal less than 110, 2 hour postprandial less than 150 -170. 14. Repeat Hemoglobin A1c now, please collect this at next office visit. Assessment & Plan (04/11/2020 12:17 PM WOOD PANEL INSPECTOR): Anatomy ultrasound complete, with AGA growth identified today Pre-diabetes prior to , monitoring with frequent hemoglobin A1cs with PCP Recent A1c: 5.2% on 03/14 CMP: creatinine: 0.54, ALT: 6, AST: 14; protein/creatinine ratio: 0.08 TSH: 1.33 Engaged in making changes, and exercising Missing glucose checks. Hyperglycemia persists with some post prandial data, fastings mostly improved. MFM recommendations: 1. Close contact with our family life educator to optimize glycemic control on at least once weekly basis 2. Perform 4 times daily blood glucose measurements, fasting and 1 hour after meals. Encouraged to set timer in her phone for checking her glucose. 3. Insulin: Increase Levemir to 34 units in the morning and continue Levemir 52 units at night. Increase breakfast Humalog to 18 units with breakfast, continue 10 units with lunch, and continue 14 units with dinner. Understands not to give fast acting insulin if not planning to eat that meal. 4. Encouraged to give insulin 15 minutes prior to plan for eat for optimizing the insulin with her meal. 5. Discussed treatment of hypoglycemia with fast acting sugar to always carry with her, as well as with glucagon. After hours number reviewed to call with concerns for [facility]. 6. Comprehensive scan, followed by serial ultrasounds for growth every 4 weeks. 7. surveillance to begin at 32 weeks with twice weekly NST and weekly BPP. Reports plan to do this with primary Ceramic Painter. 8. Twice daily kick counts, seek care if not getting 10 movements in two hours 9. 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 10. Typical delivery recommended at 39 weeks in uncomplicated diabetic ; further recommendations on timing of delivery will depend on glycemic control and surveillance. Assessment & Plan (02/29/2020 12:38 PM WOOD PANEL INSPECTOR): Anatomy ultrasound complete, with AGA growth identified, 2 weeks ago. Pre-diabetes prior to , monitoring with frequent hemoglobin A1cs with PCP. Engaged in making changes, compliant with glucose monitoring. Fasting and post prandial breakfast hyperglycemia noted. MFM recommendations: 1. Close contact with our family life educator to optimize glycemic control on at least once weekly basis 2. Perform 4 times daily blood glucose measurements, fasting and 1 hour after meals. 3. Insulin: Continue Levemir 26 units in the morning and increase Levemir to 30 units at night. Increase breakfast Humalog to 8 units with breakfast, continue 4 units with lunch, and 6 units with dinner. Understands not to give fast acting insulin if not planning to eat that meal. 4. Discussed treatment of hypoglycemia with fast acting sugar to always carry with her, as well as with glucagon. After hours number reviewed to call with concerns for [facility]. 5. Comprehensive scan, followed by serial ultrasounds for growth every 4 weeks. 6. surveillance to begin at 32 weeks with twice weekly NST and weekly BPP. 7. Twice daily kick counts, seek care if not getting 10 movements in two hours 8. 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 9. Typical delivery recommended at 39 weeks in uncomplicated diabetic ; further recommendations on timing of delivery will depend on glycemic control and surveillance. 10. Plans to do lab work today for TSH, CMP, Hemoglobin A1c protein/creatinine ratio. Supervision of high-risk of young lupis coreas 02/14/2020 Overview (06/01/2024): Obesity (BMI 35.0-39.9 without comorbidity) Assessment & Plan (05/23/2020 3:41 PM WOOD PANEL INSPECTOR): Total weight gain: 9 pounds, following diabetic diet, exercising. MFM recommendations: 1. Limit weight gain to 0-15 pounds. Active weight loss is discouraged. 2. Serial growth ultrasounds. testing driven by co-morbidity of diabetes. 3. DVT warnings. Assessment & Plan (05/16/2020 3:11 PM WOOD PANEL INSPECTOR): Total weight gain: 8 pounds, following diabetic diet, exercising. MFM recommendations: 1. Limit weight gain to 0-15 pounds. Active weight loss is discouraged. 2. Serial growth ultrasounds. testing driven by co-morbidity of diabetes. 3. DVT warnings. Assessment & Plan (05/09/2020 10:20 AM WOOD PANEL INSPECTOR): Total weight gain: 6 pounds, following diabetic diet, exercising. MFM recommendations: 1. Limit weight gain to 0-15 pounds. Active weight loss is discouraged. 2. Serial growth ultrasounds. testing driven by co-morbidity of diabetes. 3. DVT warnings. Assessment & Plan (02/29/2020 12:40 PM WOOD PANEL INSPECTOR): Total weight gain: 3 pounds, following diabetic diet, exercising with walking. MFM recommendations: 4. Limit weight gain to 0-15 pounds. Active weight loss is discouraged. 5. Reviewed healthy dietary choices today with patient. 6. Serial growth ultrasounds. 7. Weekly testing driven by co-morbidity of diabetes. 8. Encouraged alpha fetoprotein screening to be done at 16-18 weeks given increased risk of NTD-- send results if completed please. 9. Milly appears to be at increased risk of preeclampsia, continue ASA 162 mg daily. Assessment & Plan (02/22/2020 12:02 PM WOOD PANEL INSPECTOR): Total weight gain: 4 pounds, following diabetic diet, exercising with walking. MFM recommendations: 1. Limit weight gain to 0-15 pounds. Active weight loss is discouraged. 2. Reviewed healthy dietary choices today with patient. 3. Serial growth ultrasounds. 4. Weekly testing driven by co-morbidity of diabetes. 5. Encouraged alpha fetoprotein screening to be done at 16-18 weeks given increased risk of NTD-- send results if completed please. 6. Milly appears to be at increased risk of preeclampsia. I recommend aspirin prophylaxis for prevention. The current recommended regimen is 2 low dose tablets daily [162 mg daily dose], starting between 12-13 weeks gestation until delivery, this was sent to her pharmacy today. History of chronic hypertension during adolescen ce Overview (02/22/2020): Diagnosed during adolescence and treated for 2 years, reports no issued during adulthood or other pregnancies. Assessment & Plan (05/23/2020 3:40 PM WOOD PANEL INSPECTOR): Diagnosed during adolescence and treated for 2 years, reports no issued during adulthood or other pregnancies, including no history of preeclampsia. Blood pressure appropriate today with negative urine protein. Asymptomatic for preeclampsia. Reports one elevated blood pressure in OB office after second trimester: 141/82. Stopped checking blood pressure at home due to anxiety. Compliant with LD ASA. MFM recommendations: 1. I again reviewed preeclampsia warnings again in detail and to always seek OB evaluation with any symptoms. 2. testing driven by diabetes as well as serial growth ultrasounds, already in place. 3. Begin home blood pressure checks again if has another elevated value at office visit, Milly agreeable to this. Assessment & Plan (05/16/2020 3:16 PM WOOD PANEL INSPECTOR): Diagnosed during adolescence and treated for 2 years, reports no issued during adulthood or other pregnancies, including no history of preeclampsia. Blood pressure appropriate today with negative urine protein. Asymptomatic for preeclampsia. Reports one elevated blood pressure in OB office after second trimester: 141/82. Stopped checking blood pressure at home due to anxiety. Compliant with LD ASA. MFM recommendations: 1. I again reviewed preeclampsia warnings again in detail and to always seek OB evaluation with any symptoms. 2. testing driven by diabetes as well as serial growth ultrasounds, already in place. 3. Begin home blood pressure checks again if has another elevated value at office visit, Milly agreeable to this. Assessment & Plan (05/09/2020 10:18 AM WOOD PANEL INSPECTOR): Diagnosed during adolescence and treated for 2 years, reports no issued during adulthood or other pregnancies, including no history of preeclampsia. Blood pressure appropriate today with trace urine protein. Asymptomatic for preeclampsia. Reports one elevated blood pressure in OB office after second trimester: 141/82. Stopped checking blood pressure at home due to anxiety. Compliant with LD ASA. MFM recommendations: 1. I again reviewed preeclampsia warnings again in detail and to always seek OB evaluation with any symptoms. 2. testing driven by diabetes as well as serial growth ultrasounds, already in place. 3. Acknowledged her concern for increased anxiety with home blood pressure checks, reports normal blood pressure at primary OB visits. Okay for patient to stop home blood pressure checks if triggering anxiety, but discussed if her blood pressure rises at office visits will be imperative to begin home checks again. Milly was agreeable. Assessment & Plan (04/25/2020 9:35 AM WOOD PANEL INSPECTOR): Diagnosed during adolescence and treated for 2 years, reports no issued during adulthood or other pregnancies, including no history of preeclampsia. Blood pressure appropriate today with trace urine protein. Asymptomatic for preeclampsia. Reports one elevated blood pressure in OB office after second trimester: 141/82. Home blood pressure reported to be normotensive, did not bring log. MFM recommendations: 1. I again reviewed preeclampsia warnings again in detail and to always seek OB evaluation with any symptoms, even if her blood pressure is appropriate. 2. Continue to check blood pressure at home, report to primary OB with SBP of 140 or greater and DBP of 90 or greater; either number. Again encouraged to bring log to visits. 3. testing driven by diabetes as well as serial growth ultrasounds, already in place. Assessment & Plan (04/11/2020 12:27 PM WOOD PANEL INSPECTOR): Diagnosed during adolescence and treated for 2 years, reports no issued during adulthood or other pregnancies, including no history of preeclampsia. Blood pressure appropriate today with trace urine protein. Asymptomatic for preeclampsia. Reports one elevated blood pressure in OB office after second trimester: 141/82. Home blood pressure reported to be normotensive. MFM recommendations: 1. Reviewed preeclampsia warnings again in detail and to always seek OB evaluation with any symptoms, even if her blood pressure is appropriate. 2. Continue to check blood pressure at home, report to primary OB with SBP of 140 or greater and DBP of 90 or greater; either number. Again encouraged to bring log to visits. 3. testing driven by diabetes as well as serial growth ultrasounds, already in place. Assessment & Plan (03/28/2020 5:32 PM WOOD PANEL INSPECTOR): Diagnosed during adolescence and treated for 2 years, reports no issued during adulthood or other pregnancies, including no history of preeclampsia. Blood pressure appropriate today without proteinuria. Asymptomatic for preeclampsia. Reports blood pressure in OB office last week of 141/82, repeat 130/70. MFM recommendations: 1. Reviewed preeclampsia warnings again in detail and to always seek OB evaluation with any symptoms, even if her blood pressure is appropriate. 2. Fitted for home blood pressure cuff in our office today, report to primary OB with SBP of 140 or greater and DBP of 90 or greater; either number. Log given to patient to document blood pressures and bring to all office visits. 3. testing driven by diabetes as well as serial growth ultrasounds, already in place. 4. Reviewed preeclampsia and gestational hypertension today as patient had several questions regarding blood pressure elevations in . Patient aware neither diagnosis has been made at this time for her . Assessment & Plan (02/29/2020 12:31 PM WOOD PANEL INSPECTOR): Diagnosed during adolescence and treated for 2 years, reports no issued during adulthood or other pregnancies, including no history of preeclampsia. Blood pressure normotensive today without proteinuria. MFM recommendations: 1. Consider home blood pressure cuff if patient's blood pressures rise, reviewed pattern of blood pressures during per trimester with patient. 2. Reviewed preeclampsia warnings again. 3. testing driven by diabetes as well as serial growth ultrasounds, already in place. Assessment & Plan (02/22/2020 12:11 PM WOOD PANEL INSPECTOR): Diagnosed during adolescence and treated for 2 years, reports no issued during adulthood or other pregnancies, including no history of preeclampsia. Blood pressure normotensive today without proteinuria. MFM recommendations: 1. Consider home blood pressure cuff if patient's blood pressures rise, reviewed pattern of blood pressures during per trimester with patient. 2. Reviewed preeclampsia warnings in detail today. 3. testing driven by diabetes as well as serial growth ultrasounds, already in place. Estimated Date of Delivery Comme nts Yes 11/14/2024 Based on Ultraso und Resolved Problems Problem Noted Date Diagnosed Date Resolved Date Pre-diabetes 04/20/2019 06/01/2024 Overview (03/28/2020): following with PCP prior to Labs from 03/14: Hemoglobin A1c: 5.2% CMP: creatinine: 0.54, ALT: 6, AST: 14; protein/creatinine ratio: 0.08 TSH: 1.33 Assessment & Plan (03/28/2020 5:26 PM WOOD PANEL INSPECTOR): Anatomy ultrasound complete, with AGA growth identified, 03/14 Pre-diabetes prior to , monitoring with frequent hemoglobin A1cs with PCP Recent A1c: 5.2% on 03/14 CMP: creatinine: 0.54, ALT: 6, AST: 14; protein/creatinine ratio: 0.08 TSH: 1.33 Engaged in making changes, glycemic control improved with some persistent hyperglycemia MFM recommendations: 1. Close contact with our family life educator to optimize glycemic control on at least once weekly basis 2. Perform 4 times daily blood glucose measurements, fasting and 1 hour after meals. 3. Insulin: Continue Levemir 30 units in the morning and increase Levemir to 46 units at night. Continue breakfast Humalog as 14 units with breakfast, increase to 10 units with lunch, and continue 14 units with dinner. Understands not to give fast acting insulin if not planning to eat that meal. 4. Discussed treatment of hypoglycemia with fast acting sugar to always carry with her, as well as with glucagon. After hours number reviewed to call with concerns for [facility]. 5. Comprehensive scan, followed by serial ultrasounds for growth every 4 weeks. 6. surveillance to begin at 32 weeks with twice weekly NST and weekly BPP. 7. Twice daily kick counts, seek care if not getting 10 movements in two hours 8. 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 9. Typical delivery recommended at 39 weeks in uncomplicated diabetic ; further recommendations on timing of delivery will depend on glycemic control and surveillance. Assessment & Plan (02/22/2020 11:59 AM WOOD PANEL INSPECTOR): Anatomy ultrasound complete, with AGA growth identified, last week. Pre-diabetes prior to , monitoring with frequent hemoglobin A1cs with PCP. Engaged in making changes and has done so with diet. Plans to change to recommended Levemir and Humalog per our recommendation, continues to have some fasting and post prandial hyperglycemia. M recommendations: 1. Close contact with our family life educator to optimize glycemic control on at least once weekly basis 2. Perform 4 times daily blood glucose measurements, fasting and 1 hour after meals. 3. Insulin: change to Levemir 26 units every 12 hours, start Humalog as 6 units with breakfast, 4 units with lunch, 6 units with dinner. Instructed not to give fast acting insulin if not planning to eat that meal. 4. Discussed treatment of hypoglycemia with fast acting sugar to always carry with her, as well as with glucagon. After hours number reviewed to call with concerns for [facility] WE[facility]. 5. Comprehensive scan, followed by serial ultrasounds for growth every 4 weeks. 6. surveillance to begin at 32 weeks with twice weekly NST and weekly BPP. 7. Twice daily kick counts, seek care if not getting 10 movements in two hours 8. 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 9. Typical delivery recommended at 39 weeks in uncomplicated diabetic ; further recommendations on timing of delivery will depend on glycemic control and surveillance. 10. Sent with lab work today for TSH, CMP, protein/creatinine ratio. Encounters Date Type Department Care Team Description 10/26/2024 1:45 PM CDT Hospital Encounter [facility] M[facility] & Care [address] [place] [phone] Divya Lemus MD 10/19/2024 1:45 PM CDT - 10/19/2024 11:59 PM CDT Hospital Encounter [facility] [address] [place] [phone] Austin Mar MD Discharge Disposition: Home or Self Care 10/12/2024 1:41 PM CDT - 10/12/2024 11:59 PM CDT Hospital Encounter [facility] [address] [place] [phone] Divya Lemus MD Discharge Disposition: Home or Self Care 10/05/2024 1:43 PM CDT - 10/05/2024 11:59 PM CDT Hospital Encounter [facility] [address] [place] [phone] Austin Mar MD Discharge Disposition: Home or Self Care 09/28/2024 1:45 PM CDT - 09/28/2024 11:59 PM CDT Hospital Encounter [facility] Care [address] [place] [phone] Austin Mar MD Discharge Disposition: Home or Self Care 09/21/2024 12:45 PM CDT - 09/21/2024 11:59 PM CDT Hospital Encounter [facility] [address] [place] [phone] Xavier Jenkins MD Head, Karin Kilpatrick MD Discharge Disposition: Home or Self Care 09/21/2024 8:54 AM CDT - 09/21/2024 12:44 PM CDT Hospital Encounter [facility] Pediatric[facility] - Cardiology [address] [place] [phone] Austin Mar MD Discharge Disposition: Home or Self Care 09/21/2024 8:54 AM CDT - 09/21/2024 12:44 PM CDT Hospital Encounter [facility] Pediatrics - Cardiology [address] [place] [phone] Jasmyn Lopez MD Discharge Disposition: Home or Self Care 08/24/2024 1:45 PM CDT - 08/24/2024 11:59 PM CDT Hospital Encounter [facility] [address] [place] [phone] Austin Mar MD Discharge Disposition: Home or Self Care 08/05/2024 Telephone [facility] [address] [place] [phone] Teresa Cabrera, IT TEACHER-LOCKSTITCH SLEEVE MAKER Appointment 08/05/2024 Travel 08/03/2024 Orders Only [facility] [address] [place] [phone] Iveth Watson RN 07/27/2024 7:27 AM CDT - 07/27/2024 11:59 PM CDT Hospital Encounter [facility] & Care [address] [place] [phone] Divya Lemus MD Discharge Disposition: Home or Self Care from Last 3 Months Family History Medical History Relation Name Comments CVA Father Diabetes - Type 2 Father Hypertension Father Heart Failure Maternal Grandfather Hypertension Maternal Grandfather Hypertension Maternal Grandmother COPD - Chronic Obstructive Pulmonary Disease Mother Heart Failure Mother Hypertension Mother Diabetes - Type 2 Paternal Grandmother Relation Name Status Comments Father Maternal Grandfather Maternal Grandmother Mother Paternal Grandmother Social History Tobacco Use Types Packs/Day Years Used Date Smoking Tobacco: Never Smokeless Tobacco: Never Tobacco Cessation:Counseling Given: Not Answered Alcohol Use Standard Drinks/Week Comments Not Currently 0 (1 standard drink = 0.6 oz pur e alcohol) socailly AUDIT-C Answer Date Recorded Q1: How often do you have a drink containing alc ohol? Never 02/22/2020 Average Number of Drinks Not on file 020 Frequency of Binge Drinking Not on file 07/2019 Estimated Date of Delivery Comme nts Yes 11/14/2024 Based on Ultraso und Sex and Gender Information Value Date Recorded Sex Assigned at Female 02/20/2022 9:30 AM CDT Legal Sex Female 12:43 PM WOOD PANEL INSPECTOR Gender Identity Female 02/20/2022 9:30 AM CDT Sexual Orientation Not on file Last Filed Vital Signs Vital Sign Reading Time Taken Comments Blood Pressure 118/80 10/26/2024 3:57 PM CDT Pulse 96 10/26/2024 3:57 PM CDT Temperature 36.7 C (98 F) 07/17/2023 11:08 AM CDT Respiratory Rate 16 10/19/2024 2:01 PM CDT Oxygen Saturation 98% 02/19/2024 9:24 AM CDT Inhaled Oxygen Concentration - - Weight 85.4 kg (188 lb 3.2 oz) 10/19/2024 2:01 P M CDT Height 152.4 cm (5') 09/21/2024 1:12 PM CDT Body Mass Index 36.76 09/21/2024 1:12 PM CDT Plan of Treatment Upcoming Encounters Date Type Department Care Team (Late st Contact Info) Description 11/02/2024 1:45 PM CDT Hospital Encounter [facility] Maternal & Care [address] [place], [place] [phone] 11/17/2024 9:00 AM CDT Office Visit [facility] - Endocrinology [address] [place] [phone] Gaby Weber IT TEACHER-LOCKSTITCH SLEEVE MAKER [phone] [facility] [place] [phone] 01/20/2025 10:30 AM CDT Office Visit [facility] - [facility] [address] [facility], [place] [phone] Marcia Kaba, IT TEACHER-LOCKSTITCH SLEEVE MAKER [address] [facility] [address] [place] [address] Health Maintenance Due Date Last Done Comments DTAP/TDAP/TD VACCINES (1 - Tdap) 2012 HEPATITIS B VACCINE (1 of 3 - 19+ 3-dose series) 2012 PNEUMOCOCCAL VACCINE (1 of 2 - PCV) 2012 HPV VACCINE (1 - 3-dose SCDM series) 2020 DIABETES RETINOPATHY SCREENING 11/13/2023 DIABETES-FOOT EXAM WITH MONOFILAMENT 11/13/2023 COVID-19 VACCINE ( season) 2023 DEPRESSION SCREENING 04/20/2024 OB-ONE HOUR GLUCOSE 08/08/2024 OB-TDAP CURRENT 08/15/2024 OB-RHOGAM INJECTION 08/22/2024 DIABETES-HGB A1C 10/17/2024 04/19/2024, 04/2023, 11/13/2023, Additional history exists INFLUENZA VACCINE (#1) 2024 , 02/26/2024, 01/26/2019, Additional history exists DIABETES - URINE PROTEIN SCREENING 06/13/2025 06/13/2024, 07/22/2023, 06/10/2022, Additional history exists DIABETES-SERUM CREATININE 06/13/20252024, 04/19/2024, 09/04/2023, Additional history exists PAP SMEAR 12/17/2025 12/17/2022, 12/04/2021 ZOSTER VACCINE (1 of 2) 2043 HEPATITIS C SCREENING Completed 08/06/2023 , 06/03/2022, 04/09/2022, Additional history exists HIV SCREENING Completed 08/24/2024, 03/22, 08/06/2023, Additional history exists OB-GROUP B STREP SCREEN Completed 10/14/2024 HIB VACCINE Aged Out No longer eligi ble based on patient's age to complete this topic MENINGOCOCCAL (Group B) VACCINE SHARED DECISION-MAKING Aged Out No longer eligible based on patient's age to complete this topic MENINGOCOCCAL GROUPS A/C/Y/W VACCINE Aged Out No longer eligible based on patient's age to complete this topic Respiratory Syncytial Virus (RSV) Vaccine Pt: or over 60 yrs (No Doses Required) Completed Goals Goal Patient Goal Type Associated Problems Recent Progress Patient-Stated? Author Patient will adhere to medication regimen General On track( 023 10:59 AM CDT) Gena Cervantes RN Procedures Procedure Name Priority Date/Time Associated Diagnosis Comments BIOPHYSICAL PROFILE W NST Routine 10/26/2024 2:25 PM CDT History of splenomegaly Encounter for screening (HCC) History of chronic hypertension during adolescence Supervision of high-risk of young multigravida (HCC) Pre-existing type 2 diabetes affecting , antepartum Insulin dependent type 2 diabetes mellitus (HCC) Obesity (BMI 35.0-39.9 without comorbidity) 37 weeks gestation of (HCC) Encounter for ultrasound to assess growth (HCC) BIOPHYSICAL PROFILE W T Routine 10/19/2024 2:14 PM CDT History of splenomegaly Encounter for screening (HCC) History of chronic hypertension during adolescence Supervision of high-risk of young multigravida (HCC) Pre-existing type 2 diabetes affecting , antepartum Insulin dependent type 2 diabetes mellitus (HCC) Obesity (BMI 35.0-39.9 without comorbidity) 37 weeks gestation of (HCC) Encounter for ultrasound to assess growth (HCC) BIOPHYSICAL PROFILE W T Routine 10/12/2024 2:02 PM CDT History of splenomegaly Supervision of high-risk of young multigravida (HCC) History of chronic hypertension during adolescence Insulin dependent type 2 diabetes mellitus (HCC) Pre-existing type 2 diabetes affecting , antepartum Obesity (BMI 35.0-39.9 without comorbidity) Encounter for ultrasound (HCC) BIOPHYSICAL PROFILE W T Routine 10/05/2024 2:57 PM CDT History of splenomegaly Supervision of high-risk of young multigravida (HCC) History of chronic hypertension during adolescence Insulin dependent type 2 diabetes mellitus (HCC) Pre-existing type 2 diabetes affecting , antepartum Obesity (BMI 35.0-39.9 without comorbidity) Encounter for ultrasound (HCC) BIOPHYSICAL PROFILE W T Routine 09/28/2024 1:48 PM CDT History of splenomegaly Supervision of high-risk of young multigravida (HCC) History of chronic hypertension during adolescence Insulin dependent type 2 diabetes mellitus (HCC) Pre-existing type 2 diabetes affecting , antepartum Obesity (BMI 35.0-39.9 without comorbidity) Encounter for ultrasound (HCC) SONOGRAM - COMPLETE Routine 09/21/2024 2 :09 PM CDT Supervision of high-risk of young multigravida (HCC) complicated by pre-existing type 2 diabetes in second trimester (HCC) History of splenomegaly History of chronic hypertension during adolescence Insulin dependent type 2 diabetes mellitus (HCC) Pre-existing type 2 diabetes affecting , antepartum Supervision of high-risk of young multigravida ECHO COMPLETE CG Routine 09/21/2024 10:07 AM CDT Obesity affecting in first trimester, unspecified obesity type (HCC) Insulin dependent type 2 diabetes mellitus (HCC) SONOGRAM - COMPLETE Routine 08/24/2024 2 :33 PM CDT Supervision of high-risk of young multigravida (HCC) complicated by pre-existing type 2 diabetes in second trimester (HCC) History of splenomegaly History of chronic hypertension during adolescence Insulin dependent type 2 diabetes mellitus (HCC) Pre-existing type 2 diabetes affecting , antepartum Supervision of high-risk of young multigravida SONOGRAM - COMPLETE Routine 07/27/2024 7 :21 AM CDT Supervision of high-risk of young multigravida (HCC) complicated by pre-existing type 2 diabetes in second trimester (HCC) History of splenomegaly History of chronic hypertension during adolescence Insulin dependent type 2 diabetes mellitus (HCC) Pre-existing type 2 diabetes affecting , antepartum Supervision of high-risk of young multigravida MICROALB/CREAT RATIO URINE TIMED PANEL 06/13/2024 7:27 AM WOOD PANEL INSPECTOR COMPREHENSIVE METABOLIC PANEL 06/13/2024 7:27 AM WOOD PANEL INSPECTOR HEMOGLOBIN A1C - POINT OF CARE (AMB) [facility] Routine 02/19/2024 10:23 AM CDT Type 2 diabetes mellitus with hyperglycemia, without long-term current use of insulin HEPATITIS C AB W/RFLX TO HCV RNA QN PCR Routine 08/06/2023 8:31 AM CDT Elevated liver enzymes HIV-1 HIV-2 ANTIBODY + HIV P24 AG PANEL Routine 08/06/2023 8:31 AM CDT Elevated liver enzymes from Last 3 Months or Most Recently Relevant to Health Maintenance Results * Biophysical Profile w NST (10/26/2024 2:25 PM CDT) Only the most recent of5 resultswithin the time period is included. Linked Results Indication ======== Pre-existing type 2 diabetes mellitus, in Chronic non-alcoholic liver disease, other History ====== General History Blood group: 0, Rh negative OB History 6. Para 5 [id number] 1. live 2010. Gest. age 37 w + 0 d. Weight 2,313 g. Sex of child: male. Details: Vaginal delivery 2. live 2015. Gest. age 37 w + 3 d. Weight 3,447 g. Sex of child: male. Details: Vaginal delivery; GDM Diet Controlled 3. live 2017. Gest. age 37 w + 2 d. Weight 3,674 g. Sex of child: male. Details: Vaginal delivery 4. live 2020. Gest. age 38 w + 2 d. Weight 3,243 g. Sex of child: male. Details: Vaginal delivery; GDM: Insulin 5. live 2022. Gest. age 37 w + 0 d. Weight 3,356 g. Sex of child: male. Details: Vaginal delivery; GDM Insulin, GHTN Lab Tests Test Date Result NIPT Low risk, Female Maternal Assessment Physical Exam Height 152 cm, 5 ft 0 in. Weight 86 kg, 189 lb. Initial weight 73 kg, 162 lb. BMI 36.91 kg/m . Initial BMI 31.64 kg/m . Weight gain 12 kg, 27 lb Method ====== Transabdominal ultrasound examination. View: Sufficient ========= Hernandez . Number of fetuses: 1 Dating ====== Date Details Gest. age MARITZA Stated MARITZA 37 w + 2 d 11/14/2024 Assigned dating based on stated MARITZA, selected on 05/04/2024 37 w + 2 d 11/14/2024 General Evaluation Cardiac activity present. FHR 148 bpm. Presentation: cephalic Placenta: Placental site: anterior Amniotic Fluid Assessment === Amount of AF: normal MVP 6.3 cm. ALIREZA 17.4 cm. Q1 4.3 cm, Q2 6.3 cm, Q3 1.2 cm, Q4 5.6 cm Biophysical Profile 2: breathing movements 2: Gross body movements 2: tone 2: Amniotic fluid volume NST: reactive 01/27 Biophysical profile score Non Stress Test NST interpretation: reactive. Baseline FHR 150 bpm. Baseline variability: moderate. Accelerations: present. Decelerations: absent. Uterine activity: present, 1 contraction Growth Overview Exam date GA BPD (mm) HC (mm) AC (mm) FL (mm) HL (mm) EFW (g) 06/01/2024 16w 2d 34.3 63% 124.1 34% 110.9 73% 19.7 28% 18.9 25% 155 48% 06/29/2024 20w 2d 46.5 40% 173.6 25% 157.8 65% 31.1 21% 32.4 74% 344 44% 07/27/2024 24w 2d 57.9 24% 217.1 15% 203.7 63% 43.6 38% 38.8 23% 708 52% 08/24/2024 28w 2d 70.4 37% 263.4 29% 256.1 84% 53.5 37% 48.4 47% 1337 68% 09/21/2024 32w 2d 79.3 28% 295.6 23% 311.7 98% 62.8 43% 52 9% 2282 84% 10/19/2024 36w 2d 87.3 31% 322.3 24% 350.3 99% 69.7 32% 59.3 24% 3221 82% Anatomy The following structures appear normal: Abdomen Stomach. Kidneys. Bladder. sex: female. Impression ========= Single, live, intrauterine at 37w 2d The amniotic fluid volume is normal. The biophysical profile is 1010. Comment ======== ultrasound alone cannot detect all structural, genetic, or functional , placental, or maternal abnormalities Follow-up ======== Continue weekly BPP with 2x weekly NST Induction scheduled for 11/02/2024 Coding ====== Diagnoses K75.81: Nonalcoholic steatohepatitis (UGARTE) O24.113: Pre-existing type 2 diabetes mellitus, in Procedures 81005: US Uterus Limited [id number]: Biophysical Profile W NST [employer] PACS Anatomical Region Laterality Modality Other 10/26/2024 2:25 PM CDT [facility] Kal Syed MD [facility] ORDERABLES Edited Result - Final * SONOGRAM - COMPLETE (09/21/2024 2:09 PM CDT) Only the most recent of3 resultswithin the time period is included. Linked Results Indication ======== Type II Diabetes, Metabolic dysfunction associated steatotic liver disease (MASLD) History ====== General History Blood group: 0, Rh negative OB History 6. Para 5 [id number] 1. live 2010. Gest. age 37 w + 0 d. Weight 2,313 g. Sex of child: male. Details: Vaginal delivery 2. live 2015. Gest. age 37 w + 3 d. Weight 3,447 g. Sex of child: male. Details: Vaginal delivery; GDM Diet Controlled 3. live 2017. Gest. age 37 w + 2 d. Weight 3,674 g. Sex of child: male. Details: Vaginal delivery 4. live 2020. Gest. age 38 w + 2 d. Weight 3,243 g. Sex of child: male. Details: Vaginal delivery; GDM: Insulin 5. live 2022. Gest. age 37 w + 0 d. Weight 3,356 g. Sex of child: male. Details: Vaginal delivery; GDM Insulin, GHTN Lab Tests Test Date Result NIPT Low risk, Female Maternal Assessment = Physical Exam Height 152 cm, 5 ft 0 in. Weight 83 kg, 184 lb. Initial weight 73 kg, 162 lb. BMI 35.94 kg/m . Initial BMI 31.64 kg/m . Weight gain 10 kg, 22 lb Method ====== Transabdominal ultrasound. View: Sufficient ========= Hernandez . Number of fetuses: 1 Dating ====== Date Details Gest. age MARITZA Stated MARITZA 32 w + 2 d 11/14/2024 Assigned dating based on stated MARITZA, selected on 05/04/2024 32 w + 2 d 11/14/2024 General Evaluation Cardiac activity present. FHR 141 bpm. Presentation: cephalic Placenta: Placental site: anterior Amniotic Fluid Assessment ===== Amount of AF: normal MVP 5.8 cm. ALIREZA 14.0 cm. Q1 5.8 cm, Q2 1.6 cm, Q3 1.2 cm, Q4 5.4 cm Biophysical Profile 2: breathing movements 2: Gross body movements 2: tone 2: Amniotic fluid volume NST: reactive 10/10 Biophysical profile score Non Stress Test NST interpretation: reactive. Baseline FHR 140 bpm. Baseline variability: moderate. Accelerations: present. Decelerations: absent Biometry BPD 79.3 mm 31w 6d 28% Hadlock HC 295.6 mm 32w 5d 23% Hadlock AC 311.7 mm 35w 1d 98% Hadlock Femur 62.8 mm 32w 4d 43% Hadlock Humerus 52.0 mm 30w 2d 9% Eusebio HC / AC 0.95 Weight Calculation: EFW 2,282 g 84% Hadlock EFW (lb,oz) 5 lb 0 oz EFW by Hadlock ([id number]) LGA Growth Overview = Exam date GA BPD (mm) HC (mm) AC (mm) FL (mm) HL (mm) EFW (g) 06/01/2024 16w 2d 34.3 63% 124.1 34% 110.9 73% 19.7 28% 18.9 25% 155 48% 06/29/2024 20w 2d 46.5 40% 173.6 25% 157.8 65% 31.1 21% 32.4 74% 344 44% 07/27/2024 24w 2d 57.9 24% 217.1 15% 203.7 63% 43.6 38% 38.8 23% 708 52% 08/24/2024 28w 2d 70.4 37% 263.4 29% 256.1 84% 53.5 37% 48.4 47% 1337 68% 09/21/2024 32w 2d 79.3 28% 295.6 23% 311.7 98% 62.8 43% 52 9% 2282 84% Anatomy The following structures appear normal: Abdomen Stomach. Kidneys. Bladder. sex: female. Impression ========= Single, live, intrauterine at 32w 2d The growth is LGA with the AC 98% The amniotic fluid volume is normal. The biophysical profile is 10/10. Follow-up ======== Twice weekly testing with weekly BPP/NST and twice weekly NST Coding ====== Procedures 34068: [place] [address]: Biophysical Profile W NST [employer] PACS Anatomical Region Laterality Modality Other 09/21/2024 2:09 PM CDT R Kal Syed MD [facility] ORDERABLES Edited Result - Final * ECHO COMPLETE CG (09/21/2024 10:07 AM CDT) Anatomical Region Laterality Modality Ultrasound 09/21/2024 8:59 AM CDT Narrative 09/21/2024 3:39 PM CDT Name: Milly Islas Patient Exam Info Gender: Female Patient Status: O/P : 1995 Admit Date: 09/21/2024 Exam Date/Time: 09/21/2024 8:59 AM Site: [facility] Current Location: [facility] EStaffOrdering Provider: Austin Mar Interpreting Physician: Jasmyn Lopez MD School Program Director: Neville Cifuentes [facility] - Study Info Procedure: ECHO COMPLETE CG Indications: O99.211 - Obesity affecting in first trimester, unspecified obesity type (HCC) E11.9 - Insulin dependent type 2 diabetes mellitus (HCC) Maternal Gestational Status GA by EDC: 32 wks , 2 days EDC: 11/14/2024 Type: Hernandez Age: 29 yrs Lie: Vertex Summary * The echocardiogram was within normal limits. * Small atrial and ventricular septal defects and persistent ductus arteriosus cannot be excluded as findings. Anatomic Relationships Left sided cardiac apex (levocardia). There is normal visceral-cardiac situs, and normal segmental cardiac anatomical relationship. Systemic Veins There is normal systemic venous return. Pulmonary Veins The visualized pulmonary veins drain normally to the left atrium. Right Atrium The right atrial size is normal. Left Atrium The left atrial size is normal. Atrial Septum Patent foramen ovale with open foramen flap. Color flow is right to left. Right Ventricle The right ventricular cavity size is normal. The right ventricular wall thickness is normal. The right ventricular systolic function is normal. RV Outflow Tract The right ventricular outflow tract is normal. Left Ventricle The left ventricular cavity size is normal. The left ventricular wall thickness is normal. The left ventricular systolic function is normal. Ventricular Septum There is no ventricular septal defect with no shunting. LV Outflow Tract The left ventricular outflow tract is normal. Tricuspid Valve The tricuspid valve is structurally normal. The tricuspid inflow pattern is normal. Tricuspid velocity is within the normal range. There is no tricuspid regurgitation. Mitral Valve The mitral valve is structurally normal. The mitral inflow pattern is normal. Mitral velocity is within the normal range. There is no mitral regurgitation. Aorta aortic arch visualized and is without obstruction by 2D, color flow and Doppler. Pulmonary Arteries The main pulmonary artery is normal, with confluent branch pulmonary arteries. Ductus Arteriosus The antegrade flow velocity and pattern in the ductal arch is normal. A normal ductus arteriosus is appreciated. Doppler Flow in the ductus venosus is normal. The umbilical vein flow pattern is normal. The umbilical artery flow pattern is normal. Hydrops Assessment No pericardial effusion. No ascites present. No pleural effusion(s). Rhythm The rhythm is normal. There is 1:1 AV conduction. Pulmonary Valve The pulmonic valve is normal-sized. The transpulmonic velocity is within normal range. There is no pulmonic regurgitation. Aortic Valve The aortic valve is normal-sized. The transaortic velocity is within normal range. There is no aortic regurgitation. (Fetus A) Heart Rate Name Value Normal Z-Score Percentile Heart Rate Heart Rate (Doppler) 149 bpm Report Signatures Finalized by Jasmyn Lopez MD on 09/21/2024 03:39 PM Procedure Note Jasmyn Lopez MD - 09/21/2024 Name: Milly Islas Patient Exam Info Gender: Female Patient Status: O/P : 1995 Admit Date: 09/21/2024 Exam Date/Time: 09/21/2024 8:59 AM Site: [facility] Current Location: [facility] EStaffOrdering Provider: Austin Mar Interpreting Physician: Jasmyn Lopez MD School Program Director: Neville Cifuentes [facility] - Study Info Procedure: ECHO COMPLETE CG Indications: O99.211 - Obesity affecting in first trimester,unspecified obesity type (HCC) E11.9 - Insulin dependent type 2 diabetes mellitus (HCC) Maternal Gestational Status GA by EDC: 32 wks , 2 days EDC: 11/14/2024 Type: Hernandez Age: 29 yrs Lie: Vertex Summary * The echocardiogram was within normal limits. * Small atrial and ventricular septal defects and persistent ductus arteriosus cannot be excluded as findings. Anatomic Relationships Left sided cardiac apex (levocardia). There is normal visceral-cardiac situs, and normal segmental cardiac anatomical relationship. Systemic Veins There is normal systemic venous return. Pulmonary Veins The visualized pulmonary veins drain normally to the left atrium. Right Atrium The right atrial size is normal. Left Atrium The left atrial size is normal. Atrial Septum Patent foramen ovale with open foramen flap. Color flow is right toleft. Right Ventricle The right ventricular cavity size is normal. The right ventricularwall thickness is normal. The right ventricular systolic function is normal. RV Outflow Tract The right ventricular outflow tract is normal. Left Ventricle The left ventricular cavity size is normal. The left ventricular wall thickness is normal. The left ventricular systolic function is normal. Ventricular Septum There is no ventricular septal defect with no shunting. LV Outflow Tract The left ventricular outflow tract is normal. Tricuspid Valve The tricuspid valve is structurally normal. The tricuspid inflow patternis normal. Tricuspid velocity is within the normal range. There is notricuspid regurgitation. Mitral Valve The mitral valve is structurally normal. The mitral inflow pattern is normal. Mitral velocity is within the normal range. There is no mitral regurgitation. Aorta aortic arch visualized and is without obstruction by 2D, colorflow and Doppler. Pulmonary Arteries The main pulmonary artery is normal, with confluent branch pulmonary arteries. Ductus Arteriosus The antegrade flow velocity and pattern in the ductal arch is normal.A normal ductus arteriosus is appreciated. Doppler Flow in the ductus venosus is normal. The umbilical vein flow patternis normal. The umbilical artery flow pattern is normal. Hydrops Assessment No pericardial effusion. No ascites present. No pleural effusion(s). Rhythm The rhythm is normal. There is 1:1 AV conduction. Pulmonary Valve The pulmonic valve is normal-sized. The transpulmonic velocity iswithin normal range. There is no pulmonic regurgitation. Aortic Valve The aortic valve is normal-sized. The transaortic velocity is withinnormal range. There is no aortic regurgitation. (Fetus A) Heart Rate Name Value Normal Z-ScorePercentile Heart Rate Heart Rate (Doppler) 149 bpm Report Signatures Finalized by Jasmyn Lopez MD on 09/21/2024 03:39 PM Austin Mar MD ECHO CUPID Final Result * MICROALB/CREAT RATIO URINE TIMED PANEL (06/13/2024 7:27 AM WOOD PANEL INSPECTOR) Microalbumin 24 Hour Urine 7 <30 mg/24 h [facility] Microalbumin 24 Hour Urine 5 <20 mcg/min [facility] Comment: The ADA defines abnormalities in albumin excretion as follows: Albuminuria Category Result (mg/24 h) (mcg/min) Normal to Mildly increased <30 <20 Moderately increased 30-299 20-199 Severely increased > OR = 300 > OR = 200 The ADA recommends that at least two of three specimens collected within a 3-6 month period be abnormal before considering a patient to be within a diagnostic category. Creatinine 24 Hour Urine 1.57 0.50 - 2.15 g/24 h [facility] Comment: Test Performed at: [facility] [id number] [address] [facility] [address] CHA TIPTON MD 06/13/2024 7:27 AM WOOD PANEL INSPECTOR 06/13/2024 7:28 AM WOOD PANEL INSPECTOR Abbi Campbell IT TEACHER[employer] [facility] - URINE CHEMISTR Y ORDERABLES Final Result [facility] [address] [place] [address] * (ABNORMAL) COMPREHENSIVE METABOLIC PANEL (06/13/2024 7:27 AM WOOD PANEL INSPECTOR) Glucose 130(H) 65 - 99 mg/dL [facility] Comment: Fasting reference interval For someone without known diabetes, a glucose value >125 mg/dL indicates that they may have diabetes and this should be confirmed with a follow-up test. BUN 10 7 - 25 mg/dL [facility] Creatinine 0.45(L) 0.50 - 0.97 mg/dL [facility] eGFR by Cystatin C 132 > OR = 60 mL/min/1.7 3m2 [facility] BUN/Creatinine Ratio 22 6 - 22 (calc) [facility] Sodium 136 135 - 146 mmol/L [facility] Potassium 3.9 3.5 - 5.3 mmol/L [facility] Chloride 106 98 - 110 mmol/L [facility] CO2 23 20 - 32 mmol/L [facility] Calcium 8.3(L) 8.6 - 10.2 mg/dL [facility] Protein Total 6.0(L) 6.1 - 8.1 g/dL [facility] Albumin 3.5(L) 3.6 - 5.1 g/dL [facility] Globulin Total 2.5 1.9 - 3.7 g/dL (calc) [facility] Albumin/Globulin Ratio 1.4 1.0 - 2.5 (calc) [facility] Bilirubin Total 0.3 0.2 - 1.2 mg/dL [facility] Alkaline Phosphatase 56 31 - 125 U/L [facility] AST 11 10 - 30 U/L [facility] ALT 5(L) 6 - 29 U/L [facility] Comment: Test Performed at: [facility] [address] [place] [address] CHA TIPTON MD 06/13/2024 7:27 AM WOOD PANEL INSPECTOR 06/13/2024 7:28 AM WOOD PANEL INSPECTOR Abbi Campbell IT TEACHER[employer] - CHEMISTRY ORDE RABLES Final Result [facility] [address] [place] [address] * HEMOGLOBIN A1C - POINT OF CARE (AMB) [facility] (02/19/2024 10:23 AM CDT) Pathologist [facility] Hemoglobin A1c POCT 5.5 % [address] BLOOD SPECIMEN / Unknown 02/19/2024 10:23 AM CDT Gaby Weber IT TEACH[employer] - POINT OF CARE OR DERABLES Final Result Performing Organization Address [facility]/ZIP Co de Phone Number [place] [id number] [facility] [place] [address], [place] [phone] * HEPATITIS C AB W/RFLX TO HCV RNA QN PCR (08/06/2023 8:31 AM CDT) Pathologist [facility] Hepatitis C Antibody NON-REACTI VE NON-REACT JAISON [facility] Comment: HCV antibody was non-reactive. There is no laboratory evidence of HCV infection. In most cases, no further action is required. However, if recent HCV exposure is suspected, a test for HCV RNA (test code 81201) is suggested. For additional information please refer to http://education.ADTELLIGENCE.Zaya/faq/SNH71g0 (This link is being provided for informational/ educational purposes only.) Test Performed at: [facility] [address] [place] [address] CHA TIPTON MD Blood BLOOD SPECIMEN / Unknown 08/06/2023 8:31 AM CDT 08/06/2023 8:33 AM CDT Marcia Kaba IT TEACHER[employer] [facility] - CHEMISTRY ORD ERABLES Final Result Performing Organization Address [facility] de Phone Number [facility] [address] [place] [address] * HIV-1 HIV-2 ANTIBODY + HIV P24 AG PANEL (08/06/2023 8:31 AM CDT) HIV Screen 4th Generation w Reflex NON-REACT JAISON NON-REACT JAISON [facility] Comment: HIV-1 antigen and HIV-1/HIV-2 antibodies were not detected. There is no laboratory evidence of HIV infection. PLEASE NOTE: This information has been disclosed to you from records whose confidentiality may be protected by state law. If your state requires such protection, then the state law prohibits you from making any further disclosure of the information without the specific written consent of the person to whom it pertains, or as otherwise permitted by law. A general authorization for the release of medical or other information is NOT sufficient for this purpose. For additional information please refer to http://education.Zubican/faq/BQH775 (This link is being provided for informational/ educational purposes only.) The performance of this assay has not been clinically validated in patients less than 2 years old. Test Performed at: [facility] [address] [place] [address] CHA TIPTON MD Blood BLOOD SPECIMEN / Unknown 08/06/2023 8:31 AM CDT 08/06/2023 8:33 AM CDT Marcia Kaba IT TEACHER[employer] - CHEMISTRY ORD ERABLES Final Result Performing Organization Address [facility] de Phone Number [facility] [address] [place] [address] from Last 3 Months or Most Recently Relevant to Health Maintenance Insurance [employer] [place] Care Teams Senior Mobile Web Developer Relationship Specialty Start Date End Date Abbi Cardenas MD [address] [place] [address] [place] [id number] PCP - General 02/26/11
--- OUTSIDE RECORDS SUMMARY | 2024-10-26 21:57 | XMS_ITS | Encounter Summary ---
Author Organization [facility] Address [address] [place] [address] Care Team Providers Care Denial Resolution Specialist Name Role Phone Abbi Cardenas MD Primary Care Provider [phone] Reason for Referral * (Routine) - Open Specialty Diagnoses / Procedures Referred By Contac t Referred To Contact Diagnoses History of splenomegaly Encounter for screening (HCC) History of chronic hypertension Supervision of high-risk of young multigravida (HCC) Pre-existing type 2 diabetes affecting , antepartum (HCC) Insulin dependent type 2 diabetes mellitus (HCC) Obesity (BMI 35.0-39.9 without comorbidity) 37 weeks gestation of (HCC) Encounter for ultrasound to assess growth (HCC) Procedures Biophysical Profile w NST Kyle Syed MD [address] [facility] [place] [place] [address] Phone: tel: fax: Referral ID Status Reason Start Date Expiration Date Visits Re quested Visits Authorized [id number] Open 10/17/2024 10/17/2025 2 2 * (Routine) - Open Specialty Diagnoses / Procedures Referred By Contac t Referred To Contact Diagnoses History of splenomegaly Encounter for screening (HCC) History of chronic hypertension Supervision of high-risk of young multigravida (HCC) Pre-existing type 2 diabetes affecting , antepartum (HCC) Insulin dependent type 2 diabetes mellitus (HCC) Obesity (BMI 35.0-39.9 without comorbidity) 37 weeks gestation of (HCC) Encounter for ultrasound to assess growth (HCC) Procedures Biophysical Profile w NST Kyle Syed MD [address] [place] [address] Phone: tel: fax: Referral ID Status Reason Start Date Expiration Date Visits Re quested Visits Authorized [id number] Open 10/17/2024 10/17/2025 2 2 Reason for Visit * Reason Comments Ultrasound Non-stress Test * (Routine) - Open Specialty Diagnoses / Procedures Referred By Contac t Referred To Contact Diagnoses History of splenomegaly Encounter for screening (HCC) History of chronic hypertension Supervision of high-risk of young multigravida (HCC) Pre-existing type 2 diabetes affecting , antepartum (HCC) Insulin dependent type 2 diabetes mellitus (HCC) Obesity (BMI 35.0-39.9 without comorbidity) 37 weeks gestation of (HCC) Encounter for ultrasound to assess growth (HCC) Procedures Biophysical Profile w NST Kyle Syed MD [address] [place] [address] Phone: tel: fax: Referral ID Status Reason Start Date Expiration Date Visits Re quested Visits Authorized [id number] Open 10/17/2024 10/17/2025 2 2 Encounter Details Date Type Department Care Team (Late st Contact Info) Description 10/26/2024 1:45 PM CDT Hospital Encounter [facility]'s Health Maternal & Care [address] [id number] Divya Lemus MD [address] [facility] 4TH [place] [id number] Social History Tobacco Use Types Packs/Day Years Used Date Smoking Tobacco: Never Smokeless Tobacco: Never Alcohol Use Standard Drinks/Week Comments Not Currently [...] AM CDT Legal Sex Female 12:43 PM RN ANTE PARTUM Gender Identity Female 02/20/2022 9:30 AM CDT Sexual Orientation Not on file documented as of this encounter Last Filed Vital Signs Vital Sign Reading Time Taken Comments Blood Pressure 118/80 10/26/2024 3:57 PM CDT Pulse 96 10/26/2024 3:57 PM CDT Temperature - - Respiratory Rate - - Oxygen Saturation - - Inhaled Oxygen Concentration - - Weight - - Height - - Body Mass Index - - documented in this encounter Progress Notes * Iveth Watson RN - 10/26/2024 3:59 PM CDT Patient here today for NST/BPP performed at [place] 37w2d for diabetes on insulin. Patient reports positive movement. Denies cramping, contractions, vaginal bleeding, and leakage of fluid. Patient denies headache, epigastric pain and visual changes. VS per flowsheet. See ultrasound report for details. Iveth Watson RN 10/26/2024 4:00 PM documented in this encounter Plan of Treatment Upcoming Encounters Date Type Department Care Team (Late st Contact Info) Description 11/02/2024 1:45 PM CDT Hospital Encounter [facility] [address] [place] [id number] 11/17/2024 9:00 AM CDT Office Visit [facility] - Endocrinology [address] [place] [phone] Gaby Weber APRN-DIRECTOR [employer] [address] [facility] [place] [phone] 01/20/2025 10:30 AM CDT Office Visit [facility] GI [address] [facility] [place] [phone] KabaMarcia bob Destini, BENEFITS TECHNICIAN-DIRECTOR [employer] [address] [place] [address] [address] [place] [address] documented as of this encounter Goals Goal Patient Goal Type Associated Problems Recent Progress Patient-Stated? Author Patient will adhere to medication regimen General On track( 023 10:59 AM CDT) Gena Cervantes RN documented as of this encounter Procedures Procedure Name Priority Date/Time Associated Diagnosis Comments BIOPHYSICAL PROFILE W NST Routine 10/26/2024 2:25 PM CDT History of splenomegaly Encounter for screening ([facility]) History of chronic hypertension during adolescence Supervision of high-risk of young multigravida ([facility]) Pre-existing type 2 diabetes affecting , antepartum Insulin dependent type 2 diabetes mellitus (HCC) Obesity (BMI 35.0-39.9 without comorbidity) 37 weeks gestation of ([facility]) Encounter for ultrasound to assess growth ([facility]) documented in this encounter Results * Biophysical Profile w NST (10/26/2024 2:25 PM CDT) Linked Results Indication ======== Pre-existing type 2 diabetes mellitus, in Chronic non-alcoholic liver disease, other History ====== General History Blood group: 0, Rh negative OB History 6. Para 5 [id number] 1. live 2010. Gest. age 37 w + 0 d. Weight 2,313 g. Sex of child: male. Details: Vaginal delivery 2. live 2015. Gest. age 37 w + 3 d. Weight 3,447 g. Sex of child: male. Details: Vaginal delivery; GDM Diet Controlled 3. live 2018. Gest. age 37 w + 2 d. [...] is normal. The biophysical profile is 10/10. Comment ======== ultrasound alone cannot detect all structural, genetic, or functional , placental, or maternal abnormalities Follow-up ======== Continue weekly BPP with 2x weekly NST Induction scheduled for 11/02/2024 Coding ====== Diagnoses K75.81: Nonalcoholic steatohepatitis (UGARTE) O24.113: Pre-existing type 2 diabetes mellitus, in Procedures 93810: US Uterus Limited 50850: Biophysical Profile W NST [employer] PACS Anatomical Region Laterality Modality Other 10/26/2024 2:25 PM CDT [facility] Kal Syed MD M[facility] ORDERABLES Edited Result - Final * Biophysical Profile w NST (10/19/2024 2:14 PM CDT) Linked Results Indication ======== Type II Diabetes, LGA Fetus Metabolic dysfunction associated steatotic liver disease (MASLD) History ====== General History Blood group: 0, Rh negative OB History 6. Para 5 [id number] 1. live 2010. Gest. age 37 w [...] 152 cm, 5 ft 0 in. Weight 85 kg, 188 lb. Initial weight 73 kg, 162 lb. BMI 36.72 kg/m . Initial BMI 31.64 kg/m . Weight gain 12 kg, 26 lb Method ====== Transabdominal ultrasound, Transabdominal ultrasound examination. View: Sufficient ========= Hernandez . Number of fetuses: 1 Dating ====== Date Details Gest. age MARITZA Stated MARITZA 36 w + 2 d 11/14/2024 Assigned dating based on stated MARITZA, selected on 05/04/2024 36 w + 2 d 11/14/2024 General Evaluation Cardiac activity present. FHR 146 bpm. Presentation: cephalic Placenta: Placental site: anterior Amniotic Fluid Assessment ==== Amount of AF: normal MVP 4.5 cm. ALIREZA 11.3 cm. Q1 4.5 cm, Q2 3.6 cm, Q3 2.3 cm, Q4 1.0 cm Biophysical Profile 2: breathing movements 2: Gross body movements 2: tone 2: Amniotic fluid volume NST: reactive 01/27 Biophysical profile score Non Stress Test NST interpretation: reactive. Baseline FHR 130 bpm. Baseline variability: moderate. Accelerations: present Biometry BPD 87.3 mm 35w 2d 31% Hadlock HC 322.3 mm 36w 3d 24% Hadlock AC 350.3 mm 39w 0d 99% Hadlock Femur 69.7 mm 35w 5d 32% Hadlock Humerus 59.3 mm 34w 3d 24% Eusebio HC / AC 0.92 Weight Calculation: EFW 3,221 g 82% Hadlock EFW (lb,oz) 7 lb 2 oz EFW by Hadlock ([id number]) appropriate Growth Overview Exam date GA BPD (mm) [...] female. Impression ========= Single, live, intrauterine at 36w 2d The growth is 82nd% with AC 99th%. The amniotic fluid volume is normal. The biophysical profile is 10/10. Comment ======== U/S cannot detect all structural, genetic, or functional , placental, or maternal abnormalities Follow-up ======== Continue 2x-weekly testing Coding ====== Procedures 40577: [place] [address]: Biophysical Profile W NST [employer] PACS Anatomical Region Laterality Modality Other 10/19/2024 2:14 PM CDT R Kal Syed MD [facility] ORDERABLES Edited Result - Final documented in this encounter Visit Diagnoses Diagnosis History of splenomegaly- Primary Personal history of diseases of blood and blood-forming organs Encounter for screening ([facility]) History of chronic hypertension during adolescence Supervision of high-risk of young multigravida ([facility]) Supervision of high-risk of young multigravida Pre-existing type 2 diabetes affecting , antepartum Insulin dependent type 2 diabetes mellitus (HCC) Type II or unspecified type diabetes mellitus without mention of complication, not stated as uncontrolled Obesity (BMI 35.0-39.9 without comorbidity) Obesity, unspecified 37 weeks gestation of ([facility]) state, incidental Encounter for ultrasound to assess growth ([facility]) Encounter for screening ([facility])- Primary History of chronic hypertension during adolescence Supervision of high-risk of young multigravida ([facility]) Supervision of high-risk of young multigravida Pre-existing type 2 diabetes affecting , antepartum Insulin dependent type 2 diabetes mellitus (HCC) Type II or unspecified type diabetes mellitus without mention of complication, not stated as uncontrolled Obesity (BMI 35.0-39.9 without comorbidity) Obesity, unspecified Encounter for ultrasound (HCC) Encounter for routine screening for malformation using ultrasonics documented in this encounter Care Teams Denial Resolution Specialist Relationship Specialty Start Date End Date Abbi Cardenas MD [address] [place] [address] [place] [address] PCP - General 02/26/11 documented as of this encounter
--- OUTSIDE RECORDS SUMMARY | 2024-10-26 21:58 | XMS_ITS | Data Portability ---
Author Organization [facility], Main Office Address [address] [place] [address] Assessment No assessment recorded. Plan of Treatment Reminders Order Date Submit Date Provider Last Modified By Organization Details Last Modified Time Details Appointments None recorded. Lab HbA1c (hemoglobin A1c), blood [address] (Lab), [address] [place], [address], 3 09:22:23 BMP, serum or plasma [address] (Lab), [address] [place], [address], 3 09:23:07 Referral None recorded. Procedures None recorded. Surgeries None recorded. Imaging None recorded. Medication Orders metformin ER 500 mg tablet,exte nded release 24 hr [facility] [address] [place], [address], 3 08:27:32 sertraline 50 mg tablet 2022 023 [id number] 1 [facility] 2425, [address] [place], [address], 3 09:14:41 Patient TargetsNo targets recorded. Patient [...] 2016, 39( ppl.1 ):s13 -s22 Not Available [facility] (Lab) [address] [place], [address], 04/18/2021 21:26:44 04/18/20 21 04/18/2021 URINA LYSIS /IRIS W/O MICRO leukocytes negati ve nisa/u L negati ve- Not Available [facility] (Lab) [address] [place], [address], 04/18/2021 20:21:56 04/18/20 21 04/18/2021 URINA LYSIS /IRIS W/O MICRO color light- yellow Not Available [facility] (Lab) [address] [place], [address], 04/18/2021 20:21:56 04/18/20 21 04/18/2021 URINA LYSIS /IRIS W/O MICRO appear clear Not Available [facility] (Lab) [address] [place], [address], 04/18/2021 20:21:56 04/18/20 21 04/18/2021 URINA LYSIS /IRIS W/O MICRO specific gravity 1.020 1.001- 1.030 Not Available [facility] (Lab) [address] [place], [address], 04/18/2021 20:21:56 04/18/20 21 04/18/2021 URINA LYSIS /IRIS W/O MICRO pH 5.5 pH_un its 5.0-9. 0 Not Available [facility] (Lab) [address] [place], [address], 04/18/2021 20:21:56 04/18/20 21 04/18/2021 URINA LYSIS /IRIS W/O MICRO nitrite negati ve negati ve- Not Available [facility] (Lab) [address] [place], [address], 04/18/2021 20:21:56 04/18/20 21 04/18/2021 URINA LYSIS /IRIS W/O MICRO protein 10 mg/dL negati ve- abnormal Not Available [facility] (Lab) [address] [place], [address], 04/18/2021 20:21:56 04/18/20 21 04/18/2021 URINA LYSIS /IRIS W/O MICRO glucose >/=100 0 mg/dL normal - abnormal Not Available [facility] (Lab) [address] [place], [address], 04/18/2021 20:21:56 04/18/20 21 04/18/2021 URINA LYSIS /IRIS W/O MICRO ketones negati ve mg/dL negati ve- Not Available [facility] (Lab) [address] [place], [address], 04/18/2021 20:21:56 04/18/20 21 04/18/2021 URINA LYSIS /IRIS W/O MICRO urobilinogen normal mg/dL normal - Not Available [facility] (Lab) [address] [place], [address], 04/18/2021 20:21:56 04/18/20 21 04/18/2021 URINA LYSIS /IRIS W/O MICRO bilirubin negati ve mg/dL negati ve- Not Available [facility] (Lab) [address] [place], [address], 04/18/2021 20:21:56 04/18/20 21 04/18/2021 URINA LYSIS /IRIS W/O MICRO blood negati ve mg/dL negati ve- Not Available [facility] (Lab) [address] [place], [address], 04/18/2021 20:21:56 04/18/20 21 04/18/2021 URINA LYSIS /IRIS W/O MICRO white blood cells 0-8 /i??h pfi?? 0-8 Not Available [facility] (Lab) [address] [place], [address], 04/18/2021 20:21:56 04/18/20 21 04/18/2021 URINA LYSIS /IRIS W/O MICRO red blood cells 0-4 /i??h pfi?? 0-4 Not Available [facility] (Lab) [address] [place], [address], 04/18/2021 20:21:56 04/18/20 21 04/18/2021 URINA LYSIS /IRIS W/O MICRO bacteria occasi onal abnormal Not Available [facility] (Lab) [address] [place], [address], 04/18/2021 20:21:56 04/18/20 21 04/18/2021 URINA LYSIS /IRIS W/O MICRO mucous occasi onal /i??l pfi?? abnormal Not Available [facility] (Lab) [address] [place], [address], 04/18/2021 20:21:56 04/18/20 21 04/18/2021 URINA LYSIS /IRIS W/O MICRO squamous epithelial packed field /i??l pfi?? abnormal Not Available [facility] (Lab) [address] [place], [address], 04/18/2021 20:21:56 04/18/20 21 04/18/2021 URINA LYSIS /IRIS W/O MICRO non-squamous epithelial 2 Not Available [facility] (Lab) [address] [place], [address], 04/18/2021 20:21:56 04/18/20 21 04/18/2021 URINA LYSIS /IRIS W/O MICRO unclassified cast 3 abnormal Not Available [facility] (Lab) [address] [place], [address], 04/18/2021 20:21:56 04/18/20 21 04/18/2021 LIPID PANEL cholesterol 286 mg/dL 140-19 9 high NIH SAMUEL NSUS RECOM MENDA TION FOR DAVI STERO L: ADULT CHILD LOW RISK: <200 <170 BORDE RLINE : <200- 239 ----- HIGH RISK: >240 >200 Not Available [facility] (Lab) [address] [place], [address], 04/18/2021 20:16:23 04/18/20 21 04/18/2021 LIPID PANEL triglyceride s 1072 mg/dL 0-150 high NIH SAMUEL NSUS REPOR T RECOM MENDA TION FOR TRIGL YCERI RANDY: ADULT CHILD LOW RISK: <150 ----- BODER LINE: 150-1 99 ----- HIGH RISK: >200 ----- Not Available [facility] (Lab) [address] [place], [address], 04/18/2021 20:16:23 04/18/20 21 04/18/2021 LIPID PANEL HDL cholesterol 35 mg/dL 40- low Not Available [facility] (Lab) [address] [place], [address], 04/18/2021 20:16:23 04/18/20 21 04/18/2021 COMP MET PANEL /LIVE R carbon dioxide 27 mmol/ L 22-30 Not Available [facility] (Lab) [address] [place], [address], 04/18/2021 20:16:11 04/18/20 21 04/18/2021 COMP MET PANEL /LIVE R sodium 136 mmol/ L 137-14 5 low Not Available [facility] (Lab) [address] [place], [address], 04/18/2021 20:16:11 04/18/20 21 04/18/2021 COMP MET PANEL /LIVE R potassium 4.5 mmol/ L 3.5-5. 1 Not Available [facility] (Lab) [address] [place], [address], 04/18/2021 20:16:11 04/18/20 21 04/18/2021 COMP MET PANEL /LIVE R chloride 98 mmol/ L 98-107 Not Available [facility] (Lab) [address] [place], [address], 04/18/2021 20:16:11 04/18/20 21 04/18/2021 COMP MET PANEL /LIVE R agap 15.5 mmol/ L 14-22 Not Available [facility] (Lab) [address] [place], [address], 04/18/2021 20:16:11 04/18/20 21 04/18/2021 COMP MET PANEL /LIVE R glucose 346 mg/dL 70-99 high Not Available [facility] (Lab) [address] [place], [address], 04/18/2021 20:16:11 04/18/20 21 04/18/2021 COMP MET PANEL /LIVE R BUN 16 mg/dL 8-19 Not Available [facility] (Lab) [address] [place], [address], 04/18/2021 20:16:11 04/18/20 21 04/18/2021 COMP MET PANEL /LIVE R creatinine 0.50 mg/dL 0.66-1 .25 low Not Available [facility] (Lab) [address] [place], [address], 04/18/2021 20:16:11 04/18/20 21 04/18/2021 COMP MET PANEL /LIVE R GFR >60 Refer ence Range : Lydia ge GFR Healt hy Adult : >60 [...] calcu lator is avail able on the [facility] websi te: https :[email or web address] [email or web address].walter ayala.o rg/pr ofess ional s/kdo qi/gf r_cal culat or Not Available [facility] (Lab) [address] [place], [address], 04/18/2021 20:16:11 04/18/20 21 04/18/2021 COMP MET PANEL /LIVE R alkaline phosphatase 151 U/L 38-126 high Not Available [facility] (Lab) [address] [place], [address], 04/18/2021 20:16:11 04/18/20 21 04/18/2021 COMP MET PANEL /LIVE R alanine aminotransfe rase 83 U/L 0-35 high Not Available [facility] (Lab) [address] [place], [address], 04/18/2021 20:16:11 04/18/20 21 04/18/2021 COMP MET PANEL /LIVE R aspartate aminotransfe rase 74 U/L 15-37 high Not Available [facility] (Lab) [address] [place], [address], 04/18/2021 20:16:11 04/18/20 21 04/18/2021 COMP MET PANEL /LIVE R bilirubin, total 0.70 mg/dL 0.20-1 .30 Not Available [facility] (Lab) [address] [place], [address], 04/18/2021 20:16:11 04/18/20 21 04/18/2021 COMP MET PANEL /LIVE R bilirubin, conjugated (direct) 0.00 mg/dL 0.00-0 .30 Not Available [facility] (Lab) [address] [place], [address], 04/18/2021 20:16:11 04/18/20 21 04/18/2021 COMP MET PANEL /LIVE R biliurubin,u ncong. (indirect) 0.60 mg/dL 0.00-1 .1 Not Available [facility] (Lab) [address] [place], [address], 04/18/2021 20:16:11 04/18/20 21 04/18/2021 COMP MET PANEL /LIVE R calcium 9.3 mg/dL 8.4-10 .2 Not Available [facility] (Lab) [address] [place], [address], 04/18/2021 20:16:11 04/18/20 21 04/18/2021 COMP MET PANEL /LIVE R total protein 7.5 g/dL 6.3-8. 2 Not Available [facility] (Lab) [address] [place], [address], 04/18/2021 20:16:11 04/18/20 21 04/18/2021 COMP MET PANEL /LIVE R albumin 4.6 g/dL 3.4-5. 0 Not Available [facility] (Lab) [address] [place], [address], 04/18/2021 20:16:11 04/18/20 21 04/18/2021 COMP MET PANEL /LIVE R globulin 2.9 g/dL 2.6-4. 2 Not Available [facility] (Lab) [address] [place], [address], 04/18/2021 20:16:11 04/18/20 21 04/18/2021 COMP MET PANEL /LIVE R A/G ratio 1.6 ratio 1.0-2. 0 Not Available [facility] (Lab) [address] [place], [address], 04/18/2021 20:16:11 01/08/20 22 01/07/2022 US, abdom en No observ ation record ed. [id number], [address], 06/18/2022 02:32:41 06/17/19 23 06/17/2022 US, obste tric No observ ation record ed. [id number], [address], 06/18/2022 02:32:41 Result Notes None recorded. Problems Name Problem SNOMED Code Status Onset Date Resolution Date Notes Provider Name and Address Organization Details Recorded Time Amenorrhe a 03711400 Active Not Available [facility] 3 02:28:49 Abnormal weight gain 214189188 Active Not Available [facility] 3 02:28:49 Contact dermatiti s caused by urushiol from [place] poison rodriguez 667524535 Active Not Available [facility] 3 02:28:50 Vitamin D deficienc y 56139297 Active 2019 Not Available [facility] 3 02:28:50 Depressiv e disorder 41101041 Active Not Available [facility] 3 02:28:50 Migraine 62475239 Active Not Available [facility] 3 02:28:50 Menorrhag ia 091499477 Active Not Available [facility] 3 02:28:50 Obesity 078287589 Active Not Available [facility] 3 02:28:50 Dermatoph ytosis 94130931 Active Not Available [facility] 3 02:28:50 Keratosis pilaris 7251653 Active Not Available [facility] 3 02:28:50 Otitis media 63310473 Active Not Available [facility] 3 02:28:50 Diabetes mellitus 68605909 Active borderline Not Available [facility] 3 02:28:50 Mixed anxiety and depressiv e disorder 489718813 Active 2022 MICHAEL Haddad [address], [place], [address] , [employer] 3 08:29:23 Upper respirato ry infection 77676904 Active 2022 MICHAEL Haddad [address], [place], [address] , [employer] 3 11:32:29 Problem Notes None recorded. Medical Equipment None Reported. [...] Updated DateTime 04/24/2021 33.9 kg/m2 147.32 cm 27637.96 g Not Available [facility] 06/18/2022 02:26:51 Date Recorded Body mass index (BMI) Body height Oxygen saturation Oxygen saturation in Arterial blood by Pulse oximetry Heart rate Body temperature Body weight Systolic And Diastolic Provider Name and Address Organization Details Last Updated DateTime 2 33.9 kg/m2 147.32 cm 97 % 97 % 74 /min 97.9 [degF] 14879.9 6 g 120/88 mm[Hg] Not Available Counts include 234 beds at the [facility] 3 02:26:44 Date Recorded Body height Body mass index (BMI) Body weight Body temperature Heart rate Oxygen saturation Oxygen saturation in Arterial blood by Pulse oximetry Systolic And Diastolic Provider Name and Address Organization Details Last Updated DateTime 3 147.32 cm 34.3 kg/m2 24135.1 5 g 97 [degF] 56 /min 98 % 98 % 125/80 mm[Hg] KELLY [place] - [place] [employer] [facility] 3 08:11:03 Date Recorded Body mass index (BMI) Body height Oxygen saturation Oxygen saturation in Arterial blood by Pulse oximetry Heart rate Body temperature Body weight Systolic And Diastolic Provider Name and Address Organization Details Last Updated DateTime 2 32.4 kg/m2 147.32 cm 98 % 98 % 80 /min 97.1 [degF] 94753.8 2 g 120/80 mm[Hg] Not Available Counts include 234 beds at the [facility] 02:26:44 Social History Question Answer Notes LastModified by [employer] Details LastModified Time Tobacco Smoking Status Never Smoker Not Available Counts include 234 beds at the [facility] 06/18/2022 02:23:53 What Is Your Level Of Caffeine Consumption? Occasional [id number] Information not available 06/18/2022 In The 14 Days Before Symptom Onset, Have You Had Close Contact With A Laboratory-confir med COVID-19 While That Case Was Ill? No [id number] Information not available 06/18/2022 In The 14 Days Before Symptom Onset, Have You Had Close Contact With A Person Who Is Under Investigation For COVID-19 While That Person Was Ill? No [id number] Information not available 06/18/2022 Have There Been Any Changes To Your Family Or Social Situation? Yes Mom Passed [id number] Information not available 06/18/2022 Have You Ever Been Counseled For Unhealthy Alcohol Use? No [id number] Information not available 06/18/2022 Has Tobacco Cessation Counseling Been Provided? No [id number].[id number] Information not available 06/18/2022 Have You Recently Traveled Abroad? Yes [id number] Information not available 06/18/2022 Do You Have Any Dietary Restrictions? No [id number].42430 [id number] Information not available 06/18/2022 Sex: Unknown Functional Status Question Answer Note LastModified by [employer] Details LastModified Time Do you use any illicit or recreational drugs? No [id number] Information not available 06/18/2022 Do you or have you ever used any other forms of tobacco or nicotine? No [id number] Information not available 06/18/2022 What is your level of alcohol consumption? Occasional [id number] 026 Information not available 06/18/2022 What is your exercise level? Occasional [id number] Information not available 06/18/2022 Mental Status None recorded. Family History Relationship Description Onset Age of this Age Resolved Age Notes LastModified by Organization Details LastModified Time Mother Congestive heart failure 59 [id number] Not available 06/18/2022 02:26:29 Medical History No [...] virus, trivalent, preservative 2 completed Not Available Counts include 234 beds at the [facility] 06/18/2022 02:32:16 Influenza, split virus, quadrivalent, preservative 8 completed Not Available Counts include 234 beds at the [facility] 06/18/2022 02:32:16 Influenza, split virus, quadrivalent, PF 9 completed Not Available Counts include 234 beds at the [facility] 06/18/2022 02:32:16 Past Encounters Encounter ID Performer Location Encounter Start Date Encounter Closed Date Diagnosis/Indication Diagnosis SNOMED-CT Code Diagnosis ICD10 Code Diagnosis Note [id number] FITZ Ochoa [facility] Primary [facility] [place] [address] [place] [address] 07/06/2020 00:00:00 07/06/2020 21:10:04 [id number] Abbi Cardenas MD [facility] Primary Care [place] [address] [place] [address] 04/18/2021 00:00:00 04/18/2021 20:29:57 [id number] Abbi Cardenas MD [facility] Primary Care [place] [address] [place] [address] 04/24/2021 00:00:00 04/24/2021 14:28:44 [id number] Abbi Cardenas MD [facility] Primary Care [place] [address] [place] [address] 05/29/2021 00:00:00 05/29/2021 20:36:44 [id number] MICHAEL Haddad [facility] Primary Care [facility] [address] [facility] [address] [place] [address] 11/27/2021 00:00:00 11/27/2021 18:45:40 [id number] MICHAEL Haddad [facility] Primary Care [facility] [address] [facility] [address] [facility] [place] [address] 07/29/2022 08:00:58 07/29/2022 08:46:48 Diabetes mellitus 90523895 E11.9 Diabetes has been managed mainly by [...] of carbs, especially white rice/pasta /flour/aayush ad/sugar.R rizwanaeck A1C today. 05/29/22: A1C 11.3 (04/18/21) Not Well Controlled Discussed need for regular exercise, increase intake of water/vege tables/fib er. Decrease intake of carbs, especially white rice/pasta /flour/aayush ad/sugar.G lipizide ER 10mg dailyMetfo rmin ER 500mg-2 tabsMay be candidate for CGM in the future. Mixed anxi ety and depressive disorder 228087379 F41.8 Has been off medication since and [...] Recorded Advance Directives Directive None Recorded Payers Insurance Date Sequence Insurance Name Policy Number Policy Rodríguez Covered Member ID Rodríguez Member ID Guarantor Name 07/29/2022 1 [facility] [id number] Milly Islas [id number] Millyroni Islas 07/29/2022 1 [place] Milly Islas [id number] Milly Islas 10/25/2022 1 [facility] - DOS ON OR AFTER 20 (MEDICAID REPLACEMENT - HMO) Milly Alvareziola [id number] Milly Islas Notes Date Note Type Note [...] doing short acting at mealtimes. MICHAEL Haddad [address] [facility], [facility] [address], [place], [address], [facility] [employer] [employer] [facility] 07/29/2022 09:17:55 OBGyn Episode No OBEpisode recorded.
--- OUTSIDE RECORDS SUMMARY | 2024-10-26 21:58 | XMS_ITS | Continuity of Care Document ---
Author Organization [facility] Address [address] [place] [phone] Phone Care Team Providers Care New Home Sales Consultant Name Role Phone Unavailable Unavailable Unavailable Procedures Procedure Date OFFICE/OUTPATIENT VISIT, [facility] REFRACTION Advance Directives Directive Yes / No Effective Date File Name No Information Encounters Encounter Description Practice Location Reason(s) For Visit Diagnoses Date Provider Providers Copied on Encounter OFFICE/OUTPAT IENT VISIT, [facility], [address] [place] [address], [id number] tel:[phone] [facility] HeadacheMyop iaAstigmatis m, unspecified 2 No Information Referring Provider: Nga Bhagat PA-C, [facility] [address] [place], [address]. tel:[phone] Family History Family Member Type Diagnosis Age At Onset No Information Payers Payer name Insurance type Covered green party ID Authoriza tion(s) [place] Medicaid MC [id number] Social History Type Description Quantity Date Captured Comments Sex Female Smoking Status No Information Chief Complaint And Reason For Visit No Information Reason For Referral Reason For Referral No Information History Of Present Illness Encounter Date Complaint History Of Prese nt Illness No Information Functional Status Date Functional Assessmen t No Information Instructions Date Instruction Additional Infor mation No Information Assessments Type Assessment Date No Information Patient Care Teams Name Effective Dates (start - stop) Status Members No Information
--- OUTSIDE RECORDS SUMMARY | 2024-10-26 21:58 | XMS_ITS | Data Portability ---
Author Organization [facility] [place] Address [address] [place] [address] Care Team Providers Care Bander And Cellophaner Helper Machine Name Role Phone ATKINSONMIKE PASTOR Primary Care Provider Assessment Encounter Date Assessment Date Assessment LastModified by Organization Details LastModified Time 10/07/2024 10/07/2024 Pt here for NST -DM MARITZA 11/14/24 [email or web address] Not available 10/12/2024 17:52:07 10/14/2024 10/14/2024 Patient is 35___weeks . Discussed plan. [email or web address] Not available 10/14/2024 16:41:45 10/14/2024 10/14/2024 NST - DM [email or web address] Not available 09/19 17:15:05 Plan of Treatment Reminders Order Date Submit Date Provider Last Modified By Organization Details Last Modified Time Details Appointments NST 2024 03:00P M NST SCHEDULE Not available Not available Not available OB ROUTINE 2024 03:30P M Bianca Potter CNM Not available Not available Not available INDUCTION 2024 06:30A Turner DE LA O MD Not available Not available Not available NST 2024 02:30P M NST SCHEDULE Not available Not available Not available OB ROUTINE 2024 03:15P Turner DE LA O MD Not available Not available Not available NST 2024 03:00P M NST SCHEDULE Not available Not available Not available OB ROUTINE 2024 03:30P Turner DE LA O MD Not available Not available Not available Lab None recorded. Referral None recorded. Procedures None recorded. Surgeries None recorded. Imaging non-stres s test 2024 [address], [address], [place], [address], 10/14/2024 17:16:37 non-stres s test [address], [address], [place], [address], 10/12/2024 17:56:28 Medication Orders None recorded. Patient TargetsNo targets recorded. Patient InstructionsNo instructions recorded. Reason for Referral None Reported. Results Created Date Observation Date Name Description Value Unit Range Abnormal Flag Note LastModifiedBy Organization Detail LastModifiedTime 10/15/1910/14/2024 CULTU RE: GROUP B STREP SCREE N, REFLE X SUSCE PTIBI LITY result report SEE RESULT S BELOW Test: Cultu re: Group B Strep , Refle x Susce ptibi lity ([facility]/ [facility]/K H/[facility] ) Speci men Sourc e: Vagin a/Rec stephon Speci men Type: Vagin al/Re ctal Speci men Date: 2024 1616 Resul t Date: 2024 1404 Resul t Statu s: Final resul t Abnor mal: No Resul ting Lab: [facility] [address] [facility] [address] Tel: CULTU RE ----- ----- ----- --- No Group B strep isola andreina at 2 days (dayna ctive broth enhan cemen t) Not Available [facility] (Lab) [address], [place], [address], 10/17/2024 15:06:28 09/22/1909/21/2024 US, obste tric, follo w-up No observ ation record ed. [email or web address] [facility] [address] [place] [address], [address], 09/27/2024 13:05:11 09/22/19 25 09/21/2024 US, obste tric, follo w-up No observ ation record ed. [facility] [address] [place] [address], [address], 09/27/2024 08:43:52 09/24/19 25 09/23/2024 non-s tress test No observ ation record ed. [email or web address] [place] [address], [place], [address], 09/23/2024 15:39:07 09/29/19 25 09/28/2024 US, obste tric, bioph ysica l profi le + non-s tress test No observ ation record ed. [email or web address] [facility] [address], [address], 10/03/2024 11:36:49 10/01/19 25 09/30/2024 non-s tress test No observ ation record ed. [email or web address] [place] [address], [place], [address], 09/30/2024 16:35:50 10/01/19 non-s tress test No observ ation record ed. [email or web address] [place] [address], [place], [address], 09/30/2024 16:42:46 10/06/19 25 10/05/2024 US, obste tric, follo w-up No observ ation record ed. [email or web address] [facility] [address] [place] [address], [address], 10/06/2024 11:54:21 10/13/19 25 10/12/2024 US, obste tric, follo w-up No observ ation record ed. [facility] [address], [address], 10/17/2024 08:45:49 10/13/19 25 10/12/2024 imagi ng/di agnos tic resul t No observ ation record ed. [facility] [address] [place], [address], 10/12/2024 17:54:19 10/13/1910/12/2024 non-s tress test No observ ation record ed. [address], [place], [address], 10/13/2024 16:11:16 10/15/1910/14/2024 non-s tress test No observ ation record ed. [address], [place], [address], 10/15/2024 11:52:23 10/20/1910/19/2024 imagi ng/di agnos tic resul t No observ ation record ed. [facility] [address] [place], [address], 10/20/2024 18:00:33 10/20/19 25 10/19/2024 imagi ng/di agnos tic resul t No observ ation record ed. [facility] [place] [address] [place], [address], 10/20/2024 18:00:33 10/22/19 25 10/21/2024 imagi ng/di agnos tic resul t No observ ation record ed. [facility] [address], [place], [address], 10/25/2024 11:17:38 Result Notes None recorded. Problems Name Problem SNOMED Code Status Onset Date Resolution Date Notes Provider Name and Address Organization Details Recorded Time Pregnanc y 66344884 Completed 201904/30/2020 SUHAIL Ferraro null, [facility] 5 10:21:26 Past pregnanc y history of gestatio nal diabetes mellitus 411038811 Completed Anastasiia bustillo [facility], [facility] 1 14:10:49 Gestatio nal diabetes mellitus 99626717 Completed 2019 PREgesta tional DM2. delivery 38-39w Anastasiia bustillo [facility], [facility] 1 14:10:49 Gestatio nal diabetes mellitus 66709313 Completed 201904/30/2020 BS QID 32wks 2x wk NST's, wkly OB and growth u/s 4wks MFM managing pre-gest ational diabetes . Loretta guerrero, [facility] 1 14:33:16 Normal pregnanc y in multigra sonal 9353840621 74827 Completed 201504/16/2020 Encounte r for supervis ion of other normal pregnanc y, second trimeste r;Record ed Elsewher e: No Locat ion: [facility] S ource: EHR Board Certified Family Physician yuliya: N Practi ce ID: 0001 Jaleel lable Time: 10:00:00 AM Magui Torres MD [address], [place], [address], [facility] [address] 15:54:[address] Concept Completed 201604/16/2020 Encntr for switching clerk exam (general ) (routine ) w/o abn findings ;Recorde d Elsewher e: No Locat ion: [facility] S ource: EHR Board Certified Family Physician yuliya: N Practi ce ID: 0001 Jaleel lable Time: 01:00:00 PM Magui Torres MD [address], [place], [address], [facility] 0 15:54:36 Screenin g for malignan t neoplasm of cervix Completed 201504/16/2020 Encounte r for screenin g for malignan t neoplasm of cervix;R ecorded Elsewher e: No Locat ion: [facility] S ource: EHR Board Certified Family Physician yuliya: N Practi ce ID: 0001 Jaleel lable Time: 08:30:00 AM Magui Torres MD [address], [place], [address], [facility] [address] 15:54:[address] Concept Completed 201704/16/2020 Encntr for general adult medical exam w/o abnormal findings ;Recorde d Elsewher e: No Locat ion: [facility] S ource: EHR Board Certified Family Physician yuliya: N Practi ce ID: 0001 Jaleel lable Time: 02:00:00 PM Magui Torres MD [address], [place], [address], [facility] 0 15:54:38 Gestatio n period, 33 weeks 68917245 Completed 201504/16/2020 33 weeks gestatio n of pregnanc y;Record ed Elsewher e: No Locat ion: [facility] S ource: EHR Board Certified Family Physician yuliya: N Practi ce ID: 0001 Jaleel lable Time: 08:30:00 AM Magui Torres MD [address], [place], [address], [facility] 0 15:53:43 Pregnanc y detectio n examinat ion Completed 201704/16/2020 Encounte r for pregnanc y test, result positive ;Recorde d Elsewher e: No Locat ion: [facility] S ource: EHR Board Certified Family Physician yuliya: N Practi ce ID: 0001 Jaleel lable Time: 04:45:00 PM Magui Torres MD [address], [place], [address], [facility] 0 15:54:17 Gestatio n period, 36 weeks 10152895 Completed 201504/16/2020 36 weeks gestatio n of pregnanc y;Record ed Elsewher e: No Locat ion: [facility] S ource: EHR Board Certified Family Physician yuliya: N Practi ce ID: 0001 Jaleel lable Time: 08:30:00 AM Magui Torres MD [address], [place], [address], [facility] 0 15:53:50 Gestatio n period, 32 weeks 3879705 Completed 201504/16/2020 32 weeks gestatio n of pregnanc y;Record ed Elsewher e: No Locat ion: [facility] S ource: EHR Board Certified Family Physician yuliya: N Practi ce ID: 0001 Jaleel lable Time: 09:30:00 AM Magui Torres MD [address], [place], [address], [facility] 0 15:53:41 Single live from singleto n pregnanc y 842278472 Completed 201704/16/2020 Single live ;Pr actice ID: 0001 Magui Torres MD [address], [place], [address], [facility] 0 15:54:33 Gestatio n period, 37 weeks 62630833 Completed 201704/16/2020 37 weeks gestatio n of pregnanc y;Practi ce ID: 0001 Magui Torres MD [address], [place], [address], [facility] 0 15:53:53 Lochia finding Completed 201704/16/2020 Encounte r for routine postpart um follow-u p;Practi ce ID: 0001 Magui Torres MD [address], [place], [address], [facility] 0 15:54:05 Insertio n of intraute rine contrace ptive device Completed 201704/16/2020 Encounte r for insertio n of intraute rine contrace ptive device;P ractice ID: 0001 Magui Torres MD [address], [place], [address], [facility] 0 15:54:12 Pregnanc y test negative [id number] Completed 201704/16/2020 Encounte r for pregnanc y test, result negative ;Practic e ID: 0001 Magui Torres MD [address], [place], [address], [facility] 0 15:54:20 Contrace ptive sheath status 667531610 Completed 201704/16/2020 Encounte r for routine checking of intraute rine contrace p dev;Prac domingo ID: 0001 Magui Torres MD [address], [place], [address], [facility] 0 15:53:14 Educatio n Completed 201904/16/2020 Encounte r for oth general cnsl and advice on contrace ption;Pr actice ID: 0001 Magui Torres MD [address], [place], [address], [facility] 0 15:53:22 Removal of intraute rine device Completed 201904/16/2020 Encounte r for removal of intraute rine contrace ptive device;P ractice ID: 0001 Magui Torres MD [address], [place], [address], [facility] 0 15:54:25 Gestatio n less than 9 weeks 891395611 Completed 201704/16/2020 Less than 8 weeks gestatio n of pregnanc y;Record ed Elsewher e: No Locat ion: [facility] S ource: EHR Board Certified Family Physician yuliya: N Practi ce ID: 0001 Jaleel lable Time: 03:45:00 PM Magui Torres MD [address], [place], [address], [facility] 0 15:53:33 Gestatio n period, 35 weeks 51232420 Completed 201504/16/2020 35 weeks gestatio n of pregnanc y;Record ed Elsewher e: No Locat ion: [facility] S ource: EHR Board Certified Family Physician yuliya: N Practi ce ID: 0001 Jaleel lable Time: 09:30:00 AM Magui Torres MD [address], [place], [address], [facility] 0 15:53:48 Elevated blood-pr essure reading without diagnosi s of hyperten sukhi 711465372 Completed 201704/30/2020 Elevated blood-pr essure reading without diagnosi s of HTN;Mir rded Elsewher e: No Locat ion: [facility] S ource: EHR Board Certified Family Physician yuliya: N Practi ce ID: 0001 Jaleel lable Time: 04:45:00 PM Loretta guerrero, [facility] 1 14:33:15 Pelvic and perineal pain 532708532 Completed 201604/16/2020 Pelvic and perineal pain;Rec orded Elsewher e: No Locat ion: [facility] S ource: EHR Board Certified Family Physician yuliya: N Practi ce ID: 0001 Jaleel lable Time: 03:45:00 PM Magui Torres MD [address], [place], [address], [facility] 0 15:54:14 Gestatio n period, 30 weeks 88501603 Completed 201504/16/2020 30 weeks gestatio n of pregnanc y;Record ed Elsewher e: No Locat ion: [facility] S ource: EHR Board Certified Family Physician yuliya: N Practi ce ID: 0001 Jaleel lable Time: 01:30:00 PM Magui Torres MD [address], [place], [address], [facility] 0 15:53:39 Diet educatio n Completed 201504/16/2020 Dietary counseli ng and surveill ance;Rec orded Elsewher e: No [facility] S ource: EHR Board Certified Family Physician yuliya: N Practi ce ID: 0001 Jaleel lable Time: 01:30:00 PM Magui Torres MD [address], [place], [address], [facility] 0 15:53:17 Dietary manageme nt surveill ance Completed 201504/16/2020 Dietary counseli ng and surveill ance;Rec orded Elsewher e: No [facility] S ource: EHR Board Certified Family Physician yuliya: N Practi ce ID: 0001 Jaleel lable Time: 01:30:00 PM Magui Torres MD [address], [place], [address], [facility] 0 15:53:19 Antenata l screenin g for malforma tion Completed 201704/30/2020 Encounte r for antenata l screenin g for malforma tions;Re corded Elsewher e: No [facility]: EHR Board Certified Family Physician yuliya: N Practi ce ID: 0001 Jaleel lable Time: 08:45:00 AM Loretta guerrero, [facility] 1 14:33:14 Uterine size for dates discrepa ncy Completed 201704/16/2020 Uterine size-keri e discrepa ncy, first trimeste r;Record ed Elsewher e: No Locat ion: [facility] S ource: EHR Board Certified Family Physician yuliya: N Practi ce ID: 0001 Jaleel lable Time: 03:45:00 PM Magui Torres MD [address], [place], [address], [facility] 0 15:54:48 Uses combined oral contrace ption 869115084 Completed 201604/16/2020 Encounte r for surveill ance of contrace ptive pills;Re corded Elsewher e: No [facility] S ource: EHR Board Certified Family Physician yuliya: N Practi ce ID: 0001 Jaleel lable Time: 03:45:00 PM Magui Torres MD [address], [place], [address], [facility] 0 15:53:12 Gestatio n period, 11 weeks 89004633 Completed 201504/16/2020 11 weeks gestatio n of pregnanc y;Record ed Elsewher e: No Locat ion: [facility] S ource: EHR Board Certified Family Physician yuliya: N Practi ce ID: 0001 Jaleel lable Time: 11:00:00 AM Magui Torres MD [address], [place], [address], [facility] 0 15:53:36 Infectio n screenin g Completed 201504/16/2020 Encounte r for screenin g for oth infec/pa rastc diseases ;Recorde d Elsewher e: No [facility] S ource: EHR Board Certified Family Physician yuliya: N Practi ce ID: 0001 Jaleel lable Time: 08:30:00 AM Magui Torres MD [address], [place], [address], [facility] 0 15:54:02 Rubella screenin g status 089598889 Completed 201704/16/2020 Encounte r for antenata l screenin g, unspecif ied;Mir rded Elsewher e: No [facility]: EHR Board Certified Family Physician yuliya: N Practi ce ID: 0001 Jaleel lable Time: 08:45:00 AM Magui Torres MD [address], [place], [address], [facility] 0 15:54:28 Antenata l screenin g Completed 201704/30/2020 Encounte r for antenata l screenin g for nuchal transluc ency;Rec orded Elsewher e: No [facility]: E[facility] Board Certified Family Physician yuliya: N Practi ce ID: 0001 Jaleel lable Time: 08:15:00 AM Loretta guerrero, [facility] 1 14:33:12 Amenorrh ea 90412150 Completed 201704/16/2020 Amenorrh ea;Recor ded Elsewher e: No [facility]: EHR Board Certified Family Physician yuliya: N Practi ce ID: 0001 Jaleel lable Time: 04:45:00 PM Magui Torres MD [address], [place], [address], [facility] 0 15:54:58 Gestatio n period, 34 weeks 78998296 Completed 201504/16/2020 34 weeks gestatio n of pregnanc y;Record ed Elsewher e: No [facility]: EHR Board Certified Family Physician yuliya: N Shadti ce ID: 0001 Jaleel lable Time: 08:30:00 AM Magui Torres MD [address], [place], [address], [facility] 0 15:53:46 Syphilis test finding 484272865 Completed 201504/16/2020 Encntr screen for infectio ns w sexl mode of transmis s;Record ed Elsewher e: No [facility] S ource: EHR Board Certified Family Physician yuliya: N Practi ce ID: 0001 Jaleel lable Time: 08:30:00 AM Magui Torres MD [address], [place], [address], [facility] 0 15:54:41 False labor before 37 complete d weeks of gestatio n [id number] 1803963 Completed 201504/16/2020 False labor before 37 complete d weeks of gest, third tri;Prac domingo ID: 0001 Magui Torres MD [address], [place], [address], [facility] 0 15:53:31 Gestatio nal diabetes mellitus in [facility] [id number] 5355088 Completed 201504/30/2020 Gestatio nal diabetes mellitus in [facility], diet controll ed;Pract ice ID: 0001 Loretta guerrero, [facility] 1 14:33:18 Clinical finding Completed 201704/16/2020 Presence of (intraut erine) contrace ptive device;R ecorded Elsewher e: No [facility]at [facility]: [facility] S ource: EHR Board Certified Family Physician yuliya: N Shadti ce ID: 0001 Jaleel lable Time: 02:00:[address] MD [address], [place], [address], [facility] 0 15:53:08 Prematur e rupture of membrane s 76146298 Completed 201704/16/2020 Full-ter m trang ROM, unsp time betw rupture and onset labor;Pr actice ID: 0001 Magui Torres MD [address], [place], [address], [facility] 0 15:54:23 Type 2 diabetes mellitus 53452470 Active 09/28/24 Tojeo 78/78 AM and bedtime 12hrs part max dose 200u log //44 , max dose 150u A1c 5.7% 03/2024; followin g with MFM; dexcom updated 07/27/24 A1c each trimeste r MFM HgbA1c each trimeste r 04/19/24 5.7%, MFM ordered echo 24-28wks kick counts BID @ 28wks 2xwkly NSTs w/ BPP to start @ 32wks schedule d [facility] 08/24/24 US, RISK MANAGEMENT ANALYST visit & DE 09/21/24 1:00 US/NST/N P/ DE echo schedule d 09/05/24 see consult note for delivery recommen dations poor glycemic control 36-38wks good glycemic control 39wks fax MFM consult to [facility]IDA with sai black for glucose control in labor Cari Ruff [facility], [facility] 5 17:15:21 RhD negative 332408267 Active 2024 received jose DE LA O MD [address], [place], [address], [facility] 5 16:59:46 Pregnanc y 12493002 Completed 202108/04/2022 SUHAIL Ferraro [facility], [facility] 5 10:21:26 RhD negative 988890749 Completed 2021 [facility] 3 15:59:31 Type 2 diabetes mellitus 09099586 Completed 2021 MFM - ante testing, growth; 34AM & 46 HS, unless 2 high fastings then 40 units HS. Cont metformi n 500mg BID as of 04/23 [facility] 3 15:59:31 Grand multipar ity with antenata l problem 560737428 Completed 2021 [facility] 3 15:59:31 Liver function tests outside referenc e range 403163669 Completed labs per MFM [facility] 3 15:59:31 Headache 26622513 Completed riboflav in 400mg [facility] 3 15:59:31 Chronic peripher al venous hyperten sukhi 458563361 Completed hx of - MFM recommen ded to check BID and PTL precauti ons [facility] 3 15:59:31 Pregnanc y 35280208 Active 2024 SUHAIL Ferraro [facility] 5 10:21:25 Type 2 diabetes mellitus 25994315 Active 09/28/24 Tojeo 78/78 AM and bedtime 12hrs part max dose 200u log , max dose 150u A1c 5.7% 03/2024; followin g with MFM; dexcom updated 07/27/24 A1c each trimeste r MFM HgbA1c each trimeste r 04/19/24 5.7%, MFM ordered echo 24-28wks kick counts BID @ 28wks 2xwkly NSTs w/ BPP to start @ 32wks schedule d [facility] 08/24/24 US, RISK MANAGEMENT ANALYST visit & DE 09/21/24 1:00 US/NST/N P/ DE echo schedule d 09/05/24 see consult note for delivery recommen dations poor glycemic control 36-38wks good glycemic control 39wks fax MFM consult to LD with sai black for glucose control in labor Cari Ruff [facility], [facility] 5 17:15:21 Hyperten sukih AND/OR vomiting complica ting pregnanc y childbir th AND/OR puerperi um 692893814 Active 2024 history of GTHN bASA 162mg daily Bseline labs wnl Piedad Jer [facility], [facility] 5 16:10:24 Hyperten sukhi AND/OR vomiting complica ting pregnanc y childbir th AND/OR puerperi 093691727 Active 2024 history of GTHN bASA 162mg daily Bseline labs wnl Piedad Randle null, [facility] 5 16:10:24 Anxiety 80157282 Active 2024 seeing therapis t every 2 weeks Bianca Potter CNM [address], [place], [address], [facility] 5 09:53:18 Anemia 765755714 Active 2024 Bhavna Merchant [facility], [facility] 5 16:56:55 Anemia 703082091 Active 2024 Bhavna Merchant [facility], [facility] 5 16:56:55 RhD negative 051674658 Active 2024 received jose DE LA O MD [address], [place], [address], [facility] 5 16:59:46 Problem Notes None recorded. Procedures Surgical History Date Name Laterality Status Provider Name and Address Organization Details Recorded Time 3 Date of Last Pap Smear completed Leisa Dorado [facility] 04/04/2024 12:33:58 1 NST completed Magui Torres MD [address], [place], [address], [facility] 05/18/2020 18:29:03 0 NST completed Magui Torres MD [address], [place], [address], [facility] 04/16/2020 15:52:59 3 repair of tendon completed Bhavna Merchant [facility] 06/24/2022 11:50:53 Imaging Results None recorded. Procedure Notes None recorded. Medical Equipment None [...] Prescrib ed Elsewher e: No Locat ion: [facility] odify By: agustin tamayo DateTime : 07/02/19 [...] Prescrib ed Elsewher e: No Locat ion: [facility] odify By: chris Davies r DateTime : [...] Prescrib ed Elsewher e: No [facility] By: chris Davies r DateTime : 05/08/19 05:27:51 PM Not Available Not Available Not [...] Prescrib ed Elsewher e: No Locat ion: [facility] odify By: pacheco Davies r DateTime : 12/06/19 01:00:00 PM Not Available Not Available Not [...] (U-100) 100 unit/mL subcutane ous pen INJECT 36 UNITS WITH BREAKFAS T, 40 UNITS FOR LUNCH, AND 44 UNITS WITH DINNER WITH MEALS CONTAINI NG CARBOHYD RATES. INCREASE DOSE DIRECTED DUE TO INCREASI NG INSULIN REQUIREM ENTS DURING PREGNANC Y. MAX TOTAL DAILY DOSE 150 UNITS active Not Available Not Available No t Available Sprintec (28) 0.25 mg-0.035 mg tablet take 1 tablet by oral route every day 11/27 completed Not Available Not Available Not Available aspirin active Not Available Not Avail able Not Available Slow Fe active Not Available [...] USE 1 PEN NEEDLE FIVE TIMES DAILY 10/14 completed Not Available Not Available Not Available OneTouch Verio test strips USE 1 STRIP TO CHECK GLUCOSE TWICE DAILY 10/14 completed Not Available Not Available Not Available TRUEplus Insulin 0.3 mL 31 gauge x 5/16 syringe USE DIRECTED WITH LANTUS 10/14 completed Not Available Not Available Not Available TRUEplus Insulin 1 mL 31 gauge [...] oral route every day 05/11 completed Prescrib ed [facility] e: No Locat ion: [facility] odify By: pacheco duran DateTime : 01/23/20 [...] 1 LANCET TO CHECK GLUCOSE TWICE DAILY 10/14 completed Not Available Not Available Not Available Baqsimi 3 mg/actuat ion nasal spray [...] GLUCOSE CONTINUO USLY. CHANGE EVERY 10 DAYS 10/14 completed Not Available Not Available Not Available Vitals Date Recorded Body weight Body mass index (BMI) Body height Body height Body mass index (BMI) Body weight Systolic And Diastolic Systolic And Diastolic Provider Name and Address Organization Details Last Updated DateTime 5 76099.9 5793 g 36.9 kg/m2 152.4 cm 152.4 cm 36.9 kg/m2 52363.9 6 g 108/73 mm[Hg] 108/73 mm[Hg] Nita Eduardo [facility] 5 17:56:09 Date Recorded Body weight Systolic And Diastolic Provider Name and Address Organization Details Last Updated DateTime 10/14/2024 38811.13179 g 131/81 mm[Hg] Tiffanie Guadalupe [facility] 10/14/2024 16:33:14 Date Recorded Body height Body mass index (BMI) Body weight Systolic And Diastolic Provider Name and Address Organization Details Last Updated DateTime 10/20/2024 152.4 cm 36.6 kg/m2 01191.21 g 130/80 mm[Hg] Bijal Eva [facility] 10/20/2024 09:52:58 Social History Question Answer Notes LastModified by Organizat ion Details LastModified Time Tobacco Smoking Status Never Smoker Bhavna guerrero [facility] 06/24/2022 11:50:14 Do You Have An Advance Directive? No Information n ot available 06/25/2020 How Many Years Have You Consumed Alcohol? 7 [email or web address] Information not available 06/24/2022 Are You Blind Or Do You Have Difficulty Seeing? No Information n ot available 06/25/2020 What Is Your Level Of Caffeine Consumption? Occasional Information not available 08/27/2020 How Much Tobacco Do You Chew? None Information not available 04/04/2024 In The 14 Days Before Symptom Onset, Have You Had Close Contact With A Laboratory-confirm ed COVID-19 While That Case Was Ill? No [email or web address] Information n ot available 06/25/2020 In The 14 Days Before Symptom Onset, Have You Had Close Contact With A Person Who Is Under Investigation For COVID-19 While That Person Was Ill? No [email or web address] Information not available 06/25/2020 Have You Been To An Area Known To Be High Risk For COVID-19? No Information not available 06/25/2020 Are You Deaf Or Do You Have Serious Difficulty Hearing? No [email or web address] Information not available 05/19/2022 What Type Of Diet Are You Following? DIABETIC [email or web address] Information n ot available 06/24/2022 What Is The Highest Grade Or Level Of School You Have Completed Or The Highest Degree You Have Received? [id number] Information not available 06/25/2020 Are There Any Guns Present In Your Home? No [email or web address] Information not available 06/25/2020 What Was The Date Of Your Most Recent Tobacco Screening? 09/23/2024 [email or web address] Information not available 09/23/2024 Have You Ever Been Counseled For Unhealthy Alcohol Use? No [email or web address] Information not available 05/03/2024 Do You Use Protection During Sex? Usually [email or web address] Information not available 06/25/2020 Do You Use Your Seat Belt Or Car Seat Routinely? Yes Information not available 06/25/2020 Are You Sexually Active? Yes [email or web address] Information not available 05/03/2024 Do You Have Smoke And Carbon Monoxide Detectors In Your Home? Yes [email or web address] Information not available 06/24/2022 How Much Tobacco Do You Smoke? No [email or web address] Information not available 03/19/2020 Do You Use Sunscreen Routinely? Yes [email or web address] Information not available 04/04/2024 Have You Used IV Drugs? No [email or web address] Information not available 06/25/2020 Do You Have Difficulty Walking Or Climbing Stairs? No [email or web address] Information not available 06/24/2022 Sex: Unknown Functional Status Question Answer Note LastModified by Organizat ion Details LastModified Time Do you use any illicit or recreational drugs? No [email or web address] Information not available 06/25/2020 Do you or have you ever used any other forms of tobacco or nicotine? No [email or web address] Information not available 05/03/2024 What is your level of alcohol consumption? Occasional Information not available 06/25/2020 Do you or have you ever used smokeless tobacco? Never used smokeless tobacco [email or web address] Information not available 06/24/2022 Are you currently employed? Yes [email or web address] Information not available 05/03/2024 Are you able to walk? YESWOREST [email or web address] Information not available 06/25/2020 Are you able to care for yourself? 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 No [email or web address] Information not available 06/24/2022 Do you or have you ever used e-cigarettes or vape? Never used electronic cigarettes [email or web address] Information not available 06/24/2022 What is your exercise level? Moderate [email or web address] Information not available 04/04/2024 Mental Status Question Answer Note LastModified by Organization D etails LastModified Time Do you feel stressed (tense, restless, nervous, or anxious, or unable to sleep at night)? [id number] [email or web address] Information not available 06/25/2020 Family History Relationship Description Onset Age of this Age Resolved Age Notes LastModified by Organization Details LastModified Time Mother Asthma [email or web address] Not available 17:22:56 Mother Cyst of ovary [email or web address] Not available 09/19 15:45:22 Mother Hypertensive disorder [email or web address] Not available 2019 17:24:14 Mother Depressive disorder Not available 2020 14:08:30 Mother Heart disease Not available 2020 14:08:30 Mother Substance abuse [email or web address] Not available 2020 14:08:30 Sister Asthma jgumber Not available 17:22:56 Sister Anemia jgumber Not available 17:23:09 Sister Cyst of ovary [email or web address] Not available 09/19 15:45:22 Sister Depressive disorder [email or web address] Not available 2020 14:08:30 Father Hypertensive disorder jgumber Not available 2019 17:24:14 Maternal Grandmother Hypertensive disorder jgumber Not available 2019 17:24:14 Maternal Grandfather Hypertensive disorder jgumber Not available 2019 17:24:14 Paternal Grandmother Heart disease Not available 2020 14:08:30 Paternal Grandmother Hyperlipidem ia [email or web address] Not available 09/19 15:45:22 Paternal Grandmother Diabetes mellitus [email or web address] Not available 2020 14:08:30 Maternal Aunt Cyst of ovary [email or web address] Not available 09/19 15:45:22 Maternal Aunt Malignant tumor of cervix jgumber Not available 2019 17:25:40 Maternal Aunt Malignant neoplasm of ovary [email or web address] Not available 2024 14:41:31 Maternal Uncle Heart disease [email or web address] Not available 2020 14:08:30 Paternal Grandfather Heart disease Not available 2020 14:08:30 Paternal Grandfather Hypertensive disorder [email or web address] Not available 2020 14:08:30 Medical History Condition [...] SNOMED-CT Code Diagnosis ICD10 Code Diagnosis Note [id number] Jeffrey Syed MD [place] [address],[place] [address] 10/31/2019 11:51:15 10/31/2019 16:23:05 [id number] Dianne Spann CNM [place] [address],[facility] [place] [address] 10/31/2019 11:52:26 10/31/2019 13:17:11 test positive 784895964 Z32.01 Risk factors addressed: Tobacco Cessation, Safe [...] n and address preventati ve healthcare . [id number] Jeffrey Syed MD [place] [address],[place] [address] 11/28/2019 09:26:54 11/28/2019 10:59:03 screening 518169736 Z36.82 Z36.0 Z36.89 Routine an tenatal care 253577310 Z34.81 [id number] Jeffrey Syed MD [place] [address],[place] [address] 11/28/2019 09:28:26 11/28/2019 10:41:11 screening 909171237 Z36.82 Z36.0 Z36.89 [id number] Jeffrey Syed MD [place] [address],[place] [address] 12/09/2019 10:55:25 12/09/2019 15:54:24 Gestational diabetes mellitus class A1 04790138 O24.410 Pt here for diet teaching. Diet [...] understand ing of informatio [place]. Abbi [place] [id number] Jeffrey Syed MD [place] [address],[place] [address] 12/16/2019 13:08:32 12/16/2019 13:52:38 Routine care 058500671 Z34.81 Gestationa l diabetes mellitus 62654164 O24.414 [id number] Jeffrey Syde MD [place] [address],[place] [address] 12/16/2019 14:50:51 12/16/2019 15:43:17 Gestational diabetes mellitus 47073424 O24.414 Insulin teaching discussed with patient. Pt [...] ing. Insulin and syringes called out to Un[facility] in [facility]. Pt to inj 5u by SQ route at HS. LORIE daniel [id number] MD Sergio Reid [address],[place] [address] 12/20/2019 12:08:51 12/20/2019 12:28:27 Routine care 291508454 Z34.81 [id number] Jeffrey Syed MD [place] [address],[place] [address] 12/28/2019 10:19:33 01/02/2020 15:08:20 [id number] [facility] [address],[place] [address] 12/28/2019 10:19:49 12/29/2019 15:32:57 Routine care 786294164 Z34.92 [id number] [facility] [address],[place] [address] 01/18/2020 12:13:25 01/19/2020 10:57:22 Routine care 906300128 Z34.92 Gestationa l diabetes mellitus in childbirth 9351019855 4392776 O24.414 [id number] MD Sergio Reid [address],[place] [address] 01/23/2020 11:43:13 01/23/2020 12:42:45 screening for malformation 962791741 Z36.3 [id number] MD Sergio Reid [address],[place] [address] 02/01/2020 14:55:30 02/01/2020 16:08:13 Routine care 189441896 Z34.81 Gestationa l diabetes mellitus 98609187 O24.414 [id number] Jeffrey Syed MD [place] [address],[place] [address] 02/13/2020 14:22:53 08/21/2020 15:12:19 [id number] Dianne Spann [facility] [address],[place] [address] 02/13/2020 14:23:14 02/13/2020 15:30:00 Routine care 981852987 Z34.92 [id number] Dianne Spann [facility] [address],[place] [address] 02/27/2020 15:09:13 02/27/2020 17:59:15 Routine care 672842428 Z34.92 [id number] Dianne Spann [facility] [address],[place] [address] 03/19/2020 16:55:09 03/19/2020 17:54:01 Routine care 743108319 Z34.92 [id number] Magui Torres MD [place] [address],[place] [address] 04/02/2020 15:38:09 04/03/2020 12:07:47 Gestational diabetes mellitus 32181102 O24.414 [id number] Magui Torres MD [place] [address],[place] [address] 04/16/2020 14:57:22 04/16/2020 15:59:07 Gestational diabetes mellitus class A2 80250902 O24.414 [id number] MD Sergio Hou [address],[place] [address] 04/16/2020 14:58:19 04/16/2020 16:30:02 Gestational diabetes mellitus 79859672 O24.414 Z3A.32 [id number] MD Kamla [place] [address],[place] [address] 04/16/2020 14:58:38 04/16/2020 16:00:23 Pre-existing type 2 diabetes mellitus in 672673547 O24.119 [id number] Jeffrey Syed MD [place] [address],[place] [address] 04/23/2020 15:44:19 04/23/2020 16:42:02 Gestational diabetes mellitus class A2 38201753 O24.414 [id number] MD Sergio Reid [address],[place] [address] 04/23/2020 15:45:32 04/23/2020 17:04:41 Gestational diabetes mellitus class A2 55320503 O24.414 Z3A.33 [id number] Dianne Spann [facility] [address],[place] [address] 04/23/2020 16:42:18 04/23/2020 17:04:32 Routine care 306243670 Z34.92 [id number] MD Sergio Reid [address],[place] [address] 04/26/2020 15:56:52 04/26/2020 16:35:49 Gestational diabetes mellitus class A2 08854371 O24.414 [id number] Dianne Spann [facility] [address],[place] [address] 04/30/2020 16:01:46 04/30/2020 17:02:33 Routine care 534363053 Z34.92 [id number] MD Sergio Reid [address],[place] [address] 04/30/2020 16:00:36 04/30/2020 16:35:55 Gestational diabetes mellitus class A2 18645857 O24.414 [id number] MD Sergio Reid [address],[place] [address] 04/30/2020 16:01:24 04/30/2020 16:46:52 Gestational diabetes mellitus 18446773 O24.414 Z3A.34 [id number] MD Sergio Reid [address],[place] [address] 05/03/2020 15:54:10 05/03/2020 16:40:18 Gestational diabetes mellitus class A2 22924244 O24.414 [id number] MD Sergio Reid [address],[place] [address] 05/07/2020 15:57:18 05/07/2020 16:35:43 Gestational diabetes mellitus class A2 75084614 O24.414 [id number] Jeffrey Seyd MD [place] [address],[place] [address] 05/07/2020 15:58:01 05/07/2020 16:57:51 Gestational diabetes mellitus 36006328 O24.414 Z3A.35 20676 Dianne Spann [facility] [address],[place] [address] 05/07/2020 15:58:23 05/07/2020 17:44:18 Routine care 645055684 Z34.92 [id number] Magui Torres MD [place] [address],[place] [address] 05/14/2020 16:04:36 05/17/2020 16:39:09 Pre-existing type 2 diabetes mellitus in 148267151 O24.119 [id number] Magui Torres MD [place] [address],[place] [address] 05/14/2020 16:04:59 05/14/2020 16:23:16 Gestational diabetes mellitus class A2 67908601 O24.414 [id number] Jeffrey Syed MD [place] [address],[place] [address] 05/14/2020 16:04:59 05/14/2020 16:23:16 [id number] MD Sergio Hou [address],[place] [address] 05/14/2020 16:41:30 05/21/2020 15:58:54 Gestational diabetes mellitus class A2 47833878 O24.414 [id number] MD Sergio Hou [address],[place] [address] 05/14/2020 16:51:19 05/21/2020 15:59:04 Gestational diabetes mellitus 17901074 O24.414 Z3A.36 74681 MD Sergio Reid [address],[place] [address] 05/17/2020 15:02:05 05/17/2020 16:15:29 Gestational diabetes mellitus class A2 89790116 O24.414 [id number] MD Sergio Reid [address],[place] [address] 05/21/2020 16:03:49 05/24/2020 08:31:40 Gestational diabetes mellitus class A2 21192329 O24.414 [id number] MD Sergio Reid [address],[place] [address] 05/21/2020 16:04:15 05/24/2020 08:31:15 Gestational diabetes mellitus class A2 35319404 O24.414 Z3A.37 [id number] Jeffrey Syed MD [place] [address],[place] [address] 05/24/2020 15:03:55 05/24/2020 16:15:53 Routine care 167972624 Z34.81 [id number] Jeffrey Syed MD [place] [address],[place] [address] 05/24/2020 15:04:30 05/24/2020 17:38:43 Gestational diabetes mellitus class A2 11463895 O24.414 [id number] [facility] [address],[place] [address] 06/25/2020 14:00:39 06/26/2020 17:11:32 [id number] Dianne Spann CNM [place] [address],[place] [address] 07/12/2020 16:43:54 07/15/2020 17:44:11 state 87889512 Z39.2 Continue to watch for signs/symp toms [...] paper copy of today's plan if desired [id number] Dianne Spann CNM [place] [address],[place] [address] 08/27/2020 15:16:56 08/27/2020 15:53:17 Gynecologic examination 28284585 Z01.419 Take Calcium with Vitamin D 1200mg [...] today's plan if desired. Disorder of 35 187894 O92.70 Pt will use nystatin to clear up the last little bit of yeast. If it does not resolve. [id number] Dianne Spann CNM [place] [address] [address] 11/12/2020 15:17:29 11/14/2020 14:19:51 Irregular periods 38580872 N92.6 Screening for malignant neoplasm of cervix 084985989 Z12.4 [id number] Tracy Perea [facility] [address],[place] [address] 01/17/2021 16:15:36 01/17/2021 16:51:24 Vaginitis 96643785 N76.0 Suspect Yeast on examSwab vag/std sent Rx sent diflucanWi ll call with results & if any further treatment needed. Time spent in visit is a total of 15 mins with at least 50% of visit consisting of counseling and review of plan of care.Addit ional precaution darcy measures were taken to minimize potential exposure to the Covid-19 virus during this patient s visit, including available hand editor book upon arrive, temperatur e check and being asked a series of screening questions. All staff wore face coverings during this encounter, as well as provided additional cleaning and sanitizing of all surfaces, including countertop s, pens, chairs, door handles, light switches, etc, prior to and following the patient s visit. [id number] Dianne Spann [facility] [address],[place] [address] 04/10/2021 12:45:14 04/10/2021 13:32:55 Urinary symptoms 156781467 R39.9 Vaginitis 14205370 N76.0 Discussed use of mild soap like [...] started her cycle. Normal amount of flow. [id number] Magui Torres MD [place] [address],[place] [address] 12/03/2021 13:55:45 12/03/2021 14:28:31 Uncertain viability of 135166393 O36.80X0 Z3A.01 [id number] Magui Torres MD [place] [address],[place] [address] 12/04/2021 09:21:54 12/04/2021 10:12:51 test positive 618626497 Z32.01 Pre-existi ng type 2 diabetes mellitus in 623850269 O24.119 Grand lupis iparity with problem 609205797 O09.41 Venereal d isease screening 725957868 Z11.3 Screening for malignant neoplasm of cervix 743860170 Z12.4 [id number] Magui Torres MD [place] [address] [address] 12/09/2021 12:42:16 12/09/2021 14:53:30 Pre-existing type 2 diabetes mellitus in 745963529 O24.119 Diet teaching completed over the phone per pt request. Went over ideal ranges for FBS and pp BS. Went over carb counting and carb ranges for each meal/snack . Gave ideas for foods to eat for meals/snac ks. Pt eats a lot of Gabonese food, but cooks at home. Pt to [...] were answered and pt verbalized understand ing. daniel RN Reviewed sugars with Dr. Torres and [...] the meantime to call. Rx sent to Una in [facility]. Pt verbalized understand ing. LORIE daniel [id number] Magui Torres MD [place] [address],[place] [address] 01/15/2022 15:26:54 01/15/2022 15:56:06 screening 504184528 Z36.82 [id number] Magui Torres MD [place] [address],[place] [address] 01/15/2022 15:28:10 01/15/2022 16:47:58 Routine care 327282142 Z34.93 Grand mult iparity with problem 166868229 O09.41 Pre-existi ng type 2 diabetes mellitus in 060087563 O24.119 RhD negative 643843570 Z 01.83 [id number] Magui Torres MD [place] [address],[place] [address] 02/10/2022 17:00:58 02/10/2022 17:43:04 [id number] Magui Torres MD [place] [address],[place] [address] 02/10/2022 17:01:25 02/11/2022 16:10:14 Pre-existing type 2 diabetes mellitus in 861969333 O24.119 Grand mult iparity with problem 000107044 O09.41 [id number] Magui Torres MD [place] [address],[place] [address] 03/12/2022 15:43:23 03/12/2022 16:31:00 Grand multiparity with problem 935443587 O09.41 Liver func tion tests outside reference range 475004991 R94.5 Pre-existi ng type 2 diabetes mellitus in 915093016 O24.119 Depressive disorder 3548 9007 F32.A [id number] Magui Torres MD [place] [address],[place] [address] 04/09/2022 15:06:04 04/09/2022 15:46:19 Grand multiparity with problem 503941456 O09.41 Pre-existi ng type 2 diabetes mellitus in 651424049 O24.119 [id number] [facility] [address],[place] [address] 05/06/2022 09:29:43 05/06/2022 10:09:17 Routine care 857700689 Z34.92 Pre-existi ng diabetes mellitus in 401735798 O24.319 [id number] [facility] [address],[place] [address] 05/19/2022 11:01:16 05/20/2022 15:40:12 Routine care 770279876 Z34.92 and type 2 diabetes mellitus 821167418 O24.119 [id number] Magui Torres MD [place] [address],[place] [address] 06/03/2022 10:12:26 06/03/2022 11:22:37 Pre-existing type 2 diabetes mellitus in 131180771 O24.119 Z3A.32 [id number] Magui Torres MD [place] [address],[place] [address] 06/03/2022 10:12:40 06/03/2022 13:57:42 Type 2 diabetes mellitus 58865665 E11.9 [id number] Magui Torres MD [place] [address],[place] [address] 06/03/2022 10:12:59 06/03/2022 15:29:07 Pre-existing type 2 diabetes mellitus in 755821464 O24.119 Z3A.32 Elevated blood-pressure reading without diagnosis of hypertension 624016519 R03.0 [id number] Magui Torres MD [place] [address],[place] [address] 06/06/2022 10:56:54 06/06/2022 11:42:46 Pre-existing type 2 diabetes mellitus in 367878822 O24.119 Z3A.32 [id number] MD Sergio Hou [address],[place] [address] 06/10/2022 11:01:12 06/10/2022 11:43:10 Pre-existing type 2 diabetes mellitus in 605720594 O24.119 Z3A.32 [id number] Magui Torres MD [place] [address],[place] [address] 06/13/2022 10:55:22 06/13/2022 11:49:16 Pre-existing type 2 diabetes mellitus in 937669049 O24.119 Z3A.32 [id number] Magui Torres MD [place] [address],[place] [address] 06/13/2022 10:55:40 06/16/2022 16:10:14 Grand multiparity with problem 371525221 O09.41 Pre-existi ng type 2 diabetes mellitus in 141009638 O24.119 Z3A.32 [id number] Magui Torres MD [place] [address],[place] [address] 06/17/2022 10:59:52 06/17/2022 11:59:23 Pre-existing type 2 diabetes mellitus in 844193461 O24.119 Z3A.32 [id number] Magui Torres MD [place] [address],[place] [address] 06/17/2022 11:00:08 06/17/2022 12:10:02 Grand multiparity with problem 666649231 O09.41 Pre-existi ng type 2 diabetes mellitus in 300170801 O24.119 Z3A.32 [id number] Jeffrey Syed MD [place] [address],[place] [address] 06/20/2022 11:05:00 06/20/2022 11:43:44 Pre-existing type 2 diabetes mellitus in 740238903 O24.119 [id number] Jeffrey Syed MD [place] [address],[place] [address] 06/24/2022 11:04:21 06/24/2022 16:20:15 Pre-existing type 2 diabetes mellitus in 431587707 O24.119 Z3A.35 [id number] [facility] [address],[place] [address] 06/24/2022 11:04:40 06/24/2022 18:03:35 [id number] Jeffrey Syed MD [place] [address],[place] [address] 06/27/2022 10:46:49 06/27/2022 12:12:40 Pre-existing type 2 diabetes mellitus in 407904087 O24.119 Z3A.35 [id number] Jeffrey Syed MD [place] [address],[place] [address] 07/01/2022 11:05:39 07/01/2022 12:11:42 Pre-existing type 2 diabetes mellitus in 006712837 O24.119 Z3A.35 [id number] Dianne Spann [facility] [address],[place] [address] 07/01/2022 11:06:20 07/02/2022 17:15:51 [id number] Magui Torres MD [place] [address],[place] [address] 07/01/2022 11:36:07 07/01/2022 12:05:45 condition affecting obstetrical care of mother 177718299 O36.8330 Z3A.36 [id number] MD Sergio Reid [address],[place] [address] 07/04/2022 11:06:08 07/04/2022 11:43:04 Pre-existing type 2 diabetes mellitus in 868511367 O24.119 Z3A.35 [id number] MD Sergio Reid [address],[place] [address] 07/08/2022 10:57:30 07/08/2022 12:32:59 Pre-existing type 2 diabetes mellitus in 170354547 O24.119 Z3A.37 [id number] Jeffrey Syed MD [place] [address] [address],[place] [address] 07/08/2022 10:57:44 07/08/2022 12:01:57 Pre-existing type 2 diabetes mellitus in [id number] O24.119 Z3A.35 [id number] [facility] [address],[place] [address] 07/08/2022 10:59:41 07/08/2022 13:32:32 [id number] [facility] [address],[place] [address] 08/05/2022 11:45:58 08/05/2022 15:20:24 state 19192830 Z39.2 Continue to watch for signs/symp toms [...] paper copy of today's plan if desired [id number] ALEKSEY Raygoza [place] [address],[place] [address] 12/17/2022 11:09:14 12/17/2022 12:36:42 Gynecologic examination 32280920 Z01.419 Take Calcium with Vitamin D 1200mg [...] in 1 year or sooner if needed [id number] Jeffrey Syed MD [place] [address],[place] [address] 04/04/2024 11:44:30 04/04/2024 12:41:50 Uterine size for dates discrepancy [id number] O26.841 Z3A.08 [id number] SUNG DE LA O MD [place] [address],[place] [address] 04/04/2024 11:48:41 04/04/2024 13:58:22 screening 504824722 Z36.0 test positive 667154263 Z32.01 1. Exam today within normal limits.2. [...] given today. Type 2 anisa betes mellitus 66697746 E11.9 - previously well controlled on trulicity; stopped with due to lack of safety data- A1c 5.5% in 01/2024- currently on lantus 12u qHS, increased to 15u due to fasting levels in low 100s, out of range for prenancy; postprandi al levels within goal- will send MF referral for diabetes management consult [id number] SUNG DE LA O MD [place] [address],[place] [address] 05/03/2024 10:02:52 05/03/2024 10:45:46 Gestation period, 12 weeks 77556378 Z3A.12 Type 2 anisa betes mellitus 13197597 E11.9 - previously well controlled on trulicity; stopped with due to lack of safety data- A1c 5.5% in 01/2024 > 5.7% 03/2024- currently on lantus 20u qHS and metformin 1000mg BID; fasting and postprandi al levels now within goal- M appointmen t 05/04 [id number] SUNG DE LA O MD [place] [address],[place] [address] 05/30/2024 09:25:52 05/30/2024 10:07:33 Pre-existing type 2 diabetes mellitus in 725569491 O24.119 Gestation period, 16 weeks 23954498 Z3A.16 [id number] SUNG DE LA O MD [place] [address],[place] [address] 06/27/2024 16:28:14 06/29/2024 00:14:10 Type 2 diabetes mellitus 38665457 E11.9 - previously well controlled on trulicity; stopped with due to lack of safety data- A1c 5.5% in 01/2024 > 5.7% 03/2024- MFM following and monitoring glucose logs Gestation period, 20 weeks 23197812 Z3A.20 [id number] Bianca Potter [facility] [address],[place] [address] 07/29/2024 16:01:49 07/29/2024 16:46:00 Gestation period, 24 weeks 621611659 Z3A.24 [id number] [facility] [address],[place] [address] 08/24/2024 09:17:56 08/24/2024 10:01:52 Gestation period, 28 weeks 11452792 Z3A.28 [id number] Bianca Potter [facility] [address],[place] [address] 1 09/06/2024 10:06:39 09/06/2024 10:33:06 Gestation period, 30 weeks 86317681 Z3A.30 [id number] Bianca Potter [facility] [address],[place] [address] 09/23/2024 14:41:27 09/23/2024 15:39:23 Pre-existing type 2 diabetes mellitus in 061299968 O24.113 734402 Bianca Potter [facility] [address],[place] [address] 1 09/23/2024 14:41:50 09/23/2024 16:01:43 Gestation period, 32 weeks 4063504 Z3A.32 [id number] SUNG DE LA O MD [place] [address],[place] [address] 09/30/2024 15:46:23 09/30/2024 16:35:31 Gestational diabetes mellitus 09097188 O24.419 [id number] SUNG DE LA O MD [place] [address],[place] [address] 1 09/30/2024 15:46:37 09/30/2024 17:02:27 Type 2 diabetes mellitus 79895956 E11.9 - previously well controlled on trulicity; stopped with due to lack of safety data- A1c 5.5% in 01/2024 > 5.7% 03/2024- MFM following and monitoring glucose logs Anxiety 51298788 F41.9 Anemia 001022161 D64.9 RhD negative 159454334 O 26.899 Z67.91 Gestation period, 33 weeks 36690122 Z3A.33 [id number] Bianca Potter [facility] [address],[place] [address] 10/07/2024 15:13:15 10/13/2024 08:06:32 Gestational diabetes mellitus 89108314 O24.419 [id number] SUNG DE LA O MD [place] [address] [place] [address] 1 10/07/2024 15:13:48 10/10/2024 07:11:53 Type 2 diabetes mellitus 33258690 E11.9 - previously well controlled on trulicity; stopped with due to lack of safety data- A1c 5.5% in 01/2024 > 5.7% 03/2024- MFM following and monitoring glucose logs Gestation period, 34 weeks 59505902 Z3A.34 [id number] Bianca Potter [facility] [address],[place] [address] 10/14/2024 15:44:51 10/17/2024 06:08:35 Gestational diabetes mellitus 22858448 O24.419 355205 Bianca Potter [facility] [address],[place] [address] 10/14/2024 15:45:19 10/14/2024 16:42:19 Gestation period, 35 weeks 40377115 Z3A.35 [id number] SUNG DE LA O MD [place] [address],[place] [address] 10/20/2024 09:43:40 10/20/2024 10:14:48 Type 2 diabetes mellitus 57050180 E11.9 - previously well controlled on trulicity; stopped with due to lack of safety data- A1c 5.5% in 01/2024 > 5.7% 03/2024- MFM following and monitoring glucose logs Gestation period, 36 weeks 42674354 Z3A.36 - GBS negative- rtc 1 week Health Concerns Section Related Observation LastModified by Organization Detai ls LastModified Time None Recorded Concern Status LastModified by Organization Details LastModified Time None Recorded Advance Directives Directive N: Payers Insurance Date Sequence Insurance Name Policy Number Policy Rodríguez Covered Member ID Rodríguez Member ID Guarantor Name 10/25/2024 1 [facility] [id number] Milly Warner [id number] Milly Warner 10/07/2024 2 [facility] [id number] Milly Islas [id number] Milly Warner 10/07/2024 1 [place] [facility] Milly Islas [id number] Milly Timmy 10/07/2024 1 [place] [facility] Milly Islas [id number] Milly Timmy 10/07/2024 1 [facility] (MEDICAID REPLACEMENT - HMO) [id number] Milly Islas [id number] Milly Timmy 10/07/2024 1 [facility] PRIOR TO 10/18/2020 (MEDICAID REPLACEMENT - HMO) Milly Islas [id number] Milly Warner 10/07/2024 1 [facility] ON OR AFTER 10/18/20 (MEDICAID REPLACEMENT - HMO) Milly Islas [id number] Milly Warner 10/07/2024 1 [facility] ON OR AFTER 20 (MEDICAID REPLACEMENT - HMO) Milly Islas [id number] Milly Warner 10/07/2024 1 [place] [facility] Milly Islas [id number] Milly Warner 10/07/2024 2 [facility] [id number] Milly Islas [id number] Milly Warner 10/07/2024 2 [facility] ON OR AFTER 10/18/20 (MEDICAID REPLACEMENT - HMO) Milly Islas [id number] Milly Warner 10/18/2024 2 [place] [facility] Milly Islas [id number] Milly Warner OBGyn Episode Ob Episode Information Episode Created Date Number of Fetuses Patient Bloodtype Patient rh Status Prepregnancy Weight lbs Domestic Partner Domestic Partner Phone Father Name Grain Commodity Manager Status 10/26/19 1 CLOSED Fetus Data First Name Last Name Admitted to NICU Weight (g) Sex Living Outcome Pediatric Complications Fetus ID Race Codes Race Delivery Type 3345.24 1 M Full Term 2789 Vaginal Delivery Maritza Calculation Initial Maritza Date Initial Exam Date Initial Exam Provider Initial Ultrasound Date Last Menstrual Period Date Ultra Sound Weeks Gestation 0 Eighteen To Twenty Week Maritza Update Ultra Sound Date Fundal Height At Umbil Quickening Date Ultra Sound Latest Weeks Gestation Final Maritza Confirmed By Final Maritza Confirmed Date Final Maritza Date Ultra Sound Latest Days Gestation 0 [...] Domestic Partner Domestic Partner Phone Father Name Grain Commodity Manager Status 10/26/19 20 1 CLOSED Fetus Data First Name Last Name Admitted to NICU Weight (g) Sex Living Outcome Pediatric Complications Fetus ID Race Codes Race Delivery Type 3912.23 1 M Full Term 2791 Vaginal Delivery Maritza Calculation Initial Maritza Date Initial Exam Date Initial Exam Provider Initial Ultrasound Date Last Menstrual Period Date Ultra Sound Weeks Gestation 0 Eighteen To Twenty Week Maritza Update Ultra Sound Date Fundal Height At Umbil Quickening Date Ultra Sound Latest Weeks Gestation Final Maritza Confirmed By Final Maritza Confirmed Date Final Maritza Date Ultra Sound Latest Days Gestation 0 [...] Domestic Partner Domestic Partner Phone Father Name Grain Commodity Manager Status 10/26/19 20 1 CLOSED Fetus Data First Name Last Name Admitted to NICU Weight (g) Sex Living Outcome Pediatric Complications Fetus ID Race Codes Race Delivery Type 2551.45 5 M Full Term 2790 Vaginal Delivery Maritza Calculation Initial Maritza Date Initial Exam Date Initial Exam Provider Initial Ultrasound Date Last Menstrual Period Date Ultra Sound Weeks Gestation 0 Eighteen To Twenty Week Maritza Update Ultra Sound Date Fundal Height At Umbil Quickening Date Ultra Sound Latest Weeks Gestation Final Maritza Confirmed By Final Maritza Confirmed Date Final Maritza Date Ultra Sound Latest Days Gestation 0 0 Menstrual History Last Menstrual Date Menses Monthly On Bcp Conception Prior Menses Frequency Hcg Plus Date Menarche Onset Age Delivery Information Delivery Date Delivery Type Labor Anesthesia Weeks Gestation Incision Type Labor Labor Length Hrs Delivered By Post Complications Tubal Sterilization Discharge Date Comments 07/14/201 1 37 Ino Discharge Information Feeding Method Contraceptive Method Maternal HG B and HCT Levels Ob Episode Information Episode Created Date Number of Fetuses Patient Bloodtype Patient rh Status Prepregnancy Weight lbs Domestic Partner Domestic Partner Phone Father Name Grain Commodity Manager Status 11/28/19 20 1 O Negative 180 CLOSED Fetus Data First Name Last Name Admitted to NICU Weight (g) Sex Living Outcome Pediatric Complications Fetus ID Race Codes Race Delivery Type false 3600.38 65 M true Full Term 3657 Vaginal Delivery Problems Problem Notes MFM 2/3 for RISK MANAGEMENT ANALYST & DE. Pt is o n Levemir 34u AM and 54u PM & Humalog 22u breakfast, 10u lunch, 22(18)u dinner as of 04/2019 units levemir PP Problem Name Start Date End Date Resolution Snomed Code Not e Gestational diabetes mellitus 01/18/2020 [id number] PREgestational DM2. delivery 38-39w Past history of gestational diabetes mellitus 613080676 Maritza Calculation Initial Maritza Date Initial Exam Date Initial Exam Provider Initial Ultrasound Date Last Menstrual Period Date Ultra Sound Weeks Gestation 2020 11/28/2019 10/31/2019 09/03/2019 7 Eighteen To Twenty Week Maritza Update Ultra Sound Date Fundal Height At Umbil Quickening Date Ultra Sound Latest Weeks Gestation Final Maritza Confirmed By Final Maritza Confirmed Date Final Maritza Date Ultra Sound Latest Days Gestation 0 [email or web address] 11/28/2019 06/09/19 21 0 Pre- Flowsheet Flowsheet Date 10/31/2019 Hammonds Score Blood [...] Weight in lbs Pre/Post Dialysis Refused Weight 181.304709038681 BP Diastolic BP Location Tested BP Systolic [...] Weight in lbs Pre/Post Dialysis Refused Weight 178.525678301381 BP Diastolic BP Location Tested BP Systolic [...] Weight in lbs Pre/Post Dialysis Refused Weight 177.983430353915 BP Diastolic BP Location Tested BP Systolic [...] Weight in lbs Pre/Post Dialysis Refused Weight 181.303780178287 BP Diastolic BP Location Tested BP Systolic BP Type 82 L arm 128 sitting Fetus Heart Rate Present A 155 Fetus Movement A Yes Comments Still having some increased blood sugars. Will review log with Dr Syed this afternoon and call patient with updated insulin. Pt has been doing well otherwise. Pt is concerned because she had a early blood draw with a [facility] to determine gender. She was given results [...] Weight in lbs Pre/Post Dialysis Refused Weight 181.787650718478 BP Diastolic BP Location Tested BP Systolic [...] Weight in lbs Pre/Post Dialysis Refused Weight 181.944768389150 BP Diastolic BP Location Tested BP Systolic [...] Weight in lbs Pre/Post Dialysis Refused Weight 180.068572026787 BP Diastolic BP Location Tested BP Systolic [...] Weight in lbs Pre/Post Dialysis Refused Weight 182.385912472206 BP Diastolic BP Location Tested BP Systolic [...] Weight in lbs Pre/Post Dialysis Refused Weight 183.050440064734 BP Diastolic BP Location Tested BP Systolic [...] Weight in lbs Pre/Post Dialysis Refused Weight 187.967474014819 BP Diastolic BP Location Tested BP Systolic BP Type 88 137 Fetus Heart Rate Present A 130 Fetus Movement A Yes Comments Doing well. Fastings good. A bout 1/3 pp elevated over [place] week- reporting sugars to [facility] tomorrow. Got rhogam at [place]. Irregular contractions, precautions given. Flowsheet Date 04/23/2020 [...] Weight in lbs Pre/Post Dialysis Refused Weight 188.838429807338 BP Diastolic BP Location Tested BP Systolic [...] Weight in lbs Pre/Post Dialysis Refused Weight 186.307023135814 BP Diastolic BP Location Tested BP Systolic [...] Weight in lbs Pre/Post Dialysis Refused Weight 186.645767920547 BP Diastolic BP Location Tested BP Systolic BP Type 88 130 Fetus Heart Rate Present A 140 Fetus Movement A Yes Comments Doing well. Occasional contr actions. PTL precautions. States bs readings are great. [facility] continues to manage insulin. Flowsheet Date 05/14/2020 [...] Weight in lbs Pre/Post Dialysis Refused Weight 189.514078063683 BP Diastolic BP Location Tested BP Systolic [...] Weight in lbs Pre/Post Dialysis Refused Weight 191.270026602736 BP Diastolic BP Location Tested BP Systolic [...] Estim ated Date of Delivery false Thalassemia (Croatian, Wolof, Mediterranean, Or Background): MCV < 80 false Neural Tube Defect (Meningomyelocele, Spina Bifi da, Or Anencephaly) false Congenital Heart Defect false Down Syndrome false Meño-Sachs (eg, Catholic, Cajun, Estonian-[place]) f alse Jacquelyn Disease false Sickle Cell Disease Or Trait () false Hemophilia Or Other Blood Disorders false Muscular Dystrophy false Cystic Fibrosis false [place]'s Chorea false Intellectual Disability/Autism false If Yes, [...] Comments 1 Induce d None 38.2 false Dianne Spann CNM GDM Insulin Discharge Information Feeding Method Contraceptive Method Maternal HG B and HCT Levels Ob Episode Information Episode Created Date Number of Fetuses Patient Bloodtype Patient rh Status Prepregnancy Weight lbs Domestic Partner Domestic Partner Phone Father Name Grain Commodity Manager Status 01/16/20 22 1 O Negative 161 CLOSED Fetus Data First Name Last Name Admitted to NICU Weight (g) Sex Living Outcome Pediatric Complications Fetus ID Race Codes Race Delivery Type 3288.54 2 M true Full Term 00739 Vacuum Assisted Vaginal Delivery Problems Problem Notes MFM: next appt U/S, DE, and RISK MANAGEMENT ANALYST on 06/25/22Fetal Echo NLQID sugars, low dose [...] Date Resolution Snomed Code Not e Headache 40587005 riboflavin 400mg Chronic peripheral venous hypertension 224301418 hx of - M recommended to check BID and PTL precautions RhD negative 12/06/2021 994229744 Type 2 diabetes mellitus 12/04/2021 87039704 MF - ante test ing, growth; 34AM & 46 HS, unless 2 high fastings then 40 units HS. Cont metformin 500mg BID as of 1/4 Liver function tests outside reference range 790619292 labs per MFM Grand multiparity with problem 12/04/2021 [id number] Maritza Calculation Initial Maritza Date Initial Exam Date Initial Exam Provider Initial Ultrasound Date Last Menstrual Period Date Ultra Sound Weeks Gestation 07/29/2022 01/15/2022 12/03/2021 09/25/2021 6 Eighteen To Twenty Week Maritza Update Ultra Sound Date Fundal Height At Umbil Quickening Date Ultra Sound Latest Weeks Gestation Final Maritza Confirmed By Final Maritza Confirmed Date Final Maritza Date Ultra Sound Latest Days Gestation 0 [email or web address] 01/15/2022 07/30/19 23 0 Pre- Flowsheet Flowsheet Date 01/15/2022 Hammonds Score Blood Edema Fundus Height Fundus Units Glucose Ketones Leukocytes Nitrite Labor Signs Protein Cervic Dilation Cervic Effacement Cervic Station neg none none trace Type Weight in lbs Pre/Post Dialysis Refused Weight 168.592875456575 BP Diastolic BP Location Tested BP Systolic [...] encouraged. Also encouraged flu shot. Will get [facility] referral placed. Flowsheet Date 02/10/2022 Hammonds Score [...] Weight in lbs Pre/Post Dialysis Refused Weight 170.304610533178 BP Diastolic BP Location Tested BP Systolic BP Type 81 123 Fetus Heart Rate Present A 150 Fetus Movement A Yes Comments Doing well. [facility] managing ins ulin now but haven't had to change too much. Back to [facility] 03/01. Gender reveal Thursday. Forgot about COVID and flu shots, will consider. Flowsheet Date 03/12/2022 Hammonds Score Blood Edema Fundus Height Fundus Units Glucose Ketones Leukocytes Nitrite Labor Signs Protein Cervic Dilation Cervic Effacement Cervic Station neg trace 22 none trace Type Weight in lbs Pre/Post Dialysis Refused Weight 169.700771883805 BP Diastolic BP Location Tested BP Systolic BP Type 85 132 Fetus Heart Rate Present A 160 Fetus Movement A Yes Comments Doing ok. Job is stressful, and lost her mom in May and first holidays without her. Declines medication. Denies SI/HI. Counseling resources given. MFM next week. On Levemir 30am/36pm. They recommended labs for elevated LFTs, she will do today. Will also repeat A1C today. Discuss vaccines again next visit. Flowsheet Date 04/09/2022 Hammonds Score Blood Edema Fundus Height Fundus Units Glucose Ketones Leukocytes Nitrite Labor Signs Protein Cervic Dilation Cervic Effacement Cervic Station neg none 30 none trace Type Weight in lbs Pre/Post Dialysis Refused Weight 174.90806866641 BP Diastolic BP Location Tested BP Systolic BP Type 78 120 Fetus Heart Rate Present A 150 Fetus Movement A Yes Comments Doing well. SUgars per MFM- really good per pt. Back there next week. Will order echo as has not been ordered yet. Labs today per MF. A1C was 5.3. Got flu shot. does [...] Weight in lbs Pre/Post Dialysis Refused Weight 175.886376163159 BP Diastolic BP Location Tested BP Systolic BP Type 81 125 Fetus Heart Rate Present A 149 Fetus Movement A Yes Comments Doing well. States MFM added lunch time dose of insulin d/t [...] Weight in lbs Pre/Post Dialysis Refused Weight 180.151024211491 BP Diastolic BP Location Tested BP Systolic BP Type 81 122 Fetus Heart Rate Present Fetus Movement A Yes Comments Doing well. [facility] managing blo od sugar. States has been [...] Weight in lbs Pre/Post Dialysis Refused Weight 178.312655698380 BP Diastolic BP Location Tested BP Systolic BP Type 90 139 78 150 Fetus Heart Rate Present A 135 Fetus Movement A Yes Comments Doing well. Reports BP mild ly elevated last week at hepatology and week before at [facility] also- around 130s/90s. Will repeat PIH labs [...] Weight in lbs Pre/Post Dialysis Refused Weight 179.564521985038 BP Diastolic BP Location Tested BP Systolic [...] Weight in lbs Pre/Post Dialysis Refused Weight 181.354996843961 BP Diastolic BP Location Tested BP Systolic [...] Weight in lbs Pre/Post Dialysis Refused Weight 183.265045190323 BP Diastolic BP Location Tested BP Systolic [...] Weight in lbs Pre/Post Dialysis Refused Weight 182.660377783117 BP Diastolic BP Location Tested BP Systolic BP Type 79 124 Fetus Heart Rate Present Fetus Movement A Yes Comments Doing well. Is feeling a lit tle more fatigued. Blood sugars are low normal. She is following up with [facility] tomorrow. Discussed glucose precautions. Will also determine plan for delivery timing after mfm visit. Flowsheet Date 07/01/2022 Hammonds Score Blood [...] Weight in lbs Pre/Post Dialysis Refused Weight 188.114478468075 BP Diastolic BP Location Tested BP Systolic BP Type 84 142 Fetus Heart Rate Present Fetus Movement A Yes Comments Elevated bp today. Denies h/ a, v/d, or e/p. Plan was to discuss delivery timing with mfm last week but appt was cancelled. Appointment [...] Post Complications Tubal Sterilization Discharge Date Comments 03/22/202 3 Induce d Regional-Ep idural 37.1 Dianne Simmons CNM GHTN,GDM Discharge Information Feeding Method Contraceptive Method Maternal HG B and HCT Levels Ob Episode Information Episode Created Date Number of Fetuses Patient Bloodtype Patient rh Status Prepregnancy Weight lbs Domestic Partner Domestic Partner Phone Father Name Grain Commodity Manager Status 05/03/19 25 1 O Negative OPEN Fetus Data First Name Last Name Admitted to NICU Weight (g) Sex Living Outcome Pediatric Complications Fetus ID Race Codes Race Delivery Type 62976 Problems Problem Notes h/o nonalcoholic fatty liver disease 2022 Problem Name Start Date End Date Resolution Snomed Code Not e Anxiety 08/24/2024 65017005 seeing th erapist every 2 weeks Hypertension AND/OR vomiting complicating childbirth AND/OR puerperium 08/19/2024 924424792 history of GTHN bASA 162mg daily Bseline labs wnl Type 2 diabetes mellitus 64135275 09/28/24 Tojeo 7 8/78 AM and bedtime 12hrs part max dose 200u log , max dose 150u A1c 5.7% 03/2024; following with MFM; dexcom updated 07/27/24 A1c each trimester MFM HgbA1c each trimester 04/19/24 5.7%, MFM ordered echo 24-28wkskick counts BID @ 28wks 2xwkly NSTs w/ BPP to start @ 32wksscheduled [facility] MFM 08/24/24 US, RISK MANAGEMENT ANALYST visit & DE09/21/24 1:00 US/NST/RISK MANAGEMENT ANALYST/ DEfetal echo scheduled 09/05/24see consult note for delivery recommendations poor glycemic control 36-38wks good glycemic control 39wksfax MFM consult to LD with flowsheet for glucose control in labor RhD negative 09/30/2024 [id number] receiv ed rhogam Anemia 08/29/2024 990367588 Maritza Calculation Initial Maritza Date Initial Exam Date Initial Exam Provider Initial Ultrasound Date Last Menstrual Period Date Ultra Sound Weeks Gestation 11/14/2024 05/03/2024 04/04/2024 01/28/2024 8 Eighteen To Twenty Week Maritza Update Ultra Sound Date Fundal Height At Umbil Quickening Date Ultra Sound Latest Weeks Gestation Final Maritaz Confirmed By Final Mraitza Confirmed Date Final Maritza Date Ultra Sound Latest Days Gestation 0 05/30/2024 11/15/19 25 0 Pre-fernando Flowsheet Flowsheet Date 05/03/2024 Hammonds Score Blood Edema Fundus Height Fundus Units Glucose Ketones Leukocytes Nitrite Labor Signs Protein Cervic Dilation Cervic Effacement Cervic Station Type Weight in lbs Pre/Post Dialysis Refused Weight 164.017225436155 BP Diastolic BP Location Tested BP Systolic BP Type 79 L arm 145 sitting Fetus Heart Rate Present A 165 Fetus Movement Comments Patient [facility] care. Reports worsening headaches over the last [...] controlled. Got dexcom. Discussed anatomy US at [facility], appointments scheduled. RTC 4 weeks for routine OB. Flowsheet Date 06/27/2024 Hammonds Score Blood Edema Fundus Height Fundus Units Glucose Ketones Leukocytes Nitrite Labor Signs Protein Cervic Dilation Cervic Effacement Cervic Station neg trace Type Weight in lbs Pre/Post Dialysis Refused Weight 173.091923775228 BP Diastolic BP Location Tested BP Systolic BP Type 85 R arm 126 sitting Fetus Heart Rate Present A 145 Fetus Movement A Yes Comments Good movement. No cram ping or bleeding. Having some swelling and numbness in the morning in her hands. Glucose readings intermittently high, monitoring with [facility]. Anatomy US scheduled for Thursday with [facility]. RTC 4 weeks. Flowsheet Date 07/29/2024 Hammonds Score Blood Edema Fundus Height Fundus Units Glucose Ketones Leukocytes Nitrite Labor Signs Protein Cervic Dilation Cervic Effacement Cervic Station Type Weight in lbs Pre/Post Dialysis Refused 180.066929475069 BP Diastolic BP Location Tested BP Systolic BP Type 77 144 Fetus Heart Rate Present Fetus Movement Comments Patient is having discharge and swelling. reviewed precautions and education, +FM ses m, they are monitoring blood sugar, f/u as scheduled with mfm Flowsheet Date 08/24/2024 Hammonds Score Blood Edema Fundus Height Fundus Units Glucose Ketones Leukocytes Nitrite Labor Signs Protein Cervic Dilation Cervic Effacement Cervic Station trace trace Type Weight in lbs Pre/Post Dialysis Refused Weight 182.853168829054 BP Diastolic BP Location Tested BP Systolic [...] monitored by mfm per pt doing great Flowsheet Date 09/06/2024 Hammonds Score Blood Edema Fundus Height Fundus Units Glucose Ketones Leukocytes Nitrite Labor Signs Protein Cervic Dilation Cervic Effacement Cervic Station neg trace Type Weight in lbs Pre/Post Dialysis Refused Weight 186.101086202908 BP Diastolic BP Location Tested BP Systolic BP Type 84 130 Fetus Heart Rate Present A 150 Present Fetus Movement A Yes Comments Patient is having contractio ns, hip pain, discharge and swelling. precautions and education, has testing scheduled. +FM, [facility] monitoring blood sugars f/u 2 weeks Flowsheet Date 09/23/2024 Hammonds Score Blood Edema Fundus Height Fundus Units Glucose Ketones Leukocytes Nitrite Labor Signs Protein Cervic Dilation Cervic Effacement Cervic Station Type Weight in lbs Pre/Post Dialysis Refused Weight 187.903244485019 BP Diastolic BP Location Tested BP Systolic BP Type 58 L arm 105 sitting Fetus Heart Rate Present Fetus Movement Comments Flowsheet Date 09/23/2024 Hammonds Score Blood Edema Fundus Height Fundus Units Glucose Ketones Leukocytes Nitrite Labor Signs Protein Cervic Dilation Cervic Effacement Cervic Station neg none Type Weight in lbs Pre/Post Dialysis Refused 187.353168281479 BP Diastolic BP Location Tested BP Systolic BP Type 58 105 Fetus Heart Rate Present Fetus Movement A Yes Comments Patient is having contration s, nausea and vomiting. NST reactive, PTL precautions, mfm has had to decrease insulin to lower readings. baby shower this weekend, planning tdap, call for preadmission appt f/u one week Flowsheet Date 09/30/2024 Hammonds Score Blood Edema Fundus Height Fundus Units Glucose Ketones Leukocytes Nitrite Labor Signs Protein Cervic Dilation Cervic Effacement Cervic Station Type Weight in lbs Pre/Post Dialysis Refused 186.214642203164 BP Diastolic BP Location Tested BP Systolic BP Type 76 L arm 124 sitting Fetus Heart Rate Present Fetus Movement Comments Flowsheet Date 09/30/2024 Hammonds Score Blood Edema Fundus Height Fundus Units Glucose Ketones Leukocytes Nitrite Labor Signs Protein Cervic Dilation Cervic Effacement Cervic Station Type Weight in lbs Pre/Post Dialysis Refused Weight 186.234668246434 BP Diastolic BP Location Tested BP Systolic BP Type 76 L arm 124 sitting Fetus Heart Rate Present Fetus Movement A Yes Comments Good movement. No cram ping or bleeding. NST reactive. Improved glycemic control, following with MFM. Discussed delivery at 39 weeks if glucose control remains stable. Needs tdap. Discussed ordering breast pump from insurance. RTC 1 week. Flowsheet Date 10/07/2024 Hammonds Score Blood Edema Fundus Height Fundus Units Glucose Ketones Leukocytes Nitrite Labor Signs Protein Cervic Dilation Cervic Effacement Cervic Station Type Weight in lbs Pre/Post Dialysis Refused Weight 189.831745840490 BP Diastolic BP Location Tested BP Systolic BP Type 73 L arm 108 sitting Fetus Heart Rate Present Fetus Movement Comments Flowsheet Date 10/07/2024 Hammonds Score Blood Edema Fundus Height Fundus Units Glucose Ketones Leukocytes Nitrite Labor Signs Protein Cervic Dilation Cervic Effacement Cervic Station Type Weight in lbs Pre/Post Dialysis Refused 189.724115780237 BP Diastolic BP Location Tested BP Systolic BP Type 73 L arm 108 sitting Fetus Heart Rate Present A Present Fetus Movement A Yes Comments Good movement. No cram ping or bleeding. NST reactive. MFM recommending delivery at 38 weeks, may recommend 37 weeks depending on glycemic control. Received Tdap vaccine. Continue twice weekly testing. RTC 1 week. Flowsheet Date 10/14/2024 Hammonds Score Blood Edema Fundus Height Fundus Units Glucose Ketones Leukocytes Nitrite Labor Signs Protein Cervic Dilation Cervic Effacement Cervic Station Type Weight in lbs Pre/Post Dialysis Refused BP Diastolic BP Location Tested BP Systolic BP Type Fetus Heart Rate Present Fetus Movement Comments Flowsheet Date 10/14/2024 Hammonds Score Blood Edema Fundus Height Fundus Units Glucose Ketones Leukocytes Nitrite Labor Signs Protein Cervic Dilation Cervic Effacement Cervic Station Type Weight in lbs Pre/Post Dialysis Refused 187.059434940916 BP Diastolic BP Location Tested BP Systolic BP Type 81 L arm 131 sitting Fetus Heart Rate Present Fetus Movement A Yes Comments NST R, GBS collected, +FM, e ducation and precautions IOL scheduled with dr. de la o 11/02 at 0630 f/u one week Flowsheet Date 10/20/2024 Hammonds Score Blood Edema Fundus Height Fundus Units Glucose Ketones Leukocytes Nitrite Labor Signs Protein Cervic Dilation Cervic Effacement Cervic Station 4cm 50% -2 Type Weight in lbs Pre/Post Dialysis Refused Weight 187.03155500446 BP Diastolic BP Location Tested BP Systolic BP Type 80 L arm 130 sitting Fetus Heart Rate Present A 155 Fetus Movement A Yes Comments Good movement. NST at hospital tomorrow. Was seen by MFM yesterday for insulin adjustments. Labor precautions reviewed. RTC 1 week. Menstrual History Last Menstrual Date Menses Monthly [...]
[2024-10-26 21:59] VITALS: BMI 36.6
--- NOTE | 2024-10-26 21:59 | OBADM ---
This patient, Milly Warner, admitted to the OB room Labor/Delivery/Recovery 107 for observation. Patient/family oriented to hospital policies and general routines including ID bracelet, bed and alarms, visiting hours, pain management, procedures, bathroom and other care routines, personal items, smoking policy, room service/diet, and visiting hours. Patient/Family are encouraged to report perceived risks to care and to ask questions if they do not understand what they are told or what they should do.
--- NOTE | 2024-10-30 10:36 | PM.OBTRLD ---
OB - Triage/Final Diagnosis Visit Information Date of evaluation: 10/26/24 Reason for evaluation: threatened labor Comments/Additional reasons for admission: I have assessed the risk for this patient, Milly Warner, and determined that she would benefit from observation care.
== END 2024-10-26 22:10 | disposition home or self-care (01) ==
PROVIDERS: Admitting Provider Obstetrics & Gynecology; Visit Provider Obstetrics & Gynecology
DX: O47.9 False labor, unspecified (principal)
CPT/HCPCS: G0378; G0379

== ENCOUNTER 2024-10-31 06:14 | Inpatient (IN) | payer OTHER, MEDICAID, SELFPAY ==
[2024-10-31] VITALS (81 sets, daily range): BP systolic 84–144; BP diastolic 46–93; PULSE 54–102; RESP 16; TEMP 35.8–37.1; O2SAT 86–100; BMI 37.0
--- OUTSIDE RECORDS SUMMARY | 2024-10-31 07:14 | XMS_ITS | Data Portability ---
Author Organization [facility] Address [address] [place] [address] [place] [address] Care Team Providers Care Office Engineer Name Role Phone MIKE ATKINSON Primary Care Provider Assessment Encounter Date Assessment Date Assessment LastModified by Organization Details LastModified Time 10/14/2024 10/14/2024 Patient is 35___weeks . Discussed plan. [email or web address] Not available 10/14/2024 16:41:45 10/14/2024 10/14/2024 NST - DM [email or web address] Not available 09/19 17:15:05 10/28/2024 10/28/2024 Patient is _37__weeks . Discussed plan. [email or web address] Not available 10/28/2024 17:05:52 Plan of Treatment Reminders Order Date Submit Date Provider Last Modified By Organization Details Last Modified Time Details Appointments INDUCTION 2024 06:30A M SUNG DE LA O MD Not available Not available Not available NST 2024 02:30P M NST SCHEDULE Not available Not available Not available OB ROUTINE 2024 03:15P M SUNG DE LA O MD Not available Not available Not available NST 2024 03:00P M NST SCHEDULE Not available Not available Not available Lab None recorded. Referral None recorded. Procedures None recorded. Surgeries None recorded. Imaging non-stres s test 2024 025 [email or web address] [place], [address], [address], [place], [address], 10/29/2024 08:50:46 non-stres s test 2024 025 [email or web address] [place], [address], [address], [place], [address], 10/14/2024 17:16:37 Medication Orders None recorded. Patient TargetsNo targets [...] t Abnor mal: No Resul ting Lab: [facility] [address] [facility] [address] Tel: CULTU RE ----- ----- ----- --- No Group B strep isola andreina at 2 days (dayna ctive broth enhan cemen t) Not Available [facility] (Lab) [address] [facility], [place], [address], 10/17/2024 15:06:28 09/22/19 25 09/21/2024 US, obste tric, follo w-up No observ ation record ed. [email or web address] [facility] [address] [place] [address], [id number], 09/27/2024 13:05:11 09/22/19 25 09/21/2024 US, obste tric, follo w-up No observ ation record ed. [email or web address] [facility] [address] [place] [address], [id number], 09/27/2024 08:43:52 09/24/19 25 09/23/2024 non-s tress test No observ ation record ed. [email or web address] [place] [address], [place], [address], 09/23/2024 15:39:07 09/29/19 25 09/28/2024 US, obste tric, bioph ysica l profi le + non-s tress test No observ ation record ed. [email or web address] [facility] [address] [place] [address], [id number], 10/03/2024 11:36:49 10/01/19 25 09/30/2024 non-s tress test No observ ation record ed. [email or web address] [place] [address], [place], [address], 09/30/2024 16:35:50 10/01/19 non-s tress test No observ ation record ed. [email or web address] [place] [address], [place], [address], 09/30/2024 16:42:46 10/06/19 25 10/05/2024 US, obste tric, follo w-up No observ ation record ed. [email or web address] [facility] [address] [place] [address], [id number], 10/06/2024 11:54:21 10/13/19 25 10/12/2024 US, obste tric, follo w-up No observ ation record ed. [email or web address] [facility] [address] [place] [address], [id number], 10/17/2024 08:45:49 10/13/19 25 10/12/2024 imagi ng/di agnos tic resul t No observ ation record ed. DIANNE [facility] [address] [place] [address], [id number], 10/12/2024 17:54:19 10/13/19 25 10/12/2024 non-s tress test No observ ation record ed. [address], [place], [address], 10/13/2024 16:11:16 10/15/1910/14/2024 non-s tress test No observ ation record ed. [address], [place], [address], 10/15/2024 11:52:23 10/20/1910/19/2024 imagi ng/di agnos tic resul t No observ ation record ed. [facility] [address], [address], 10/20/2024 18:00:33 10/20/19 25 10/19/2024 imagi ng/di agnos tic resul t No observ ation record ed. [facility] [address] [place] [address], [id number], 10/20/2024 18:00:33 10/22/19 25 10/21/2024 imagi ng/di agnos tic resul t No observ ation record ed. [facility] [address], [place], [address], 10/25/2024 11:17:38 10/27/19 25 10/26/2024 US, obste tric, follo w-up No observ ation record ed. [address] [facility] [address] [place], [address], 10/26/2024 17:18:02 10/27/19 25 10/26/2024 imagi ng/di agnos tic resul t No observ ation record ed. [facility] [address] [place], [address], 10/27/2024 17:27:33 10/27/19 25 10/26/2024 imagi ng/di agnos tic resul t No observ ation record ed. [facility] [address], [place], [address], 10/27/2024 17:27:33 10/29/19 25 10/28/2024 non-s tress test No observ ation record ed. [email or web address] [place] [address], [place], [address], 10/28/2024 17:22:09 Result Notes None recorded. Problems Name Problem SNOMED Code Status Onset Date Resolution Date Notes Provider Name and Address Organization Details Recorded Time Pregnanc y 67165361 Completed 201904/30/2020 SUHAIL guerrero, [facility] 5 10:21:26 Past pregnanc y history of gestatio nal diabetes mellitus 520735742 Completed Anastasiia guerrero [facility] 14:10:49 Gestatio nal diabetes mellitus 04683548 Completed 2019 PREgesta tional DM2. delivery 38-39w Anastasiia guerrero [facility] 14:10:49 Gestatio nal diabetes mellitus 65845899 Completed 201904/30/2020 BS QID 32wks 2x wk NST's, wkly OB and growth u/s 4wks MFM managing pre-gest ational diabetes . Loretta guerrero [facility] 14:33:16 Normal pregnanc y in multigra sonal [id number] 06607 Completed 201504/16/2020 Encounte r for supervis ion of other normal pregnanc y, second trimeste r;Record ed Elsewher e: No Locat ion: [facility] S ource: EHR Program Developer yuliya: N Practi ce ID: 0001 Jaleel lable Time: 10:00:00 AM Magui Torres MD [address], [place], [address], [facility] [address] 15:54:[address] Concept Completed 201604/16/2020 Encntr for urogynaecologist exam (general ) (routine ) w/o abn findings ;Recorde d Elsewher e: No [facility]at [facility]: EHR Program Developer yuliya: N Practi ce ID: 0001 Jaleel lable Time: 01:00:00 PM Magui Torres MD [address], [place], [address], [facility] 0 15:54:36 Screenin g for malignan t neoplasm of cervix Completed 201504/16/2020 Encounte r for screenin g for malignan t neoplasm of cervix;R ecorded Elsewher e: No Locat ion: Colt martinez [facility] S ource: EHR Program Developer yuliya: N Practi ce ID: 0001 Jaleel lable Time: 08:30:00 AM Magui Torres MD [address], [place], [address], [facility] [address] 15:54:[address] Concept Completed 201704/16/2020 Encntr for general adult medical exam w/o abnormal findings ;Recorde d Elsewher e: No [facility] S ource: EHR Program Developer yuliya: N Practi ce ID: 0001 Jaleel lable Time: 02:00:00 PM Magui Torres MD [address], [place], [address], [facility] 0 15:54:38 Gestatio n period, 33 weeks [id number] Completed 201504/16/2020 33 weeks gestatio n of pregnanc y;Record ed Elsewher e: No [facility]at [facility] S ource: EHR Program Developer yuliya: N Practi ce ID: 0001 Jaleel lable Time: 08:30:00 AM Magui Torres MD [address], [place], [address], [facility] 0 15:53:43 Pregnanc y detectio n examinat ion Completed 201704/16/2020 Encounte r for pregnanc y test, result positive ;Recorde d Elsewher e: No Locat ion: [facility] S ource: EHR Program Developer yuliya: N Practi ce ID: 0001 Jaleel lable Time: 04:45:00 PM Magui Torres MD [address], [place], [address], [facility] 0 15:54:17 Gestatio n period, 36 weeks 35512412 Completed 201504/16/2020 36 weeks gestatio n of pregnanc y;Record ed Elsewher e: No [facility] S ource: EHR Program Developer yuliya: N Practi ce ID: 0001 Jaleel lable Time: 08:30:00 AM Magui Torres MD [address], [place], [address], [facility] 0 15:53:50 Gestatio n period, 32 weeks 0682315 Completed 201504/16/2020 32 weeks gestatio n of pregnanc y;Record ed Elsewher e: No Locat ion: [facility] S ource: EHR Program Developer yuliya: N Practi ce ID: 0001 Jaleel lable Time: 09:30:00 AM Magui Torres MD [address], [place], [address], [facility] 0 15:53:41 Single live from singleto n pregnanc y [id number] Completed 201704/16/2020 Single live ;Pr actice ID: 0001 Magui Torres MD [address], [place], [address], [facility] 0 15:54:33 Gestatio n period, 37 weeks 51107728 Completed 201704/16/2020 37 weeks gestatio n of pregnanc y;Practi ce ID: 0001 Magui Torres MD [address], [place], [address], [facility] 0 15:53:53 Lochia finding Completed 201704/16/2020 Encounte r for routine postpart um follow-u p;Practi ce ID: 0001 Magui Torres MD [address], [place], [address], [facility] 0 15:54:05 Insertio n of intraute rine contrace ptive device Completed 201704/16/2020 Encounte r for insertio n of intraute rine contrace ptive device;P ractice ID: 0001 Magui Torres MD [address], [place], [address], [facility] 0 15:54:12 Pregnanc y test negative 658158387 Completed 201704/16/2020 Encounte r for pregnanc y test, result negative ;Practic e ID: 0001 Magui Torres MD [address], [place], [address], [facility] 0 15:54:20 Contrace ptive sheath status 529983442 Completed 201704/16/2020 Encounte r for routine checking of intraute rine contrace p dev;Prac domingo ID: 0001 Magui oTrres MD [address], [place], [address], [facility] 0 15:53:14 Educatio n Completed 201904/16/2020 Encounte r for oth general cnsl and advice on contrace ption;Pr actice ID: 0001 Magui Torres MD [address], [place], [address], [facility] 0 15:53:22 Removal of intraute rine device Completed 201904/16/2020 Encounte r for removal of intraute rine contrace ptive device;P ractice ID: 0001 Magui Torres MD [address], [place], [address], [facility] 0 15:54:25 Gestatio n less than 9 weeks 312522257 Completed 201704/16/2020 Less than 8 weeks gestatio n of pregnanc y;Record ed Elsewher e: No [facility]at [facility] S ource: EHR Program Developer yuliya: N Practi ce ID: 0001 Jaleel lable Time: 03:45:00 PM Magui Torres MD [address], [place], [address], [facility] 0 15:53:33 Gestatio n period, 35 weeks 69217955 Completed 201504/16/2020 35 weeks gestatio n of pregnanc y;Record ed Elsewher e: No [facility] S ource: EHR Program Developer yuliya: N Practi ce ID: 0001 Jaleel lable Time: 09:30:00 AM Magui Torres MD [address], [place], [address], [facility] 0 15:53:48 Elevated blood-pr essure reading without diagnosi s of hyperten sukhi 672510512 Completed 201704/30/2020 Elevated blood-pr essure reading without diagnosi s of HTN;Mir rded Elsewher e: No Locat ion: Colt martinez [facility] S ource: EHR Program Developer yuliya: N Practi ce ID: 0001 Jaleel lable Time: 04:45:00 PM Loretta Martin cesar, [facility] 1 14:33:15 Pelvic and perineal pain 618183859 Completed 201604/16/2020 Pelvic and perineal pain;Rec orded Elsewher e: No Locat ion: [facility] S ource: EHR Program Developer yuliya: N Sharon ce ID: 0001 Jaleel lable Time: 03:45:00 PM Magui Torres MD [address], [place], [address], [facility] 0 15:54:14 Gestatio n period, 30 weeks [id number] Completed 201504/16/2020 30 weeks gestatio n of pregnanc y;Record ed Elsewher e: No Locat ion: [facility] S ource: EHR Program Developer yuliya: N Sharon ce ID: 0001 Jaleel lable Time: 01:30:00 PM Magui Torres MD [address], [place], [address], [facility] 0 15:53:39 Diet educatio n Completed 201504/16/2020 Dietary counseli ng and surveill ance;Rec orded Elsewher e: No Locat ion: [facility] S ource: EHR Program Developer yuliya: N Sharon ce ID: 0001 Jaleel lable Time: 01:30:00 PM Magui Torres MD [address], [place], [address], [facility] 0 15:53:17 Dietary manageme nt surveill ance Completed 201504/16/2020 Dietary counseli ng and surveill ance;Rec orded Elsewher e: No Locat ion: [facility] S ource: EHR Program Developer yuliya: N Sharon ce ID: 0001 Jaleel lable Time: 01:30:00 PM Magui Torres MD [address], [place], [address], [facility] 0 15:53:19 Antenata l screenin g for malforma tion Completed 201704/30/2020 Encounte r for antenata l screenin g for malforma tions;Re corded Elsewher e: No [facility] S ource: EHR Program Developer yuliya: N Shadti ce ID: 0001 Jaleel lable Time: 08:45:00 AM Loretta guerrero, [facility] 1 14:33:14 Uterine size for dates discrepa ncy Completed 201704/16/2020 Uterine size-keri e discrepa ncy, first trimeste r;Record ed Elsewher e: No [facility]at [facility] S ource: EHR Program Developer yuliya: N Sharon ce ID: 0001 Jaleel lable Time: 03:45:00 PM Magui Torres MD [address], [place], [address], [facility] 0 15:54:48 Uses combined oral contrace ption [id number] Completed 201604/16/2020 Encounte r for surveill ance of contrace ptive pills;Re corded Elsewher e: No [facility]: EHR Program Developer yuliya: N Sharon ce ID: 0001 Jaleel lable Time: 03:45:00 PM Magui Torres MD [address], [place], [address], [facility] 0 15:53:12 Gestatio n period, 11 weeks 74398492 Completed 201504/16/2020 11 weeks gestatio n of pregnanc y;Record ed Elsewher e: No [facility] S ource: EHR Program Developer yuliya: N Sharon ce ID: 0001 Jaleel lable Time: 11:00:00 AM Magui Torres MD [address], [place], [address], [facility] 0 15:53:36 Infectio n screenin g Completed 201504/16/2020 Encounte r for screenin g for oth infec/pa rastc diseases ;Recorde d Elsewher e: No Locat ion: [facility] S ource: EHR Program Developer yuliya: N Sharon ce ID: 0001 Jaleel lable Time: 08:30:00 AM Magui Torres MD [address], [place], [address], [facility] 0 15:54:02 Rubella screenin g status [id number] Completed 201704/16/2020 Encounte r for antenata l screenin g, unspecif ied;Mir rded Elsewher e: No Locat ion: [facility] S ource: EHR Program Developer yuliya: N Sharon ce ID: 0001 Jaleel lable Time: 08:45:00 AM Magui Torres MD [address], [place], [address], [facility] 0 15:54:28 Antenata l screenin g Completed 201704/30/2020 Encounte r for antenata l screenin g for nuchal transluc ency;Rec orded Elsewher e: No Locat ion: [facility] S ource: EHR Program Developer yuliya: Destini Herrera ce ID: 0001 Jaleel lable Time: 08:15:00 AM Loretta guerrero, [facility] 1 14:33:12 Amenorrh ea [id number] Completed 201704/16/2020 Amenorrh ea;Recor ded Elsewher e: No Locat ion: [facility] S ource: EHR Program Developer yuliya: N Sharon ce ID: 0001 Jaleel lable Time: 04:45:00 PM Magui Torres MD [address], [place], [address], [facility] 0 15:54:58 Gestatio n period, 34 weeks [id number] Completed 201504/16/2020 34 weeks gestatio n of pregnanc y;Record ed Elsewher e: No Locat ion: [facility] S ource: EHR Program Developer yuliya: N Practi ce ID: 0001 Jaleel lable Time: 08:30:00 AM Magui Torres MD [address], [place], [address], [facility] 0 15:53:46 Syphilis test finding 777096521 Completed 201504/16/2020 Encntr screen for infectio ns w sexl mode of transmis s;Record ed Elsewher e: No Locat ion: [facility] S ource: EHR Program Developer yuliya: N Practi ce ID: 0001 Jaleel lable Time: 08:30:00 AM Magui Torres MD [address], [place], [address], [facility] 0 15:54:41 False labor before 37 complete d weeks of gestatio n [id number] 7115730 Completed 201504/16/2020 False labor before 37 complete d weeks of gest, third tri;Prac domingo ID: 0001 Magui Torres MD [address], [place], [address], [facility] 0 15:53:31 [facility] [id number] 7262909 Completed 201504/30/2020 [facility], diet controll ed;Pract ice ID: 0001 Loretta guerrero, [facility] 1 14:33:18 Clinical finding Completed 201704/16/2020 Presence of (intraut erine) contrace ptive device;R ecorded Elsewher e: No Locat ion: [facility] S ource: EHR Program Developer yuliya: N Practi ce ID: 0001 Jaleel lable Time: 02:00:00 PM Magui Torres MD [address], [place], [address], [facility] 0 15:53:08 Prematur e rupture of membrane s 40991599 Completed 201704/16/2020 Full-ter m trang ROM, unsp time betw rupture and onset labor;Pr actice ID: 0001 Magui Torres MD [address], [place], [address], [facility] 0 15:54:23 Type 2 diabetes mellitus 17546515 Active 09/28/24 Tojeo 78/78 AM and bedtime 12hrs part max dose 200u log , max dose 150u A1c 5.7% 03/2024; followin g with MFM; dexcom updated 07/27/24 A1c each trimeste r MFM HgbA1c each trimeste r 04/19/24 5.7%, MFM ordered echo 24-28wks kick counts BID @ 28wks 2xwkly NSTs w/ BPP to start @ 32wks schedule d [facility] 08/24/24 US, ARMATURE CONNECTOR visit & DE 09/21/24 1:00 US/NST/N P/ DE echo schedule d 09/05/24 see consult note for delivery recommen dations poor glycemic control 36-38wks good glycemic control 39wks fax MFM consult to LD with sai black for glucose control in labor Cari Bernabe null, [facility] 5 17:15:21 RhD negative 389454338 Active 2024 received jose DE LA O MD [address], [place], [address], [facility] 5 16:59:46 Pregnanc y 73442943 Completed 202108/04/[address] [facility] 5 10:21:26 RhD negative 602596500 Completed 2021 [facility] [place] [facility] 3 15:59:31 Type 2 diabetes mellitus 45686187 Completed 2021 MFM - ante testing, growth; 34AM & 46 HS, unless 2 high fastings then 40 units HS. Cont metformi n 500mg BID as of 04/23 [facility] [place] 3 15:59:31 Grand multipar ity with antenata l problem 448869781 Completed 2021 [facility] 3 15:59:31 Liver function tests outside referenc e range 366756771 Completed labs per MFM [facility] [place] G[place] [facility] 3 15:59:31 Headache 02162826 Completed riboflav in 400mg [facility] 3 15:59:31 Chronic peripher al venous hyperten sukhi 474484977 Completed hx of - MFM recommen ded to check BID and PTL precauti ons [facility] 3 15:59:31 Pregnanc y 51870436 Active [address] [facility] 5 10:21:25 Type 2 diabetes mellitus 79770027 Active 09/28/24 Tojeo 78/78 AM and bedtime 12hrs part max dose 200u log , max dose 150u A1c 5.7% 03/2024; followin g with MFM; dexcom updated 07/27/24 A1c each trimeste r MFM HgbA1c each trimeste r 04/19/24 5.7%, MFM ordered echo 24-28wks kick counts BID @ 28wks 2xwkly NSTs w/ BPP to start @ 32wks schedule d [facility] 08/24/24 US, ARMATURE CONNECTOR visit & DE 09/21/24 1:00 US/NST/N P/ DE echo schedule d 09/05/24 see consult note for delivery recommen dations poor glycemic control 36-38wks good glycemic control 39wks fax MFM consult to LD with flowshee t for glucose control in labor Cari Srinivasa null, [facility] 5 17:15:21 Hyperten sukhi AND/OR vomiting complica ting pregnanc y childbir th AND/OR puerperi um 408634206 Active 2024 history of GTHN bASA 162mg daily Bseline labs wnl Piedad Randle [facility], [facility] 5 16:10:24 Hyperten sukhi AND/OR vomiting complica ting pregnanc y childbir th AND/OR puerperi um 760864048 Active 2024 history of GTHN bASA 162mg daily Bseline labs wn Piedad Randle [facility], [facility] 5 16:10:24 Anxiety 80729328 Active 2024 seeing therapis t every 2 weeks Bianca Potter CNM [address], [place], [address], [facility] 5 09:53:18 Anemia 549291884 Active 2024 Bhavna Merchant null, [facility] 5 16:56:55 Anemia 249485561 Active 2024 Bhavna Merchant null, [facility] 5 16:56:55 RhD negative 895201011 Active 2024 received jose DE LA O MD [address], [place], [address], [facility] 5 16:59:46 Problem Notes None recorded. Procedures Surgical History Date Name Laterality Status Provider Name and Address Organization Details Recorded Time 3 Date of Last Pap Smear completed Leisa Dorado [facility] 04/04/2024 12:33:58 1 NST completed Magui Torres MD [address], [place], [address], [facility] 05/18/2020 18:29:03 0 NST completed Magui oTrres MD [address], [place], [address], [facility] 04/16/2020 15:52:59 3 repair of tendon completed Bhavna Merchant [facility] 06/24/2022 11:50:53 Imaging Results None recorded. [...] Prescrib ed Elsewher e: No [facility] odify By: agustin tamayo DateTime : 07/02/19 [...] Prescrib ed Elsewher e: No Locat ion: [facility] odify By: chris Davies r [...] Prescrib ed Elsewher e: No Locat ion: [facility] odify By: chris Davies r [...] oral route every day 09/23 completed Prescrib sahil Murry e: No Locat ion: [facility] martinez [facility] M fabiana By: pacheco duran DateTime : 12/06/19 01:00:00 PM Not Available [...] completed Not Available Not Available Not Available June Fe 24 1 mg-20 mcg (24)/75 mg (4) tablet take 1 tablet by oral route every day 05/11 completed Prescrib sahil Murry e: No Locat ion: [facility] M odify By: pacheco duran DateTime : 01/23/20 [...] Not Available Vitals Date Recorded Body weight Systolic And Diastolic Provider Name and Address Organization Details Last Updated DateTime 10/14/2024 46582.72080 g 131/81 mm[Hg] Tiffanie Guadalupe [facility] 10/14/2024 16:33:14 Date Recorded Body height Body mass index (BMI) Body weight Systolic And Diastolic Provider Name and Address Organization Details Last Updated DateTime 10/20/2024 152.4 cm 36.6 kg/m2 00080.21 g 130/80 mm[Hg] Bijal Velasquez [facility] 10/20/2024 09:52:58 Date Recorded Body height Provider Name an d Address Organization Details Last Updated DateTime 10/28/2024 152.4 cm SUHAIL Ferraro [facility] 10/28/2024 17:20:25 Date Recorded Body weight Systolic And Diastolic Provider Name and Address Organization Details Last Updated DateTime 10/28/2024 48762.52977 g 143/89 mm[Hg] Magui Weaver [facility] 10/28/2024 16:39:50 Social History Question Answer Notes LastModified by Organizat ion Details LastModified Time Tobacco Smoking Status Never Smoker Bhavna Shonda guerrero, [facility] 06/24/2022 11:50:14 Do You Have An Advance Directive? No [email or web address] Information n ot available 06/25/2020 How Many Years Have You Consumed Alcohol? 7 [email or web address] Information not available 06/24/2022 Are You Blind Or Do You Have Difficulty Seeing? No Information n ot available 06/25/2020 What Is Your Level Of Caffeine Consumption? Occasional [email or web address] Information not available 08/27/2020 How Much Tobacco Do You Chew? None Information not available 04/04/2024 In The 14 Days Before Symptom Onset, Have You Had Close Contact With A Laboratory-confirm ed COVID-19 While That Case Was Ill? No [email or web address] Information n ot available 06/25/2020 In The 14 Days Before Symptom Onset, Have You Had Close Contact With A Person Who Is Under Investigation For COVID-19 While That Person Was Ill? No [email or web address] Information not available 06/25/2020 Have You Been To An Area Known To Be High Risk For COVID-19? No [email or web address] Information not available 06/25/2020 Are You Deaf Or Do You Have Serious Difficulty Hearing? No [email or web address] Information not available 05/19/2022 What Type Of Diet Are You Following? DIABETIC [email or web address] Information n ot available 06/24/2022 What Is The Highest Grade Or Level Of School You Have Completed Or The Highest Degree You Have Received? [id number] [email or web address] Information not available 06/25/2020 Are There Any Guns Present In Your Home? No [email or web address] Information not available 06/25/2020 What Was The Date Of Your Most Recent Tobacco Screening? 09/23/2024 [email or web address] Information not available 09/23/2024 Have You Ever Been Counseled For Unhealthy Alcohol Use? No Information not available 05/03/2024 Do You Use Protection During Sex? Usually [email or web address] Information not available 06/25/2020 Do You Use Your Seat Belt Or Car Seat Routinely? Yes Information not available 06/25/2020 Are You Sexually Active? Yes [email or web address] Information not available 05/03/2024 Do You Have Smoke And Carbon Monoxide Detectors In Your Home? Yes [email or web address] Information not available 06/24/2022 How Much Tobacco Do You Smoke? No [email or web address] Information not available 03/19/2020 Do You Use Sunscreen Routinely? Yes [email or web address] Information not available 04/04/2024 Have You Used IV Drugs? No [email or web address] Information not available 06/25/2020 Do You Have Difficulty Walking Or Climbing Stairs? No [email or web address] Information not available 06/24/2022 Sex: Unknown Functional Status Question Answer Note LastModified by Organizat ion Details LastModified Time Do you use any illicit or recreational drugs? No [email or web address] Information not available 06/25/2020 Do you or have you ever used any other forms of tobacco or nicotine? No [email or web address] Information not available 05/03/2024 What is your level of alcohol consumption? Occasional [email or web address] Information not available 06/25/2020 Do you or have you ever used smokeless tobacco? Never used smokeless tobacco [email or web address] Information not available 06/24/2022 Are you currently employed? Yes [email or web address] Information not available 05/03/2024 Are you able to walk? [email or web address] Information not available 06/25/2020 Are you able to care for yourself? 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 No [email or web address] Information not available 06/24/2022 Do you or have you ever used e-cigarettes or vape? Never used electronic cigarettes [email or web address] Information not available 06/24/2022 What is your exercise level? Moderate [email or web address] Information not available 04/04/2024 Mental Status Question Answer Note LastModified by Organization D etails LastModified Time Do you feel stressed (tense, restless, nervous, or anxious, or unable to sleep at night)? [id number] [email or web address] Information not available 06/25/2020 Family History Relationship Description Onset Age of this Age Resolved Age Notes LastModified by Organization Details LastModified Time Mother Asthma [email or web address] Not available 17:22:56 Mother Cyst of ovary [email or web address] Not available 10/18 15:51:16 Mother Hypertensive disorder [email or web address] Not available 2019 17:24:14 Mother Depressive disorder Not available 2020 14:08:30 Mother Heart disease [email or web address] Not available 2020 14:08:30 Mother Substance abuse [email or web address] Not available 2020 14:08:30 Sister Asthma jgumber Not available 17:22:56 Sister Anemia jgumber Not available 17:23:09 Sister Cyst of ovary [email or web address] Not available 10/18 15:51:16 Sister Depressive disorder [email or web address] Not available 2020 14:08:30 Father Hypertensive disorder jgumber Not available 2019 17:24:14 Maternal Grandmother Hypertensive disorder jgumber Not available 2019 17:24:14 Maternal Grandfather Hypertensive disorder jgumber Not available 2019 17:24:14 Paternal Grandmother Heart disease [email or web address] Not available 2020 14:08:30 Paternal Grandmother Hyperlipidem ia [email or web address] Not available 10/18 15:51:16 Paternal Grandmother Diabetes mellitus Not available 2020 14:08:30 Maternal Aunt Cyst of ovary [email or web address] Not available 10/18 15:51:16 Maternal Aunt Malignant tumor of cervix jgumber Not available 2019 17:25:40 Maternal Aunt Malignant neoplasm of ovary Not available 2024 14:41:31 Maternal Uncle Heart disease Not available 2020 14:08:30 Paternal Grandfather Heart disease [email or web address] Not available 2020 14:08:30 Paternal Grandfather Hypertensive disorder [email or web address] Not available 2020 14:08:30 Medical History Condition [...] SNOMED-CT Code Diagnosis ICD10 Code Diagnosis Note [id number] Jeffrey Syed MD [place] [address] [address] 10/31/2019 11:51:15 10/31/2019 16:23:05 [id number] Dianne Spann CNM [place] [address],[place] [address] 10/31/2019 11:52:26 10/31/2019 13:17:11 test positive 890067686 Z32.01 Risk factors addressed: Tobacco Cessation, Safe [...] Sequential Screen handout given and discussed with patient.Ch ildbirth classes recommende d.New OB sheet given. If previous , counseling .Pt verbalizes that she understand s the importance of above instructio ns.All questions were answered. Patient reminded to have annual well woman examinatio n and address preventati [facility] . [id number] Jeffrey Syed MD [place] [address],[place] [address] 11/28/2019 09:26:54 11/28/2019 10:59:03 screening 978877711 Z36.82 Z36.0 Z36.89 Routine an tenatal care 315551593 Z34.81 [id number] Jeffrey Syed MD [place] [address],[place] [address] 11/28/2019 09:28:26 11/28/2019 10:41:11 screening 830935798 Z36.82 Z36.0 Z36.89 [id number] Jeffrey Syed MD [place] [address],[place] [address] 12/09/2019 10:55:25 12/09/2019 15:54:24 Gestational diabetes mellitus class A1 54345402 O24.410 Pt here for diet teaching. Diet [...] of informatio [place] Abbi [place] [id number] Jeffrey Syed MD [place] [address],[place] [address] 12/16/2019 13:08:32 12/16/2019 13:52:38 Routine care 254012629 Z34.81 Gestationa l diabetes mellitus 40875689 O24.414 [id number] Jeffrey Syed MD [place] [address],[place] [address] 12/16/2019 14:50:51 12/16/2019 15:43:17 Gestational diabetes mellitus 90439182 O24.414 Insulin teaching discussed with patient. Pt [...] ing. Insulin and syringes called out to [facility] in [facility]. Pt to inj 5u by SQ route at . LORIE daniel [id number] Jeffrey Syed MD [place] [address],[place] [address] 12/20/2019 12:08:51 12/20/2019 12:28:27 Routine care 385522536 Z34.81 [id number] Jeffrey Syed MD [place] [address],[place] [address] 12/28/2019 10:19:33 01/02/2020 15:08:20 [id number] [facility] [address],[place] [address] 12/28/2019 10:19:49 12/29/2019 15:32:57 Routine care 877328880 Z34.92 [id number] Dianne Spann [facility] [address],[place] [address] 01/18/2020 12:13:25 01/19/2020 10:57:22 Routine care 663848969 Z34.92 Gestationa l diabetes mellitus in childbirth 9064369235 8302236 O24.414 [id number] Jeffrey Syed MD [place] [address],[place] [address] 01/23/2020 11:43:13 01/23/2020 12:42:45 screening for malformation 578124238 Z36.3 [id number] Jeffrey Syed MD [place] [address],[place] [address] 02/01/2020 14:55:30 02/01/2020 16:08:13 Routine care 879025519 Z34.81 Gestationa l diabetes mellitus 21460995 O24.414 [id number] Jeffrey Syed MD [place] [address],[place] [address] 02/13/2020 14:22:53 08/21/2020 15:12:19 [id number] [facility] [address],[place] [address] 02/13/2020 14:23:14 02/13/2020 15:30:00 Routine care 554743729 Z34.92 [id number] Dianne Spann [facility] [address],[place] [address] 02/27/2020 15:09:13 02/27/2020 17:59:15 Routine care 004597645 Z34.92 [id number] Dianne Spann [facility] [address],[place] [address] 03/19/2020 16:55:09 03/19/2020 17:54:01 Routine care 507869283 Z34.92 [id number] Magui Torres MD [place] [address],[place] [address] 04/02/2020 15:38:09 04/03/2020 12:07:47 Gestational diabetes mellitus 58818192 O24.414 [id number] Magui Torres MD [place] [address],[place] [address] 04/16/2020 14:57:22 04/16/2020 15:59:07 Gestational diabetes mellitus class A2 71488438 O24.414 [id number] Magui Torres MD [place] [address],[place] [address] 04/16/2020 14:58:19 04/16/2020 16:30:02 Gestational diabetes mellitus 28889475 O24.414 Z3A.32 [id number] Magui Torres MD [place] [address],[place] [address] 04/16/2020 14:58:38 04/16/2020 16:00:23 Pre-existing type 2 diabetes mellitus in 976418740 O24.119 [id number] MD Sergio Reid [address],[place] [address] 04/23/2020 15:44:19 04/23/2020 16:42:02 Gestational diabetes mellitus class A2 50582088 O24.414 [id number] MD Sergio Reid [address],[place] [address] 04/23/2020 15:45:32 04/23/2020 17:04:41 Gestational diabetes mellitus class A2 11136893 O24.414 Z3A.33 23871 [facility] [address],[place] [address] 04/23/2020 16:42:18 04/23/2020 17:04:32 Routine care 443963048 Z34.92 [id number] Jeffrey Syed MD [place] [address],[place] [address] 04/26/2020 15:56:52 04/26/2020 16:35:49 Gestational diabetes mellitus class A2 80269039 O24.414 [id number] [facility] [address],[place] [address] 04/30/2020 16:01:46 04/30/2020 17:02:33 Routine care 693766421 Z34.92 [id number] Jeffrey Syed MD [place] [address],[place] [address] 04/30/2020 16:00:36 04/30/2020 16:35:55 Gestational diabetes mellitus class A2 36498973 O24.414 [id number] Jeffrey Syed MD [place] [address],[place] [address] 04/30/2020 16:01:24 04/30/2020 16:46:52 Gestational diabetes mellitus 05739437 O24.414 Z3A.34 [id number] Jeffrey Syed MD [place] [address],[place] [address] 05/03/2020 15:54:10 05/03/2020 16:40:18 Gestational diabetes mellitus class A2 04551810 O24.414 [id number] Jeffrey Syed MD [place] [address],[place] [address] 05/07/2020 15:57:18 05/07/2020 16:35:43 Gestational diabetes mellitus class A2 12197636 O24.414 [id number] Jeffrey Syed MD [place] [address],[place] [address] 05/07/2020 15:58:01 05/07/2020 16:57:51 Gestational diabetes mellitus 52333360 O24.414 Z3A.35 [id number] [facility] [address],[place] [address] 05/07/2020 15:58:23 05/07/2020 17:44:18 Routine care 825538027 Z34.92 [id number] Magui Torres MD [place] [address],[place] [address] 05/14/2020 16:04:36 05/17/2020 16:39:09 Pre-existing type 2 diabetes mellitus in 872125842 O24.119 [id number] Magui Torres MD [place] [address],[place] [address] 05/14/2020 16:04:59 05/14/2020 16:23:16 Gestational diabetes mellitus class A2 59598117 O24.414 [id number] Jeffrey Syed MD [place] [address],[place] [address] 05/14/2020 16:04:59 05/14/2020 16:23:16 [id number] Magui Torres MD [place] [address],[place] [address] 05/14/2020 16:41:30 05/21/2020 15:58:54 Gestational diabetes mellitus class A2 51816235 O24.414 [id number] Magui Torres MD [place] [address],[place] [address] 05/14/2020 16:51:19 05/21/2020 15:59:04 Gestational diabetes mellitus 68331806 O24.414 Z3A.36 [id number] Jeffrey Syed MD [place] [address],[place] [address] 05/17/2020 15:02:05 05/17/2020 16:15:29 Gestational diabetes mellitus class A2 37668005 O24.414 [id number] Jeffrey Syed MD [place] [address],[place] [address] 05/21/2020 16:03:49 05/24/2020 08:31:40 Gestational diabetes mellitus class A2 55151461 O24.414 [id number] MD Sergio Reid [address],[place] [address] 05/21/2020 16:04:15 05/24/2020 08:31:15 Gestational diabetes mellitus class A2 06600763 O24.414 Z3A.37 [id number] MD Sergio Reid [address],[place] [address] 05/24/2020 15:03:55 05/24/2020 16:15:53 Routine care 788780384 Z34.81 [id number] Jeffrey Syed MD [place] [address],[place] [address] 05/24/2020 15:04:30 05/24/2020 17:38:43 Gestational diabetes mellitus class A2 78278882 O24.414 [id number] [facility] [address],[place] [address] 06/25/2020 14:00:39 06/26/2020 17:11:32 [id number] Dianne Spann CNM [place] [address],[place] [address] 07/12/2020 16:43:54 07/15/2020 17:44:11 state 86936188 Z39.2 Continue to watch for signs/symp toms [...] paper copy of today's plan if desired [id number] Dianne Spann CNM [place] [address],[place] [address] 08/27/2020 15:16:56 08/27/2020 15:53:17 Gynecologic examination 61204534 Z01.419 Take Calcium with Vitamin D 1200mg [...] today's plan if desired. Disorder of 35 312253 O92.70 Pt will use nystatin to clear up the last little bit of yeast. If it does not resolve. [id number] Dianne Spann [facility] [address],[place] [address] 11/12/2020 15:17:29 11/14/2020 14:19:51 Irregular periods 86083783 N92.6 Screening for malignant neoplasm of cervix 247710017 Z12.4 [id number] Tracy Perea , [facility] [address],[place] [address] 01/17/2021 16:15:36 01/17/2021 16:51:24 Vaginitis 80607370 N76.0 Suspect Yeast on examSwab vag/std sent Rx sent diflucanShaun ll call with results & if any further treatment needed. 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 All staff wore face coverings during this encounter, as well as provided additional cleaning and sanitizing of all surfaces, including countertop s, pens, chairs, door handles, light switches, etc, prior to and following the patient s visit. [id number] [facility] [address],[place] [address] 04/10/2021 12:45:14 04/10/2021 13:32:55 Urinary symptoms 450299649 R39.9 Vaginitis 68777946 N76.0 Discussed use of mild soap like [...] started her cycle. Normal amount of flow. [id number] Magui Torres MD [place] [address] [address] 12/03/2021 13:55:45 12/03/2021 14:28:31 Uncertain viability of 237564798 O36.80X0 Z3A.01 [id number] Magui Torres MD [place] [address],[facility] [place] [address] 12/04/2021 09:21:54 12/04/2021 10:12:51 test positive 219037906 Z32.01 Pre-existi ng type 2 diabetes mellitus in 386006558 O24.119 Grand mult iparity with problem 403431402 O09.41 Venereal d isease screening 258504032 Z11.3 Screening for malignant neoplasm of cervix 878582604 Z12.4 [id number] Magui Torres MD [place] [address],[facility] [place] [address] 12/09/2021 12:42:16 12/09/2021 14:53:30 Pre-existing type 2 diabetes mellitus in 030662181 O24.119 Diet teaching completed over the phone per pt request. Went over ideal ranges for FBS and pp BS. Went over carb counting and carb ranges for each meal/snack . Gave ideas for foods to eat for meals/snac ks. Pt eats a lot of [place]ian food, but cooks at home. Pt to [...] the meantime to call. [facility]. Pt verbalized understand ing. fredy RN [id number] Magui Torres MD [place] [address] [place] [address] 01/15/2022 15:26:54 01/15/2022 15:56:06 screening 310311444 Z36.82 [id number] MD Sergio Hou [address] [place] [address] 01/15/2022 15:28:10 01/15/2022 16:47:58 Routine care 911410468 Z34.93 Grand mult iparity with problem 854499913 O09.41 Pre-existi ng type 2 diabetes mellitus in 685243892 O24.119 RhD negative 685237946 Z 01.83 [id number] MD Kamla [place] [address] [place] [address] 02/10/2022 17:00:58 02/10/2022 17:43:04 [id number] MD Kamla [place] [address] [place] [address] 02/10/2022 17:01:25 02/11/2022 16:10:14 Pre-existing type 2 diabetes mellitus in 789318723 O24.119 Grand mult iparity with problem 791027793 O09.41 [id number] Magui Torres MD [place] [address],[place] [address] 03/12/2022 15:43:23 03/12/2022 16:31:00 Grand multiparity with problem 574440632 O09.41 Liver func tion tests outside reference range 375872566 R94.5 Pre-existi ng type 2 diabetes mellitus in 505556858 O24.119 Depressive disorder 3548 9007 F32.A [id number] Magui Torres MD [place] [address],[place] [address] 04/09/2022 15:06:04 04/09/2022 15:46:19 Grand multiparity with problem 086546611 O09.41 Pre-existi ng type 2 diabetes mellitus in 424649383 O24.119 [id number] Dianne Spann [facility] [address],[place] [address] 05/06/2022 09:29:43 05/06/2022 10:09:17 Routine care 140986270 Z34.92 Pre-existi ng diabetes mellitus in 397853092 O24.319 [id number] [facility] [address],[place] [address] 05/19/2022 11:01:16 05/20/2022 15:40:12 Routine care 053015785 Z34.92 and type 2 diabetes mellitus 475786576 O24.119 [id number] Magui Torres MD [place] [address],[place] [address] 06/03/2022 10:12:26 06/03/2022 11:22:37 Pre-existing type 2 diabetes mellitus in 249940903 O24.119 Z3A.32 [id number] Magui MD Sergio Torres [address],[place] [address] 06/03/2022 10:12:40 06/03/2022 13:57:42 Type 2 diabetes mellitus 25626581 E11.9 [id number] MD Sergio Hou [address],[place] [address] 06/03/2022 10:12:59 06/03/2022 15:29:07 Pre-existing type 2 diabetes mellitus in 234608432 O24.119 Z3A.32 Elevated blood-pressure reading without diagnosis of hypertension 768303833 R03.0 [id number] MD Sergio Hou [address],[place] [address] 06/06/2022 10:56:54 06/06/2022 11:42:46 Pre-existing type 2 diabetes mellitus in 628410849 O24.119 Z3A.32 [id number] MD Sergio Hou [address],[place] [address] 06/10/2022 11:01:12 06/10/2022 11:43:10 Pre-existing type 2 diabetes mellitus in 082386013 O24.119 Z3A.32 [id number] MD Sergio Hou [address],[place] [address] 06/13/2022 10:55:22 06/13/2022 11:49:16 Pre-existing type 2 diabetes mellitus in 108895542 O24.119 Z3A.32 [id number] MD Sergio Hou [address],[place] [address] 06/13/2022 10:55:40 06/16/2022 16:10:14 Grand multiparity with problem 831295690 O09.41 Pre-existi ng type 2 diabetes mellitus in 181084221 O24.119 Z3A.32 [id number] MD Sergio Hou [address],[place] [address] 06/17/2022 10:59:52 06/17/2022 11:59:23 Pre-existing type 2 diabetes mellitus in 482163013 O24.119 Z3A.32 [id number] Magui Torres MD [place] [address],[place] [address] 06/17/2022 11:00:08 06/17/2022 12:10:02 Grand multiparity with problem 503634935 O09.41 Pre-existi ng type 2 diabetes mellitus in 466062376 O24.119 Z3A.32 [id number] Jeffrey Syed MD [place] [address],[place] [address] 06/20/2022 11:05:00 06/20/2022 11:43:44 Pre-existing type 2 diabetes mellitus in 416056978 O24.119 [id number] Jeffrey Syed MD [place] [address],[place] [address] 06/24/2022 11:04:21 06/24/2022 16:20:15 Pre-existing type 2 diabetes mellitus in 309089112 O24.119 Z3A.35 [id number] Dianne Spann [facility] [address],[place] [address] 06/24/2022 11:04:40 06/24/2022 18:03:35 [id number] Jeffrey Syed MD [place] [address],[place] [address] 1 06/27/2022 10:46:49 06/27/2022 12:12:40 Pre-existing type 2 diabetes mellitus in 196254834 O24.119 Z3A.35 [id number] Jeffrey Syed MD [place] [address],[place] [address] 07/01/2022 11:05:39 07/01/2022 12:11:42 Pre-existing type 2 diabetes mellitus in 180560717 O24.119 Z3A.35 [id number] Dianne Spann [facility] [address],[place] [address] 07/01/2022 11:06:20 07/02/2022 17:15:51 [id number] Magui Torres MD [place] [address],[place] [address] 07/01/2022 11:36:07 07/01/2022 12:05:45 condition affecting obstetrical care of mother 527619438 O36.8330 Z3A.36 [id number] Jeffrey Syed MD [place] [address],[place] [address] 07/04/2022 11:06:08 07/04/2022 11:43:04 Pre-existing type 2 diabetes mellitus in 333954167 O24.119 Z3A.35 [id number] Jeffrey Syed MD [place] [address],[place] [address] 07/08/2022 10:57:30 07/08/2022 12:32:59 Pre-existing type 2 diabetes mellitus in 184046063 O24.119 Z3A.37 [id number] Jeffrey Syed MD [place] [address],[place] [address] 07/08/2022 10:57:44 07/08/2022 12:01:57 Pre-existing type 2 diabetes mellitus in 091776139 O24.119 Z3A.35 [id number] Dianne Spann CNM [place] [address],[place] [address] 07/08/2022 10:59:41 07/08/2022 13:32:32 [id number] [facility] [address],[place] [address] 08/05/2022 11:45:58 08/05/2022 15:20:24 state 38703364 Z39.2 Continue to watch for signs/symp toms [...] paper copy of today's plan if desired [id number] ALEKSEY Raygoza [place] [address] [address] 12/17/2022 11:09:14 12/17/2022 12:36:42 Gynecologic examination 46643506 Z01.419 Take Calcium with Vitamin D 1200mg [...] in 1 year or sooner if needed [id number] Jeffrey Syed MD [place] [address] [address] 04/04/2024 11:44:30 04/04/2024 12:41:50 Uterine size for dates discrepancy 732162936 O26.841 Z3A.08 [id number] SUNG DE LA O MD [place] [address] [address] 04/04/2024 11:48:41 04/04/2024 13:58:22 screening 180165308 Z36.0 test positive 132829832 Z32.01 1. Exam today within normal limits.2. Ultrasound today confirms GA and viability. EDC . GC/Claandree a testing done: will f/u as indicated. 4. ACOG guidelines and plan of care for reviewed with patient. All questions answered.5 . Return to office at 12 weeks for new OB visit6. Will need new OB labs at next visit.7. Genetic screening: desires at 10 weeks, orders given today. Type 2 anisa betes mellitus 11966353 E11.9 - previously well controlled on trulicity; stopped with due to lack of safety data- A1c 5.5% in 01/2024- currently on lantus 12u qHS, increased to 15u due to fasting levels in low 100s, out of range for prenancy; postprandi al levels within goal- will send [facility] referral for diabetes management consult [id number] MD Sergio MOSQUEDA [address],[place] [address] 05/03/2024 10:02:52 05/03/2024 10:45:46 Gestation period, 12 weeks [id number] Z3A.12 Type 2 anisa betes mellitus 21346780 E11.9 - previously well controlled on trulicity; stopped with due to lack of safety data- A1c 5.5% in 01/2024 > 5.7% 03/2024- currently on lantus 20u qHS and metformin 1000mg BID; fasting and postprandi al levels now within goal- M appointmen t 05/04 [id number] MD Sergio MOSQUEDA [address],[place] [address] 05/30/2024 09:25:52 05/30/2024 10:07:33 Pre-existing type 2 diabetes mellitus in [id number] O24.119 Gestation period, 16 weeks 84321729 Z3A.16 [id number] MD Sergio MOSQUEDA [address],[facility] [address] 06/27/2024 16:28:14 06/29/2024 00:14:10 Type 2 diabetes mellitus 27377032 E11.9 - previously well controlled on trulicity; stopped with due to lack of safety data- A1c 5.5% in 01/2024 > 5.7% 03/2024- MFM following and monitoring glucose logs Gestation period, 20 weeks 13003039 Z3A.20 [id number] [facility] [address],[place] [address] 07/29/2024 16:01:49 07/29/2024 16:46:00 Gestation period, 24 weeks 549663351 Z3A.24 [id number] [facility] [address],[place] [address] 08/24/2024 09:17:56 08/24/2024 10:01:52 Gestation period, 28 weeks 56944895 Z3A.28 [id number] Bianca [facility] [address],[place] [address] 09/06/2024 10:06:39 09/06/2024 10:33:06 Gestation period, 30 weeks 63592143 Z3A.30 [id number] Bianca [facility] [address],[place] [address] 09/23/2024 14:41:27 09/23/2024 15:39:23 Pre-existing type 2 diabetes mellitus in 542131777 O24.113 [id number] [facility] [address],[place] [address] 09/23/2024 14:41:50 09/23/2024 16:01:43 Gestation period, 32 weeks 6987181 Z3A.32 [id number] SUNG DE LA O MD [facility] [place] [address] [place] [address] 09/30/2024 15:46:23 09/30/2024 16:35:31 Gestational diabetes mellitus 17845594 O24.419 [id number] SUNG DE LA O MD [facility] [address],[place] [address] 09/30/2024 15:46:37 09/30/2024 17:02:27 Type 2 diabetes mellitus 28821884 E11.9 - previously well controlled on trulicity; stopped with due to lack of safety data- A1c 5.5% in 01/2024 > 5.7% 03/2024- MFM following and monitoring glucose logs Anxiety 06140240 F41.9 Anemia 372794333 D64.9 RhD negative 088185656 O 26.899 Z67.91 Gestation period, 33 weeks 64444613 Z3A.33 [id number] [facility] [address] [place] [address] 10/07/2024 15:13:15 10/13/2024 08:06:32 Gestational diabetes mellitus 38932060 O24.419 [id number] SUNG DE LA O MD [facility] [place] [address] [place] [address] 10/07/2024 15:13:48 10/10/2024 07:11:53 Type 2 diabetes mellitus 16145607 E11.9 - previously well controlled on trulicity; stopped with due to lack of safety data- A1c 5.5% in 01/2024 > 5.7% 03/2024- MFM following and monitoring glucose logs Gestation period, 34 weeks 45877367 Z3A.34 [id number] [facility] [address] [place] [address] 10/14/2024 15:44:51 10/17/2024 06:08:35 Gestational diabetes mellitus 66808545 O24.419 [id number] [facility] [address] [place] [address] 10/14/2024 15:45:19 10/14/2024 16:42:19 Gestation period, 35 weeks 17776516 Z3A.35 [id number] SUNG DE LA O MD [facility] [place] [address] [place] [address] 10/20/2024 09:43:40 10/20/2024 10:14:48 Type 2 diabetes mellitus 06415738 E11.9 - previously well controlled on trulicity; stopped with due to lack of safety data- A1c 5.5% in 01/2024 > 5.7% 03/2024- MFM following and monitoring glucose logs Gestation period, 36 weeks 95819694 Z3A.36 - GBS negative- rtc 1 week [id number] Bianca [facility] [address],[place] [address] 10/28/2024 15:50:55 10/29/2024 08:50:46 Gestational diabetes mellitus complicating 6958394973 9106 O24.419 [id number] [facility] [address],[place] [address] 10/28/2024 15:51:13 10/28/2024 17:07:18 Gestation period, 37 weeks 10448417 Z3A.37 Health Concerns Section Related Observation LastModified by Organization Detai ls LastModified Time None Recorded Concern Status LastModified by Organization Details LastModified Time None Recorded Advance Directives Directive N: Payers Insurance Date Sequence Insurance Name Policy Number Policy Rodríguez Covered Member ID Rodríguez Member ID Guarantor Name 10/31/2024 1 [facility] [id number] Milly Warner [id number] Milly Warner 10/07/2024 2 [facility] [id number] Milly Islas [id number] Milly Warner 10/07/2024 1 [place] Milly Islas [id number] Milly Warner 10/07/2024 1 [place] Milly Islas [id number] Milly Warner 10/07/2024 1 [place] [facility] (MEDICAID REPLACEMENT - HMO) [id number] Milly Islas [id number] Milly Warner 10/07/2024 1 [facility] PRIOR TO 10/18/2020 (MEDICAID REPLACEMENT - HMO) Milly Islas [id number] Milly Warner 10/07/2024 1 [facility] - DOS ON OR AFTER 20 (MEDICAID REPLACEMENT - HMO) Milly Islas [id number] Milly Timmy 10/07/2024 1 [facility] - DOS ON OR AFTER 20 (MEDICAID REPLACEMENT - HMO) Milly Islas [id number] Milly Timmy 10/07/2024 1 [place] [facility] Milly Islas [id number] Milly Warner 10/07/2024 2 [facility] [id number] Millyroni Islas [id number] Milly Warner 10/07/2024 2 [facility] - DOS ON OR AFTER 20 (MEDICAID REPLACEMENT - HMO) Milly Islas [id number] Milly Warner 10/27/2024 2 [place] [facility] Milly Islas [id number] Milly Warner OBGyn Episode Ob Episode Information Episode Created Date Number of Fetuses Patient Bloodtype Patient rh Status Prepregnancy Weight lbs Domestic Partner Domestic Partner Phone 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 10/26/19 1 CLOSED Fetus Data First [...] Domestic Partner Domestic Partner Phone 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 10/26/19 1 CLOSED Fetus Data First [...] Domestic Partner Domestic Partner Phone 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 10/26/19 20 1 CLOSED Fetus Data [...] Domestic Partner Domestic Partner Phone 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 11/28/19 20 1 O Negative 180 CLOSED Fetus Data First Name Last Name Admitted to NICU Weight (g) Sex Living Outcome Pediatric Complications Fetus ID Race Codes Race Delivery Type false 3600.38 65 M true Full Term 3657 Vaginal Delivery Problems Problem Notes M 2/3 for [facility]CTOR & DE. Pt is o n Levemir 34u AM and 54u PM & Humalog 22u breakfast, 10u lunch, 22(18)u dinner as of 04/2019 units levemir PP Problem Name Start Date End Date Resolution Snomed Code Not e Gestational diabetes mellitus 01/18/2020 58129097 PREgestational DM2. delivery 38-39w Past history of gestational diabetes mellitus 657251226 Sawyer Calculation Initial Sawyer Date Initial Exam [...] Weight in lbs Pre/Post Dialysis Refused Weight 181.319315997870 BP Diastolic BP Location Tested BP Systolic [...] Weight in lbs Pre/Post Dialysis Refused Weight 178.116703362596 BP Diastolic BP Location Tested BP Systolic [...] Weight in lbs Pre/Post Dialysis Refused Weight 177.301572494364 BP Diastolic BP Location Tested BP Systolic [...] Weight in lbs Pre/Post Dialysis Refused Weight 181.680293491279 BP Diastolic BP Location Tested BP Systolic BP Type 82 L arm 128 sitting Fetus Heart Rate Present A 155 Fetus Movement A Yes Comments Still having some increased blood sugars. Will review log with Dr Syed this afternoon and call patient with updated insulin. Pt has been doing well otherwise. Pt is concerned because she had a early blood draw with a Joonto to determine gender. She was given results [...] Weight in lbs Pre/Post Dialysis Refused Weight 181.528725220732 BP Diastolic BP Location Tested BP Systolic [...] Weight in lbs Pre/Post Dialysis Refused Weight 181.254586605956 BP Diastolic BP Location Tested BP Systolic [...] Weight in lbs Pre/Post Dialysis Refused Weight 180.989751227236 BP Diastolic BP Location Tested BP Systolic [...] Weight in lbs Pre/Post Dialysis Refused Weight 182.830748409026 BP Diastolic BP Location Tested BP Systolic [...] Weight in lbs Pre/Post Dialysis Refused Weight 183.443297607341 BP Diastolic BP Location Tested BP Systolic [...] Weight in lbs Pre/Post Dialysis Refused Weight 187.603095809547 BP Diastolic BP Location Tested BP Systolic BP Type 88 137 Fetus Heart Rate Present A 130 Fetus Movement A Yes Comments Doing well. Fastings good. A bout 1/3 pp elevated over Trev week- reporting sugars to [facility] tomorrow. Got rhogam at [place]. Irregular contractions, precautions given. Flowsheet Date 04/23/2020 [...] Weight in lbs Pre/Post Dialysis Refused Weight 188.530787369677 BP Diastolic BP Location Tested BP Systolic [...] Weight in lbs Pre/Post Dialysis Refused Weight 186.668133165960 BP Diastolic BP Location Tested BP Systolic [...] Weight in lbs Pre/Post Dialysis Refused Weight 186.603437745565 BP Diastolic BP Location Tested BP Systolic [...] Weight in lbs Pre/Post Dialysis Refused Weight 189.315147598392 BP Diastolic BP Location Tested BP Systolic [...] Weight in lbs Pre/Post Dialysis Refused Weight 191.929215322577 BP Diastolic BP Location Tested BP Systolic [...] Estim ated Date of Delivery false Thalassemia (Peruvian, Irish, Mediterranean, Or Background): MCV < 80 false Neural Tube Defect (Meningomyelocele, Spina Bifi da, Or Anencephaly) false Congenital Heart Defect false Down Syndrome false Meño-Sachs (eg, Mormon, Cajun, Turkish-Dane) f alse Jacquelyn Disease false Sickle Cell Disease Or Trait () false Hemophilia Or Other Blood Disorders false Muscular Dystrophy false Cystic Fibrosis false Cheyenne's Chorea false Intellectual Disability/Autism false If Yes, [...] Domestic Partner Domestic Partner Phone 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 01/16/20 22 1 O Negative 161 CLOSED Fetus Data First Name Last Name Admitted to NICU Weight (g) Sex Living Outcome Pediatric Complications Fetus ID Race Codes Race Delivery Type 3288.54 2 M true Full Term 72957 Vacuum Assisted Vaginal Delivery Problems Problem Notes MFM: next appt U/S, DE, and [facility]CTOR on 06/25/22Fetal Echo NLQID sugars, low dose [...] Date Resolution Snomed Code Not e Headache 83327836 riboflavin 400mg Chronic peripheral venous hypertension 267605160 hx of - MFM recommended to check BID and PTL precautions RhD negative 12/06/2021 027217024 Type 2 diabetes mellitus 12/04/2021 34385171 [facility] - ante test ing, growth; 34AM & 46 HS, unless 2 high fastings then 40 units HS. Cont metformin 500mg BID as of 04/23 Liver function tests outside reference range 040882148 labs per M Grand multiparity with problem 12/04/2021 023121025 Sawyer Calculation Initial Sawyer Date Initial Exam [...] Date Ultra Sound Latest Days Gestation 0 [id number] 01/15/2022 07/30/19 23 0 Pre-fernando Flowsheet Flowsheet Date 01/15/2022 Hammonds Score Blood Edema Fundus Height Fundus Units Glucose Ketones Leukocytes Nitrite Labor Signs Protein Cervic Dilation Cervic Effacement Cervic Station neg none none trace Type Weight in lbs Pre/Post Dialysis Refused Weight 168.578860918507 BP Diastolic BP Location Tested BP Systolic [...] encouraged. Also encouraged flu shot. Will get [facility] referral placed. Flowsheet Date 02/10/2022 Hammonds Score [...] Weight in lbs Pre/Post Dialysis Refused Weight 170.209383954002 BP Diastolic BP Location Tested BP Systolic BP Type 81 123 Fetus Heart Rate Present A 150 Fetus Movement A Yes Comments Doing well. M managing ins ulin now but haven't had to change too much. Back to [facility] 03/01. Gender reveal Thursday. Forgot about COVID and flu shots, will consider. Flowsheet Date 03/12/2022 Hammonds Score Blood Edema Fundus Height Fundus Units Glucose Ketones Leukocytes Nitrite Labor Signs Protein Cervic Dilation Cervic Effacement Cervic Station neg trace 22 none trace Type Weight in lbs Pre/Post Dialysis Refused Weight 169.620145381464 BP Diastolic BP Location Tested BP Systolic [...] Weight in lbs Pre/Post Dialysis Refused Weight 174.80221518576 BP Diastolic BP Location Tested BP Systolic BP Type 78 120 Fetus Heart Rate Present A 150 Fetus Movement A Yes Comments Doing well. SUgars per MFM- really good per pt. Back there next week. Will order echo as has not been ordered yet. Labs today per MFM. A1C was 5.3. Got flu shot. does [...] Weight in lbs Pre/Post Dialysis Refused Weight 175.447652672540 BP Diastolic BP Location Tested BP Systolic [...] Weight in lbs Pre/Post Dialysis Refused Weight 180.015834799310 BP Diastolic BP Location Tested BP Systolic BP Type 81 122 Fetus Heart Rate Present Fetus Movement A Yes Comments Doing well. MFM managing blo od sugar. States has been [...] Weight in lbs Pre/Post Dialysis Refused Weight 178.056684823619 BP Diastolic BP Location Tested BP Systolic BP Type 90 139 78 150 Fetus Heart Rate Present A 135 Fetus Movement A Yes Comments Doing well. Reports BP mildl y elevated last week at hepatology and week before at [facility] also- around 130s/90s. Will repeat PIH labs [...] Weight in lbs Pre/Post Dialysis Refused Weight 179.470007922823 BP Diastolic BP Location Tested BP Systolic [...] Weight in lbs Pre/Post Dialysis Refused Weight 181.394179180298 BP Diastolic BP Location Tested BP Systolic [...] Weight in lbs Pre/Post Dialysis Refused Weight 183.391146646596 BP Diastolic BP Location Tested BP Systolic [...] Rate Present Fetus Movement Comments Pt c/o NATON x 2 days. Pt's 24 TP was 285. Due to ANTON, borderline BP, and borderline 24 TP, pt [...] Weight in lbs Pre/Post Dialysis Refused Weight 182.549963871659 BP Diastolic BP Location Tested BP Systolic BP Type 79 124 Fetus Heart Rate Present Fetus Movement A Yes Comments Doing well. Is feeling a lit tle more fatigued. Blood sugars are low normal. She is following up with [facility] tomorrow. Discussed glucose precautions. Will also determine plan for delivery timing after [facility] visit. 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 05/03/19 25 1 O Negative OPEN Fetus Data First Name Last Name Admitted to NICU Weight (g) Sex Living Outcome Pediatric Complications Fetus ID Race Codes Race Delivery Type 69550 Problems Problem Notes h/o nonalcoholic fatty liver disease 2022 Problem Name Start Date End Date Resolution Snomed Code Not e Anxiety 08/24/2024 18395528 seeing th erapist every 2 weeks Hypertension AND/OR vomiting complicating childbirth AND/OR puerperium 08/19/2024 553414175 history of GTHN bASA 162mg daily Bseline labs wnl Type 2 diabetes mellitus 01147460 09/28/24 Tojeo 7 8/78 AM and bedtime 12hrs part max dose 200u log , max dose 150u A1c 5.7% 03/2024; following with MFM; dexcom updated 07/27/24 A1c each trimester MFM HgbA1c each trimester 04/19/24 5.7%, MFM ordered echo 24-28wkskick counts BID @ 28wks 2xwkly NSTs w/ BPP to start @ 32wksscheduled [facility] 08/24/24 US, [facility] visit & DE09/21/24 1:00 US/NST/ARMATURE CONNECTOR/ DEfetal echo scheduled 09/05/24see consult note for delivery recommendations poor glycemic control 36-38wks good glycemic control 39wksfax MFM consult to LD with flowsheet for glucose control in labor RhD negative 09/30/2024 [id number] receiv ed rhogam Anemia 08/29/2024 298220017 Sawyer Calculation Initial Sawyer Date Initial Exam [...] Date Ultra Sound Latest Days Gestation 0 [id number] 05/30/2024 11/15/19 25 0 Pre-fernando Flowsheet Flowsheet Date 05/03/2024 Hammonds Score Blood Edema Fundus Height Fundus Units Glucose Ketones Leukocytes Nitrite Labor Signs Protein Cervic Dilation Cervic Effacement Cervic Station Type Weight in lbs Pre/Post Dialysis Refused Weight 164.317105586742 BP Diastolic BP Location Tested BP Systolic BP Type 79 L arm 145 sitting Fetus Heart Rate Present A 165 Fetus Movement Comments Patient presents to [facility] care. Reports worsening headaches over the [...] controlled. Got dexcom. Discussed anatomy US at [facility], appointments scheduled. RTC 4 weeks for routine OB. Flowsheet Date 06/27/2024 Hammonds Score Blood Edema Fundus Height Fundus Units Glucose Ketones Leukocytes Nitrite Labor Signs Protein Cervic Dilation Cervic Effacement Cervic Station neg trace Type Weight in lbs Pre/Post Dialysis Refused Weight 173.894001548223 BP Diastolic BP Location Tested BP Systolic BP Type 85 R arm 126 sitting Fetus Heart Rate Present A 145 Fetus Movement A Yes Comments Good movement. No cram ping or bleeding. Having some swelling and numbness in the morning in her hands. Glucose readings intermittently high, monitoring with [facility]. Anatomy US scheduled for Thursday with [facility]. RTC 4 weeks. Flowsheet Date 07/29/2024 Hammonds Score Blood Edema Fundus Height Fundus Units Glucose Ketones Leukocytes Nitrite Labor Signs Protein Cervic Dilation Cervic Effacement Cervic Station Type Weight in lbs Pre/Post Dialysis Refused 180.648014899783 BP Diastolic BP Location Tested BP Systolic BP Type 77 144 Fetus Heart Rate Present Fetus Movement Comments Patient is having discharge and swelling. reviewed precautions and education, +FM ses mfm, they are monitoring blood sugar, f/u as scheduled with [facility] Flowsheet Date 08/24/2024 Hammonds Score Blood Edema Fundus Height Fundus Units Glucose Ketones Leukocytes Nitrite Labor Signs Protein Cervic Dilation Cervic Effacement Cervic Station trace trace Type Weight in lbs Pre/Post Dialysis Refused Weight 182.039961232934 BP Diastolic BP Location Tested BP Systolic [...] Weight in lbs Pre/Post Dialysis Refused Weight 186.442737779537 BP Diastolic BP Location Tested BP Systolic BP Type 84 130 Fetus Heart Rate Present A 150 Present Fetus Movement A Yes Comments Patient is having contractio ns, hip pain, discharge and swelling. precautions and education, has testing scheduled. +FM, mfm monitoring blood sugars f/u 2 weeks Flowsheet Date 09/23/2024 Hammonds Score Blood Edema Fundus Height Fundus Units Glucose Ketones Leukocytes Nitrite Labor Signs Protein Cervic Dilation Cervic Effacement Cervic Station Type Weight in lbs Pre/Post Dialysis Refused Weight 187.110594892385 BP Diastolic BP Location Tested BP Systolic BP Type 58 L arm 105 sitting Fetus Heart Rate Present Fetus Movement Comments Flowsheet Date 09/23/2024 Hammonds Score Blood Edema Fundus Height Fundus Units Glucose Ketones Leukocytes Nitrite Labor Signs Protein Cervic Dilation Cervic Effacement Cervic Station neg none Type Weight in lbs Pre/Post Dialysis Refused 187.614360023492 BP Diastolic BP Location Tested BP Systolic [...] Type Weight in lbs Pre/Post Dialysis Refused 186.736750683559 BP Diastolic BP Location Tested BP Systolic BP Type 76 L arm 124 sitting Fetus Heart Rate Present Fetus Movement Comments Flowsheet Date 09/30/2024 Hammonds Score Blood Edema Fundus Height Fundus Units Glucose Ketones Leukocytes Nitrite Labor Signs Protein Cervic Dilation Cervic Effacement Cervic Station Type Weight in lbs Pre/Post Dialysis Refused Weight 186.478100397723 BP Diastolic BP Location Tested BP Systolic [...] Weight in lbs Pre/Post Dialysis Refused Weight 189.587146810711 BP Diastolic BP Location Tested BP Systolic BP Type 73 L arm 108 sitting Fetus Heart Rate Present Fetus Movement Comments Flowsheet Date 10/07/2024 Hammonds Score Blood Edema Fundus Height Fundus Units Glucose Ketones Leukocytes Nitrite Labor Signs Protein Cervic Dilation Cervic Effacement Cervic Station Type Weight in lbs Pre/Post Dialysis Refused 189.663930764549 BP Diastolic BP Location Tested BP Systolic [...] Type Weight in lbs Pre/Post Dialysis Refused 187.843658262479 BP Diastolic BP Location Tested BP Systolic [...] Weight in lbs Pre/Post Dialysis Refused Weight 187.85938990377 BP Diastolic BP Location Tested BP Systolic BP Type 80 L arm 130 sitting Fetus Heart Rate Present A 155 Fetus Movement A Yes Comments Good movement. NST at hospital tomorrow. Was seen by MFM yesterday for insulin adjustments. Labor precautions reviewed. RTC 1 week. Flowsheet Date 10/28/2024 Hammonds Score Blood Edema Fundus Height Fundus Units Glucose Ketones Leukocytes Nitrite Labor Signs Protein Cervic Dilation Cervic Effacement Cervic Station Type Weight in lbs Pre/Post Dialysis Refused BP Diastolic BP Location Tested BP Systolic BP Type Fetus Heart Rate Present Fetus Movement Comments Flowsheet Date 10/28/2024 Hammonds Score Blood Edema Fundus Height Fundus Units Glucose Ketones Leukocytes Nitrite Labor Signs Protein Cervic Dilation Cervic Effacement Cervic Station Type Weight in lbs Pre/Post Dialysis Refused 189.247203706559 BP Diastolic BP Location Tested BP Systolic BP Type 89 L arm 143 sitting Fetus Heart Rate Present Fetus Movement A Yes Comments doing well IOL next week, NS T today, denies anton, viusal changes, epigastric pain, precautions and education, f/u one week Menstrual History Last Menstrual Date Menses Monthly [...]
--- OUTSIDE RECORDS SUMMARY | 2024-10-31 07:14 | XMS_ITS | Clinical Summary ---
Author Organization [facility] [employer] Address [address] [place] [address] Care Team Providers Care Brick Veneer Maker Name Role Phone Abbi Cardenas MD Primary Care Provider [phone] Source Comments [facility] [employer],non-owned Affiliates and Associated Physician Practices is amultiple site organization consisting of ambulatory clinics and hospital sitesin [place], [place], [place] and [place]. This disclosure is being madepursuant to the Care Everywhere program and may not contain all information available regarding this patient. Last updated 18.[facility] [employer] Allergies No known active allergies Medications * [...] hyperglycemia, without long-term current use of insulin ([facility]) Inject 3 (three) mg subcutaneously every 7 days 2 mL 3 024 Active Additional Information Patient not taking.Reason: Provider adjusted, Informant: Patient, Reported on 08/24/2024 lancetsIndicat ions:Type 2 diabetes mellitus with hyperglycemia, without long-term current use of insulin ([facility]) Use 1 (one) Each 2 times daily 60 Each 11 024 Active Additional Information Patient not taking.Reason: Provider adjusted, Informant: Patient, Reported on 08/24/2024 Baqsimi One Pack 3 MG/DOSE POWD [place] 1 Cartridge into the nose as needed 1 Each 025 Active insulin pen needle (Novofine) 32G X 6 MM MISCIndication s: complicated by pre-existing type 2 diabetes in first trimester ([facility]) 1 (one) Each by Injection route 5 times daily 200 Each 5 025 Active Continuous Glucose Sensor (Dexcom G7 Sensor) MISCIndication s: complicated by pre-existing type 2 diabetes in first trimester ([facility]) Use 1 Each continuous Use [...] 02/22/2020 Assessment & Plan (05/16/2020 3:12 PM BLACK AND WHITE PRINTER OPERATOR): Currently treating with weekly counseling and getting benefit. Previously on sertraline with some benefit, stopped when trying for . Praised her commitment to counseling. Assessment & Plan (04/25/2020 9:36 AM BLACK AND WHITE PRINTER OPERATOR): Currently treating with counseling and getting benefit. Previously on sertraline with some benefit, stopped when trying for . Assessment & Plan (04/11/2020 12:07 PM BLACK AND WHITE PRINTER OPERATOR): Currently treating with counseling and getting benefit. Previously on sertraline with some benefit, stopped when trying for . Assessment & Plan (03/28/2020 5:19 PM BLACK AND WHITE PRINTER OPERATOR): Currently treating with counseling. Previously on sertraline with some benefit, stopped when trying for . Anxiety remains improved with counseling and not problematic. Assessment & Plan (02/22/2020 11:06 AM BLACK AND WHITE PRINTER OPERATOR): Currently treating with counseling. Previously on sertraline with some benefit, stopped when trying for . Anxiety improved with counseling and not problematic. History of depression 02/22/2020 Overview (02/22/2020): G1 affected, took medication, G2 and G3 mildly affected. Assessment & Plan (02/22/2020 11:08 AM BLACK AND WHITE PRINTER OPERATOR): G1 affected, took medication, G2 and G3 mildly affected. Remains at risk for mood deterioration during and , monitor mood at visits, and closely in the period. Migraines 02/22/2020 Assessment & Plan (03/28/2020 5:19 PM BLACK AND WHITE PRINTER OPERATOR): Notes improvement, unable to picker tender helper Riboflavin. Understands to report return, especially for her to be evaluated for preeclampsia. Assessment & Plan (02/22/2020 12:08 PM BLACK AND WHITE PRINTER OPERATOR): History of migraines outside of , worsened [...] (06/01/2024): Assessment & Plan (05/23/2020 3:40 PM BLACK AND WHITE PRINTER OPERATOR): Anatomy ultrasound complete, accelerated abdominal circumference noted [...] MFM recommendations: 1. Close contact with our die operator to optimize glycemic control on at least [...] feeding. Assessment & Plan (05/16/2020 3:11 PM BLACK AND WHITE PRINTER OPERATOR): Anatomy ultrasound complete, accelerated abdominal circumference noted [...] MFM recommendations: 1. Close contact with our die operator to optimize glycemic control on at least [...] order. Assessment & Plan (05/09/2020 10:40 AM BLACK AND WHITE PRINTER OPERATOR): Anatomy ultrasound complete, accelerated abdominal circumference noted today Pre-diabetes prior to , monitoring with frequent hemoglobin A1cs with PCP Recent A1c: 5.2% on 03/14, 6.3% on 11/27 CMP: creatinine: 0.54, ALT: 6, AST: 14; protein/creatinine ratio: 0.08 TSH: 1.33 Post prandial dinners with elevations; fasting glucoses mostly within goal. MFM recommendations: 1. Close contact with our die operator to optimize glycemic control on at least [...] today. Assessment & Plan (04/25/2020 10:36 AM BLACK AND WHITE PRINTER OPERATOR): Anatomy ultrasound complete, with AGA growth identified 04/11 Pre-diabetes prior to , monitoring with frequent hemoglobin A1cs with PCP Recent A1c: 5.2% on 03/14, 6.3% on 11/27 CMP: creatinine: 0.54, ALT: 6, AST: 14; protein/creatinine ratio: 0.08 TSH: 1.33 Engaged in making changes, and exercising Glucoses mostly at goal with some elevations. MFM recommendations: 1. Close contact with our die operator to optimize glycemic control on at least [...] Reports plan to do this with primary Instrument Person. NST done here today and reactive. 9. [...] visit. Assessment & Plan (04/11/2020 12:17 PM BLACK AND WHITE PRINTER OPERATOR): Anatomy ultrasound complete, with AGA growth identified today Pre-diabetes prior to , monitoring with frequent hemoglobin A1cs with PCP Recent A1c: 5.2% on 03/14 CMP: creatinine: 0.54, ALT: 6, AST: 14; protein/creatinine ratio: 0.08 TSH: 1.33 Engaged in making changes, and exercising Missing glucose checks. Hyperglycemia persists with some post prandial data, fastings mostly improved. MFM recommendations: 1. Close contact with our die operator to optimize glycemic control on at least [...] Reports plan to do this with primary Instrument Person. 8. Twice daily kick counts, seek care if not getting 10 movements in two hours 9. 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 10. Typical delivery recommended at 39 weeks in uncomplicated diabetic ; further recommendations on timing of delivery will depend on glycemic control and surveillance. Assessment & Plan (02/29/2020 12:38 PM BLACK AND WHITE PRINTER OPERATOR): Anatomy ultrasound complete, with AGA growth identified, 2 weeks ago. Pre-diabetes prior to , monitoring with frequent hemoglobin A1cs with PCP. Engaged in making changes, compliant with glucose monitoring. Fasting and post prandial breakfast hyperglycemia noted. MFM recommendations: 1. Close contact with our die operator to optimize glycemic control on at least [...] comorbidity) Assessment & Plan (05/23/2020 3:41 PM BLACK AND WHITE PRINTER OPERATOR): Total weight gain: 9 pounds, following diabetic diet, exercising. MFM recommendations: 1. Limit weight gain to 0-15 pounds. Active weight loss is discouraged. 2. Serial growth ultrasounds. testing driven by co-morbidity of diabetes. 3. DVT warnings. Assessment & Plan (05/16/2020 3:11 PM BLACK AND WHITE PRINTER OPERATOR): Total weight gain: 8 pounds, following diabetic diet, exercising. MFM recommendations: 1. Limit weight gain to 0-15 pounds. Active weight loss is discouraged. 2. Serial growth ultrasounds. testing driven by co-morbidity of diabetes. 3. DVT warnings. Assessment & Plan (05/09/2020 10:20 AM BLACK AND WHITE PRINTER OPERATOR): Total weight gain: 6 pounds, following diabetic diet, exercising. MFM recommendations: 1. Limit weight gain to 0-15 pounds. Active weight loss is discouraged. 2. Serial growth ultrasounds. testing driven by co-morbidity of diabetes. 3. DVT warnings. Assessment & Plan (02/29/2020 12:40 PM BLACK AND WHITE PRINTER OPERATOR): Total weight gain: 3 pounds, following diabetic [...] daily. Assessment & Plan (02/22/2020 12:02 PM BLACK AND WHITE PRINTER OPERATOR): Total weight gain: 4 pounds, following diabetic [...] pregnancies. Assessment & Plan (05/23/2020 3:40 PM BLACK AND WHITE PRINTER OPERATOR): Diagnosed during adolescence and treated for 2 [...] this. Assessment & Plan (05/16/2020 3:16 PM BLACK AND WHITE PRINTER OPERATOR): Diagnosed during adolescence and treated for 2 [...] this. Assessment & Plan (05/09/2020 10:18 AM BLACK AND WHITE PRINTER OPERATOR): Diagnosed during adolescence and treated for 2 [...] agreeable. Assessment & Plan (04/25/2020 9:35 AM BLACK AND WHITE PRINTER OPERATOR): Diagnosed during adolescence and treated for 2 [...] place. Assessment & Plan (04/11/2020 12:27 PM BLACK AND WHITE PRINTER OPERATOR): Diagnosed during adolescence and treated for 2 [...] place. Assessment & Plan (03/28/2020 5:32 PM BLACK AND WHITE PRINTER OPERATOR): Diagnosed during adolescence and treated for 2 [...] . Assessment & Plan (02/29/2020 12:31 PM BLACK AND WHITE PRINTER OPERATOR): Diagnosed during adolescence and treated for 2 [...] place. Assessment & Plan (02/22/2020 12:11 PM BLACK AND WHITE PRINTER OPERATOR): Diagnosed during adolescence and treated for 2 [...] 1.33 Assessment & Plan (03/28/2020 5:26 PM BLACK AND WHITE PRINTER OPERATOR): Anatomy ultrasound complete, with AGA growth identified, 03/14 Pre-diabetes prior to , monitoring with frequent hemoglobin A1cs with PCP Recent A1c: 5.2% on 03/14 CMP: creatinine: 0.54, ALT: 6, AST: 14; protein/creatinine ratio: 0.08 TSH: 1.33 Engaged in making changes, glycemic control improved with some persistent hyperglycemia MFM recommendations: 1. Close contact with our die operator to optimize glycemic control on at least [...] surveillance. Assessment & Plan (02/22/2020 11:59 AM BLACK AND WHITE PRINTER OPERATOR): Anatomy ultrasound complete, with AGA growth identified, last week. Pre-diabetes prior to , monitoring with frequent hemoglobin A1cs with PCP. Engaged in making changes and has done so with diet. Plans to change to recommended Levemir and Humalog per our recommendation, continues to have some fasting and post prandial hyperglycemia. [facility] recommendations: 1. Close contact with our die operator to optimize glycemic control on at least [...] Care Team Description 10/26/2024 1:45 PM CDT - 10/26/2024 11:59 PM CDT Hospital Encounter [facility] [address] [place] [address] Divya Lemus MD Discharge Disposition: Home or Self Care 10/19/2024 1:45 PM CDT - 10/19/2024 11:59 PM CDT Hospital Encounter [facility] [address] [place] [phone] Austin Mar MD Discharge Disposition: Home or Self Care 10/12/2024 1:41 PM CDT - 10/12/2024 11:59 PM CDT Hospital Encounter [facility] [address] [place] [phone] Divya Lemus MD Discharge Disposition: Home or Self Care 10/05/2024 1:43 PM CDT - 10/05/2024 11:59 PM CDT Hospital Encounter [facility] [address] [place] [phone] Austin Mar MD Discharge Disposition: Home or Self Care 09/28/2024 1:45 PM CDT - 09/28/2024 11:59 PM CDT Hospital Encounter [facility] [address] [place] [phone] Austin Mar MD Discharge Disposition: Home or Self Care 09/21/2024 12:45 PM CDT - 09/21/2024 11:59 PM CDT Hospital Encounter [facility] [address] [place] [phone] Xavier Jenkins MD Head, Karin Kilpatrick MD Discharge Disposition: Home or Self Care 09/21/2024 8:54 AM CDT - 09/21/2024 12:44 PM CDT Hospital Encounter [facility] [address] [place] [address] Austin Mar MD Discharge Disposition: Home or Self Care 09/21/2024 8:54 AM CDT - 09/21/2024 12:44 PM CDT Hospital Encounter [facility] - Cardiology [address] [place] [address] Jasmyn Lopez MD Discharge Disposition: Home or Self Care 08/24/2024 1:45 PM CDT - 08/24/2024 11:59 PM CDT Hospital Encounter [facility] [address] [place] [address] Austin Mar MD Discharge Disposition: Home or Self Care 08/05/2024 Telephone [facility] [address] [place] [phone] Teresa Cabrera, CARRIER OPERATOR-UX ENGINEER Appointment 08/05/2024 Travel 08/03/2024 Orders Only [facility] [address] [place] [phone] Iveth Watson RN from Last 3 Months Family History Medical [...] AM CDT Legal Sex Female 12:43 PM BLACK AND WHITE PRINTER OPERATOR Gender Identity Female 02/20/2022 9:30 AM CDT [...] Care Team (Late st Contact Info) Description 11/17/2024 9:00 AM CDT Office Visit [facility] - Endocrinology [address] [place] [phone] Gaby Weber APRN-UX ENGINEER [address] [place] [address] [place] [phone] 01/20/2025 10:30 AM CDT Office Visit [facility] - GI [address] [place] [address], [place] [phone] Marcia Kaba CARRIER OPERATOR-UX ENGINEER [address] [place] [address] [place] [address] Health Maintenance Due Date Last Done Comments DTAP/TDAP/TD VACCINES (1 - Tdap) 2012 HEPATITIS B VACCINE (1 of 3 - 19+ 3-dose series) 2012 PNEUMOCOCCAL VACCINE (1 of 2 - PCV) 2012 HPV VACCINE (1 - 3-dose SCDM series) 2020 DIABETES RETINOPATHY SCREENING 11/13/2023 DIABETES-FOOT EXAM WITH MONOFILAMENT 11/13/2023 COVID-19 VACCINE ( - season) 2023 DEPRESSION SCREENING 04/20/2024 OB-ONE HOUR [...] CDT History of splenomegaly Encounter for screening ([facility]) History of chronic hypertension during adolescence Supervision of high-risk of young multigravida (HCC) Pre-existing type 2 diabetes affecting , antepartum Insulin dependent type 2 diabetes mellitus (HCC) Obesity (BMI 35.0-39.9 without comorbidity) 37 weeks gestation of ([facility]) Encounter for ultrasound to assess growth ([facility]) BIOPHYSICAL PROFILE W NST Routine 10/19/2024 2:14 PM CDT History of splenomegaly Encounter for screening (HCC) History of chronic hypertension during adolescence Supervision of high-risk of young multigravida (HCC) Pre-existing type 2 diabetes affecting , antepartum Insulin dependent type 2 diabetes mellitus (HCC) Obesity (BMI 35.0-39.9 without comorbidity) 37 weeks gestation of (HCC) Encounter for ultrasound to assess growth (HCC) BIOPHYSICAL PROFILE W NST Routine 10/12/2024 2:02 PM CDT History of splenomegaly Supervision of high-risk of young multigravida (HCC) History of chronic hypertension during adolescence Insulin dependent type 2 diabetes mellitus (HCC) Pre-existing type 2 diabetes affecting , antepartum Obesity (BMI 35.0-39.9 without comorbidity) Encounter for ultrasound (HCC) BIOPHYSICAL PROFILE W NST Routine 10/05/2024 2:57 PM CDT History of splenomegaly Supervision of high-risk of young multigravida (HCC) History of chronic hypertension during adolescence Insulin dependent type 2 diabetes mellitus (HCC) Pre-existing type 2 diabetes affecting , antepartum Obesity (BMI 35.0-39.9 without comorbidity) Encounter for ultrasound (HCC) BIOPHYSICAL PROFILE W NST Routine 09/28/2024 1:48 PM CDT History of [...] RATIO URINE TIMED PANEL 06/13/2024 7:27 AM BLACK AND WHITE PRINTER OPERATOR COMPREHENSIVE METABOLIC PANEL 06/13/2024 7:27 AM BLACK AND WHITE PRINTER OPERATOR HEMOGLOBIN A1C - POINT OF CARE (AMB) [...] Rh negative OB History 6. Para 5 [id number] 1. live 2010. Gest. age 37 w [...] Pre-existing type 2 diabetes mellitus, in Procedures 22602: US Uterus Limited 80519: Biophysical Profile W NST [employer] [employer] PACS Anatomical Region Laterality Modality Other 10/26/2024 2:25 PM CDT R Kal Syed MD [facility] ORDERABLES Edited Result - Final * SONOGRAM - COMPLETE (09/21/2024 2:09 PM CDT) Only the most recent of2 resultswithin the time period is included. Linked Results Indication ======== Type II Diabetes, Metabolic dysfunction associated steatotic liver disease (MASLD) History ====== General History Blood group: 0, Rh negative OB History 6. Para 5 [id number] 1. live 2010. Gest. age 37 w [...] d 11/14/2024 Assigned dating based on stated MRAITZA, selected on 05/04/2024 32 w + 2 [...] 5 lb 0 oz EFW by Hadlock (ZCG-IO-EC-FL) LGA Growth Overview = Exam date GA [...] volume is normal. The biophysical profile is 01/27. Follow-up ======== Twice weekly testing with weekly BPP/NST and twice weekly NST Coding ====== Procedures 81722: [place] [address]: Biophysical Profile W NST [facility] PACS Anatomical Region Laterality Modality Other 09/21/2024 2:09 PM CDT R Kal Syed MD [facility] ORDERABLES Edited Result - Final * ECHO COMPLETE CG (09/21/2024 10:07 AM CDT) Anatomical Region Laterality Modality Ultrasound 09/21/2024 8:59 AM CDT Narrative 09/21/2024 3:39 PM CDT Name: Milly Islas Patient Exam Info Gender: Female Patient Status: O/P : 1995 Admit Date: 09/21/2024 Exam Date/Time: 09/21/2024 8:59 AM Site: [facility] Current Location: [facility] EStaffOrdering Provider: Austin Mar Interpreting Physician: Jasmyn Lopez MD Chucking And Sawing Machine Operator: Neville Cifuentes [facility] Study Info Procedure: ECHO COMPLETE CG Indications: [...] 09/21/2024 Exam Date/Time: 09/21/2024 8:59 AM Site: [facility] Current Location: [facility] EStaffOrdering Provider: Asutin Mar Interpreting Physician: Jasmyn Lopez MD Chucking And Sawing Machine Operator: Neville Cifuentes [facility] Study Info Procedure: ECHO COMPLETE Indications: O99.211 - Obesity affecting in first [...] RATIO URINE TIMED PANEL (06/13/2024 7:27 AM BLACK AND WHITE PRINTER OPERATOR) Microalbumin 24 Hour Urine 7 <30 mg/24 [...] g/24 h [facility] Comment: Test Performed at: [facility] [employer] [facility] [address] [place] [address] CHA TIPTON MD 06/13/2024 7:27 AM BLACK AND WHITE PRINTER OPERATOR 06/13/2024 7:28 AM BLACK AND WHITE PRINTER OPERATOR Abbi BHATT LAB - URINE CHEMISTR Y ORDERABLES Final Result [facility] [address] [place] [address] * (ABNORMAL) COMPREHENSIVE METABOLIC PANEL (06/13/2024 7:27 AM BLACK AND WHITE PRINTER OPERATOR) Glucose 130(H) 65 - 99 mg/dL [facility] [...] 29 U/L [facility] Comment: Test Performed at: [facility] [facility] [address] [place] [address] CHA TIPTON MD 06/13/2024 7:27 AM BLACK AND WHITE PRINTER OPERATOR 06/13/2024 7:28 AM BLACK AND WHITE PRINTER OPERATOR Abbi Campbell CARRIER OPERATOR-UX ENGINEER LAB - CHEMISTRY AMBROSIO BONILLA Final Result [facility] [address] [place] [address] * HEMOGLOBIN A1C - POINT OF CARE (AMB) [facility] (02/19/2024 10:23 AM CDT) Hemoglobin A1c POCT 5.5 % [facility] [address] [facility] BLOOD SPECIMEN / Unknown 02/19/2024 10:23 AM CDT Gaby Weber CARRIER OPERATOR-UX ENGINEER LAB - POINT OF CARE OR DERABLES Final Result Performing Organization Address City/[facility]/ZIP Co de Phone Number [facility] [address] [facility] [address] [facility] [place] [address], [facility] [phone] * HEPATITIS C AB W/RFLX TO HCV RNA QN PCR (08/06/2023 8:31 AM CDT) Hepatitis C Antibody NON-REACTI VE NON-REACT JAISON [facility] Comment: HCV antibody was non-reactive. There is no laboratory evidence of HCV infection. In most cases, no further action is required. However, if recent HCV exposure is suspected, a test for HCV RNA (test code 34921) is suggested. For additional information please refer to http://education.Pzoom/faq/FGY52k6 (This link is being provided for informational/ educational purposes only.) Test Performed at: [employer] [address] [place] [address] CHA TIPTON MD Blood BLOOD SPECIMEN / Unknown 08/06/2023 8:31 AM CDT 08/06/2023 8:33 AM CDT aMrcia Kaba CARRIER OPERATOR-UX ENGINEER LAB - CHEMISTRY ORD ERABLES Final Result Performing Organization Address [facility] Co de Phone Number [facility] [address] [place] [address] * HIV-1 HIV-2 ANTIBODY + HIV P24 [...] purpose. For additional information please refer to http://education.Diaferon.Standardized Safety/faq/IUD906 (This link is being provided for informational/ educational purposes only.) The performance of this assay has not been clinically validated in patients less than 2 years old. Test Performed at: [facility] [employer] [address] [facility] RAYSA MCALLISTER [address] CHA TIPTON MD Blood BLOOD SPECIMEN / Unknown 08/06/2023 8:31 AM CDT 08/06/2023 8:33 AM CDT Marcia Kaba CARRIER OPERATOR-UX ENGINEER LAB - CHEMISTRY ORD ERABLES Final Result Performing Organization Address City/State/[facility] Co de Phone Number [facility] [address] [place] [address] from Last 3 Months or Most Recently Relevant to Health Maintenance Insurance [facility] MEDICAID - [place] Care Teams Brick Veneer Maker Relationship Specialty Start Date End Date Abbi Cardenas MD [address] [place] [address] [place] [address] PCP - General 02/26/11
--- OUTSIDE RECORDS SUMMARY | 2024-10-31 07:15 | XMS_ITS | Continuity of Care Document ---
Author Organization [facility] Address [address] [place] [phone] Phone Care Team Providers Care Youth Teacher Name Role Phone Unavailable Unavailable Unavailable Procedures Procedure Date OFFICE/OUTPATIENT VISIT, [facility] Advance Directives Directive Yes / No Effective Date File Name No Information Encounters Encounter Description Practice Location Reason(s) For Visit Diagnoses Date Provider Providers Copied on Encounter OFFICE/OUTPAT IENT VISIT, [facility], [address] [place] [address], [id number] tel:[phone] [facility] HeadacheMyop iaAstigmatis m, unspecified 2 No Information Referring Provider: Nga Bhagat PA-C, [facility] [address] [place], [address]. tel:[phone] Family History Family Member Type Diagnosis Age At Onset No Information Payers Payer name Insurance type Covered democrat ID Authoriza tion(s) [place] Medicaid MC [id number] Social History Type Description Quantity Date Captured [...]
--- OUTSIDE RECORDS SUMMARY | 2024-10-31 07:15 | XMS_ITS | Data Portability ---
Author Organization [facility] [place], Main Office Address [address] [place] [address] Assessment No assessment recorded. Plan of Treatment Reminders Order Date Submit Date Provider Last Modified By Organization Details Last Modified Time Details Appointments None recorded. Lab HbA1c (hemoglobin A1c), blood [address] (Lab), [address] [place], [address], 3 09:22:23 BMP, serum or plasma [address] (Lab), [address] [place], [address], 3 09:23:07 Referral None recorded. Procedures None recorded. Surgeries None recorded. Imaging None recorded. Medication Orders metformin ER 500 mg tablet,exte nded release 24 hr 2022 [facility] [address] [place], [address], 3 08:27:32 sertraline 50 mg tablet 2022 023 [id number] 1 [facility] [address]25, [address] [place], [address], 3 09:14:41 Patient TargetsNo targets recorded. Patient [...] 2016, 39( ppl.1 ):s13 -s22 Not Available [facility] (Lab) [address] [place], [address], 04/18/2021 21:26:44 04/18/20 21 04/18/2021 URINA LYSIS /IRIS W/O MICRO leukocytes negati ve nisa/u L negati ve- Not Available [facility] (Lab) [address] [place], [address], 04/18/2021 20:21:56 04/18/20 21 04/18/2021 URINA LYSIS /IRIS W/O MICRO color light- yellow Not Available [facility] (Lab) [address] [place], [address], 04/18/2021 20:21:56 04/18/20 21 04/18/2021 URINA LYSIS /IRIS W/O MICRO appear clear Not Available [facility] (Lab) [address] [place], [address], 04/18/2021 20:21:56 04/18/20 21 04/18/2021 URINA LYSIS /IRIS W/O MICRO specific gravity 1.020 1.001- 1.030 Not Available [facility] (Lab) [address] [place], [address], 04/18/2021 20:21:56 04/18/20 21 04/18/2021 URINA LYSIS /IRIS W/O MICRO pH 5.5 pH_un its 5.0-9. 0 Not Available [facility] (Lab) [address] [place], [address], 04/18/2021 20:21:56 04/18/20 21 04/18/2021 URINA LYSIS /IRIS W/O MICRO nitrite negati ve negati ve- Not Available [facility] (Lab) [address] [place], [address], 04/18/2021 20:21:56 04/18/20 21 04/18/2021 URINA LYSIS /IRIS W/O MICRO protein 10 mg/dL negati ve- abnormal Not Available [facility] (Lab) [address] [place], [address], 04/18/2021 20:21:56 04/18/20 21 04/18/2021 URINA LYSIS /IRIS W/O MICRO glucose >/=100 0 mg/dL normal - abnormal Not Available [facility] (Lab) [address] [place], [address], 04/18/2021 20:21:56 04/18/20 21 04/18/2021 URINA LYSIS /IRIS W/O MICRO ketones negati ve mg/dL negati ve- Not Available [facility] (Lab) [address] [place], [address], 04/18/2021 20:21:56 04/18/20 21 04/18/2021 URINA LYSIS /IRIS W/O MICRO urobilinogen normal mg/dL normal - Not Available [facility] (Lab) [address] [place], [address], 04/18/2021 20:21:56 04/18/20 21 04/18/2021 URINA LYSIS /IRIS W/O MICRO bilirubin negati ve mg/dL negati ve- Not Available [facility] (Lab) [address] [place], [address], 04/18/2021 20:21:56 04/18/20 21 04/18/2021 URINA LYSIS /IRIS W/O MICRO blood negati ve mg/dL negati ve- Not Available [facility] (Lab) [address] [place], [address], 04/18/2021 20:21:56 04/18/20 21 04/18/2021 URINA LYSIS /IRIS W/O MICRO white blood cells 0-8 /i??h pfi?? 0-8 Not Available [facility] (Lab) [address] [place], [address], 04/18/2021 20:21:56 04/18/20 21 04/18/2021 URINA LYSIS /IRIS W/O MICRO red blood cells 0-4 /i??h pfi?? 0-4 Not Available [facility] (Lab) [address] [place], [address], 04/18/2021 20:21:56 04/18/20 21 04/18/2021 URINA LYSIS /IRIS W/O MICRO bacteria occasi onal abnormal Not Available [facility] (Lab) [address] [place], [address], 04/18/2021 20:21:56 04/18/20 21 04/18/2021 URINA LYSIS /IRIS W/O MICRO mucous occasi onal /i??l pfi?? abnormal Not Available [facility] (Lab) [address] [place], [address], 04/18/2021 20:21:56 04/18/20 21 04/18/2021 URINA LYSIS /IRIS W/O MICRO squamous epithelial packed field /i??l pfi?? abnormal Not Available [facility] (Lab) [address] [place], [address], 04/18/2021 20:21:56 04/18/20 21 04/18/2021 URINA LYSIS /IRIS W/O MICRO non-squamous epithelial [address] [facility] (Lab) [address] [place], [address], 04/18/2021 20:21:56 04/18/20 21 04/18/2021 URINA LYSIS /IRIS W/O MICRO unclassified cast 3 abnormal Not Available [facility] (Lab) [address] [place], [address], 04/18/2021 20:21:56 04/18/20 21 04/18/2021 LIPID PANEL cholesterol 286 mg/dL 140-19 9 high NIH SAMUEL NSUS RECOM MENDA TION FOR DAVI STERO L: ADULT CHILD LOW RISK: <200 <170 BORDE RLINE : <200- 239 ----- HIGH RISK: >240 >200 Not Available [facility] (Lab) [address] [place], [address], 04/18/2021 20:16:23 04/18/20 21 04/18/2021 LIPID PANEL triglyceride s 1072 mg/dL 0-150 high NIH SAMUEL NSUS REPOR T RECOM MENDA TION FOR TRIGL YCERI RANDY: ADULT CHILD LOW RISK: <150 ----- BODER LINE: 150-1 99 ----- HIGH RISK: >200 ----- Not Available [facility] (Lab) [address] [place], [address], 04/18/2021 20:16:23 04/18/20 21 04/18/2021 LIPID PANEL HDL cholesterol 35 mg/dL 40- low Not Available [facility] (Lab) [address] [place], [address], 04/18/2021 20:16:23 04/18/20 21 04/18/2021 COMP MET PANEL /LIVE R carbon dioxide 27 mmol/ L 22-30 Not Available [facility] (Lab) [address] [place], [address], 04/18/2021 20:16:11 04/18/20 21 04/18/2021 COMP MET PANEL /LIVE R sodium 136 mmol/ L 137-14 5 low Not Available [facility] (Lab) [address] [place], [address], 04/18/2021 20:16:11 04/18/20 21 04/18/2021 COMP MET PANEL /LIVE R potassium 4.5 mmol/ L 3.5-5. 1 Not Available [facility] (Lab) [address] [place], [address], 04/18/2021 20:16:11 04/18/20 21 04/18/2021 COMP MET PANEL /LIVE R chloride 98 mmol/ L 98-107 Not Available [facility] (Lab) [address] [place], [address], 04/18/2021 20:16:11 04/18/20 21 04/18/2021 COMP MET PANEL /LIVE R agap 15.5 mmol/ L 14-22 Not Available [facility] (Lab) [address] [place], [address], 04/18/2021 20:16:11 04/18/20 21 04/18/2021 COMP MET PANEL /LIVE R glucose 346 mg/dL 70-99 high Not Available [facility] (Lab) [address] [place], [address], 04/18/2021 20:16:11 04/18/20 21 04/18/2021 COMP MET PANEL /LIVE R BUN 16 mg/dL 8-19 Not Available [facility] (Lab) [address] [place], [address], 04/18/2021 20:16:11 04/18/20 21 04/18/2021 COMP MET PANEL /LIVE R creatinine 0.50 mg/dL 0.66-1 .25 low Not Available [facility] (Lab) [address] [place], [address], 04/18/2021 20:16:11 04/18/20 21 04/18/2021 COMP MET PANEL /LIVE R GFR >60 Refer ence Range : [place] ge GFR Healt hy Adult : >60 [...] is less accur ate, requi ring clini jovayn judgm ent on a case- by-ca se [...] calcu lator is avail able on the [facility] websi te: https :[email or web address] [email or web address].walter ayala.o rg/pr ofess ional s/kdo qi/gf r_cal culat or Not Available [facility] (Lab) [address] [place], [address], 04/18/2021 20:16:11 04/18/20 21 04/18/2021 COMP MET PANEL /LIVE R alkaline phosphatase 151 U/L 38-126 high Not Available [facility] (Lab) [address] [place], [address], 04/18/2021 20:16:11 04/18/20 21 04/18/2021 COMP MET PANEL /LIVE R alanine aminotransfe rase 83 U/L 0-35 high Not Available [facility] (Lab) [address] [place], [address], 04/18/2021 20:16:11 04/18/20 21 04/18/2021 COMP MET PANEL /LIVE R aspartate aminotransfe rase 74 U/L 15-37 high Not Available [facility] (Lab) [address] [place], [address], 04/18/2021 20:16:11 04/18/20 21 04/18/2021 COMP MET PANEL /LIVE R bilirubin, total 0.70 mg/dL 0.20-1 .30 Not Available [facility] (Lab) [address] [place], [address], 04/18/2021 20:16:11 04/18/20 21 04/18/2021 COMP MET PANEL /LIVE R bilirubin, conjugated (direct) 0.00 mg/dL 0.00-0 .30 Not Available [facility] (Lab) [address] [place], [address], 04/18/2021 20:16:11 04/18/20 21 04/18/2021 COMP MET PANEL /LIVE R biliurubin,u ncong. (indirect) 0.60 mg/dL 0.00-1 .1 Not Available [facility] (Lab) [address] [place], [address], 04/18/2021 20:16:11 04/18/20 21 04/18/2021 COMP MET PANEL /LIVE R calcium 9.3 mg/dL 8.4-10 .2 Not Available [facility] (Lab) [address] [place], [address], 04/18/2021 20:16:11 04/18/20 21 04/18/2021 COMP MET PANEL /LIVE R total protein 7.5 g/dL 6.3-8. 2 Not Available [facility] (Lab) [address] [place], [address], 04/18/2021 20:16:11 04/18/20 21 04/18/2021 COMP MET PANEL /LIVE R albumin 4.6 g/dL 3.4-5. 0 Not Available [facility] (Lab) [address] [place], [address], 04/18/2021 20:16:11 04/18/20 21 04/18/2021 COMP MET PANEL /LIVE R globulin 2.9 g/dL 2.6-4. 2 Not Available [facility] (Lab) [address] [place], [address], 04/18/2021 20:16:11 04/18/20 21 04/18/2021 COMP MET PANEL /LIVE R A/G ratio 1.6 ratio 1.0-2. 0 Not Available [facility] (Lab) [address] [place], [address], 04/18/2021 20:16:11 01/08/20 22 01/07/2022 US, abdom en No observ ation record ed. [id number], [address], 06/18/2022 02:32:41 06/17/19 23 06/17/2022 US, obste tric No observ ation record ed. [id number], [address], 06/18/2022 02:32:41 Result Notes None recorded. Problems Name Problem SNOMED Code Status Onset Date Resolution Date Notes Provider Name and Address Organization Details Recorded Time Amenorrhe a 24216532 Active Not Available [facility] 3 02:28:49 Abnormal weight gain 523565713 Active Not Available [facility] 3 02:28:49 Contact dermatiti s caused by urushiol from [employer] rodriguez 128338854 Active Not Available [facility] 3 02:28:50 Vitamin D deficienc y 06216400 Active 2019 Not Available [facility] 3 02:28:50 Depressiv e disorder 14127831 Active Not Available [facility] 3 02:28:50 Migraine 87547466 Active Not Available [facility] 3 02:28:50 Menorrhag ia 899337116 Active Not Available [facility] 3 02:28:50 Obesity 953292045 Active Not Available [facility] 3 02:28:50 Dermatoph ytosis 54144835 Active Not Available [facility] 3 02:28:50 Keratosis pilaris 6356498 Active Not Available [facility] 3 02:28:50 Otitis media 10125042 Active Not Available [facility] 3 02:28:50 Diabetes mellitus 80620656 Active borderline Not Available [facility] 3 02:28:50 Mixed anxiety and depressiv e disorder 699695697 Active 2022 MICHAEL Haddad [address], [place], [address] , [employer] 3 08:29:23 Upper respirato ry infection 37227924 Active 2022 MICHAEL Haddad [address], [place], [address] , [employer] 3 11:32:29 Problem Notes None recorded. Medical [...] Updated DateTime 04/24/2021 33.9 kg/m2 147.32 cm 48883.96 g Not Available On license of [facility] 06/18/2022 02:26:51 Date Recorded Body mass index (BMI) Body height Oxygen saturation Oxygen saturation in Arterial blood by Pulse oximetry Heart rate Body temperature Body weight Systolic And Diastolic Provider Name and Address Organization Details Last Updated DateTime 2 33.9 kg/m2 147.32 cm 97 % 97 % 74 /min 97.9 [degF] 27526.9 6 g 120/88 mm[Hg] Not Available [facility] 3 02:26:44 Date Recorded Body height Body mass index (BMI) Body weight Body temperature Heart rate Oxygen saturation Oxygen saturation in Arterial blood by Pulse oximetry Systolic And Diastolic Provider Name and Address Organization Details Last Updated DateTime 3 147.32 cm 34.3 kg/m2 58320.1 5 g 97 [degF] 56 /min 98 % 98 % 125/80 mm[Hg] KELLY [place] - [place] [employer] [facility] 3 08:11:03 Date Recorded Body mass index (BMI) Body height Oxygen saturation Oxygen saturation in Arterial blood by Pulse oximetry Heart rate Body temperature Body weight Systolic And Diastolic Provider Name and Address Organization Details Last Updated DateTime 2 32.4 kg/m2 147.32 cm 98 % 98 % 80 /min 97.1 [degF] 29698.8 2 g 120/80 mm[Hg] Not Available [facility] 02:26:44 Social History Question Answer Notes LastModified by Organizat [employer] Details LastModified Time Tobacco Smoking Status Never Smoker Not Available [facility] 06/18/2022 02:23:53 What Is Your Level Of Caffeine Consumption? Occasional [id number] Information not available 06/18/2022 In The 14 Days Before Symptom Onset, Have You Had Close Contact With A Laboratory-confir med COVID-19 While That Case Was Ill? No [id number] Information not available 06/18/2022 In The 14 Days Before Symptom Onset, Have You Had Close Contact With A Person Who Is Under Investigation For COVID-19 While That Person Was Ill? No [id number] Information not available 06/18/2022 Have There Been Any Changes To Your Family Or Social Situation? Yes Mom Passed [id number] Information not available 06/18/2022 Have You Ever Been Counseled For Unhealthy Alcohol Use? No [id number] Information not available 06/18/2022 Has Tobacco Cessation Counseling Been Provided? No [id number] Information not available 06/18/2022 Have You Recently Traveled Abroad? Yes [id number] Information not available 06/18/2022 Do You Have Any Dietary Restrictions? No [id number] Information not available 06/18/2022 Sex: Unknown Functional Status Question Answer Note LastModified by Organizat [employer] Details LastModified Time Do you use any illicit or recreational drugs? No [id number] Information not available 06/18/2022 Do you or have you ever used any other forms of tobacco or nicotine? No [id number] Information not available 06/18/2022 What is your level of alcohol consumption? Occasional [id number] Information not available 06/18/2022 What is your exercise level? Occasional [id number] Information not available 06/18/2022 Mental Status None recorded. Family History Relationship Description Onset Age of this Age Resolved Age Notes LastModified by Organization Details LastModified Time Mother Congestive heart failure 59 [id number] Not available 06/18/2022 02:26:29 Medical History No [...] virus, trivalent, preservative 2 completed Not Available [facility] 06/18/2022 02:32:16 Influenza, split virus, quadrivalent, preservative 8 completed Not Available [facility] 06/18/2022 02:32:16 Influenza, split virus, quadrivalent, PF 9 completed Not Available [facility] 06/18/2022 02:32:16 Past Encounters Encounter ID Performer Location Encounter Start Date Encounter Closed Date Diagnosis/Indication Diagnosis SNOMED-CT Code Diagnosis ICD10 Code Diagnosis Note [id number] [facility] Primary Care [place] [address] [place] [address] 07/06/2020 00:00:00 07/06/2020 21:10:[id number] [facility] Primary Care [place] [address] [place] [address] 04/18/2021 00:00:00 04/18/2021 20:29:[id number] [facility] Primary Care [place] [address] [place] [address] 04/24/2021 00:00:00 04/24/2021 14:28:[id number] [facility] Primary Care [place] [address] [place] [address] 05/29/2021 00:00:00 05/29/2021 20:36:[id number] [facility] Primary Care [facility] [address] [place] [address] 11/27/2021 00:00:00 11/27/2021 18:45:40 [id number] MICHAEL Haddad [facility] Primary Care [facility] [address] [facility] [address] [facility] [address] 07/29/2022 08:00:58 07/29/2022 08:46:48 Diabetes mellitus 52164979 E11.9 Diabetes has been managed mainly by [...] future. Mixed anxi ety and depressive disorder 501368925 F41.8 Has been off medication since and [...] Rodríguez Member ID Guarantor Name 07/29/2022 1 [facility] [id number] Milly Islas [id number] Millyroni Islas 07/29/2022 1 [place] Milly Islas [id number] Milly Islas 10/25/2022 1 [facility] - DOS ON OR AFTER 20 (MEDICAID REPLACEMENT - HMO) Milly Alvareziola [id number] Milly Islas Notes Date Note Type Note [...] short acting at mealtimes. MICHAEL Haddad [address] [facility], [facility] [address], [place], [address], [facility] Neema 07/29/2022 09:17:55 OBGyn Episode No OBEpisode recorded.
[2024-10-31 07:35] LABS: Hematocrit 34.4 % (37.0-47.0); Hemoglobin 10.8 g/dL (12.0-15.0); Immature Granulocyte Percent A 0.4 % (0-0.5); Lymphocytes Absolute Auto 2.16 K/mm3 (0.9-3.2); Mean Corpuscular HGB Conc 31.4 g/dl (32-36); Mean Corpuscular Hemoglobin 25.2 pg (26-34); Mean Corpuscular Volume 80.2 fl (80-100); Nucleated Red Blood Cells Absolute Auto 0.000 K/mm3 (0.0-0.012); Nucleated Red Blood Cells Perc 0.0 % (0.0-0.2); Platelet Count Result 183 k/mm3 (150-375); Red Blood Count 4.29 M/mm3 (4.2-5.4); White Blood Count 9.7 K/mm3 (4.5-10.0)
--- NOTE | 2024-10-31 07:51 | WPDOBADMIT ---
Obstetrics - Admit Note Admission Note: record reviewed. No pertinent additions to the history and/or any subsequent changes in the physical findings that are not consistent with the expected course of the were found. Patient presents in spontaneous labor. c/b type 2 DM, followed by MFM and well controlled. Expectant management. Additions to the history and/or subsequent changes in the physical findings follow. None.
[2024-10-31] MEDS: LACTATED RINGERS 1,000 ML 125 ML IV CONT ×2 (08:00→09:00)
[2024-10-31 08:20] LABS: Syphilis IgG/IgM Antibody Non-Reactive (Nonreactive)
[2024-10-31] MEDS: PHENYLEPHRINE 1,000 MCG/10 ML SYRINGE 100 MCG IV PUSH ×2 (09:08→09:26)
--- NOTE | 2024-10-31 10:21 | PM.OBPNLAB ---
Pain Control Date/time seen: 10/31/24 10:21 Pain control: epidural Pelvic Exam Dilation (cm): 6 Effacement (%): 70 station: -2 Amniotic membrane status: Ruptured (clear fluid) Contractions Monitor mode: External Contraction frequency: 3 Contraction pattern: Regular Status status: Category l Assessment and Plan Assessment: active labor Plan: continuous present management
[2024-10-31] MEDS: OXYTOCIN 30 UNITS/NS 500 ML 30 UNITS/500 ML BAG 999 UNITS IV CONT (10:45)
[2024-10-31] MEDS: OXYTOCIN 30 UNITS/NS 500 ML 30 UNITS/500 ML BAG 125 UNITS IV CONT (11:15)
--- NOTE | 2024-10-31 11:36 | P.PCNOB_ITS ---
OB - Vaginal Delivery Note Procedure Delivery date: 10/31/24 Route of delivery: Episiotomy description: None Specimen: No Anesthesia type: Epidural Disposition: Floor Complications: No immediate complications Narrative: See H&P and notes for details on patient's admission and labor. She progressed to complete cervical dilation and at the appropriate time began pushing. With adequate expulsive efforts by the mother, the baby's head was delivered without difficulty. Nuchal cord was not present. The baby's right shoulder was anterior and delivered under the pubic symphysis without difficulty. The posterior shoulder and the rest of the baby delivered without difficulty. The umbilical cord was doubly clamped and cut after 60 seconds of delayed cord clamping. Care of the was then assumed by the nursing staff. [place] Baby Date of : 10/31/24 Gestational Age by Date: 38 Infant gender: Female presentation: vertex position: Left Occiput Anterior Placenta delivery description: Expressed Cord Vessel Description: 3 Vessels and Delayed Cord Clamping
[2024-10-31] MEDS: LORATADINE 10 MG TABLET PO (12:31)
--- NOTE | 2024-10-31 14:26 | WPDANESEPPF ---
Anes - Initial Pre Proc Eval Procedure: labor epidural Date/Time: 10/31/24 14:26 Surgeon: Adarsh Ferguson MD Pre Op Diagnosis: labor pain Pre Op Diagnosis: Labor Patient Data Age: 29 Gender: F Height: 1.52 m Weight: 86 kg Last Vital Signs Temp 37.1 C 10/31/24 13:45 Pulse 77 10/31/24 13:45 Resp 16 10/31/24 13:45 BP 134/78 10/31/24 13:45 Pulse Ox 100 10/31/24 13:45 O2 Del Method Room Air 10/31/24 13:45 Allergies Allergy/AdvReac Type Severity Reaction Status Date / Time No Known Allergies Allergy Verified 10/26/24 22:02 Home Medications ?Medication ?Instructions ?Recorded ?Confirmed ?Type prenat.vits,jovany,uli-jadl-knsqd 1 tablet PO HS 05/09/20 10/26/24 History ferrous sulfate 325 mg (65 mg 325 mg PO HS 06/17/22 10/26/24 History iron) tablet (FeroSul) aspirin 81 mg chewable tablet 162 mg PO DAILY 10/17/24 10/26/24 History (Aspirin Childrens) insulin glargine 100 unit/mL (3 1 unit subcut .with meals 10/17/24 10/26/24 History mL) subcutaneous pen (Lantus Solostar U-100 Insulin) insulin glargine U-300 conc 300 74 unit subcut BID 10/17/24 10/26/24 History unit/mL (1.5 mL) subcutaneous pen (Toujeo SoloStar U-300 Insulin) loratadine 10 mg tablet 10 mg PO DAILY 10/17/24 10/26/24 History (Allerclear) Laboratory Tests 10/31/24 10/31/24 07:25 08:25 WBC 9.7 K/mm3 (4.5-10.0) RBC 4.29 M/mm3 (4.2-5.4) Hgb 10.8 L g/dL (12.0-15.0) Hct 34.4 L % (37.0-47.0) MCV 80.2 fl (80-100) MCH 25.2 L pg (26-34) MCHC 31.4 L g/dl (32-36) RDW 15.7 H % (11.5-14.5) Plt Count 183 k/mm3 (150-375) MPV 10.6 H fl (7.4-10.4) Immature Gran % (Auto) 0.4 % (0-0.5) Neut % (Auto) 71.7 % (45.5-73.1) Lymph % (Auto) 22.2 % (18.3-44.2) Isabella % (Auto) 4.5 % (2.6-8.5) Eos % (Auto) 1.0 % (0-4.4) Baso % (Auto) 0.2 % (0.2-1.2) Lymph # (Auto) 2.16 K/mm3 (0.9-3.2) Isabella # (Auto) 0.4 K/mm3 (0.1-0.6) Eos # (Auto) 0.1 K/mm3 (0-0.3) Baso # (Auto) 0.0 K/mm3 (0.0-0.1) Abs Immat Gran (auto) 0.04 H K/mm3 (0.00-0.031) Absolute Neuts (auto) 7.0 H K/mm3 (1.3-6.7) Absolute Nucleated RBC 0.000 K/mm3 (0.0-0.012) Nucleated RBC % 0.0 % (0.0-0.2) POC Capillary Glucose 81 mg/dl (65-105) Syphilis IgG/IgM Ab Non-reactive (Nonreactive) Blood Type O Negative Antibody Screen Negative Patient hx anesthesia problems: none Family hx anesthesia problems: none Results Review: All pre-operative results and documents have been reviewed as part of the pre-operative evaluation. [facility] Past Medical History Medical History (Updated 10/31/24 @ 14:27 by Alfred Esteban DO) GDM (gestational diabetes mellitus) Family History Family History Mother Family history of coronary artery disease Hypertension Chronic obstructive pulmonary disease Grandparent Diabetes mellitus Family history of coronary artery disease Hypertension Father Pre-diabetes Family history of elevated blood lipids Hypertension Social History Social History Years smoked: 5 Smoking status: Never smoker Tobacco type: cigarettes Second hand tobacco smoke exposure: No Smoking end date: 04/20/12 Alcohol intake: current Substance use: never Do You Feel Safe in your Home?: Yes Lack of Transportation: No Lack of Food: Never True Current Housing: I Have Housing Concerned About Future Housing: No Difficulty Paying Gas/Electric Bills: No Difficulty Paying for Meds: No Currently Unemployed: No Education: Associate Degree Difficulty w/ Childcare or Family Care: No Spiritual care concerns: No Anes - Eval Final PreProcedure Day of Procedure 10/31/24 14:26 Patient weight: obese ASA classification: III Anesthetic plan: proceed Anesthesia type and monitoring: regional epidural and standard monitoring Results Review: All pre-operative results and documents have been reviewed as part of the pre-operative evaluation. Informed Consent: The patient's anesthetic plan and its attendant risks and benefits were discussed with the patient/family/POA. Questions were solicited and answers provided to the satisfaction of the patient/family/POA.
[2024-10-31] MEDS: metFORMIN HCL XR 500 MG TAB.SR.24H PO (18:01)
[2024-10-31] MEDS: ACETAMINOPHEN 325 MG TABLET 650 MG PO (18:40)
[2024-10-31] MEDS: IBUPROFEN 600 MG TABLET PO (18:40)
[2024-10-31] MEDS: BENZOCAINE 20% AER SPR (*SP) 56 GM CAN 1 SPRAY TOPICAL (20:22)
[2024-10-31] MEDS: WITCH HAZEL 40 PADS 1 PAD TOPICAL (20:23)
[2024-10-31] MEDS: DIBUCAINE 1% OINTMENT 30 GM TUBE 1 APPLIC TOPICAL (20:23)
[2024-11-01] MEDS: INSULIN GLARGINE (*BKC) 100 UNITS/ML 20 UNITS SUB-Q ×2 (00:04→21:21)
[2024-11-01] MEDS: ACETAMINOPHEN 325 MG TABLET 650 MG PO ×2 (01:12→07:44)
[2024-11-01] MEDS: IBUPROFEN 600 MG TABLET PO ×3 (01:13→16:11)
[2024-11-01 01:30] VITALS: BP 106/65; PULSE 91; RESP 16; TEMP 36.8; O2SAT 99
[2024-11-01 05:57] LABS: Hematocrit 30.3 % (37.0-47.0); Hemoglobin 9.3 g/dL (12.0-15.0)
[2024-11-01] MEDS: MULTIVIT/MIN/PREN/FOL AC/IRON TABLET 1 TAB PO (07:43)
[2024-11-01] MEDS: metFORMIN HCL XR 500 MG TAB.SR.24H PO ×2 (07:44→16:11)
[2024-11-01] MEDS: DOCUSATE SODIUM 100 MG CAPSULE PO ×2 (07:44→16:10)
[2024-11-01 07:50] VITALS: BP 124/78; PULSE 64; RESP 18; TEMP 36.7; O2SAT 99
--- NOTE | 2024-11-01 09:02 | P.PNOB_ITS ---
OB - PN: Subj Subjective Date/time seen: 11/01/24 09:02 Interval history: PPD#1 Doing well, no issues Pain controlled Voiding OB - PN: Obj Data Labs 11/01/24 05:04 Labs: Laboratory Results - last 24 hr 10/31/24 10/31/24 11/01/24 17:57 23:59 05:04 Hgb 9.3 L Hct 30.3 L POC Capillary Glucose 101 193 H 11/01/24 07:15 Hgb Hct POC Capillary Glucose 126 H OB - PN A/P Assessment and Plan (1) Type 2 diabetes mellitus: Code(s): E11.9 - Type 2 diabetes mellitus without complications Status: Acute Assessment and Plan: - metformin 500mg BID and lantus 20u qHS (2) (spontaneous vaginal delivery): Code(s): O80 - Encounter for full-term uncomplicated delivery Status: Acute Plan day: 1 Plan: routine care and discharge home Time Spent With Patient Time: Total time spent is greater than 50% in coordination of care (as documented) at patient's floor/unit and/or counseling patient: Review of Systems 2 Review of Systems: All systems reviewed & are unremarkable except as noted in HPI and below Exam 2 Const: General: comfortable and no acute distress O rientation/consciousness: patient oriented x3 Resp: Effort & Inspection: normal respiratory effort
--- NOTE | 2024-11-01 10:32 | WPDANLDPN2 ---
Anes-Prog Note L&D Date/Time: 11/01/24 10:32 Comfortable throughout: labor and delivery Neuraxial method: epidural Epidural/Spinal procedure site: clean & non-tender Neuro status: Neuro function grossly intact. Cardiovascular status: normal Respiratory status: normal Airway patency: baseline Mental status: baseline Vital Signs: Last Vital Signs Temp 36.7 C 11/01/24 07:50 Pulse 64 11/01/24 07:50 Resp 18 11/01/24 07:50 BP 124/78 11/01/24 07:50 Pulse Ox 99 11/01/24 07:50 O2 Del Method Room Air 10/31/24 13:45 Pain score (VAS): 0 I/O: Intake & Output 10/31/24 11/01/24 11/01/24 23:59 07:59 15:59 Intake Total 100 Balance 100 Patient feedback: Patient satisfied with anesthetic care.
--- NOTE | 2024-11-01 11:20 | PM.OBDSVD ---
DS: Admitting Diagnosis Discharge Date 11/01/24 Admitting Diagnosis spontaneous labor DS: Discharge Diagnosis Discharge Diagnosis (1) (spontaneous vaginal delivery): Code(s): O80 - Encounter for full-term uncomplicated delivery Status: Acute (2) Type 2 diabetes mellitus: Code(s): E11.9 - Type 2 diabetes mellitus without complications Status: Acute OB - DS: Summary OB Procedures : None OB Procedures Intrapartum: Spontaneous Vag Delivery OB Procedures: : None Peripartum Data Episiotomy description: None Time Spent with Patient Time attestation: Total time spent providing and/or coordinating discharge services: DS: Data Data Completed and Pending Labs on day of discharge: Labs from last 24 hours 11/01/24 11/01/24 10/31/24 07:15 05:04 23:59 Hgb 9.3 L Hct 30.3 L POC Capillary Glucose 126 H 193 H 10/31/24 17:57 Hgb Hct POC Capillary Glucose 101 Discharge Plan Discharge Attending physician on discharge: Adarsh Freguson Discharging Clinician: Adarsh Ferguson Patient Disposition: Home Activity: may shower, as tolerated and pelvic rest Diet: as tolerated Patient Instructions: Antibiotic Form Patient Language: Tamazight Stand Alone Forms: General Discharge Information Follow-up/Referrals: Adarsh Ferguson MD [Physician] - 1 Week Discharge Medications: New ibuprofen 600 mg Tablet 600 mg PO Q6H PRN (Reason: Cramping) Qty: 30 0RF metformin 500 mg tablet 500 mg PO BID Qty: 60 3RF Continued prenat.vits,jovany,[id number] Tablet 1 tablet PO HS ferrous sulfate [FeroSul] 325 mg (65 mg iron) tablet 325 mg PO HS loratadine [Allerclear] 10 mg tablet 10 mg PO DAILY Changed insulin glargine [Lantus Solostar U-100 Insulin] 100 unit/mL (3 mL) insulin pen 20 unit SUBCUT QHS 30 Days Qty: 0 0RF Patient Comments: sliding scale dose with meals Discontinued aspirin [Aspirin Childrens] 81 mg tablet,chewable 162 mg PO DAILY insulin glargine U-300 conc [Toujeo SoloStar U-300 Insulin] 300 unit/mL (1.5 mL) insulin pen 74 unit subcut BID Date of admission: 10/31/24 06:14 Primary Care Provider: LucienAmada Admitting Provider: Adarsh Ferguson Attending physician on admission: Adarsh Ferguson Condition: Stable
[2024-11-01 19:56] VITALS: BP 143/83; PULSE 65; RESP 18; TEMP 36.5; O2SAT 100
[2024-11-02 08:25] VITALS: BP 123/80; PULSE 72; RESP 16; TEMP 36.6; O2SAT 98
[2024-11-02 09:00] VITALS: PULSE 72; RESP 16; O2SAT 98
[2024-11-02] MEDS: DOCUSATE SODIUM 100 MG CAPSULE PO (09:10)
[2024-11-02] MEDS: MULTIVIT/MIN/PREN/FOL AC/IRON TABLET 1 TAB PO (09:10)
[2024-11-02] MEDS: metFORMIN HCL XR 500 MG TAB.SR.24H PO (09:11)
--- NOTE | 2024-11-02 09:30 | PC.NURSE ---
Consulted with mother concerning needs and she shared her ability to independently latch infant optimally without pain. Mother is feeding appropriately for growth of and understands stimulating to eat if needed. Infant has had appropriate feedings in the last 24 hours meets the outcomes for weight, output, blood sugar and jaundice at this time. Reinforced understanding of milk production, transition of milk, signs of adequate intake, transition of stool, prevention/relief of engorgement, plugged ducts, mastitis, responsive watching for feeding cues, the different methods of stimulating to breastfeed 1-3 hours after the start of the last feeding, community resources, and when to call a provider using the resource of the feeding sheet along with the mom and baby guide. Mother voiced understanding of the information shared, is confident to continue effectively her infant at home, when to call for assistance, denies any additional assistance or education at this time. Reported to the Primary RN.
[2024-11-03 10:28] VITALS: BP 129/73; PULSE 64; RESP 18; TEMP 36.8; O2SAT 100
== END 2024-11-02 14:03 | disposition home or self-care (01) | DRG 807 ==
LOC: ANHLDR 07:11 → ANHOB2 13:33
PROVIDERS: Admitting Provider Obstetrics & Gynecology; Visit Provider Obstetrics & Gynecology
DX: O24.12 Pre-existing type 2 diabetes mellitus, in childbirth (principal); Z37.0 Single live birth; O13.4 Gestational [pregnancy-induced] hypertension without significant proteinuria, complicating childbirth; Z3A.38 38 weeks gestation of pregnancy; Z79.4 Long term (current) use of insulin; Z79.84 Long term (current) use of oral hypoglycemic drugs
CPT/HCPCS: 36415; 82948; 85014; 85018; 85025; 86593; 86850; 86900; 86901; A9270; J1815; J2371; J2590; J2795; J7120